=== PATIENT | male | born 1950 | race Two or more races ===

== ENCOUNTER 2024-10-02 13:22 | Outpatient (CLI) | payer OTHER, SELFPAY ==
--- OUTSIDE RECORDS SUMMARY | 2023-10-23 05:00 | XMS_ITS | Encounter Summary ---
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 This section includes the names of all active insurance providers for the patient. Insurance Provider Type of Coverage Plan Name Start of Policy Coverage End of Policy Coverage Group Number Member ID Insurance Provider's Telephone Number Policy Jim's Name Patient's Relationship to Policy Jim MEDICARE (WNR) MEDICARE (M) PART B Jun 06, 2009 PART B [id number] [phone] DAVON HICKS PATIENT MEDICARE (WNR) MEDICARE (M) PART A Jun 06, 2009 PART A [id number] [phone] DAVON HICKS PATIENT Selected Encounter This section includes the information on record at [place] for the Encounter. Date/Time Encounter Type Encounter Description Reason Provider Source Oct 23, 2023 10:00 AM OFFICE O/P NEW HI 60 MIN PRIMARY CARE/MEDICINE ICD-10-CM G47.33 Obstructive sleep apnea (adult) (pediatric) JESSI WHELAN Encounter Template Text not used by [place] Assessments - Encounter Diagnoses This section includes the primary and secondary diagnoses documented for the Encounter. Date/Time Primary/Secondary Diagnosis Diagnosis Name Provider Source Oct 24, 2023 03:15 PM PRIMARY Obstructive sleep apnea (adult) (pediatric) JESSI WHELAN CB Oct 24, 2023 03:15 PM SECONDARY Allergic rhinitis, unspecified JESSI WHELAN [facility] Oct 24, 2023 03:15 PM SECONDARY Chronic ischemic heart disease, unspecified TIP,JESSI LARIOS [facility] Oct 24, 2023 03:15 PM SECONDARY Contact with and exposure to other hazardous substances JESSI WHELAN ALEX Oct 24, 2023 03:15 PM SECONDARY Encounter for screening, unspecified JESSI WHELAN ALEX Oct 24, 2023 03:15 PM SECONDARY Essential (primary) hypertension JESSI WHELAN HARRIET JOHNSON Plan of Treatment: Future Appointments (+ 6 months) and Future Tests (+/- 45 days) The Plan of Treatment section includes future care activities for the patient from all [place] treatmentfacilities. This section includes future appointments and future orders which are active, pending or scheduled. Future Appointments This section includes appointments that were scheduled to occur 6 months from the date of the Encounter, up to a maximum of 20 appointments. The data comes from all [place] treatment facilities. Appointment Date/Time Appointment Type Appointme nt Facility Name Dec 26, 2023 09:15 AM AMBULATORY - NONE [facility] ([facility]) Vital Signs: All taken on the encounter date This section contains inpatient and outpatient Vital Signs collected on the date of the Encounter. Date/Time Temperature Pulse Blood Pressure Respiratory Rate SP02 Pain Height Weight Body Mass Index Source Oct 23, 2023 10:14 AM 129/71 OLIVER LARIOS [facility] Oct 23, 2023 10:02 AM 98.2 65 145/86 16 97 5 67 189.9 30 OLIVER LARIOS [facility] Social History: Smoking Status (Most current) and Tobacco Use (All prior to encounter date) This section includes the most current, and the historical, smoking and tobacco- related health factors from the [place] facility where the Encounter took place. Current Smoking Status This section includes the most current smoking, or tobacco-related health factor, from the [place] facility where the Encounter took place. Date/Time Current Smoking Status Juan long Oct 23, 2023 10:00 AM VA-TOBACCO QUIT 15 YRS OR MORE OLIVER LARIOS [facility] Tobacco Use History This section includes a history of the smoking, or tobacco-related health factors, that were collected on or before the date of the Encounter. The data comes from the [place] facility where the Encounter took place. Date/Time Smoking Status/Tobacco Use Comment F acility Oct 23, 2023 10:00 AM VA-TOBACCO QUIT 15 YRS OR MORE OLIVER GARCIA Advance Directives: All historical and current Section Date Range: From patient's date of to the date document was created. This section includes ALL of a patient's completed or amended VA Advance and Rescinded Directives. The entries below indicate that a directive exists for the patient, but an actual copy is not included with this document. The data comes from all [place] facilities. Date Advance Directives Provider Source Mar 29, 2003 ADVANCE DIRECTIVE TRISTON PAPPAS [facility] Encounter Notes: All associated encounter notes This section contains the clinical notes associated to the Encounter. Date/Time Encounter Note(s) Provider Source Oct 23, 2023 10:59 AM ADMINISTRATIVE NOT E: LOCAL TITLE: AFTER VISIT SUMMARY NOTE STANDARD TITLE: ADMINISTRATIVE NOTE DICT DATE: OCT 23, 2023@10:59:14 ENTRY DATE: OCT 23, 2023@10:59:14 DICTATED BY: JESSI WHELANER: URGENCY: STATUS: COMPLETED The patient was provided with a copy of an after-visit summary at the conclusion of the visit. A copy of the after-visit summary provided to the patient is available in [employer]. SCANNED DOCUMENT SIGNATURE NOT REQUIRED Electronically Filed: 10/23/2023 by: JESSI WHELAN M.D. Physician, JESSI Arellano Oct 23, 2023 10:20 AM PRIMARY CARE NOTE: LOCAL TITLE: CB PROGRESS NOTE - OLIVER LARIOS STANDARD TITLE: PRIMARY CARE NOTE DATE OF NOTE: OCT 23, 2023@10:20 ENTRY DATE: OCT 23, 2023@10:20:58 AUTHOR: JESSI WHELAN: URGENCY: STATUS: COMPLETED Assessment and Plan: #. Obstructive sleep apnea. Sleep medicine consult placed for new CPAP machine. He had a VA sleep study in the past. #. Hypertension. Managed by his non-VA provider on amlodipine 5 mg daily. #. Coronary artery disease. CABG x4 vessel in 2015. Has 9 stents. He has occasional brief chest pain, but has not needed to use his sublingual nitroglycerin. He sees a biochemistry teacher through the [facility]. He is treated with aspirin 81 mg daily, clopidogrel 75 mg daily and rosuvastatin 40 mg daily. #. Allergic rhinitis. Symptoms managed with fluticasone nasal spray, levocetirizine 5 mg daily. #. Annual healthcare maintenance. Screenings/reminders done per nurse note and per below. Return to clinic: Within 3 years as he is managed outside the [facility] Time documentation: 60 minutes total patient care time on the day of service, which included nursing and physician [id number] time with the patient (history/exam/discussion and counseling about concerns/reminders, medication reconciliation), reviewing records, ordering studies, coordinating care and documenting in the medical record. (x ) Patient/Caregiver indicates readiness to learn, verbalizes understanding, agreement and satisfaction with the treatment plan. Patient/Caregiver doesn't have any further questions today. Nurse's notes reviewed from today. JOSEPH HICKS is a 73 year old MALE here to re-establish [place] primary care at the [facility]. He was last seen through the [facility] in 2012 Co-managed care: [facility], Dr. Milan Campos. None [place] pharmacy is [facility] in [place]. HPI: Moved to [place] in 2021 from the [facility]. The patient would like a referral to the sleep medicine clinic as he needs a new CPAP machine. His was recalled. He has had low back pain and left elbow pain for over 20 years. He rates his pain a 5 out of 10 today. h/o cardiac arrest twice (while stents being put in)--his stents are plugging up but he does not need another procedure yet--biochemistry teacher at [facility] ([facility] Dr. Flores. Has occas. chest pain--has sublingual nitroglycerin but has not had to take it--he has occasional chest pain at rest or with activity that will only last for a few seconds. He has some shortness of breath with activity. No leg swelling. 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 He had a similar episode in . No history of colon polyps--had Cologuard in September and it was negative ROS: Comprehensive review of systems otherwise negative Family History: both parents had CAD--dad got stents, carotid endarterectomy -- he age 84--heart failure; mom age 87 of old age; a brother and sister have heart problems; has 8 siblings, all living Social History: started smoking age 20 and stopped 1977 (up to 4-5 packs per day); no alcohol use. . No significant other. : [employer] - 1991. Was in [facility] and exposed to chemicals Past Surgical History: right shoulder surgery (had recurrent shoulder dislocations) appendectomy partial colectomy (diverticular disease) CABG x 4 2014 ([facility]) coronary stenting (total 9 stents, 2016 twice) Active problems - Computerized Problem List is the source for the followin. JOINT PAIN-L/LEG 2. SPRAIN OF KNEE LEG NOS 3. Hypertension, Nos 4. Xerosis, Cutis 5. Dermatitis, Contact Unspec 6. Lumbar Radiculopathy 7. Tendonitis * 8. PTSD * 9. Unspecified Sleep APNEA 10. Pain, Low Back 11. Rehabilitation, Vocational * 12. OVERWEIGHT Allergies: CODEINE (Apr 20, 1996) OXYCODONE (Oct 07, 2005) HYDROCODONE & APAP (Oct 07, 2005) EXAM: VS: Temp: 98.2 F [36.8 C] (10/23/2023 10:02) BP: 129/71 (10/23/2023 10:14) Pulse:65 (10/23/2023 10:02) Resp: 16 (10/23/2023 10:02) Pain: 5 (10/23/2023 10:02) Weight: WEIGHTS IN LAST 6 MONTHS - NONE FOUND BMI: 29.8 Pulse Ox: 97% (10/23/2023 10:02) General Appearance: well-nourished, well-groomed, in no acute distress Eyes: normal conjuctiva and sclera, PERRL, EOMI HENT: normocephalic, hearing grossly normal, no nasal drainage, oral mucosa pink/moist/no lesions, no pharyngeal erythema Neck: supple, no lymphadenopathy, no thyromegaly or mass. 2+ carotid pulses. Cardiac: RRR, S1 and S2 normal, no murmurs/gallops/rubs; no lower extremity edema, no cyanosis Lungs: clear to ausculation bilateraly, normal respiratory effort Abdomen: normal bowel sounds, soft, nontender, nondistended, no hepatosplenomegaly or mass. Extremities: Moves all extremities equally Neuro: CNII-XII grossly intact. Deep tendon reflexes 2+ bilateral in biceps and patella, gait normal Skin: warm, dry, no rash or concerning skin lesions Psych: normal affect, no apparent memory problem, normal thought processing and speech production Colonoscopy GAP Reminder: Recommendations are needed in the clinical reminder system following the patient's most recent colorectal cancer screening/surveillance test (Colonoscopy, Sigmoidoscopy or CT Colonography) Average risk screening reminder set 3 years from OCT 23, 2023. Toxic Exposure Screening Follow-Up: Exposure Concern(s): 10/23/2023 Other Environmental Concerns - Toxic Exposure Concern Asbestose Follow-up Question(s): 10/23/2023 No Questions - Toxic Exposure Concern [place]/caregiver has no health or medical concerns related to their concern of environmental exposure. The following connections were provided to the /caregiver: No connections needed at this time AAA Screening: Order Ultrasound Medication Reconciliation: Education Evaluations *Was medication education provided for NEW medications or CHANGES to medications? (including medication name, dose, route, reason for use, and potential side effects). No new medications or medication changes during this encounter. TERATOGENIC MED & CONTRACEPTION REVIEW (Optional)... MEDICATION RECONCILIATION List Given: An updated medication list was provided to the patient/caregiver. Review Done: The medication list shown below was verified for accuracy and it includes all pending medications/active medications/all medications or discontinued within the last 90 days/all remote medications and non-VA medications. If a given category (i.e. remote meds) is not shown, that means that a patient doesn't have a medication(s) in that category. Allergies listed below were also reviewed/updated for accuracy. Allergies/ADR from DoD may not display in CPRS. Use JLV MRT5 - Allergies/ADRs FACILITY ALLERGY/ADR -------- [facility] CODEINE [facility] CODEINE [facility] HYDROCODONE & APAP [facility] OXYCODONE Active and Recently Outpatient Medications (including Supplies): Start Date Active Non-VA Medications Refills Expiration 1) Non-VA AMLODIPINE BESYLATE 5MG TAB Sig: ACTIVE 5MG MOUTH EVERY DAY 2) Non-VA ASPIRIN TAB SiMG MOUTH ACTIVE EVERY DAY 3) Non-VA CLOPIDOGREL BISULFATE 75MG TAB ACTIVE SiMG MOUTH EVERY DAY 4) Non-VA FLUTICASONE PROP 50MCG 120D NASAL ACTIVE INHL Si SPRAYS EACH NOSTRIL EVERY DAY 5) Non-VA LEVOCETIRIZINE DIHYDROCHLORIDE ACTIVE 5MG TAB SiMG MOUTH EVERY DAY NEEDED 6) Non-VA NITROGLYCERIN AEROSOL,SUBLINGUAL ACTIVE Si.4MG NEEDED 7) Non-VA ROSUVASTATIN CA 40MG TAB Sig: ACTIVE 40MG MOUTH AT BEDTIME /es/ JESSI WHELAN M.D. Physician, Oliver Larios [facility] Signed: 10/24/2023 15:16 JESSI WHELAN [facility] Oct 23, 2023 10:04 AM PRIMARY CARE VASU BAILEY NOTE: LOCAL TITLE: CBOC NURSING PROGRESS NOTE STANDARD TITLE: PRIMARY CARE NURSING NOTE DATE OF NOTE: OCT 23, 2023@10:04 ENTRY DATE: OCT 23, 2023@10:05:05 AUTHOR: TARA NICHOLS COSIGNER: URGENCY: STATUS: COMPLETED TYPE OF VISIT: Appointment Check In Type of appointment: In-person appointment REASON FOR VISIT: New patient ALLERGIES: CODEINE (Apr 20, 1996) OXYCODONE (Oct 07, 2005) HYDROCODONE & APAP (Oct 07, 2005) VITAL SIGNS: Blood Pressure: 145/86 (10/23/2023 10:02) Pulse: 65 (10/23/2023 10:02) Respiration: 16 (10/23/2023 10:02) Temperature: 98.2 F [36.8 C] (10/23/2023 10:02) Weight: 189.9 lb [86.14 kg] (10/23/2023 10:02) Height: 67 in [170.2 cm] (10/23/2023 10:02) BMI: 29.8 O2 Sat: 97% (10/23/2023 10:02) Pain: 5 (10/23/2023 10:02) PAIN SCREEN: Patient is having significant pain that they would like to talk to their provider about today. Old (Chronic) (began more than 6 months ago) Patient states their average pain this past week is 5 Patient states the average number on how the chronic pain affects their enjoyment of life the past week is 5 Patient states during the past week the average number on how the pain has interfered with their general activity is 5 MEDICATION Active Outpatient Medications (including Supplies): Non-VA ACETAMINOPHEN 500MG TAB 500 MG MOUTH EVERY SIX ACTIVE HOURS NEEDED Non-VA ASPIRIN 325MG TAB 325 MG MOUTH EVERY DAY ACTIVE Non-VA CALCIUM 250MG/VITAMIN D 125 UNT TAB 2 TABLETS MOUTH ACTIVE THREE TIMES A DAY Non-VA DOCUSATE NA 100MG CAP 100 MG MOUTH TWICE A DAY ACTIVE Non-VA ISOSORBIDE DINITRATE 10MG ORAL TAB 10MG MOUTH THREE ACTIVE TIMES A DAY Non-VA LISINOPRIL 5MG TAB 2.5MG MOUTH EVERY DAY ACTIVE Non-VA METOPROLOL TARTRATE 50MG TAB 25MG MOUTH TWICE A DAY ACTIVE Non-VA MULTIVITAMIN CAP/TAB 1 TABLET MOUTH EVERY DAY ACTIVE Non-VA NAPROXEN TAB MOUTH NEEDED ACTIVE Non-VA OXYCODONE 5MG TAB 5MG MOUTH EVERY FOUR HOURS ACTIVE NEEDED Non-VA SIMVASTATIN 80MG TAB 40MG MOUTH AT BEDTIME ACTIVE Non-VA ZINC GLUCONATE TAB DAILY ACTIVE Toxic Exposure Screening: The [place]/caregiver was asked if they believe the experienced any toxic exposure(s), such as Airborne Hazards and Open Burn [place], [place] War related exposures, Agent [place] Powder, Radiation, contaminated water at [place] or other such exposures, while serving in the [employer]. [place]/caregiver believes the was exposed to the following while serving in the [employer]: Other exposures: Comment: Asbestose [place]/caregiver was made aware of educational resources and printed information was offered and provided if desired. No questions at this time [place]/caregiver was informed of local points of contact. Contact information for local resources: - Veterans Benefits for claims submission: Have the call or have them visit the following web address for online scheduling: [email or web address] - VA Healthcare Enrollment: [phone] ([phone]) - Find a Aoc Plans Intelligence Officer Chief (VSO): Have the call 4-661-CLGTUDE or look up their VSO at: [email or web address]://[email or web address].org/find-[email or web address]- cvso.html - [facility] Navigators: Polly Martines, [facility] [phone] Toxic Exposure Screening Follow-Up reminder is needed. Name of person notified: Jessi Whelan MD Suicide Screen: C-SSRS Screening [place] Suicide Severity Rating Scale (C-SSRS) screener 1. Over the past month, have you wished you were or wished you could go to sleep and not wake up? No 2. Over the past month, have you had any actual thoughts of killing yourself? No 3. Over the past month, have you been thinking about how you might do this? Response not required due to responses to other questions. 4. Over the past month, have you had these thoughts and had some intention of acting on them? Response not required due to responses to other questions. 5. Over the past month, have you started to work out or worked out the details of how to kill yourself? Response not required due to responses to other questions. 6. If yes, at any time in the past month did you intend to carry out this plan? Response not required due to responses to other questions. 7. In your lifetime, have you ever done anything, started to do anything, or prepared to do anything to end your life (for example, collected pills, obtained a gun, gave away valuables, went to the roof but didn't jump)? No 8. If YES, was this within the past 3 months? Response not required due to responses to other questions. Depression Screening: Perform PHQ-2 A PHQ-2 screen was performed. The score was 0 which is a negative screen for depression. Over the past two weeks, how often have you been bothered by the following problems? 1. Little interest or pleasure in doing things Not at all 2. Feeling down, depressed, or hopeless Not at all Tobacco Pack Year History: Patient used cigarettes in the past, but quit and does not currently use them: Quit smoking GREATER THAN OR EQUAL to 15 years ago. Alcohol Use Screen (AUDIT-C): Alcohol Screen: SCREEN FOR ALCOHOL (AUDIT-C) An alcohol screening test (AUDIT-C) was negative (score=0). 1. How often did you have a drink containing alcohol in the past year? Consider a drink to be a 12 ounce can or bottle of regular beer, 8 ounces of malt liquor, a 5 ounce glass of table wine, or a 1.5 ounce shot of liquor (like scotch, gin, or vodka). Never 2. How many drinks containing alcohol did you have on a typical day when you were drinking in the past year? Response not required due to responses to other questions. 3. How often did you have six or more drinks on one occasion in the past year? Response not required due to responses to other questions. PTSD Screening: PC-PTSD-5 A PTSD screening test (PC-PTSD-5) was negative (score=0). IN THE PAST MONTH, have you ever had any experience that was so frightening, horrible or traumatic. For example: A serious accident or fire a physical or sexual assault or abuse An earthquake or flood A war Seeing someone be killed or seriously injured Having a loved one through homicide or suicide 1. Have you ever experienced this kind of event? YES 2. Had nightmares about the event(s) or thought about the event(s) when you did not want to? NO 3. Tried hard not to think about the event(s) or went out of your way to avoid situations that reminded you of the event(s)? NO 4. Been constantly on guard, watchful, or easily startled? NO 5. Luck numb or detached from people, activities, or your surroundings? NO 6. Luck guilty or unable to stop blaming yourself or others for the event(s) or any problems the event(s) may have caused? NO Influenza Immunization: The patient has received the seasonal influenza vaccine for the current season at another location. Documented: INFLUENZA, UNSPECIFIED FORMULATION Historical Date Administered: Jan 06, 2023 Outside Location: [place], [place] Information Source: FROM OTHER PROVIDER Tobacco Use Screening: The patient is a former tobacco user. The patient quit fifteen or more years ago. Homelessness/Food Insecurity Screen: In the past 2 months, have you been living in stable housing that you own, rent, or stay in as part of a household? Yes - Living in stable housing. Are you worried or concerned that in the next 2 months you may NOT have stable housing that you own, rent, or stay in as part of a household? No - Not worried about housing near future The [place] reports the following: Within the past 12 months, you worried whether your food would run out before you got money to buy more. Never true Within the past 12 months, the food you bought just didn't last and you didn't have money to get more. Never true Food Assistance Programs [facility] Food Assistance Programs [facility] Nursing Annual Screening: Fall History Screen During the past 12 months, have you had any falls? Patient does not report any falls in the past 12 months. MEDICATIONS: Patient is on one of the following medication classes: Antihypertensives, Antidepressants, Antipsychotics, Diuretics, or Controlled substance medication used for pain. Script Talk Screen Are you able to read your prescription bottles with your glasses, magnifiers or other aids? Yes or patient not taking any prescriptions. Skin Screen Patient reports any current pressure ulcers, a history of pressure ulcers, or a wound from a medical auditor or Patient is bed-confined or a wheelchair-user or Patient requires assistance to transfer/change position No, Skin Screen is Negative Home Abuse/Violence Screen Is your home free of abuse and violence? Yes Outpatient Nutrition Screen Body Mass Index (BMI)= 29.8 [place]: Collection DT Specimen Test Name Result Units Ref Range 07/11/2011 11:36 BLOOD HEMOGLOBIN A1C 5.8 % 4.0 - 6.0 [place] Hgb A1C: No data available [place] Hgb A1C: No data available Point of Care Hgb A1C: POC HGB A1C____ Is patient's BMI less than 18.5? No Does patient have swallowing, coughing, or chewing problems affecting oral intake? No Has patient experienced unplanned weight loss or gain greater than 10 pounds over the last 2 months? No Is patient's Hgb A1C (Glycosylated Hemoglobin) greater than 9.5? No Is patient receiving Total Parenteral Nutrition (TPN) or Tube Feedings? No Patient Health Education Screen BARRIERS/SPECIAL NEEDS: No barriers identified PREFERRED STYLE OF LEARNING: No preference stated Client Assistive Service (GRISEL) Screen Does the patient require assistance with outpatient visit? No COVID-19 Immunization: Refused Pfizer Monovalent COVID-19 vaccine Immunization: COVID-19 (PFIZER), MRNA, LNP-S, PF, BALTA-SUCROSE, 30 MCG/0.3 ML (AGES 12+ YEARS) Refusal Reason: PATIENT DECISION Patient refuses all immunization(s) in the COVID-19 group Date Documented: 10/23/23 10:13 /jagjit/ TED [place] CB Signed: 10/23/2023 10:14 TARA NICHOLS OC
--- OUTSIDE RECORDS SUMMARY | 2023-11-27 03:22 | XMS_ITS | Encounter Summary ---
Author Name [facility] [place] [facility] Address [address] [place] [id number] Care Team Providers Care High Tension Tester Name Role Phone JESSI WHELAN Primary Care Provider Unavailabl e Insurance Providers: [...] Policy Jim MEDICARE (WNR) MEDICARE (M) PART A Jun 06, 2009 PART A [id number] DAVON HICKS PATIENT MEDICARE (WNR) MEDICARE (M) PART B Jun 06, 2009 PART B [id number] DAVON HICKS PATIENT Selected Encounter This section includes the information on record at [place] for the Encounter. Date/Time Encounter Type Encounter Description Reason Provider Source Nov 27, 2023 08:22 AM PT EDUCATION NOC INDIVID SLEEP MEDICINE ICD-10-CM G47.33 Obstructive sleep apnea (adult) (pediatric) EMELYN PERALES E Encounter Template Text not used by [place] Assessments - Encounter Diagnoses This section includes the primary and secondary diagnoses documented for the Encounter. Date/Time Primary/Secondary Diagnosis Diagnosis Name Provider Source Nov 27, 2023 08:31 AM PRIMARY Obstructive sleep apnea (adult) (pediatric) EMELYN PERALES [facility] Plan of Treatment: Future Appointments (+ 6 months) and Future Tests (+/- 45 days) The Plan of Treatment section includes future care activities for the patient from all [place] [facility] This section includes future appointments and future orders which are active, pending or scheduled. Future Appointments This section includes appointments that were scheduled to occur 6 months from the date of the Encounter, up to a maximum of 20 appointments. The data comes from all [facility]. Appointment Date/Time Appointment Type Appointme nt Facility Name Dec 26, 2023 09:15 AM AMBULATORY - NONE [facility]) Social History: Smoking Status (Most current) and Tobacco Use (All prior to encounter date) This section includes the most current, and the historical, smoking and tobacco- related health factors from the [place] facility where the Encounter took place. Current Smoking Status This section includes the most current smoking, or tobacco-related health factor, from the [place] facility where the Encounter took place. Date/Time Current Smoking Status Comment Facil ity Oct 30, 2006 11:47 AM FORMER TOBACCO USER 7Y OR GREATE R [facility] Tobacco Use History This section includes a history of the smoking, or tobacco-related health factors, that were collected on or before the date of the Encounter. The data comes from the [place] facility where the Encounter took place. Date/Time Smoking Status/Tobacco Use Comment F acility Oct 05, 2005 01:57 AM NO TOBACCO USE [facility] Advance Directives: All historical and current Section Date Range: From patient's date of to the date document was created. This section includes ALL of a patient's completed or amended [place] Advance and Rescinded Directives. The entries below indicate that a directive exists for the patient, but an actual copy is not included with this document. The data comes from all [place] facilities. Date Advance Directives Provider Source Mar 29, 2003 ADVANCE DIRECTIVE TRISTON PAPPAS [facility] Radiology Reports: +/- 30 days of the encounter Radiology Reports For cases when an order for radiology services may have been completed prior to the date of the Encounter, the report list includes the Radiology Reports that were completed up to 30 days before dateof the Encounter. For cases when an order for radiology services may have been completed after the date of the Encounter, the report list also includes the Radiology Reports that were completed up to30 days after date of the Encounter. The data comes from all [facility]. Date/Time Radiology Report Provider Source Dec 26, 2023 09:08 AM US AORTA (P): JOSEPH HICKS [id number] -1950 M Exm Date: DEC 26, 2023@09:08 Req Phys: JESSI WHELAN Pat Loc: [facility] (Req'g Loc) Img Loc: [facility] Service: [place] [address] (Case [id number] COMPLETE) AAA SCREENING STUDY FOR ABDOMINAL(US Detailed) CPT:35626 Reason for Study: screen for AAA Clinical History: Screen for Abdominal Aortic Aneurysm. IS NOT under investigation for COVID-19 or is COVID-19 negative pt. states h/[facility] AAA [facility]--h/o smoking Responsible provider name and phone number to notify for critical findings if other than user placing the order and pager listed below: User placing orders pager: no pager LAST CREATININE____ Report Status: Verified Date Reported: DEC 26, 2023 Date Verified: DEC 26, 2023 Die Casting Supervisor E-Sig:/ES/SAL MEYER MD Report: Abdominal Aorta Ultrasound (screening) 12/26/2023 Comparison study: None Clinical history: 73-year-old male with smoking history. AAA screening. Findings: On the longitudinal view the AP diameters were as follows: Proximal (suprarenal): 2.8 cm Mid (infrarenal): 2.0 cm Distal: 1.9 cm Right YARIEL: 1.3 cm Left YARIEL: 1.4 cm Impression: 1. The infrarenal abdominal aorta is not aneurysmal. 2. The right common iliac artery is not aneurysmal. 3. The left common iliac artery is not aneurysmal. I, SAL MEYER, have reviewed the images and report. Primary Interpreting Staff: SAL MEYER MD, RADIOLOGIST (Die Casting Supervisor) Primary Interpreting Resident: Caprice SCHILLING, YOUTH LEADER /SAL BHAT [facility] Encounter Notes: All associated encounter notes This section contains the clinical notes associated to the Encounter. Date/Time Encounter Note(s) Provider Source Nov 27, 2023 08:22 AM SLEEP MEDICINE NOT E: LOCAL TITLE: SLEEP MEDICINE NOTE STANDARD TITLE: SLEEP MEDICINE NOTE DATE OF NOTE: NOV 27, 2023@08:22 ENTRY DATE: NOV 27, 2023@08:22:43 AUTHOR: EMELYN PERALES EXP COSIGNER: URGENCY: STATUS: COMPLETED [facility] [address] [place] [address] Nov JOSEPH HICKS [address] [facility] [id number] Dear : I am writing to inform you that I registered your [employer] CPAP [id number] for the [employer] cpap recall. Thank you for registering your affected device. Your confirmation code is: [id number] Please keep hold of your confirmation code as you will need it to access the Patient Portal, and if you need to reach out to [employer] during the remediation process. What to expect next: We regret that it may take some time to replace affected devices. We understand the impact of this issue and we sincerely regret this disruption. We encourage you to regularly check our Patient Portal, where you can take any necessary action based on your registered affected device type, input important information as necessary, and check the status of your replacement device. In many cases, without information or consent from you provided in the Patient Portal, we cannot ship your replacement device After your registration is completed, please allow 3 business days to gain access to the Patient Portal. If you experience any technical issues with the Patient Portal, please call [phone]. Need additional support? We understand that you may have questions about the remediation process or need additional support once you have received your replacement device. Please visit our contact and support page, to help connect you to the right support team based on the information you need. Thank you. Please contact the [facility] sleep clinic with the SERIAL NUMBER of your replacement device at [phone]. Please mail back your previous recalled machine with the provided fedex shipping label Sincerely, [facility] /jagjit/ EMELYN PERALES registered respiratory therapist Signed: 11/27/2023 08:31 EMELYN PERALES [facility]
--- OUTSIDE RECORDS SUMMARY | 2024-09-02 12:14 | XMS_ITS | Encounter Summary ---
Author Organization [facility] Address [address] [place] [address] Care Team Providers Care Industrial Chemist Name Role Phone Milan Campos D.O. Primary Care Provider [phone] Reason for Visit * Reason Comments Chest Pain Left sided chest yuliya n 6/10, worse with lying down and associated with SOB. CP is present both with activity and rest, improved with sitting upright. Pain has been intermittent for 4 days. Hx CABG 2014. Show Host is at [facility]. Encounter Details Date Type Department Care Team (Late st Contact Info) Description 09/02/2024 12:14 PM CDT - 09/02/2024 8:00 PM CDT Emergency [facility] [address] [place] [phone] Vance Perez, P.A.-C., P.A. [address] [phone] Angina Unstable (HCC) (Primary Dx) Discharge Disposition: Acute Care Hospital Social History Tobacco Use Types Packs/Day Years Used Date Smoking Tobacco: Former Cigarettes Alcohol Use Standard Drinks/Week Comments Not Currently 0 (1 standard drink = 0.6 oz pur e alcohol) [facility] Utilities Answer Date Recorded In the past 12 months has [employer], gas, oil, or water company threatened to shut off services in your home? No 09/02/2024 Humiliation, Afraid, Rape, and Kick questionnair e Answer Date Recorded Within the last year, have y ou been afraid of your partner or ex-partner? No 09/02/2024 Within the last year, have y ou been humiliated or emotionally abused in other ways by your partner or ex-partner? No Within the last year, have y ou been kicked, hit, slapped, or otherwise physically hurt by your partner or ex-partner? No 09/02/2024 Within the last year, have y ou been raped or forced to have any kind of sexual activity by your partner or ex-partner? No 09/02/2024 Hunger Vital Sign Answer Date Recorded Within the past 12 months, y ou worried that your food would run out before you got the money to buy more. Never true 09/03/19 Within the past 12 months, t he food you bought just didn't last and you didn't have money to get more. Never true 09/02/2024 PRAPARE - Transportation Answer Date Re corded In the past 12 months, has l ack of transportation kept you from medical appointments or from getting medications? No 08/07 In the past 12 months, has l ack of transportation kept you from meetings, work, or from getting things needed for daily living? No 09/02/2024 Housing Stability Answer Date Recorded What is your living situation today? I have a [facility] place to live 09/02/2024 Sex and Gender Information Value Date Recorded Sex Assigned at Male 08/15/2023 11:17 AM CDT Legal Sex Male 1:11 PM CDT Gender Identity Male 08/15/2023 11:17 AM CDT Sexual Orientation Straight 08/15/2023 11 :17 AM CDT documented as of this encounter Last Filed Vital Signs Vital Sign Reading Time Taken Comments Blood Pressure 121/86 09/02/2024 7:30 PM CDT Pulse 59 09/02/2024 7:45 PM CDT Temperature 36.5 C (97.7 F) 09/02/2024 12:21 PM CDT Respiratory Rate 22 09/02/2024 7:4 5 PM CDT Oxygen Saturation 97% 09/02/2024 7:45 PM CDT Inhaled Oxygen Concentration - - Weight 92.5 kg (203 lb 14.8 oz) 025 12:22 PM CDT Height - - Body Mass Index 31.63 09/10/2023 11:14 AM CDT documented in this encounter Medications at Time of Discharge aspirin 81 mg chewable tablet Chew 81 mg daily. clopidogreL (PLAVIX) 75 mg tablet Take 1 tablet (75 mg total) by mouth daily. 30 tablet 07/30/2023 10:18 AM CDT 08/08/2023 fluticasone propionate (Flonase) 50 mcg/actuation nasal spray INSTILL 2 SPRAYS IN EACH NOSTRIL EVERY DAY 48 g 3 07/27/2024 levocetirizine (Xyzal) 5 mg tablet take one tablet by mouth in the evening 90 tablet 3 01/29/2024 losartan (Cozaar) 25 mg tablet Take 1 tablet (25 mg total) by mouth daily. 30 tablet 09/05/2024 6 nitroglycerin (Nitrostat) 0.[address] 1 tablet (0.4 mg total) under the tongue every 5 (five) minutes as needed for chest pain. 25 tablet 11 09/04/2024 pantoprazole (Protonix) 40 mg EC tablet Take 1 tablet (40 mg total) by mouth daily before morning meal. 30 tablet 09/04/2024 rosuvastatin (CRESTOR) 40 mg tablet Take 40 mg by mouth daily. 11/07/2021 spironolactone (Aldactone) 25 mg tablet Take 1 tablet (25 mg total) by mouth daily. 30 tablet 11 09/05/2024 6 amLODIPine (NORVASC) 5 mg tablet Take 5 mg by mouth daily. 10/17/2021 5 isosorbide mononitrate (Imdur) 30 mg 24 hr tablet Take 1 tablet (30 mg total) by mouth daily. 30 tablet 11 09/05/2024 5 loratadine (CLARITIN) 10 mg tablet Take 1 tablet by mouth daily as needed for allergies or rhinitis. 08/31/2021 5 nitroglycerin (NITROSTAT) 0.[address] 0.4 mg under the tongue every 2 (two) hours as needed for chest pain. 11/18/2015 5 ondansetron ODT (ZOFRAN-ODT) 4 mg disintegrating tablet Dissolve 1 tablet (4 mg total) in the mouth every 8 (eight) hours as needed for nausea or vomiting. 20 tablet 07/16/2023 5 documented as of this encounter Procedure Notes * Vance Peerz P.A.-C., P.A. - 09/02/2024 4:15 PM CDTAssociated Order(s): Critical Care Procedure Critical Care Performed by: Vance Perez P.A.-C., P.A. Authorized by: Vance Perez P.A.-C., P.A. Critical care provider statement: Critical care total time (minutes): 30 Critical care time was exclusive of: separately billable procedures and treating other patients Critical care was necessary to treat or prevent imminent or life-threatening deterioration of the following conditions: cardiac failure (unstable angina) Critical care was time spent personally by me on the following activities: development of treatment plan with patient or surrogate, documenting in the patient chart, evaluation of patient's response to treatment, examination of patient, review of old charts, re-evaluation of patient's condition, pulse oximetry, ordering and review of radiographic studies, ordering and review of laboratory studies, ordering and performing treatments and interventions, obtaining history from patient or surrogate and discussions with consultants Vance Perez P.A.-C., P.A. 09/02/24 1615 documented in this encounter ED Notes * Vance Perez P.A.-C., P.A. - 09/02/2024 12:20 PM CDT SUBJECTIVE CHIEF COMPLAINT/REASON FOR VISIT Chest Pain (Left sided chest pain 6/10, worse with lying down and associated with SOB. CP is present both with activity and rest, improved with sitting upright. Pain has been intermittent for 4 days.Hx CABG 2014. Show Host is at [facility]. ) HISTORY OF PRESENT ILLNESS History provided by: Patient and medical records Aroldo Chen is a 74 y.o. male with a past medical history hypertension, CHF, fatty liver, aortocoronary bypass graft, a flutter, presents to the ED today for chest pain, left arm pain. REVIEW OF SYSTEMS OBJECTIVE Initial Vitals Temperature 09/02/24 1221 36.5 ??C Pulse Rate 09/02/24 1215 70 Heart Rate 09/02/24 1215 72 Resp Rate 09/02/24 1221 17 Blood Pressure 09/02/24 1215 (!) 149/126 SpO2 09/02/24 1215 97 % Pain Score 09/02/24 1223 6 PHYSICAL EXAMINATION Constitutional: Nursing note and vitals reviewed. No distress. Patient in no acute distress, nontoxic appearing, not diaphoretic. HENT: Head: Normocephalic and atraumatic. No signs of injury. Cardiovascular: Normal rate, regular rhythm and normal heart sounds. Pulses are palpable. Capillaryrefill: takes less than 3 seconds Cardiac auscultation benign, pulses intact in all extremities, cap refill less than 3 seconds. Skinwarm and well-perfused. Pulmonary/Chest: Effort normal and breath sounds normal. No tachypnea. No respiratory distress. He has no wheezes. He has no rhonchi. He has no rales. Pulmonary auscultation benign, lungs clear Abdominal: Soft. There is no abdominal tenderness. There is no rebound and no guarding. Abdomen nontender especially in the epigastric region. Musculoskeletal: General: Normal range of motion. Cervical back: Normal range of motion. Neurological: Alert and oriented to person, place, and time. Normal speech. Skin: Skin is dry, intact and normal color. No rash (No rash on exposed skin) noted. He is not diaphoretic. ASSESSMENT/PLAN Aroldo Chen is a 74 y.o. male who presents to the emergency department with Chest Pain (Left sidedchest pain 6/10, worse with lying down and associated with SOB. CP is present both with activity and rest, improved with sitting upright. Pain has been intermittent for 4 days. Hx CABG 2014. Show Host is at [facility]. ). Patient presents to the ED today with concerns of left-sided chest pain, 09/15, states it 1st started about 4 days ago. Patient states it is worse with lying down and he does have some shortness of breath with it. Patient states the chest pain radiates across the chest, down both arms but no numbness or tingling down the arms. Patient states this feels the same as his previous ACS events where he needed stenting and CABG, he denies any diaphoresis, nausea or vomiting, does not feel short of breath at this time although he did a couple of days ago, denies pleuritic pain but does note left-sided chest heaviness, seems to be worse with activity. Patient states most recent CABG was back in 2014 or 2016, states he has also had multiple stents placed. He denies any fevers, chills, cough, diaphoresis, nausea, vomiting, epigastric pain, back pain or flank pain, no chest pain going straight through to the back, no worsening with oral intake, and otherwise denies any other complaints. No anticoagulants on file. Physical exam is fairly unremarkable as pulses are intact in all extremities, cap refill less than 3 seconds, skin warm and well-perfused, patient is alert and oriented and in no acute distress, nontoxic appearing but isn't comfortable appearing. He is not diaphoretic. Rest of the exam unremarkable, abdomen benign, lungs clear, cardiac auscultation benign. Vitals are stable, no hypotension or tachycardia, no tachypnea and satting well on room air. Differential Diagnosis: Includes but isn't limited to ACS, PE, pneumonia, CHF exacerbation, COPD exacerbation, arrhythmia, among others. See ED course for comments on workup, evaluation, treatment and interventions, consultations, finaldisposition. Chronic illnesses impacting care coronary artery disease, previous CABG, previous cardiac stenting,hypertension Social determinants impacting care none Consulted providers cardiology Prescriptions and tests considered but not performed: None indicated Decision to escalate care/hospitalization: Patient admitted to [facility] PCU ED Course as of 09/02/24 2154 SatSeptember 02, 2024 1221 ECG 12 Lead ECG shows 71 beats per minute, sinus rhythm with premature ventricular complexes, bifascicular block present, no STEMI criteria, patient did have bifascicular block on ECG from 07/16/2023. No recent ECGs to compare to otherwise. 1252 Hemoglobin: 15.9 No anemia 1252 Hematocrit: 44.5 1252 Leukocytes: 6.6 No leukocytosis 1252 Neutrophils: 3.77 1252 INR: 1.0 1252 DX Chest Portable 1 View IMPRESSION: Comparison radiographs 07/17/2023. Stable cardiac size and mediastinal contours with postop changes from median sternotomy and bypass grafting. Pulmonary vascularity appears within normal limits. No focal pneumonic consolidation. No evidence of pneumothorax or pleural effusion. Degenerative changes within the spine and shoulder girdles. 1255 Patient states he has had chest pain for 4 days now, ran out of nitro at home, chest pain has worsened over the last 4 days, feels similar to his previous heart attacks when he has needed stenting and bypass graft. 1255 Patient denies any sildenafil, has not taken any nitro today, we will give nitro given blood pressures are stable. 1258 D-DIMER, P: <220 Negative, PE unlikely. 1301 Magnesium, P: 1.8 Unremarkable 1301 Potassium, P: 3.8 Electrolytes benign 1301 Sodium, P: 138 1301 Chloride, P: 101 1301 Bicarbonate, P: 24 1301 Anion Gap, P: 13 Anion gap benign 1301 Creatinine: 0.96 No Acute kidney injury 1301 Glucose, P(!): 171 Minimally elevated, no associated bicarb abnormalities or anion gap elevation 1301 Aspartate Aminotransferase (AST), P(!): 82 Minimal elevation 1301 Alkaline Phosphatase, P: 73 No other LFT abnormalities 1301 Bilirubin, Total, P: 0.8 No associated bilirubin abnormality 1305 Troponin T, Baseline, 5th gen: 13 Initial troponin negative 1315 NT-Pro BNP: 120 1344 Blood pressure improved after initial nitroglycerin. 1511 2H Delta Interp: Not Changing 2 hour delta not changing, patient does still endorse left-sided chest pain, feels the same as whenhe had a previous heart attack and stenting, we will discuss with Cardiology even with negative troponins. 1515 Patient's chest pain improved to a 2/10 with nitro, they did drop his blood pressure so we will avoid this, his chest pain is now back to a 5 or 6/10. Given his significant cardiac history we will discuss with Cardiology. 1521 Dr. Rodrigues, cardiology, he agrees this patient needs inpatient ischemic workup, no Plavix, doesrecommended heparin 1534 ATC RN Demi, contacted for transfer this patient. 1609 Dr. Day, HIM[facility]. Final Diagnoses: as of 09/02/242153 Angina Unstable (HCC) Vance Perez P.A.-C., P.A. 09/02/242156 documented in this encounter Plan of Treatment Not on file documented as of this encounter Procedures Procedure Name Priority Date/Time Associated Diagnosis Comments CRITICAL CARE Routine 09/02/2024 4:15 PM CDT ECG STAT 09/02/2024 3:25 PM CDT TROPONIN T, 2H/6H REFLEX, 5TH GEN, P Timed 09/02/2024 2:45 PM CDT ECG STAT 09/02/2024 1:11 PM CDT DX CHEST PORTABLE 1 VIEW RAD - Semiurgent (Fast; most ED patients; some inpatients) 09/02/2024 12:36 PM CDT TROPONIN T, BASELINE, 5TH GEN, P STAT 09/02/2024 12:31 PM CDT NT-PRO B-TYPE NATRIURETIC PEPTIDE (BNP), S STAT 09/02/2024 12:31 PM CDT ACTIVATED PARTIAL THROMBOPLASTIN TIME (APTT), P STAT 09/02/2024 12:31 PM CDT PROTHROMBIN TIME (PT), P STAT 09/02/2024 12:31 PM CDT D-DIMER, P STAT 09/02/2024 12:31 PM CDT CBC WITH DIFFERENTIAL, B STAT 09/02/2024 12:31 PM CDT MAGNESIUM, S STAT 09/02/2024 12:31 PM CDT COMPREHENSIVE METABOLIC PANEL, S/P STAT 09/02/2024 12:31 PM CDT ECG STAT 09/02/2024 12:17 PM CDT documented in this encounter Results * Critical Care (09/02/2024 4:15 PM CDT) Narrative Vance Perez P.A.-C., P.A. - 09/02/2024 4:15 PM CDT Vance Perez P.A.-C., P.A. 09/02/2024 4:15 PM Critical Care Performed by: Vance Perez P.A.-C., P.A. Authorized by: Vance Perez P.A.-C., P.A. Critical care provider statement: Critical care total time (minutes): 30 Critical care time was exclusive of: separately billable procedures and treating other patients Critical care was necessary to treat or prevent imminent or life-threatening deterioration of the following conditions: cardiac failure (unstable angina) Critical care was time spent personally by me on the following activities: development of treatment plan with patient or surrogate, documenting in the patient chart, evaluation of patient's response to treatment, examination of patient, review of old charts, re-evaluation of patient's condition, pulse oximetry, ordering and review of radiographic studies, ordering and review of laboratory studies, ordering and performing treatments and interventions, obtaining history from patient or surrogate and discussions with consultants us Vance ePrez P.A.-C., P.A. PROCEDUR E/MINOR SURGICAL ORDERABLES Edited Result - Final * ECG 12 Lead (09/02/2024 3:25 PM CDT) Ventricular Rate ECG/Min 56 BPM MUSE [place] Interval 192 ms MUSE QRSD Interval 140 ms MUSE QT Interval 464 ms MUSE QTC Interval 447 ms MUSE P Lorraine 22 degrees MUSE R Lorraine -42 degrees MUSE T Wave [place]raine 7 degrees MUSE 09/02/2024 3:25 PM CDT 09/02/2024 3:39 PM CDT Impressions MUSE - 09/02/2024 3:39 PM CDT Sinus bradycardia Left axis deviation Right bundle branch block When compared with ECG of 02-Sep-2024 13:11, Premature ventricular complexes are no longer present QT has shortened Reviewed by JAMEL Calabrese Narrative Procedure Note Claude Borja M.D. - 09/02/2024 IMPRESSION: Sinus bradycardia Left axis deviation Right bundle branch block When compared with ECG of 02-Sep-2024 13:11, Premature ventricular complexes are no longer present QT has shortened Reviewed by JAMEL Calabrese us Chance Andrae Perez P.A.-C., P.A. ECG ORDERABLES Final Result Performing Organization Address City/[facility] Co de Phone Number MUSE NA * Troponin T, 2 Hour with 6 Hour Reflex, 5th Gen (09/02/2024 2:45 PM CDT) Troponin T, 2 hr, 5th gen 11 <=15 ng/L 09/02/2024 3:07 PM CDT [facility] 2H Delta -2 ng/L 09/02/2024 3:07 PM CDT [facility] Comment:6 hour collection no t indicated. 2H Delta Interp Not Changing 09/02/2024 3:07 PM CDT [facility] Blood 09/02/2024 2:45 PM CDT 09/02/2024 2:47 PM CDT us Chance Andrae Perez P.A.-C., P.A. LAB BLOOD TROPON IN Final Result [facility] [address] [place] [address], [place] [facility] - [facility] [address] [place] [address] * ECG 12 Lead (09/02/2024 1:11 PM CDT) Ventricular Rate ECG/Min 75 BPM MUSE [place] Interval 174 ms MUSE QRSD Interval 134 ms MUSE QT Interval 454 ms MUSE QTC Interval 506 ms MUSE P Lorraine 17 degrees MUSE R Lorraine -61 degrees MUSE T Wave Lorraine 18 degrees MUSE 09/02/2024 1:11 PM CDT 09/02/2024 1:18 PM CDT Impressions MUSE - 09/02/2024 1:18 PM CDT Sinus rhythm Premature ventricular complexes Right bundle branch block with secondary ST-T abnormalities Left anterior fascicular block Bifascicular block Prolonged QT When compared with ECG of 02-Sep-2024 12:17, QT has lengthened Reviewed by JAMEL Chavis Narrative Procedure Note Claude Borja M.D. - 09/02/2024 IMPRESSION: Sinus rhythm Premature ventricular complexes Right bundle branch block with secondary ST-T abnormalities Left anterior fascicular block Bifascicular block Prolonged QT When compared with ECG of 02-Sep-2024 12:17, QT has lengthened Reviewed by JAMEL Chavis us Chance Andrae Perez P.A.-C., P.A. ECG ORDERABLES Final Result MUSE NA * DX Chest Portable 1 View (09/02/2024 12:36 PM CDT) Anatomical Region Laterality Modality Chest, Thoracic RST LOS, Tho racic ARZ LOS, Thoracic FLA LOS N/A Digital Radiography Impressions 09/02/2024 12:48 PM CDT Comparison radiographs 07/17/2023. Stable cardiac size and mediastinal contours with postop changes from median sternotomy and bypass grafting. Pulmonary vascularity appears within normal limits. No focal pneumonic consolidation. No evidence of pneumothorax or pleural effusion. Degenerative changes within the spine and shoulder girdles. Narrative 09/02/2024 12:48 PM CDT EXAM: DX CHEST PORTABLE 1 VIEW Procedure Note Modesto Cartwright M.D. - 09/02/2024 EXAM: DX CHEST PORTABLE 1 VIEW IMPRESSION: Comparison radiographs 07/17/2023. Stable cardiac size and mediastinalcontours with postop changes from median sternotomy and bypass grafting.Pulmonary vascularity appears within normal limits. No focal pneumonicconsolidation. No evidence of pneumothorax or pleural effusion. Degenerative changes within the spineand shoulder girdles. us Chance Andrae Perez P.A.-C., P.A. IMG DIAGNOSTIC I MAGING PROCEDURES Final Result * APTT (Activated Partial Thromboplastin Time) (09/02/2024 12:31 PM CDT) Pathologist [facility] Activated Partial Thrombopl Time, P 34 25 - 37 sec 09/02/2024 4:03 PM CDT [facility] Blood (Blood, Venous) 09/02/2024 12:31 PM CDT 09/02/2024 3:55 PM CDT us Chance Andrae Perez P.A.-C., P.A. LAB BLOOD ADD-ON Final Result Performing Organization Address [facility]/ZIP Co de Phone Number [facility] [address] Lab - [facility] [address] [place] [address] * Magnesium (09/02/2024 12:31 PM CDT) Pathologist [facility] Magnesium, P 1.8 1.7 - 2.3 mg/dL 09/02/2024 1:00 PM CDT [facility] Blood (Blood, Venous) 09/02/2024 12:31 PM CDT 09/02/2024 12:39 PM CDT us Chance Andrae Perez P.A.-C., P.A. LAB BLOOD ADD-ON Final Result Performing Organization Address [facility]/ZIP Co de Phone Number [facility] [address] Lab - [facility] [address] [address] * D-Dimer (09/02/2024 12:31 PM CDT) D-Dimer, P <220 <=500 ng/mL FEU 09/02/2024 12:57 PM CDT [facility]UST Comment: ----ADDITIONAL INFORMATION---- D-dimer values less than or equal to 500 ng/mL fibrinogen equivalent units (FEU) may be used in conjunction with clinical pre-test probability to exclude deep vein thrombosis (DVT) and/or pulmonary embolism (PE). Blood (Blood, Venous) 09/02/2024 12:31 PM CDT 09/02/2024 12:40 PM CDT us Chance Andrae Perez P.A.-C., P.A. LAB BLOOD ADD-ON Final Result Performing Organization Address [facility] Co de Phone Number [facility] [address] [place] [address], [facility] [place] [facility] - [address] [address] * NT-Pro B-Type Natriuretic Peptide (BNP) (09/02/2024 12:31 PM CDT) Pathologist [facility] NT-Pro BNP 120 <=540 pg/mL 09/02/2024 1:14 PM CDT [facility]UST Comment: NT-proBNP values less than 300 pg/mL have a 99% negative predictive value for excluding acute congestive heart failure. A cutoff of 1200 pg/mL for patients with an eGFR<60 yields a diagnostic sensitivity and specificity of 89% and 72% for acute congestive heart failure. A diagnostic NT-proBNP cutoff of 900 pg/mL has been suggested in adults 50-75 years of age in the absence of renal failure. Blood (Blood, Venous) 09/02/2024 12:31 PM CDT 09/02/2024 12:39 PM CDT us Chance Andrae Perez P.A.-C., P.A. LAB BLOOD ADD-ON Final Result Performing Organization Address [facility]/ZIP Co de Phone Number [facility] [address] [place], [place] [id number] [place] [address] Lab - [facility] [address] [place] [address] * Troponin T, Baseline with 2 Hour/6 Hour Reflex Biomarker Panel (09/02/2024 12:31 PM CDT) Troponin T, Baseline, 5th gen 13 <=15 ng/L 09/02/2024 1:04 PM CDT [facility] Blood (Blood, Venous) 09/02/2024 12:31 PM CDT 09/02/2024 12:40 PM CDT us Chance Andrae Perez P.A.-C., P.A. LAB BLOOD TROPON IN Final Result Performing Organization Address City/[facility]/ZIP Co de Phone Number [facility] [address] [place], [place] [id number] [place] [address] Lab - [facility] [address] [place] [address] * Prothrombin Time (PT) (09/02/2024 12:31 PM CDT) Prothrombin Time, P 11.4 9.4 - 12.5 sec 09/02/2024 12:51 PM CDT [facility] INR 1.0 0.9 - 1.1 09/02/2024 12:51 PM CDT [facility] Comment: ----ADDITIONAL INFORMATION---- Standard intensity warfarin therapeutic range: 2.0 to 3.0 High intensity warfarin therapeutic range: 2.5 to 3.5 Blood (Blood, Venous) 09/02/2024 12:31 PM CDT 09/02/2024 12:40 PM CDT us Chance nAdrae Perez P.A.-C., P.A. LAB BLOOD ADD-ON Final Result [facility] [address] [place] [address], [facility] Lab - [facility] [address] [place] [address] * (ABNORMAL) Comprehensive Metabolic Panel (09/02/2024 12:31 PM CDT) Potassium, P 3.8 3.6 - 5.2 mmol/L 09/02/2024 1:00 PM CDT [facility] Sodium, P 138 135 - 145 mmol/L 09/02/2024 1:00 PM CDT [facility] Chloride, P 101 98 - 107 mmol/L 09/02/2024 1:00 PM CDT [facility] Bicarbonate, P 24 22 - 29 mmol/L 09/02/2024 1:00 PM CDT [facility] Anion Gap, P 13 7 - 15 09/02/2024 1:00 PM CDT [facility] BUN (Blood Urea Nitrogen), P 13 8 - 24 mg/dL 09/02/2024 1:00 PM CDT [facility] Creatinine 0.96 0.74 - 1.35 mg/dL 09/02/2024 1:00 PM CDT [facility] Estimated GFR (eGFR) 83 >=60 mL/min/BS A 09/02/2024 1:00 PM CDT [facility] Comment: Estimated GFR calculated using the 2020 CKD_EPI creatinine equation. Calcium, Total, P 9.8 8.8 - 10.2 mg/dL 09/02/2024 1:00 PM CDT [facility] Glucose, P 171(H) 70 - 140 mg/dL 09/02/2024 1:00 PM CDT [facility] Protein, Total, P 7.7 6.3 - 7.9 g/dL 09/02/2024 1:00 PM CDT [facility] Albumin, P 4.4 3.5 - 5.0 g/dL 09/02/2024 1:00 PM CDT [facility] Aspartate Aminotransferase (AST), P 82(H) 8 - 48 U/L 09/02/2024 1:00 PM CDT [facility] Alkaline Phosphatase, P 73 40 - 129 U/L 09/02/2024 1:00 PM CDT [facility] Alanine Aminotransferase (ALT), P 51 7 - 55 U/L 09/02/2024 1:00 PM CDT [facility] Bilirubin, Total, P 0.8 0.0 - 1.2 mg/dL 09/02/2024 1:00 PM CDT [facility] Blood (Blood, Venous) 09/02/2024 12:31 PM CDT 09/02/2024 12:39 PM CDT us Chance L Chris Forte PJagdeepA. LAB BLOOD ADD-ON Final Result [facility] [address] [place] [address], [facility] - [facility] [address] [place] [address] * CBC with Differential, Blood (09/02/2024 12:31 PM CDT) Hemoglobin 15.9 13.2 - 16.6 g/dL 09/02/2024 12:51 PM CDT [facility] Hematocrit 44.5 38.3 - 48.6 % 09/02/2024 12:51 PM CDT [facility] Erythrocytes 5.13 4.35 - 5.65 x10(12)/L 09/02/2024 12:51 PM CDT [facility] MCV 86.7 78.2 - 97.9 fL 09/02/2024 12:51 PM CDT [facility] RBC Distrib Width 12.7 11.8 - 14.5 % 09/02/2024 12:51 PM CDT [facility] Platelet Count 245 135 - 317 x10(9)/L 09/02/2024 12:51 PM CDT [facility] Leukocytes 6.6 3.4 - 9.6 x10(9)/L 09/02/2024 12:51 PM CDT [facility] Neutrophils 3.77 1.56 - 6.45 x10(9)/L 09/02/2024 12:51 PM CDT [facility] Lymphocytes 2.20 0.95 - 3.07 x10(9)/L 09/02/2024 12:51 PM CDT [facility] Monocytes 0.42 0.26 - 0.81 x10(9)/L 09/02/2024 12:51 PM CDT [facility] Eosinophils 0.17 0.03 - 0.48 x10(9)/L 09/02/2024 12:51 PM CDT [facility] Basophils 0.04 0.01 - 0.08 x10(9)/L 09/02/2024 12:51 PM CDT [facility] Blood (Blood, Venous) 09/02/2024 12:31 PM CDT 09/02/2024 12:40 PM CDT us Chance Andrae Perez P.A.-C., P.A. LAB BLOOD ADD-ON Final Result Performing Organization Address City/[facility]/ZIP Co de Phone Number [facility] [address] [place] [address], [facility] - [facility] [address] [place] [address] * ECG 12 Lead (09/02/2024 12:17 PM CDT) Ventricular Rate ECG/Min 71 BPM MUSE [place] Interval 174 ms MUSE QRSD Interval 136 ms MUSE QT Interval 444 ms MUSE QTC Interval 482 ms MUSE P [place] 26 degrees MUSE R [place] -47 degrees MUSE T Wave [place] 18 degrees MUSE 09/02/2024 12:1 7 PM CDT 09/02/2024 1:09 PM CDT Impressions MUSE - 09/02/2024 1:09 PM CDT Sinus rhythm Premature ventricular complexes 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 ECG ORDERABLES Final Result MUSE NA documented in this encounter Visit Diagnoses Diagnosis Angina Unstable (HCC)- Primary documented in this encounter Administered Medications Inactive Administered Medications - up to 3 most recent administrations Medication Order MAR Action Action Date Dose Rate Site aspirin chewable tablet 324 mg 324 mg, oral, Once, On Sat09/02/24 at 1221, For 1 dose Given 09/02/2024 12:35 PM CDT 243 mg fentaNYL injection 75 mcg (Sublimaze) 75 mcg, intravenous, Every 15 min PRN, severe pain or score 7-10 of 10, Starting on Sat09/02/24 at 1516, For 3 doses Given 09/02/2024 3:35 PM CDT 75 mcg heparin (porcine) 1,000 unit/mL injection 2,800 Units 2,800 Units (rounded from 2,775 Units = 30 Units/kg 92.5 kg Dosing weight), intravenous, As needed, antiXa 0.1-0.19, Starting on Sat09/02/24 at 1534, Intensity type: Moderate, Anti-Xa < 0.1: Loading Dose (Units/kg): 60, Anti-Xa 0.1-0.19: Loading Dose (Units/kg): 30, Anti-Xa > 0.19: Loading Dose (Units/kg): 0 heparin (porcine) 1,000 unit/mL injection 5,600 Units 5,600 Units (rounded from 5,550 Units = 60 Units/kg 92.5 kg Dosing weight), intravenous, Once, On Sat09/02/24 at 1535, For 1 dose, Initial Loading Dose Given 09/02/2024 3:50 PM CDT 5,600 Units heparin (porcine) 1,000 unit/mL injection 5,600 Units 5,600 Units (rounded from 5,550 Units = 60 Units/kg 92.5 kg Dosing weight), intravenous, As needed, antiXa less than 0.1, Starting on Sat09/02/24 at 1534, Intensity type: Moderate, Anti-Xa < 0.1: Loading Dose (Units/kg): 60, Anti-Xa 0.1-0.19: Loading Dose (Units/kg): 30, Anti-Xa > 0.19: Loading Dose (Units/kg): 0 heparin (porcine) 100 Units/mL in NaCl 0.45% 250 mL infusion 1-30 Units/kg/hr 92.5 kg Dosing weight (0.925-27.75 mL/hr, rounded to 0.93-27.75 mL/hr), intravenous, Continuous, Starting on Sat09/02/24 at 1535, 25,000 Units in 250 mL, Intensity type: Moderate, Starting Dose (units/kg/hr): 12, Anti-Xa < 0.1: Adjust Dose (Units/kg/hr) by: 4, Anti-Xa < 0.1: Loading Dose (Units/kg): 60, Anti-Xa < 0.1: Repeat anti-Xa: 6 hours, Anti-Xa 0.1-0.19: Adjust Dose (Units/kg/hr) by: 2, Anti-Xa 0.1-0.19: Loading Dose (Units/kg): 30, Anti-Xa 0.1-0.19: Repeat anti-Xa: 6 hours, Anti-Xa 0.2-0.5: Adjust Dose (Units/kg/hr) by: 0, Anti-Xa 0.2-0.5: Repeat anti-Xa: 6 hours. If two consecutive therapeutic result, re-check next AM., Anti-Xa > 0.19: Loading Dose (Units/kg): 0, Anti-Xa 0.51-0.6: Adjust Dose (Units/kg/hr) by: -1, Anti-Xa 0.51-0.6: Repeat anti-Xa: 6 hours, Anti-Xa 0.61-0.9: Hold Infusion: Stop infusion for 1 hour, Anti-Xa 0.61-0.9: Adjust Dose (Units/kg/hr) by: -2, Anti-Xa 0.61-0.9: Repeat anti-Xa: 6 hours after Heparin resumed, Anti-Xa 0.91-1.5: Hold Infusion: Stop infusion for 2 hours, Anti-Xa 0.91-1.5: Adjust Dose (Units/kg/hr) by: -4, Anti-Xa 0.91-1.5: Repeat anti-Xa: 6 hours after Heparin resumed, Anti-Xa > 1.5: Hold Infusion: Stop infusion until anti-Xa < 1.2, Anti-Xa > 1.5: Adjust Dose (Units/kg/hr) by: -4, Anti-Xa > 1.5: Repeat anti-Xa: every 2 hours until anti-Xa less than 1.2 Rate/Dose Verify 09/02/2024 7:26 PM CDT 12 Units/kg/hr 11.1 mL/hr New Bag 09/02/2024 3:50 PM CDT 12 Units/kg/hr 11.1 mL/h r NaCl 0.9 % bolus 500 mL 500 mL, intravenous, at 500 mL/hr, Administer over 1 Hours, Once, On Sat09/02/24 at 1316, For 1 dose New Bag 09/02/2024 1:20 PM CDT 500 mL 500 mL/hr nitroglycerin SL tablet 0.4 mg (Nitrostat) 0.4 mg, sublingual, Every 5 min PRN, chest pain, Starting on Sat09/02/24 at 1243, For 3 doses, May administer up to 3 doses per episode. Dissolve under the tongue. Do NOT crush, chew, split or swallow tablet. Given 09/02/2024 1:05 PM CDT 0.4 mg Given 09/02/2024 12:58 PM CDT 0.4 mg documented in this encounter Active and Recently Administered Medications Times are shown in CDT. Scheduled Medication Order 08/31/2024 09/01/2024 09/02/2024 aspirin chewable tablet 324 mg (COMPLETED) 324 mg, oral, Once, On Sat09/02/24 at 1221, For 1 dose 1235 (Given - Provid er: Teodora Paul R.N. - Comment: patient took 1 baby ASA at home) heparin (porcine) 1,000 unit/mL injection 5,600 Units (COMPLETED) 5,600 Units (rounded from 5,550 Units = 60 Units/kg 92.5 kg Dosing weight), intravenous, Once, On Sat09/02/24 at 1535, For 1 dose, Initial Loading Dose 1550 (Given - Provid er: Teodora Paul R.N. - Comment: Ana LAU) NaCl 0.9 % bolus 500 mL (COMPLETED) 500 mL, intravenous, at 500 mL/hr, Administer over 1 Hours, Once, On Sat09/02/24 at 1316, For 1 dose 1320 (New Bag - Prov ider: Teodora Paul R.N.)1457 (Stopped - Provider: Teodora Paul R.N.) Continuous Medication Order 08/31/2024 09/01/2024 09/02/2024 heparin (porcine) 100 Units/mL in NaCl 0.45% 250 mL infusion 1-30 Units/kg/hr 92.5 kg Dosing weight (0.925-27.75 mL/hr, rounded to 0.93-27.75 mL/hr), intravenous, Continuous, Starting on Sat09/02/24 at 1535, 25,000 Units in 250 mL, Intensity type: Moderate, Starting Dose (units/kg/hr): 12, Anti-Xa < 0.1: Adjust Dose (Units/kg/hr) by: 4, Anti-Xa < 0.1: Loading Dose (Units/kg): 60, Anti-Xa < 0.1: Repeat anti-Xa: 6 hours, Anti-Xa 0.1-0.19: Adjust Dose (Units/kg/hr) by: 2, Anti-Xa 0.1-0.19: Loading Dose (Units/kg): 30, Anti-Xa 0.1-0.19: Repeat anti-Xa: 6 hours, Anti-Xa 0.2-0.5: Adjust Dose (Units/kg/hr) by: 0, Anti-Xa 0.2-0.5: Repeat anti-Xa: 6 hours. If two consecutive therapeutic result, re-check next AM., Anti-Xa > 0.19: Loading Dose (Units/kg): 0, Anti-Xa 0.51-0.6: Adjust Dose (Units/kg/hr) by: -1, Anti-Xa 0.51-0.6: Repeat anti-Xa: 6 hours, Anti-Xa 0.61-0.9: Hold Infusion: Stop infusion for 1 hour, Anti-Xa 0.61-0.9: Adjust Dose (Units/kg/hr) by: -2, Anti-Xa 0.61-0.9: Repeat anti-Xa: 6 hours after Heparin resumed, Anti-Xa 0.91-1.5: Hold Infusion: Stop infusion for 2 hours, Anti-Xa 0.91-1.5: Adjust Dose (Units/kg/hr) by: -4, Anti-Xa 0.91-1.5: Repeat anti-Xa: 6 hours after Heparin resumed, Anti-Xa > 1.5: Hold Infusion: Stop infusion until anti-Xa < 1.2, Anti-Xa > 1.5: Adjust Dose (Units/kg/hr) by: -4, Anti-Xa > 1.5: Repeat anti-Xa: every 2 hours until anti-Xa less than 1.2 1550 (New Bag - Prov ider: Teodora Paul R.N. - Comment: ANA LAU 2nd witnessed)1926 (Rate/Dose Verify - Provider: Hilda Sneed R.N.) PRN Medication Order 08/31/2024 09/01/2024 09/02/2024 fentaNYL injection 75 mcg (Sublimaze) 75 mcg, intravenous, Every 15 min PRN, severe pain or score 7-10 of 10, Starting on Sat09/02/24 at 1516, For 3 doses 1535 (Given - Provid er: Teodora Paul R.N.) heparin (porcine) 1,000 unit/mL injection 2,800 Units(Linked Group 1) 2,800 Units (rounded from 2,775 Units = 30 Units/kg 92.5 kg Dosing weight), intravenous, As needed, antiXa 0.1-0.19, Starting on Sat09/02/24 at 1534, Intensity type: Moderate, Anti-Xa < 0.1: Loading Dose (Units/kg): 60, Anti-Xa 0.1-0.19: Loading Dose (Units/kg): 30, Anti-Xa > 0.19: Loading Dose (Units/kg): 0 heparin (porcine) 1,000 unit/mL injection 5,600 Units(Linked Group 1) 5,600 Units (rounded from 5,550 Units = 60 Units/kg 92.5 kg Dosing weight), intravenous, As needed, antiXa less than 0.1, Starting on Sat09/02/24 at 1534, Intensity type: Moderate, Anti-Xa < 0.1: Loading Dose (Units/kg): 60, Anti-Xa 0.1-0.19: Loading Dose (Units/kg): 30, Anti-Xa > 0.19: Loading Dose (Units/kg): 0 nitroglycerin SL tablet 0.4 mg (Nitrostat) 0.4 mg, sublingual, Every 5 min PRN, chest pain, Starting on Sat09/02/24 at 1243, For 3 doses, May administer up to 3 doses per episode. Dissolve under the tongue. Do NOT crush, chew, split or swallow tablet. 1258 (Given - Provid er: Teodora Paul R.N.)1305 (Given - Provider: Teodora Paul R.N.) Linked Groups Order Group 1: heparin (porcine) 1,000 unit/mL injection 2,800 UnitsJump to med 2,800 Units (rounded from 2,775 Units = 30 Units/kg 92.5 kg Dosing weight), intravenous, As needed, antiXa 0.1-0.19, Starting on Sat09/02/24 at 1534, Intensity type: Moderate, Anti-Xa < 0.1: Loading Dose (Units/kg): 60, Anti-Xa 0.1-0.19: Loading Dose (Units/kg): 30, Anti-Xa > 0.19: Loading Dose (Units/kg): 0 Or heparin (porcine) 1,000 unit/mL injection 5,600 UnitsJump to med 5,600 Units (rounded from 5,550 Units = 60 Units/kg 92.5 kg Dosing weight), intravenous, As needed, antiXa less than 0.1, Starting on Sat09/02/24 at 1534, Intensity type: Moderate, Anti-Xa < 0.1: Loading Dose (Units/kg): 60, Anti-Xa 0.1-0.19: Loading Dose (Units/kg): 30, Anti-Xa > 0.19: Loading Dose (Units/kg): 0 documented in this encounter Care Teams Industrial Chemist Relationship Specialty Start Date End Date Milan Campos D.O. [address] [place] [id number] PCP - General Family Medicine 07/31/23 documented as of this encounter
--- OUTSIDE RECORDS SUMMARY | 2024-09-02 12:14 | XMS_ITS | Encounter Summary ---
Author Organization [facility] Address [address] [place] [address] Care Team Providers Care Peoplesoft Hcm Consultant Name Role Phone Milan Campos D.O. Primary Care Provider [phone] Reason for Visit * Reason Comments Chest Pain Left sided chest yuliya n 6/10, worse with lying down and associated with SOB. CP is present both with activity and rest, improved with sitting upright. Pain has been intermittent for 4 days. Hx CABG 2014. [facility] Pouncer is at [facility]. Encounter Details Date Type Department Care Team (Late st Contact Info) Description 09/02/2024 12:14 PM CDT - 09/02/2024 8:00 PM CDT Emergency [facility] [address] [place] [phone] Vance Perez, P.A.-C., P.A. [address] [place] [phone] Angina Unstable (HCC) (Primary Dx) Discharge Disposition: Acute Care Hospital Social History Tobacco Use Types Packs/Day Years Used Date Smoking Tobacco: Former Cigarettes Alcohol Use Standard Drinks/Week Comments Not Currently 0 (1 standard drink = 0.6 oz pur e alcohol) [facility] Utilities Answer Date Recorded In the past 12 months has [employer], gas, oil, or water company threatened to [...] your living situation today? I have a [facility] place to live 09/02/2024 Sex and Gender [...] of this encounter Procedure Notes * Vance Perez P.A.-C., P.A. - 09/02/2024 4:15 PM CDTAssociated [...] been intermittent for 4 days.Hx CABG 2014. [facility] Pouncer is at [facility]. ) HISTORY OF PRESENT ILLNESS History provided [...] intermittent for 4 days. Hx CABG 2014. [facility] Pouncer is at [facility]. ). Patient presents to the ED today [...] Decision to escalate care/hospitalization: [facility] ED Course as of 09/02/24 2154 [...] [facility]. Final Diagnoses: [...] Vance Perez P.A.-C., P.A. Authorized by: Vance Peerz P.A.-C., P.A. Critical care provider statement: Critical [...] surrogate and discussions with consultants us Vance Perez P.A.-C., P.A. PROCEDUR E/MINOR SURGICAL ORDERABLES Edited Result - Final * ECG 12 Lead (09/02/2024 3:25 PM CDT) Ventricular Rate ECG/Min 56 BPM MUSE [place] Interval 192 ms MUSE QRSD Interval 140 ms MUSE QT Interval 464 ms MUSE QTC Interval 447 ms MUSE P [place] 22 degrees MUSE R [place] -42 degrees MUSE T Wave [place] 7 degrees MUSE 09/02/2024 3:25 PM CDT [...] ECG ORDERABLES Final Result Performing Organization Address City/[facility] Co de Phone Number MUSE NA * [...] P.A. LAB BLOOD TROPON IN Final Result [facility] [address] [place] [address], [place] [facility] - [facility] [address] [place] [address] * ECG 12 Lead (09/02/2024 1:11 PM CDT) Ventricular Rate ECG/Min 75 BPM MUSE [place] Interval 174 ms MUSE QRSD Interval 134 ms MUSE QT Interval 454 ms MUSE QTC Interval 506 ms MUSE P [place] 17 degrees MUSE R [place] -61 degrees MUSE T Wave [place] 18 degrees MUSE 09/02/2024 1:11 PM CDT [...] Time) (09/02/2024 12:31 PM CDT) Pathologist [facility] Activated Partial Thrombopl Time, P 34 25 - 37 sec 09/02/2024 4:03 PM CDT [facility] Blood (Blood, Venous) 09/02/2024 12:31 PM CDT 09/02/2024 3:55 PM CDT us Chance Andrae Perez P.A.-C., P.A. LAB BLOOD ADD-ON Final Result Performing Organization Address [facility] [place]/[facility]/ZIP Co de Phone Number [facility] [address] Lab - [facility] [address] [place] [address] * Magnesium (09/02/2024 12:31 PM CDT) Pathologist [facility] Magnesium, P 1.8 1.7 - 2.3 mg/dL 09/02/2024 1:00 PM CDT [facility] Blood (Blood, Venous) 09/02/2024 12:31 PM CDT 09/02/2024 12:39 PM CDT us Chance Andrae Perez P.A.-C., P.A. LAB BLOOD ADD-ON Final Result Performing Organization Address [facility]/ZIP Co de Phone Number [facility] [address] Lab - [facility] [address] [address] * D-Dimer (09/02/2024 12:31 PM CDT) D-Dimer, [...] BLOOD ADD-ON Final Result Performing Organization Address [facility] Co de Phone Number [facility] [address] [place] [address], [facility] [place] [facility] - [address] [address] * NT-Pro B-Type Natriuretic Peptide (BNP) (09/02/2024 12:31 PM CDT) Pathologist [facility] NT-Pro BNP 120 <=540 pg/mL 09/02/2024 1:14 [...] BLOOD ADD-ON Final Result Performing Organization Address [facility]/ZIP Co de Phone Number [facility] [address] [place], [place] [id number] [place] [address] Lab - [facility] [address] [place] [address] * Troponin T, Baseline with 2 Hour/6 Hour Reflex Biomarker Panel (09/02/2024 12:31 PM CDT) Troponin T, Baseline, 5th gen 13 <=15 ng/L 09/02/2024 1:04 PM CDT [facility] Blood (Blood, Venous) 09/02/2024 12:31 PM CDT 09/02/2024 12:40 PM CDT us Chance Andrae Perez P.A.-C., P.A. LAB BLOOD TROPON IN Final Result Performing Organization Address City/[facility]/ZIP Co de Phone Number [facility] [address] [place], [place] [address] [place] [address] Lab - [facility] [address] [place] [address] * Prothrombin Time (PT) (09/02/2024 12:31 PM [...] P.A.-C., P.A. LAB BLOOD ADD-ON Final Result [facility] [address] [place] [address], [facility] Lab - [facility] [address] [place] [address] * (ABNORMAL) Comprehensive Metabolic Panel (09/02/2024 12:31 [...] Forte PJagdeepA. LAB BLOOD ADD-ON Final Result [facility] [address] [place] [address], [facility] - [facility] [address] [place] [address] * CBC with Differential, Blood (09/02/2024 12:31 [...] BLOOD ADD-ON Final Result Performing Organization Address City/[facility]/ZIP Co de Phone Number [facility] [address] [place] [address], [facility] - [facility] [address] [place] [address] * ECG 12 Lead (09/02/2024 12:17 PM CDT) Ventricular Rate ECG/Min 71 BPM MUSE [place] Interval 174 ms MUSE QRSD Interval 136 ms MUSE QT Interval 444 ms MUSE QTC Interval 482 ms MUSE P [place] 26 degrees MUSE R [place] -47 degrees MUSE T Wave [place] 18 degrees MUSE 09/02/2024 12:1 7 PM [...] 0 documented in this encounter Care Teams Pe[employer] Hcm Consultant Relationship Specialty Start Date End Date Milan Campos D.O. [address] [phone] PCP - General Family Medicine 07/31/23 documented as of this encounter
--- OUTSIDE RECORDS SUMMARY | 2024-09-02 21:19 | XMS_ITS | Encounter Summary ---
Author Organization [facility] Address [address] [place] [address] Care Team Providers Care Amphibian Crewmember Name Role Phone Milan Campos D.O. Primary Care Provider Reason for Referral * Outpatient (Routine) - Closed Specialty Diagnoses / Procedures Referred By Vargas koroma Referred To Contact Honey Sandy [facility] Referral ID Status Reason Start Date Expiration Date Visits Re quested Visits Authorized [id number] Closed 09/04/2024 03/06/2026 1 1 Scheduling Instructions The nurse follow-up call must be scheduled within 24 business hours of patient discharge. * Outpatient (Routine) - Closed Specialty Diagnoses / Procedures Referred By Vargas koroma Referred To Contact Family Medicine Luis Rivas M.D. [address] [place] [address] Phone: tel: fax: [facility] Referral ID Status Reason Start Date Expiration Date Visits Re quested Visits Authorized [id number] Closed 09/04/2024 03/06/2026 1 1 Scheduling Instructions We will be contacting you with more information on this referral. An appointment will be scheduled for you. More information is listed below. * Outpatient (Routine) - Authorized Specialty Diagnoses / Procedures Referred By Vargas koroma Referred To Contact [facility] Luis Rivas M.D. [address] [place] [phone] Phone: tel: fax: [facility] Referral ID Status Reason Start Date Expiration Date V isits Requested Visits Authorized [id number] Authorized 09/04/2024 03/06/2026 2 2 Scheduling Instructions 3-5 Days After Discharge Reason for Visit * Auth/Cert (Routine) Specialty Diagnoses / Procedures Referred By Vargas koroma Referred To Contact Diagnoses Chest pain, unspecified Angina Unstable (HCC) Procedures INPT Referral ID Status Reason Start Date Expiration Date Visits Re quested Visits Authorized [id number] 1 1 Encounter Details Date Type Department Care Team (Latest Contact Info) Description 09/02/2024 9:19 PM CDT - 09/04/2024 2:25 PM CDT Hospital Encounter [facility], [facility], Third Floor [address] [place] [phone] Eva Carlson M.D. [address] [place] [phone] Luis Rivas M.D. [address] [place] [phone] Arnaud Day M.D. [address] [place] [phone] Angina Unstable (HCC) (Primary Dx); Apnea Sleep Obstructive Discharge Disposition: Home or Self Care Social History Tobacco Use Types Packs/Day Years Used Date Smoking Tobacco: Former Cigarettes Alcohol Use Standard Drinks/Week Comments Not Currently 0 (1 standard drink = 0.6 oz pur e alcohol) [facility] Utilities Answer Date Recorded In the past 12 months has th e electric, gas, oil, or water [employer] threatened to shut off services in your [...] money to buy more. Never true 09/03/19 25 Within the past 12 months, t he [...] your living situation today? I have a [facility] place to live 09/02/2024 Sex and Gender Information Value Date Recorded Sex Assigned at Male 08/15/2023 11:17 AM CDT Legal Sex Male 1:11 PM CDT Gender Identity Male 08/15/2023 11:17 AM CDT Sexual Orientation Straight 08/15/2023 11 :17 AM CDT documented as of this encounter Last Filed Vital Signs Vital Sign Reading Time Taken Comments Blood Pressure 101/69 09/04/2024 11:53 AM CDT Pulse 59 09/04/2024 11:53 AM CDT Temperature 36.8 C (98.2 F) 09/04/2024 11:53 AM CDT Respiratory Rate 16 09/04/2024 11:5 3 AM CDT Oxygen Saturation 96% 09/04/2024 11: 53 AM CDT Inhaled Oxygen Concentration - - Weight 87.4 kg (192 lb 10.9 oz) 09/04/2024 6:35 AM CDT Height 170.2 cm (5' 7) 09/02/2024 9:35 PM CDT Body Mass Index 30.18 09/02/2024 9:35 PM CDT documented in this encounter Discharge Summaries * Luis Rivas M.D. - 09/04/2024 2:19 PM CDT DISCHARGE SUMMARY BRIEF OVERVIEW Discharge Hospital: Hospital: [facility] Discharge Provider: Luis Rivas M.D. Primary Care Providers: Milan Campos D.O. (General) [address] [place] [phone] Discharge Provider Team: [facility] ([facility]) [facility] Primary Care Provider Primary Care Provider Admission Date: 09/02/2024 Discharge Date: 09/04/24 PRINCIPAL DIAGNOSIS Angina Unstable (HCC) SECONDARY DIAGNOSES Principal Problem: Angina Unstable (HCC) Active Problems: Hypertension Essential Primary Fatty Liver Apnea Sleep Obstructive Resolved Problems: * No resolved hospital problems. * Surgery Information This Encounter Past Procedures (09/05/2023 to Today) Date Procedures Providers Loc / Dept 09/03/2024 Bypass Graft Angiography, Coronary Angiography Shaun Alcantara M.B.B.SJagdeep [facility] CCL DISCHARGE DISPOSITION ACTIVE ISSUES REQUIRING FOLLOW UP OUTPATIENT FOLLOW UP Scheduled Appointments 09/07/2024 9:20 AM [facility] COORD NURSE 01 [facility] Community Internal Medicine 09/08/2024 10:40 AM TCM MD POST HOSP 02 [facility] Transitional Care 09/14/2024 3:00 PM [facility] STUDENT EDUCATION TEAM 01 [facility] Family Medicine For appointment details refer to your Patient Appointment Guide. TEST RESULTS PENDING AT DISCHARGE Pending Labs None DETAILS OF HOSPITAL STAY REASON FOR ADMISSION Angina Unstable (HCC) HOSPITAL COURSE This is a 74 y.o. male with a history of coronary artery disease s/p CABG (2012) s/p stent, systolic heart failure (HFrEF), atrial flutter, obstructive sleep apnea presenting from home on 09/02/2024 with chest pain Hospital course discussion organized by problem: #unstable angina vs reflux #coronary artery disease s/p CABG (2012) s/p stent #chronic systolic heart failure (HFrEF) presented with intermittent chest pain for 4 days, with associated upper extremity tingling. Occurs at rest and with activity. Has known history of coronary artery disease. Admit labs with WBC 6.6, hemoglobin 15.9, platelets 245, INR 1, Na 138, K 3.8, Cr 0.96, LFT WNL, troponin 13->11,BNP 120. Chest xray without infiltrate. EKG without acute ST changes. Echocardiogram with EF44% and grade 1/3 diastolic dysfunction. Cardiology consulted and patient had cardiac catheterization (09/03) revealed severe coronary artery disease, no intervention completed. He was placed on isosorbide mononitrate 30 daily, losartan 25 daily, spironolactone 25 daily. He was also given GI cocktail with complete resolution of pain. At this point, seems that pain was more likely related to gastroesophageal reflux. He was discharged on daily proton pump inhibitor + isosorbide mononitrate 30 daily, losartan 25 daily, spironolactone 25 daily IMAGING DX Chest Portable 1 View: 09/02/2024 Impression: Comparison radiographs 07/17/2023. Stable cardiac size and mediastinal contours with postop changes from median sternotomy and bypass grafting. Pulmonary vascularity appears within normal limits. No focal pneumonic consolidation. No evidence of pneumothorax or pleural effusion. Degenerative changes within the spine and shoulder girdles. Transthoracic echocardiogram (TTE) 09/03/24 1. Normal left ventricular chamber size, regional wall motion abnormalities were present (see wall motion graphics), calculated 2-D biplane volumetric ejection fraction of 44%. 2. Grade 1/3 left ventricular diastolic dysfunction, consistent with low to normal left ventricularfilling pressure. 3. Normal right ventricular chamber size, borderline reduced systolic function, unable to detect peak tricuspid regurgitation velocity for pulmonary artery systolic pressure calculation. 4. No significant valvular heart disease. 5. No pericardial effusion. 6. There are no previous echocardiograms available for comparison. PROCEDURES Cardiac catheterization (09/03/24) Coronary artery dominance is left. Separate ostia for left anterior descending artery and left circumflex artery. Could not engage the ostial LAD selectively. Possibly occluded The proximal left anterior descending artery is 100% obstructed by a discrete lesion. The proximal circumflex artery is 70% obstructed by a discrete lesion. The second obtuse marginal is 50% obstructed by a discrete lesion. The proximal right coronary artery is 80% obstructed by a discrete lesion. Pseudoaneurysm of the proximal circumflex. MEDICATIONS CHANGED DURING THIS HOSPITAL STAY Discharge Medications Stopped Medications amLODIPine 5 mg tablet Commonly known as: Norvasc New Medications Sig Disp Start isosorbide mononitrate 30 mg 24 hr tablet Commonly known as: Imdur Take 1 tablet (30 mg total) by mouth daily. 30 tablet September 05, 2024 losartan 25 mg tablet Commonly known as: Cozaar Take 1 tablet (25 mg total) by mouth daily. 30 tablet September 05, 2024 nitroglycerin 0.4 mg SL tablet Commonly known as: Nitrostat Place 1 tablet (0.4 mg total) under the tongue every 5 (five) minutes as needed for chest pain. 25 tablet pantoprazole 40 mg EC tablet Commonly known as: Protonix Take 1 tablet (40 mg total) by mouth daily before morning meal. 30 tablet spironolactone 25 mg tablet Commonly known as: Aldactone Take 1 tablet (25 mg total) by mouth daily. 30 tablet September 05, 2024 Modified Medications Sig Disp Start fluticasone propionate 50 mcg/actuation nasal spray Commonly known as: Flonase INSTILL 2 SPRAYS IN EACH NOSTRIL EVERY DAY 48 g Medications To Continue Sig Disp Start aspirin 81 mg chewable tablet Chew 81 mg daily. clopidogreL 75 mg tablet Commonly known as: Plavix Take 1 tablet (75 mg total) by mouth daily. 30 tablet levocetirizine 5 mg tablet Commonly known as: Xyzal take one tablet by mouth in the evening 90 tablet rosuvastatin 40 mg tablet Commonly known as: Crestor Take 40 mg by mouth daily. CONSULTS ORDERED DURING THIS ADMISSION IP CONSULT TO CARDIOLOGY SOCIAL DETERMINANTS OF HEALTH Social Drivers of Health Transportation Needs: No Transportation Needs (09/02/2024) PRAPARE - Transportation Lack of Transportation (Medical): No Lack of Transportation (Non-Medical): No Housing Stability: Low Risk (09/02/2024) Housing Stability Housing: Living Situation: I have a steady place to live Food Insecurity: No Food Insecurity (09/02/2024) Hunger Vital Sign Worried About Running Out of Food in the Last Year: Never true Ran Out of Food in the Last Year: Never true Utilities: Not At Risk (09/02/2024) [facility] Utilities Threatened with loss of utilities: No Intimate Partner Violence: Not At Risk (09/02/2024) Humiliation, Afraid, Rape, and Kick questionnaire Fear of Current or Ex-Partner: No Emotionally Abused: No Physically Abused: No Sexually Abused: No CONDITION AT DISCHARGE stable I saw and evaluated Aroldo Chen today and provided counseling [id number] at bedside. I personally spent a total of greater than 30 minutes in counseling and coordination of care as described aboveto facilitate the hospital discharge. Discharge instructions were provided to the patient and caregiver(s). documented in this encounter Discharge Instructions * Attachments The following attachments cannot be sent through Care Everywhere. * Pantoprazole (By mouth) (Azeri) * Losartan (By mouth) (Azeri) * How to Use Nitroglycerin * Spironolactone (By mouth) (Azeri) * Isosorbide Mononitrate (By mouth) (Azeri) documented in this encounter Medications at Time [...] by mouth daily. 30 tablet 11 09/05/2024 09/05/2025 nitroglycerin (Nitrostat) 0.[address] [...] total) by mouth daily. 30 tablet 09/05/2024 09/05/2025 isosorbide mononitrate (Imdur) 30 mg 24 hr tablet Take 1 tablet (30 mg total) by mouth daily. 30 tablet 09/05/2024 09/14/2024 documented as of this encounter Progress Notes * Luis Rivas M.D. - 09/04/2024 10:00 AM CDT Images from the original note were not included. [facility] MEDICINE PROGRESS NOTE Chart reviewed CHIEF COMPLAINT No chief complaint on file. SUBJECTIVE: Chest pain resolved No dyspnea Would like to discharge today OBJECTIVE VITAL SIGNS Temperature: [36.4 ??C-36.6 ??C] 36.6 ??C Heart Rate: [50-113] 59 Resp Rate: [8-32] 20 Blood Pressure: (83-141)/(48-102) 115/77 SpO2: [91 %-99 %] 94 % Flow Rate (L/min): [0 L/min-2 L/min] 0 L/min Weight: [87.4 kg] 87.4 kg BMI (Calculated): [30.2 kg/m??] 30.2 kg/m?? Pulse Rate: [54-59] 54 PHYSICAL EXAMINATION GENERAL: Alert and oriented to person/place/time, no acute distress, pleasant and conversive, speaking in full sentances HEENT: atraumatic/normocephalic; extraoccular movements intact, pupils equally round and reactive to light, sclera non-icteric; Oropharynx with mucosal membranes moist, no exudate noted NECK: supple, No cervical lymphadenopathy, jugular venous distention at 5cm, No carotid bruits noted CARDIOVASCULAR: regular rate and rhythm, normal S1/S2 noted, no murmurs appreciated, no abdominal bruits RESPIRATORY: Moving air well bilaterally, no wheeze/rales/rhonchi GASTROINTESTINAL: Nondistended, bowel sounds normoactive throughout, nontender, no masses or hepatosplenomegaly MUSCULOSKELETAL: without deformity, normal range of motion SKIN: Warm, dry, no rashes EXTREMITIES: Moves all extremities, no clubbing, cyanosis, or edema, dorsalis pedis 2+ bilaterally,skin not mottled Lines/Drains/Airway/Wounds: Lines, Drains, and Airways Peripheral IV Duration Peripheral IV 09/02/24 18 G Right Antecubital 1d 18h DIAGNOSTICS LABORATORY DATA Recent Results (from the past 24 hours) Heparin Anti-Xa Assay Collection Time: 09/03/24 11:48 AM Result Value Heparin Anti-Xa, P 0.36 ACT (Activated Clotting Time), POCT Collection Time: 09/03/24 2:15 PM Result Value Activated Clotting Time, POCT 183 (H) CULTURES IMAGING DATA: DX Chest Portable 1 View: 09/02/2024 Impression: Comparison radiographs 07/17/2023. Stable cardiac size and mediastinal contours with postop changes from median sternotomy and bypass grafting. Pulmonary vascularity appears within normal limits. No focal pneumonic consolidation. No evidence of pneumothorax or pleural effusion. Degenerative changes within the spine and shoulder girdles. Transthoracic echocardiogram (TTE) 09/03/24 1. Normal left ventricular chamber size, regional wall motion abnormalities were present (see wall motion graphics), calculated 2-D biplane volumetric ejection fraction of 44%. 2. Grade 1/3 left ventricular diastolic dysfunction, consistent with low to normal left ventricularfilling pressure. 3. Normal right ventricular chamber size, borderline reduced systolic function, unable to detect peak tricuspid regurgitation velocity for pulmonary artery systolic pressure calculation. 4. No significant valvular heart disease. 5. No pericardial effusion. 6. There are no previous echocardiograms available for comparison. EKG ECG 12 Lead Result Date: 09/03/2024 Sinus rhythm Premature ventricular complexes Left axis deviation Right bundle branch block with secondary ST-T abnormalities When compared with ECG of 02-Sep-2024 15:25, Premature ventricular complexes are now present Reviewed by JAMEL Peters ECG 12 Lead Result Date: 09/02/2024 Sinus bradycardia Left axis deviation Right bundle branch block When compared with ECG of 02-Sep-2024 13:11, Premature ventricular complexes are no longer present QT has shortened Reviewed by JAMEL Calabrese ECG 12 Lead Result Date: 09/02/2024 Sinus rhythm Premature ventricular complexes Right bundle branch block with secondary ST-T abnormalities Left anterior fascicular block Bifascicular block Prolonged QT When compared with ECG of 02-Sep-2024 12:17, QT has lengthened Reviewed by JAMEL Chavis ECG 12 Lead Result Date: 09/02/2024 Sinus rhythm Premature ventricular complexes Right bundle branch block with secondary ST-T abnormalities Left anterior fascicular block Bifascicular block When compared with ECG of 16-Jul-2023 11:49, Premature ventricular complexes are now present Reviewed by JAMEL Chavis PROCEDURES Cardiac catheterization (09/03/24) Coronary artery dominance is left. Separate ostia for left anterior descending artery and left circumflex artery. Could not engage the ostial LAD selectively. Possibly occluded The proximal left anterior descending artery is 100% obstructed by a discrete lesion. The proximal circumflex artery is 70% obstructed by a discrete lesion. The second obtuse marginal is 50% obstructed by a discrete lesion. The proximal right coronary artery is 80% obstructed by a discrete lesion. Pseudoaneurysm of the proximal circumflex. ASSESSMENT / PLAN This is a 74 y.o. male with a history of coronary artery disease s/p CABG (2012) s/p stent, systolic heart failure (HFrEF), atrial flutter, obstructive sleep apnea presenting from home on 09/02/2024 with chest pain #unstable angina #coronary artery disease s/p CABG (2012) s/p stent #chronic systolic heart failure (HFrEF) presented with intermittent chest pain for 4 days, with associated upper extremity tingling. Occurs at rest and with activity. Has known history of coronary artery disease. Admit labs with WBC 6.6, hemoglobin 15.9, platelets 245, INR 1, Na 138, K 3.8, Cr 0.96, LFT WNL, troponin 13->11,BNP 120. Chest xray without infiltrate. EKG without acute ST changes. -last echocardiogram (2019) with EF 45%, grade 2 diastolic dysfunction -repeat echocardiogram with EF44% and grade 1/3 diastolic dysfunction -previously prescribed amlodipine 5 daily (but not taking prior to admission) -placed on heparin gtt. -cardiology consulted and patient had cardiac catheterization (09/03) revealed severe coronary artery disease, no intervention completed -placed on isosorbide mononitrate 30 daily, losartan 25 daily, spironolactone 25 daily -SBP 109-134 -currently chest pain free #Fatty liver -Mildly elevated AST. Continue to monitor LFTs. #allergic rhinitis -on Flonase PRN prior to admission #dyslipidemia -on statin prior to admission, continued #obstructive sleep apnea -on CPAP qHS prior to admission #Nutrition Status #Obesity Body mass index is 30.18 kg/m??. INFUSIONS: DIET: Current Diet Adult Diet Regular; Cardiovascular starting at 09/03 1613 ANTICOAGULANTS/DVT PROPHYLAXIS: AntiCoag AntiPlatelet Meds IP/OP Heparins Refills Start End heparin (porcine) 1,000 unit/mL injection 2,800 Units (Discontinued) -- 09/02/2024 09/03/2024 30 Units/kg (2,800 Units), intravenous, As needed Linked Group 1: Placed in Or Linked Group heparin (porcine) 1,000 unit/mL injection 5,600 Units (Discontinued) -- 09/02/2024 09/03/2024 60 Units/kg (5,600 Units), intravenous, As needed Linked Group 1: Placed in Or Linked Group heparin (porcine) 1,000 unit/mL injection (Discontinued) -- 09/03/2024 09/03/2024 Code/trauma/sedation medication Reason for Discontinue: Patient Discharge heparin (porcine) 100 Units/mL in NaCl 0.45% 250 mL infusion (Discontinued) -- 09/02/2024 09/03/2024 1-30 Units/kg/hr (92.5-2,775 Units/hr), intravenous, Continuous @ .93-27.75 mL/hr, 25,000 Units in 250 mL Notes to Pharmacy: If baseline aPTT is >40 seconds with no explainable cause, the provider should consider immediate consult (via phone) with a pulley man and order special coagulation lab testing, Prolonged Clot Time Profile ([facility]: [id number]). Platelet Aggregation Inhibitors - Thienopyridine Agents Refills Start End clopidogreL tablet 75 mg (Plavix) -- 09/03/2024 -- 75 mg, oral, Daily GI PROPHYLAXIS: Diet Nursing Communication: Discussed the plan for the day and discharge plan with Ariadne on 09/04 Family Communication: Disposition: Prior to admission, the patient was living at home. I would anticipate that the patient will likely be able to discharge home. LEVEL OF CARE: Currently, the patient is on Progressive Care status and located in the PCU. I would estimate that the patient will be ready for discharge on 09/04/2024 CODE STATUS: Full Code Luis Rivas MD Board Certified Physician in Internal Medicine and Pediatrics [facility] Medicine Service * Yumiko Jackson P.A.-Florentin., P.A. - 09/04/2024 9:06 AM CDT Images from the original note were not included. CARDIOLOGY INPATIENT PROGRESS NOTE CHIEF COMPLAINT/REASON FOR VISIT Chest Pain HISTORY OF PRESENT ILLNESS #1 Hypertension Essential Primary #2 Fatty Liver #3 Apnea Sleep Obstructive #4 Angina Unstable (HCC) Aroldo Chen is a 74 y.o. male with a past medical history of extensive coronary artery disease with the details delineated below, but in summary, history of CABG, multiple stents including 9 stents,last cath was in 2020, radial graft to OM was known to be occluded 2 months post CABG in 2012, limato LAD to diagonal patent, vein graft to left-sided PDA patent, all previous stents placed patent, ischemic cardiomyopathy EF of 45%, obstructive sleep apnea, utilizes CPAP, apparently history of atrial flutter, listed in diagnoses, not on anticoagulation, right bundle-branch block, PVCs, who presented to the emergency department in [place], [place] on 09/02/2024 for 5 day history of substernal ch est pressure that is constant with pain and numbness and tingling radiating down both arms. Also had associated shortness of breath with exertion which is new in the last several days, and episodes of vomiting and nausea. Pain was fairly constant, slightly progressive, did not ever completely resolve over the previous 5days. States it feels similar to his prior anginal equivalent. Troponin was 13 and 11 despite 5 days of pain, EKG demonstrated right bundle-branch block, no ischemic changes. Underwent coronary angiogram 09/03/2024 which demonstrated his VG to LPDA is now occluded. Thought to not be new. It was recommended to start Imdur and consider GI related etiology. EVENTS IN THE PAST 24 HOURS No associated symptoms. Denies chest pain, or pressure, shortness of breath, nausea, vomiting, or diaphoresis. Denies dizziness or lightheadedness. Feels significantly better. MEDICATIONS Current Medications[1] ALLERGIES Allergies[2] PHYSICAL EXAMINATION VITAL SIGNS: Temperature: [36.4 ??C-36.6 ??C] 36.6 ??C Heart Rate: [50-113] 66 Resp Rate: [8-32] 14 Blood Pressure: (83-140)/(48-101) 129/80 SpO2: [91 %-99 %] 96 % Flow Rate (L/min): [0 L/min-2 L/min] 0 L/min Weight: [87.4 kg] 87.4 kg BMI (Calculated): [30.2 kg/m??] 30.2 kg/m?? Pulse Rate: [54-59] 54 Body mass index is 30.18 kg/m??. General: Comfortable and in no acute distress. Alert and oriented x3. Skin: Warm, dry. No rashes or lesions. Neck: Supple, no carotid bruits noted, no JVD. Lungs: Clear bilaterally with good air entry. No wheezing. No crackles. Heart: Regular rate and rhythm. Normal S1, S2, no murmurs. No S3 or S4 gallops. Abdomen: Soft, non-tender. Extremities: No lower extremity peripheral edema. Vessels: Radial pulses are palpable and equal bilaterally. DIAGNOSTICS LABS: Results from last 7 days Lab Units 09/03/24 0519 09/02/24 1231 WBC x10(9)/L 6.5 6.6 HEMOGLOBIN g/dL 14.5 15.9 HEMATOCRIT % 41.4 44.5 PLATELETS AUTO x10(9)/L 190 245 Results from last 7 days Lab Units 09/03/24 0519 09/02/24 1231 SODIUM P mmol/L 140 138 CREATININE mg/dL 0.98 0.96 ESTIMATED GFR EGFR mL/min/BSA 81 83 BUN P mg/dL 14 13 CHLORIDE P mmol/L 105 101 Results from last 7 days Lab Units 09/02/24 1231 INR 1.0 Results from last 7 days Lab Units 09/02/24 1231 ALBUMIN P g/dL 4.4 AST P U/L 82* ALT P U/L 51 ALK PHOS P U/L 73 BILIRUBIN TOTAL P mg/dL 0.8 TRANSTHORACIC ECHOCARDIOGRAM Final Impressions 1. Normal left ventricular chamber size, regional wall motion abnormalities were present (see wall motion graphics), calculated 2-D biplane volumetric ejection fraction of 44%. 2. Grade 1/3 left ventricular diastolic dysfunction, consistent with low to normal left ventricularfilling pressure. 3. Normal right ventricular chamber size, borderline reduced systolic function, unable to detect peak tricuspid regurgitation velocity for pulmonary artery systolic pressure calculation. 4. No significant valvular heart disease. 5. No pericardial effusion. 6. There are no previous echocardiograms available for comparison. EKG IR CORONARY 09/03/2024 CORONARY DIAGNOSTIC SUMMARY Coronary artery dominance is left. Separate ostia for left anterior descending artery and left circumflex artery. Could not engage the ostial LAD selectively. Possibly occluded The proximal left anterior descending artery is 100% obstructed by a discrete lesion. The proximal circumflex artery is 70% obstructed by a discrete lesion. The second obtuse marginal is 50% obstructed by a discrete lesion. The proximal right coronary artery is 80% obstructed by a discrete lesion. Pseudoaneurysm of the proximal circumflex. GRAFT ANGIOGRAPHY SUMMARY Single body vein bypass graft to the Distal Right Coronary Artery. Antegrade flow is Absent. Single body vein bypass graft to the Second Obtuse Marginal. Antegrade flow is Absent. Single body left internal mammary graft to the Distal Left Anterior Descending Artery. Graft Appears normal. Antegrade flow is Normal. Conduit to the RCA as well as obtuse marginal are occluded. ASSESSMENT / PLAN # Chest Pain Underwent coronary angiogram which demonstrated an occluded vein graft to the PDA. [place] to be new. Would expect elevated troponin if this was an acute occlusion. After discussion, no intervention recommended EF is preserved. Patient was started on Imdur, consideration of GI related etiology. Clinically today he is feeling significantly better. We will continue with Imdur. # Established Coronary Artery Disease Patient has extensive coronary artery disease history including CABG x4 with an occluded radial artery to OM, history of multivessel stenting with a total of 9 stents. Currently on dual antiplatelet therapy for life per recommendation of his primary metalworking instructor at [facility], no beta-paramjit secondary tointolerance of shortness of breath. Continue high-intensity statin therapy. # PVCs He does have PVCs, Holter in the past showed 5%. # ? Atrial Flutter There is question of atrial flutter in the chart, however could not find this documented and or discussed in primary cardiology notes. # Left Ventricular Systolic Heart Failure # Ischemic Cardiomyopathy Recommend additional guideline directed medical therapy. Guideline Directed Medical Therapy: -ACEi/ARB/ARNI: Started losartan 25 mg daily -Beta Paramjit: No beta-paramjit secondary to shortness of breath with beta- blockers in the past -SGLT-2 inhibitor: Can consider as an outpatient -Aldosterone Antagonist: Start spironolactone 25 mg daily -Diuretic: Appears euvolemic Plan: Okay to discharge home with optimizing his guideline directed medical therapy, and starting Imdur Could consider outpatient PFTs regarding his shortness of breath. [1] Current Medications: acetaminophen tablet 500 mg (TylenoL), Q6H PRN aspirin chewable tablet 81 mg, Daily clopidogreL tablet 75 mg (Plavix), Daily diazePAM tablet 2 mg (Valium), Q2H PRN fentaNYL injection 25 mcg (Sublimaze), Once PRN isosorbide mononitrate 24 hr tablet 30 mg (Imdur), Daily lidocaine viscous 2 % 15 mL, alum-mag hydroxide-simeth 30 mL suspension, Q12H PRN loratadine tablet 10 mg (Claritin), Daily losartan tablet 25 mg (Cozaar), Daily midazolam (PF) injection 1 mg (Versed), Q2H PRN naloxone injection 0.2 mg, PRN nitroglycerin SL tablet 0.4 mg (Nitrostat), Q5 Min PRN ondansetron (PF) injection 4 mg (Zofran), Once rosuvastatin tablet 40 mg (Crestor), Daily at bedtime sodium chloride 0.9 % injection 10 mL, PRN sodium chloride 0.9 % injection 10 mL, PRN sodium chloride 0.9 % injection 3 mL, PRN sodium chloride 0.9 % injection 3 mL, Q12H AMPARO spironolactone tablet 25 mg (Aldactone), Daily [2] Allergies Allergen Reactions Adhesive Rash and Hives only, no other systemic symptoms Tegaderm causes welts- Bee Venom Protein (Honey Bee) Anaphylaxis PN: highly allergic to bee stings Codeine Anaphylaxis, Angioedema and Shortness of breath Patient states on 07/06/15- that the allergic rxn caused his throat to swell shut 10/01/19: per patient- tolerates oxycodone without any problem Hymenoptera Allergenic Extract Anaphylaxis and Angioedema Swelling of Throat Latex Hives (Reselect Reaction) and Rash Pletal [Cilostazol] Shortness of breath Nausea, fatigue Adhesive Tape-Silicones Rash [place] Pollen Itching Seasonal Allergies: Allergic Rhinitis, Itchy watery eyes * Bertram Guajardo, RJagdeepNJagdeep - 09/04/2024 7:38 AM CDT SUBJECTIVE Case management following patient for discharge planning needs. OBJECTIVE Patient was admitted to the hospital with #1 Hypertension Essential Primary #2 Fatty Liver #3 Apnea Sleep Obstructive #4 Angina Unstable (HCC) ASSESSMENT / PLAN ASSESSMENT [employer] Engineer participated in bedside team rounds with Dr. Rivas and bedside nurse Luciano. Per rounds patient is anticipated to discharge home today 09/04. Patient denies any concerns with discharging home. Patient would like medical appointments and follow ups in [place]. Patient reports a friend will provide transport on discharge. PLAN Patient is anticipated to discharge home once medically stable. Friend to provide transport Care Management will continue following patient for discharge planning and care coordination. Bertram Guajardo R.N. 09/04/24 * Luis Rivas M.D. - 09/03/2024 9:00 AM CDT Images from the original note were not included. [facility] MEDICINE PROGRESS NOTE Chart reviewed CHIEF COMPLAINT No chief complaint on file. SUBJECTIVE: Patient is new to me today Having ongoing chest pain this morning No dyspnea No fevers OBJECTIVE VITAL SIGNS Temperature: [36.1 ??C-36.6 ??C] 36.4 ??C Heart Rate: [45-113] 58 Resp Rate: [9-32] 16 Blood Pressure: (83-151)/(60-102) 127/74 SpO2: [91 %-99 %] 97 % Flow Rate (L/min): [2 L/min] 2 L/min Height: [170.2 cm] 170.2 cm Weight: [89.5 kg-90.2 kg] 89.5 kg BSA (Calculated - sq m): [2.06 sq meters] 2.06 sq meters BMI (Calculated): [30.9 kg/m??-31.1 kg/m??] 30.9 kg/m?? Pulse Rate: [48-59] 58 PHYSICAL EXAMINATION GENERAL: Alert and oriented to person/place/time, no acute distress, pleasant and conversive, speaking in full sentances HEENT: atraumatic/normocephalic; extraoccular movements intact, pupils equally round and reactive to light, sclera non-icteric; Oropharynx with mucosal membranes moist, no exudate noted NECK: supple, No cervical lymphadenopathy, jugular venous distention at 5cm, No carotid bruits noted CARDIOVASCULAR: regular rate and rhythm, normal S1/S2 noted, no murmurs appreciated, no abdominal bruits RESPIRATORY: Moving air well bilaterally, no wheeze/rales/rhonchi GASTROINTESTINAL: Nondistended, bowel sounds normoactive throughout, nontender, no masses or hepatosplenomegaly MUSCULOSKELETAL: without deformity, normal range of motion SKIN: Warm, dry, no rashes EXTREMITIES: Moves all extremities, no clubbing, cyanosis, or edema, dorsalis pedis 2+ bilaterally,skin not mottled Lines/Drains/Airway/Wounds: Lines, Drains, and Airways Peripheral IV Duration Peripheral IV 09/02/24 18 G Right Antecubital 1d 2h DIAGNOSTICS LABORATORY DATA Recent Results (from the past 24 hours) Heparin Anti-Xa Assay Collection Time: 09/02/24 10:30 PM Result Value Heparin Anti-Xa, P 0.48 Lipid Panel Collection Time: 09/03/24 5:19 AM Result Value Triglycerides 151 (H) Cholesterol, Total 95 Cholesterol, LDL, Calculated 33 Cholesterol, HDL 36 (L) Cholesterol, Non-HDL, Calculated 59 Fasting (8 HR or more) Yes CBC without Differential Collection Time: 09/03/24 5:19 AM Result Value Hemoglobin 14.5 Hematocrit 41.4 Erythrocytes 4.72 MCV 87.7 RBC Distrib Width 12.7 Platelet Count 190 Leukocytes 6.5 Basic Metabolic Panel Collection Time: 09/03/24 5:19 AM Result Value Potassium, P 4.0 Sodium, P 140 Chloride, P 105 Bicarbonate, P 23 Anion Gap, P 12 BUN (Blood Urea Nitrogen), P 14 Creatinine 0.98 Estimated GFR (eGFR) 81 Calcium, Total, P 8.6 (L) Glucose, P 134 Heparin Anti-Xa Assay Collection Time: 09/03/24 5:19 AM Result Value Heparin Anti-Xa, P 0.55 Heparin Anti-Xa Assay Collection Time: 09/03/24 11:48 AM Result Value Heparin Anti-Xa, P 0.36 ACT (Activated Clotting Time), POCT Collection Time: 09/03/24 2:15 PM Result Value Activated Clotting Time, POCT 183 (H) CULTURES IMAGING DATA: DX Chest Portable 1 View: 09/02/2024 Impression: Comparison radiographs 07/17/2023. Stable cardiac size and mediastinal contours with postop changes from median sternotomy and bypass grafting. Pulmonary vascularity appears within normal limits. No focal pneumonic consolidation. No evidence of pneumothorax or pleural effusion. Degenerative changes within the spine and shoulder girdles. EKG ECG 12 Lead Result Date: 09/03/2024 Sinus rhythm Premature ventricular complexes Left axis deviation Right bundle branch block with secondary ST-T abnormalities When compared with ECG of 02-Sep-2024 15:25, Premature ventricular complexes are now present Reviewed by JAMEL Peters ECG 12 Lead Result Date: 09/02/2024 Sinus bradycardia Left axis deviation Right bundle branch block When compared with ECG of 02-Sep-2024 13:11, Premature ventricular complexes are no longer present QT has shortened Reviewed by JAMEL Calabrese ECG 12 Lead Result Date: 09/02/2024 Sinus rhythm Premature ventricular complexes Right bundle branch block with secondary ST-T abnormalities Left anterior fascicular block Bifascicular block Prolonged QT When compared with ECG of 02-Sep-2024 12:17, QT has lengthened Reviewed by JAMEL Chavis ECG 12 Lead Result Date: 09/02/2024 Sinus rhythm Premature ventricular complexes Right bundle branch block with secondary ST-T abnormalities Left anterior fascicular block Bifascicular block When compared with ECG of 16-Jul-2023 11:49, Premature ventricular complexes are now present Reviewed by JAMEL Chavis PROCEDURES None ASSESSMENT / PLAN This is a 74 y.o. male with a history of coronary artery disease s/p CABG (2012) s/p stent, systolic heart failure (HFrEF), atrial flutter, obstructive sleep apnea presenting from home on 09/02/2024 with chest pain #unstable angina #coronary artery disease s/p CABG (2012) s/p stent #chronic systolic heart failure (HFrEF) presented with intermittent chest pain for 4 days, with associated upper extremity tingling. Occurs at rest and with activity. Has known history of coronary artery disease. Admit labs with WBC 6.6, hemoglobin 15.9, platelets 245, INR 1, Na 138, K 3.8, Cr 0.96, LFT WNL, troponin 13->11,BNP 120. Chest xray without infiltrate. EKG without acute ST changes. -last echocardiogram (2019) with EF 45%, grade 2 diastolic dysfunction -previously prescribed amlodipine 5 daily (but not taking prior to admission) -placed on heparin gtt. -cardiology consulted, input pending #Fatty liver -Mildly elevated AST. Continue to monitor LFTs. #allergic rhinitis -on Flonase PRN prior to admission #dyslipidemia -on statin prior to admission, continued #obstructive sleep apnea -on CPAP qHS prior to admission #Nutrition Status #Obesity Body mass index is 30.9 kg/m??. INFUSIONS: DIET: Current Diet None ANTICOAGULANTS/DVT PROPHYLAXIS: AntiCoag AntiPlatelet Meds IP/OP Heparins Refills Start End heparin (porcine) 1,000 unit/mL injection 5,600 Units (Completed) -- 09/02/2024 09/02/2024 60 Units/kg (5,600 Units), intravenous, Once, Initial Loading Dose heparin (porcine) 1,000 unit/mL injection 2,800 Units (Discontinued) -- 09/02/2024 09/02/2024 30 Units/kg (2,800 Units), intravenous, As needed Reason for Discontinue: Patient Discharge Linked Group 1: Placed in Or Linked Group heparin (porcine) 1,000 unit/mL injection 2,800 Units (Discontinued) -- 09/02/2024 09/03/2024 30 Units/kg (2,800 Units), intravenous, As needed Linked Group 2: Placed in Or Linked Group heparin (porcine) 1,000 unit/mL injection 5,600 Units (Discontinued) -- 09/02/2024 09/02/2024 60 Units/kg (5,600 Units), intravenous, As needed Reason for Discontinue: Patient Discharge Linked Group 1: Placed in Or Linked Group heparin (porcine) 1,000 unit/mL injection 5,600 Units (Discontinued) -- 09/02/2024 09/03/2024 60 Units/kg (5,600 Units), intravenous, As needed Linked Group 2: Placed in Or Linked Group heparin (porcine) 1,000 unit/mL injection (Discontinued) -- 09/03/2024 09/03/2024 Code/trauma/sedation medication Reason for Discontinue: Patient Discharge heparin (porcine) 100 Units/mL in NaCl 0.45% 250 mL infusion (Discontinued) -- 09/02/2024 09/02/2024 1-30 Units/kg/hr (92.5-2,775 Units/hr), intravenous, Continuous @ .93-27.75 mL/hr, 25,000 Units in 250 mL Notes to Pharmacy: If baseline aPTT is >40 seconds with no explainable cause, the provider should consider immediate consult (via phone) with a pulley man and order special coagulation lab testing, Prolonged Clot Time Profile (Epic: [id number]). Reason for Discontinue: Patient Discharge heparin (porcine) 100 Units/mL in NaCl 0.45% 250 mL infusion (Discontinued) -- 09/02/2024 09/03/2024 1-30 Units/kg/hr (92.5-2,775 Units/hr), intravenous, Continuous @ .93-27.75 mL/hr, 25,000 Units in 250 mL Notes to Pharmacy: If baseline aPTT is >40 seconds with no explainable cause, the provider should consider immediate consult (via phone) with a pulley man and order special coagulation lab testing, Prolonged Clot Time Profile (Epic: [id number]). Platelet Aggregation Inhibitors - Thienopyridine Agents Refills Start End clopidogreL tablet 75 mg (Plavix) -- 09/03/2024 -- 75 mg, oral, Daily GI PROPHYLAXIS: Diet Nursing Communication: Discussed the plan for the day and discharge plan with Luciano on 09/03 Family Communication: Disposition: Prior to admission, the patient was living at home. I would anticipate that the patient will likely be able to discharge home. LEVEL OF CARE: Currently, the patient is on Progressive Care status and located in the PCU. I would estimate that the patient will be ready for discharge on 09/04/2024 pending (1) cardiac workup CODE STATUS: Full Code ADMINISTRATIVE BILLING Total time spent 60 minutes Luis Rivas MD Board Certified Physician in Internal Medicine and Pediatrics [facility] Medicine Service * Dino Fernandez, DJagdeep, R.Ph. - 09/03/2024 7:24 AM CDT Images from the original note were not included. Admission Medication History Note Adherence issues: No concerns Medication list source: Patient and Pharmacy or dispense records Medication related information: RN interviewed patient. Pharmacy refill records were compared to RN-completed med rec with no discrepancies found. Spoke to patient and confirmed he is no longer taking amlodipine. Prior to Admission Medications Med List Status: Pharmacy/RN Complete Set By: Dino Fernandez Pharm.D., R.Ph. at 09/03/2024 7:24AM Taking? Last Dose Informant Start Date End Date LT amLODIPine (NORVASC) 5 mg tablet Not Taking Self 10/17/21 -- Take 5 mg by mouth daily. Patient not taking: Reported on 09/02/2024 aspirin 81 mg chewable tablet 09/02/2024 at Morning Self -- -- Chew 81 mg daily. clopidogreL (PLAVIX) 75 mg tablet 09/02/2024 at Morning -- 08/08/23 -- Take 1 tablet (75 mg total) by mouth daily. fluticasone propionate (Flonase) 50 mcg/actuation nasal spray 09/01/2024 at Morning -- 07/27/24 -- INSTILL 2 SPRAYS IN EACH NOSTRIL EVERY DAY Patient taking differently: Administer 2 sprays into each nostril as needed for allergies or rhinitis. levocetirizine (Xyzal) 5 mg tablet 09/02/2024 at Morning -- 01/29/24 -- take one tablet by mouth in the evening nitroglycerin (NITROSTAT) 0.4 mg SL tablet 09/02/2024 at Noon Self 11/18/15 -- Place 0.4 mg under the tongue every 2 (two) hours as needed for chest pain. rosuvastatin (CRESTOR) 40 mg tablet 09/02/2024 at Morning Self 11/07/21 -- Take 40 mg by mouth daily. Electronically signed by: Michelle Fernandez Pharm.D., R.Ph. 09/03/24 7:28 AM CDT documented in this encounter H&P Notes * Shaun Alcantara M.B.B.S. - 09/03/2024 12:58 PM CDT INTERVAL HISTORY AND PHYSICAL PRE-PROCEDURE UPDATE H&P reviewed. The patient was examined and there are no significant changes to the H&P. SEDATION ASSESSMENT [facility] Source Note - Joy Cardona M.D. - 09/03/2024 9:54 AM CDT Cardiology consult supervisory note: I have discussed the case with Ms. Jackson, and agree with her documentation as listed separately in a note from today. In addition I have independently reviewed the chart and examined the patient. Briefly, 74 yo M with CABG in 2012, 9 PCI afterwards, ischemic CM, EF 45%, ZANE on CPAP, possible history of atrial flutter, PVCs, with 5 days of constant chest pain. Symptoms are similar to his priorMI. Constant chest pressure this AM, improved with SL NTG. Pain was still 4/10 in intensity at the timeof my visit. Associated shortness of breath, with nausea and vomiting. Exertional intolerance over 2 weeks. Trop 13 and 11 Intolerant to Ranolozaine, nitrates and beta paramjit. Most recent coronary angiogram 05/06/2020 DIAGNOSTIC SUMMARY - The left main is stented at its ostium and has moderate disease unchanged - The LAD is occluded at ostium and fills from patent GABRIEL - The CX is large and dominant and patent with mild disease. There are patent stents in mid-CX, OM2and OM3. The LPDA to OM is occluded - The RCA is small, non-dominant with mild, diffuse disease. - The GABRIEL to LAD and diagonal appears widely patent - The SVG to PDA of CX is patent. The stented brachy site in proximal vessel is patent Regionals in basal to apical inferior and mid lateral segment (ak). EF 45% On exam: GENERAL: Pleasant, and in no apparent distress. HEART: Regular rate. Normal S1 and S2. Regular rhythm. No murmurs, rubs or gallops. LUNGS: Clear to auscultation bilaterally. No expiratory wheeze, crackles or rales. No accessory muscles of respiration noted. ABDOMEN: Normal bowel sounds. Soft, nontender. Tympanitic and mildly distended. EXTREMITIES: No cyanosis. No edema. VASCULAR: Distal pulses symmetric and intact. SKIN: Warm and dry. No rashes visualized. PSYCH: Appropriate affect. NEURO: Alert & oriented x 3. Assessment/Plan: 1. Unstable angina 74-year-old male with multiple cardiac risk factors and extensive atherosclerosis history presenting with symptoms similar to his prior [place] concerning for unstable angina. His history is quite concerning for unstable angina. He generally looks unwell. However fortunately troponins have been grossly negative without evidence of new drop in ejection fraction on the echocardiogram. Of note we do not have the prior echocardiogram for comparison. We will proceed with coronary angiography this morning. Patient is already on aspirin and Plavix. The remainder as per Jagdeep Jackson. Margin code: Spent 25 minutes in the care of this patient, greater than 50% time was spent in counseling/coordination of care, in addition to the time documented by the [employer] OPERATOR. * Eva Carlson M.D. - 09/02/2024 8:51 PM CDT PRIMARY CARE PHYSICIAN: Milan Campos D.O. SUBJECTIVE CHIEF COMPLAINT/REASON FOR ADMISSION Chest pain HISTORY OF PRESENT ILLNESS Aroldo Chen is a 74 y.o. male with a past medical history of complex coronary artery disease status post CABG in August 2012 , coronary stenting even after CABG with a history of in stent restenosis currently on dual antiplatelet therapy and high-dose statin, hypertension, atrial flutter, HFrEF, fatty liver, obstructive sleep apnea on CPAP, back pain who presented to the ED at an outside hospital co mplaining of chest pain. Patient reports episodes of intermittent chest pain for the last 4 days. Reports substernal chest pain that is pressure-like unless for about 5 minutes. Does report some associated tingling in bilateral hands and occasionally radiating to his left arm. He has both chest pain at rest and with activity. He also endorses some shortness for breath. Denies dizziness ,lightheadedness or palpitations. De nies any lower extremity edema. He endorses compliance with his medications. In the emergency depart , vitals are notably for bradycardia with pulses in the 50s. Labs notable for normal CBC, CMP notable for AST of 82 glucose 171 but otherwise unremarkable. Troponin is negative. NT proBNP within normal limits. EKGs showed sinus bradycardia,RBBB. Chest x-ray with no focal abnormality. Patient received aspirin, bolus of fluids, sublingual nitro and started on IV heparin. Case was discussed with Cardiology who recommended continuing aspirin, Plavix, starting IV heparin and as needed nitro and admission for further management. Patient was transferred to [facility]. Patient was seen in his room at the [facility]. He provided the above history. MEDICAL HISTORY Medical History[1] SURGICAL HISTORY Surgical History[2] ALLERGIES /CONTRAINDICATIONS Allergies Allergen Reactions Adhesive Rash and Hives only, no other systemic symptoms Tegaderm causes welts- Bee Venom Protein (Honey Bee) Anaphylaxis PN: highly allergic to bee stings Codeine Anaphylaxis, Angioedema and Shortness of breath Patient states on 07/06/15- that the allergic rxn caused his throat to swell shut 10/01/19: per patient- tolerates oxycodone without any problem Hymenoptera Allergenic Extract Anaphylaxis and Angioedema Swelling of Throat Latex Hives (Reselect Reaction) and Rash Pletal [Cilostazol] Shortness of breath Nausea, fatigue Adhesive Tape-Silicones Rash [place] Pollen Itching Seasonal Allergies: Allergic Rhinitis, Itchy watery eyes OUTPATIENT MEDICATIONS: SOCIAL HISTORY Aroldo Chen reports that he has quit smoking. His smoking use included cigarettes. He does not have any smokeless tobacco history on file. He reports that he does not currently use alcohol. He reports that he does not currently use drugs. FAMILY HISTORY Family History[3] REVIEW OF SYSTEMS A detailed review of system was performed and pertinent positives and negatives noted in history ofpresent illness. Denies any cough, URI like symptoms. Denies abdominal pain, nausea, vomiting. Reports occasional heartburn and taking tums . Denies any urinary symptoms. OBJECTIVE VITAL SIGNS Temperature: [36.5 ??C] 36.5 ??C Heart Rate: [55-77] 62 Resp Rate: [14-22] 22 Blood Pressure: (104-151)/(70-126) 121/86 SpO2: [93 %-100 %] 97 % Weight: [92.5 kg] 92.5 kg Pulse Rate: [48-77] 59 PHYSICAL EXAMINATION Physical Exam General exam: Patient appears comfortable not in any acute distress. Head ENT exam: Mucous membranes are moist. Neck: Supple. Cardiovascular exam: Regular rate and rhythm ,S1 and S2 normal ,no gallop. Lung exam: Not using accessory muscles. Breathing is nonlabored. Lungs are clear to auscultation bilaterally. Abdomen: Soft ,nontender, bowel sounds are normoactive. Neuro: Patient is awake alert oriented time place and person. Moving all 4 extremities. Lower extremities: No edema. DIAGNOSTICS LABORATORY DATA: Recent Results (from the past 24 hours) CBC with Differential, Blood Collection Time: 09/02/24 12:31 PM Result Value Hemoglobin 15.9 Hematocrit 44.5 Erythrocytes 5.13 MCV 86.7 RBC Distrib Width 12.7 Platelet Count 245 Leukocytes 6.6 Neutrophils 3.77 Lymphocytes 2.20 Monocytes 0.42 Eosinophils 0.17 Basophils 0.04 Comprehensive Metabolic Panel Collection Time: 09/02/24 12:31 PM Result Value Potassium, P 3.8 Sodium, P 138 Chloride, P 101 Bicarbonate, P 24 Anion Gap, P 13 BUN (Blood Urea Nitrogen), P 13 Creatinine 0.96 Estimated GFR (eGFR) 83 Calcium, Total, P 9.8 Glucose, P 171 (H) Protein, Total, P 7.7 Albumin, P 4.4 Aspartate Aminotransferase (AST), P 82 (H) Alkaline Phosphatase, P 73 Alanine Aminotransferase (ALT), P 51 Bilirubin, Total, P 0.8 Prothrombin Time (PT) Collection Time: 09/02/24 12:31 PM Result Value Prothrombin Time, P 11.4 INR 1.0 Troponin T, Baseline with 2 Hour/6 Hour Reflex Biomarker Panel Collection Time: 09/02/24 12:31 PM Result Value Troponin T, Baseline, 5th gen 13 NT-Pro B-Type Natriuretic Peptide (BNP) Collection Time: 09/02/24 12:31 PM Result Value NT-Pro BNP 120 D-Dimer Collection Time: 09/02/24 12:31 PM Result Value D-Dimer, P <220 Magnesium Collection Time: 09/02/24 12:31 PM Result Value Magnesium, P 1.8 APTT (Activated Partial Thromboplastin Time) Collection Time: 09/02/24 12:31 PM Result Value Activated Partial Thrombopl Time, P 34 Troponin T, 2 Hour with 6 Hour Reflex, 5th Gen Collection Time: 09/02/24 2:45 PM Result Value Troponin T, 2 hr, 5th gen 11 2H Delta -2 2H Delta Interp Not Changing IMAGING DATA: DX Chest Portable 1 View Result Date: 09/02/2024 Impression: Comparison radiographs 07/17/2023. Stable cardiac size and mediastinal contours with postop changes from median sternotomy and bypass grafting. Pulmonary vascularity appears within normal limits. No focal pneumonic consolidation. No evidence of pneumothorax or pleural effusion. Degenerative changes within the spine and shoulder girdles. EKG: ECG 12 Lead Result Date: 09/02/2024 Sinus bradycardia Left axis deviation Right bundle branch block When compared with ECG of 02-Sep-2024 13:11, Premature ventricular complexes are no longer present QT has shortened Reviewed by JAMEL Calabrese ECG 12 Lead Result Date: 09/02/2024 Sinus rhythm Premature ventricular complexes Right bundle branch block with secondary ST-T abnormalities Left anterior fascicular block Bifascicular block Prolonged QT When compared with ECG of 02-Sep-2024 12:17, QT has lengthened Reviewed by JAMEL Chavis ECG 12 Lead Result Date: 09/02/2024 Sinus rhythm Premature ventricular complexes Right bundle branch block with secondary ST-T abnormalities Left anterior fascicular block Bifascicular block When compared with ECG of 16-Jul-2023 11:49, Premature ventricular complexes are now present Reviewed by JAMEL Chavis ASSESSMENT / PLAN Unstable angina History of coronary artery disease status post CABG Primary essential hypertension Heart failure with reduced EFLVEF 45% (03/17/2020) Hyperlipidemia Patient presenting with chest pain in the setting of known coronary artery disease. Currently chestpain-free. Workup so far including troponin is negative. Most recent EKG shows sinus bradycardia,RBBB. Chest x-ray without acute abnormality. Given history concerning for unstable angina. - Continue aspirin, Plavix, IV heparin. - P.r.n. nitro for chest pain. If has ongoing chest pain will consider nitro drip. - Cardiology consultation. - NPO after midnight - Echocardiogram. - Continue statin. Lipid panel . - Monitor ins and outs. - Has a history of a flutter per chart but does not appear to be on anticoagulation. Obstructive sleep apnea - Continue CPAP. Fatty liver -Mildly elevated AST. Continue to monitor LFTs. Hyperglycemia - Noted blood glucose of 171 on labs. Will check hemoglobin A1c. Code status:full code. DVT prophylaxis: On IV heparin Diagnostic testing, test results plan of care discussed with the patient. Questions answered to satisfaction. ADMINISTRATIVE BILLING Total time spent 55 minutes [1] Past Medical History: Diagnosis Date Apnea Sleep Obstructive [2] No past surgical history on file. [3] No family history on file. documented in this encounter Consult Notes * Joy Cardona M.D. - 09/03/2024 9:54 AM CDT Cardiology consult supervisory note: I have discussed the case with Ms. Jackson, and agree with her documentation as listed separately in a note from today. In addition I have independently reviewed the chart and examined the patient. Briefly, 74 yo M with CABG in 2012, 9 PCI afterwards, ischemic CM, EF 45%, ZANE on CPAP, possible history of atrial flutter, PVCs, with 5 days of constant chest pain. Symptoms are similar to his priorMI. Constant chest pressure this AM, improved with SL NTG. Pain was still 4/10 in intensity at the timeof my visit. Associated shortness of breath, with nausea and vomiting. Exertional intolerance over 2 weeks. Trop 13 and 11 Intolerant to Ranolozaine, nitrates and beta paramjit. Most recent coronary angiogram 05/06/2020 DIAGNOSTIC SUMMARY - The left main is stented at its ostium and has moderate disease unchanged - The LAD is occluded at ostium and fills from patent GABRIEL - The CX is large and dominant and patent with mild disease. There are patent stents in mid-CX, OM2and OM3. The LPDA to OM is occluded - The RCA is small, non-dominant with mild, diffuse disease. - The GABRIEL to LAD and diagonal appears widely patent - The SVG to PDA of CX is patent. The stented brachy site in proximal vessel is patent Regionals in basal to apical inferior and mid lateral segment (ak). EF 45% On exam: GENERAL: Pleasant, and in no apparent distress. HEART: Regular rate. Normal S1 and S2. Regular rhythm. No murmurs, rubs or gallops. LUNGS: Clear to auscultation bilaterally. No expiratory wheeze, crackles or rales. No accessory muscles of respiration noted. ABDOMEN: Normal bowel sounds. Soft, nontender. Tympanitic and mildly distended. EXTREMITIES: No cyanosis. No edema. VASCULAR: Distal pulses symmetric and intact. SKIN: Warm and dry. No rashes visualized. PSYCH: Appropriate affect. NEURO: Alert & oriented x 3. Assessment/Plan: 1. Unstable angina 74-year-old male with multiple cardiac risk factors and extensive atherosclerosis history presenting with symptoms similar to his prior [place] concerning for unstable angina. His history is quite concerning for unstable angina. He generally looks unwell. However fortunately troponins have been grossly negative without evidence of new drop in ejection fraction on the echocardiogram. Of note we do not have the prior echocardiogram for comparison. We will proceed with coronary angiography this morning. Patient is already on aspirin and Plavix. The remainder as per Ms. Jackson. Margin code: Spent 25 minutes in the care of this patient, greater than 50% time was spent in counseling/coordination of care, in addition to the time documented by the [employer] OPERATOR. * Yumiko Jackson P.A.-Florentin., P.A. - 09/03/2024 9:15 AM CDTAssociated Order(s): IP CONSULT TO CARDIOLOGY Images from the original note were not included. CARDIOLOGY INPATIENT CONSULTATION NOTE REQUESTING PROVIDER No referring provider defined for this encounter. PRIMARY PROVIDER Milan Campos D.O. CONSULTING PROVIDERS Yumiko Jackson PA-C / Dr. Cardona CHIEF COMPLAINT/REASON FOR VISIT Chest Pain HISTORY OF PRESENT ILLNESS #1 Angina Unstable (HCC) Aroldo Chen is a 74 y.o. male with a past medical history of extensive coronary artery disease with the details delineated below, but in summary, history of CABG, multiple stents including 9 stents,last cath was in 2020, radial graft to OM was known to be occluded 2 months post CABG in 2012, limato LAD to diagonal patent, vein graft to left-sided PDA patent, all previous stents placed patent, ischemic cardiomyopathy EF of 45%, obstructive sleep apnea, utilizes CPAP, apparently history of atrial flutter, listed in diagnoses, not on anticoagulation, right bundle-branch block, PVCs, who presented to the emergency department in [place], [place] on 09/02/2024 for 5 day history of substernal ch est pressure that is constant with pain and numbness and tingling radiating down both arms. Also has associated shortness of breath with exertion which is new in the last several days, and episodes of vomiting and nausea. Pain was fairly constant, slightly progressive, did not ever completely resolve. States it feels similar to his prior anginal equivalent. Troponin was 13 and 11, EKG demonstrated right bundle-branch block, no ischemic changes. Patient received sublingual nitroglycerin which helped his symptoms. Chest pain did progress to 10/10 this morning, improved with nitro. REVIEW OF SYSTEMS All other systems reviewed and negative except per HPI. PAST CARDIAC HISTORY/CV RISK FACTORS Coronary artery disease 08/2012: CABG x4 A. Gabriel to LAD to diagonal B. Saphenous vein graft to left PDA, stented in the past C. Free radial to OM, known to be occluded just 2 months after surgery Has had multiple stents including ostial left main, left circ, OM2, OM3, and a saphenous vein graftto left PDA Most recent coronary angiogram 05/06/2020 DIAGNOSTIC SUMMARY - The left main is stented at its ostium and has moderate disease unchanged - The LAD is occluded at ostium and fills from patent GABRIEL - The CX is large and dominant and patent with mild disease. There are patent stents in mid-CX, OM2and OM3. The LPDA is occluded - The RCA is small, non-dominant with mild, diffuse disease. - The GABRIEL to LAD and diagonal appears widely patent - The SVG to PDA of CX is patent. The stented brachy site in proximal vessel is patent From Primary Block Breaker Documentation Coronary artery disease. A. Status post coronary artery bypass grafting August of 2012 consisting of left internal mammary artery graft to the first diagonal vessel and then onto the LAD, a free radial graft to the second obtuse marginal vessel, and a saphenous vein graft to the left-sided PDA. B. Coronary angiography 2 months later demonstrated progression of disease in the left main and theleft circumflex, as well as the ostial LAD. The left circumflex was completely occluded after a small obtuse marginal vessel. The left internal mammary artery graft was patent. The saphenous vein graft to the PDA was patent. The radial artery graft to the second obtuse marginal vessel was completely occluded. C. Adenosine MRI 2013 demonstrated no evidence of inducible ischemia. D. [facility]ation to the [facility] with attempts to optimize medical therapy because of continued classic exertional angina, found to be intolerant of significant doses of beta-blockers, long-acting nitrates, and ranolazine. E. Coronary angiography April 2014 demonstrated a significant lesion in the vein graft to the LPDA, subsequently stented. He underwent repeat coronary angiography because of severe limiting angina in May 2014, with an attempt to perform complex percutaneous intervention on the second obtuse marginal vessel via the saphenous vein graft to the PDA; which was unsuccessful because of inabilityto wire vessels. F. Because of recurrent limiting angina, the patient underwent a successful PCI of the left circumflex chronic total occlusion and had subsequent antegrade PCI of the second obtuse marginal vessel with drug-eluting stents. G. Status post CT coronary angiography July 2015 demonstrated patency of the PRAMOD sequential graft,a patent saphenous vein graft to the left posterior descending artery, and patent stents in the left main, left circumflex, and obtuse marginal vessels. H. Presenting with unstable angina in April 2017. Coronary angiography demonstrated patency of stents in the left main, left circumflex, and obtuse marginal vessels; patent sequential left internalmammary artery graft to the diagonal and LAD, and a new lesion in the saphenous vein graft to the LPDA, which was subsequently stented with drug-eluting stent. I. Presenting with unstable angina September of 2019. Found to have in-stent restenosis of the saphenousvein graft to the LPDA, treated with PTCA. J. Because of recurrence of prior anginal symptoms and failing medical therapy, coronary angiography performed 03/17/2020. This demonstrated a 40% lesion at the ostium of the left main. The stents inthe left main, left circumflex, and obtuse marginal vessels were widely patent. The LAD was completely occluded and the sequential internal mammary graft to the diagonal and LAD was widely patent. The saphenous vein graft to the LPDA had severe in-stent restenosis in the proximal portion of the vein graft, which was subsequently treated with balloon angioplasty, intravascular ultrasound, and thenintracoronary brachytherapy. K. Presenting with recurrence of symptoms highly suspicious for recurrent angina, coronary angiography performed 05/06/2020 demonstrated patency of the stents in the left main, left circumflex, and obtuse marginal vessel; patency of the sequential PRAMOD graft to the LAD and diagonal, and patency of the recently intervened on site in the saphenous vein graft to the left-sided PDA. It was recommended that he be treated medically. Andrae. Presented with symptoms of chest discomfort and shortness of breath in February of 2021. CT coronary angiography demonstrated patency of all interventional sites and sequential PRAMOD graft and vein graft to the LPDA. 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 HOME MEDICATIONS Current Medications[1] ALLERGIES Allergies[2] PHYSICAL EXAMINATION VITAL SIGNS: Temperature: [36.1 ??C-36.5 ??C] 36.3 ??C Heart Rate: [45-77] 53 Resp Rate: [12-22] 12 Blood Pressure: (104-151)/(70-126) 127/90 SpO2: [93 %-100 %] 99 % Height: [170.2 cm] 170.2 cm Weight: [89.5 kg-92.5 kg] 89.5 kg BSA (Calculated - sq m): [2.06 sq meters] 2.06 sq meters BMI (Calculated): [30.9 kg/m??-31.1 kg/m??] 30.9 kg/m?? Pulse Rate: [48-77] 52 Body mass index is 30.9 kg/m??. General: Comfortable and in no acute distress. Alert and oriented x3. Skin: Warm, dry. No rashes or lesions. Neck: Supple, no carotid bruits noted, no JVD. Lungs: Clear bilaterally with good air entry. No wheezing. No crackles. Heart: Regular rate and rhythm. Normal S1, S2, no murmurs. No S3 or S4 gallops. Abdomen: Soft, non-tender. Extremities: No lower extremity peripheral edema. Vessels: Radial pulses are palpable and equal bilaterally. DIAGNOSTICS LABS: Results from last 7 days Lab Units 09/03/24 0519 09/02/24 1231 WBC x10(9)/L 6.5 6.6 HEMOGLOBIN g/dL 14.5 15.9 HEMATOCRIT % 41.4 44.5 PLATELETS AUTO x10(9)/L 190 245 Results from last 7 days Lab Units 09/03/24 0519 09/02/24 1231 SODIUM P mmol/L 140 138 CREATININE mg/dL 0.98 0.96 ESTIMATED GFR EGFR mL/min/BSA 81 83 BUN P mg/dL 14 13 CHLORIDE P mmol/L 105 101 Results from last 7 days Lab Units 09/02/24 1231 INR 1.0 Results from last 7 days Lab Units 09/02/24 1231 ALBUMIN P g/dL 4.4 AST P U/L 82* ALT P U/L 51 ALK PHOS P U/L 73 BILIRUBIN TOTAL P mg/dL 0.8 TRANSTHORACIC ECHOCARDIOGRAM Final Impressions 1. Normal left ventricular chamber size, regional wall motion abnormalities were present (see wall motion graphics), calculated 2-D biplane volumetric ejection fraction of 44%. 2. Grade 1/3 left ventricular diastolic dysfunction, consistent with low to normal left ventricularfilling pressure. 3. Normal right ventricular chamber size, borderline reduced systolic function, unable to detect peak tricuspid regurgitation velocity for pulmonary artery systolic pressure calculation. 4. No significant valvular heart disease. 5. No pericardial effusion. 6. There are no previous echocardiograms available for comparison. EKG ASSESSMENT / PLAN # Chest Pain Patient presents with 5 days of constant chest pain, intermittently worse in intensity. Despite 5 days, his troponin has been negative. He has extensive coronary artery disease history. Would not be able to put him on a treadmill with active chest pain. Therefore, recommend further evaluation with coronary angiography. Risks, benefits and alternatives to diagnostic angiography and stenting were discussed in detail. The risk of diagnostic angiography includes a less than 1 in 500 risk of heart attack, stroke, vascular injury or contrast reaction. There is less than a 1 in 1,000 risk of dying and less than 1 in 500risk of complications with stenting (increased risk of complications if bypass grafts are involved). The possibility of finding normal coronary arteries or surgical disease was also discussed in detail as well as a 1 in 500 chance of needing emergent surgery. The patient verbalizes understanding and agrees to proceed with the procedure. # Established Coronary Artery Disease Patient has extensive coronary artery disease history including CABG x4 with an occluded radial artery to OM, history of multivessel stenting with a total of 9 stents. Currently on dual antiplatelet therapy for life per recommendation of his primary metalworking instructor at [facility], no beta-paramjit secondary tointolerance of shortness of breath. Continue high-intensity statin therapy. # PVCs He does have PVCs, Holter in the past showed 5%. # ? Atrial Flutter There is question of atrial flutter in the chart, however could not find this documented and or discussed in primary cardiology notes. # Left Ventricular Systolic Heart Failure # Ischemic Cardiomyopathy Patient has a history of left ventricular systolic heart failure, echocardiogram reveals stable reduced LV dysfunction. Would consider medication adjustment for left ventricular systolic heart failure, recommend starting losartan 25 mg daily and spironolactone 25 mg daily. Was previously on amlodipine, might need to continue this for vasodilation. This case was discussed in detail with Dr. El of [facility] was in agreement with the above outlined plan. ADDENDUM: Coronary angiogram demonstrated an occluded graft to the left PDA. In the setting of normal troponin, echocardiogram was similar EF, this does not appear to be acute finding. He has moderate other residual disease, but nothing that would cause rest pain. After much discussion, for possibly unlikelyhis presentation is cardiac in nature however, we can try nitrates. Would consider alternative etiology such as a GI etiology. [1] Current Medications: acetaminophen tablet 500 mg (TylenoL), Q6H PRN aspirin chewable tablet 81 mg, Daily clopidogreL tablet 75 mg (Plavix), Daily heparin (porcine) 1,000 unit/mL injection 2,800 Units, PRN OR heparin (porcine) 1,000 unit/mL injection 5,600 Units, PRN heparin (porcine) 100 Units/mL in NaCl 0.45% 250 mL infusion, Continuous loratadine tablet 10 mg (Claritin), Daily nitroglycerin SL tablet 0.4 mg (Nitrostat), Q5 Min PRN rosuvastatin tablet 40 mg (Crestor), Daily at bedtime sodium chloride 0.9 % injection 10 mL, PRN sodium chloride 0.9 % injection 3 mL, PRN sodium chloride 0.9 % injection 3 mL, Q12H AMPARO [2] Allergies Allergen Reactions Adhesive Rash and Hives only, no other systemic symptoms Tegaderm causes welts- Bee Venom Protein (Honey Bee) Anaphylaxis PN: highly allergic to bee stings Codeine Anaphylaxis, Angioedema and Shortness of breath Patient states on 07/06/15- that the allergic rxn caused his throat to swell shut 10/01/19: per patient- tolerates oxycodone without any problem Hymenoptera Allergenic Extract Anaphylaxis and Angioedema Swelling of Throat Latex Hives (Reselect Reaction) and Rash Pletal [Cilostazol] Shortness of breath Nausea, fatigue Adhesive Tape-Silicones Rash [place] Pollen Itching Seasonal Allergies: Allergic Rhinitis, Itchy watery eyes documented in this encounter Nursing Notes * Luciano Oconnell R.N. - 09/04/2024 12:43 PM CDT INPATIENT NURSING DISCHARGE SUMMARY Discharge Provider: Luis Rivas M.D. Admission Date: 09/02/2024 Discharge Date: 09/04/2024 09/04/2024 DISCHARGE DISPOSITION Home/Self Care CONDITION AT DISCHARGE stable TREATMENTS None DEVICES/EQUIPMENT None PROFESSIONAL SKILLED SERVICES None MODE OF DISCHARGE Wheelchair TRANSPORTATION Wheelchair Van ACCOMPANIED BY GLUER MACHINE OPERATOR All belongings sent home with patient. Discussed all DC instructions. Encouraged to call with any questions or concerns. * Luciano Oconnell R.N. - 09/04/2024 10:57 AM CDT Shift Goals: 1. No chest pain Identify possible barriers to meeting goals/advancing plan of care: None End of Shift Summary: Aroldo hasn't had any discomfort. Plan to DC later today * Erna Mcelroy R.N. - 09/04/2024 6:42 AM CDT INPATIENT SHIFT SUMMARY ORIENTATION: A&Ox3 SAFETY MEASURES: Met by Routine ASSISTED MOBILITY: Independent VITALS: Vitals assessed and stable this shift INTAKE: Adequate for solids and Adequate for liquids OUTPUT: Patient has been urinating adequately. PAIN: Patient has not had any complaints of pain this shift. PRN MEDICATIONS UTILIZED THIS SHIFT: None DVT PROPHYLAXIS: Takes ASA & Plavix CHG/RUSSELL CARE NEEDS: None needed SHIFT EVENTS: No acute events this shift. Patient slept well through the night. EDUCATION: Educated Patient on plan of care, safety, medications. UPCOMING PLAN OF CARE: Pt denied chest pains this shift. VSS. Denied any significant episodes of shortness of breath. Problem: PAIN - ADULT Goal: PT VERBALIZES/DEMONSTRATES ADEQUATE COMFORT LEVEL OR BASELINE Outcome: Progressing Denied pain overnight. Problem: KNOWLEDGE DEFICIT Goal: Patient/family/caregiver demonstrates understanding of disease process, treatment plan, medications, and discharge instructions Outcome: Progressing Receptive to teaching, able to state understanding. Problem: SAFETY ADULT Goal: Maintain a safe environment Outcome: Progressing Ambulates independently with steady gait. Uses non-slip footwear when ambulating. Will use call light if any dizziness/light headedness noted. * Luciano Oconnell R.N. - 09/03/2024 6:30 PM CDT Shift Goals: No chest pain Identify possible barriers to meeting goals/advancing plan of care: none End of Shift Summary: Angio showed 2 of his bypass grafts are down and circumflex was diseased but not causing his symptoms. Imdur started and GI cocktail and Tums given. Pain went from 4/10 to 1/10.Nitro given earlier today helped but only brought pain from 6 to a 4/10. Probable DC tomorrow * Erna Mcelroy R.N. - 09/03/2024 6:25 AM CDT INPATIENT SHIFT SUMMARY ORIENTATION: A&Ox3 SAFETY MEASURES: Met by Routine ASSISTED MOBILITY: Stand by assist VITALS: Vitals assessed and stable this shift INTAKE: Patient NPO OUTPUT: Patient has been urinating adequately. PAIN: Pain has been well controlled with PRN medications PRN MEDICATIONS UTILIZED THIS SHIFT: Tylenol DVT PROPHYLAXIS: Heparin gtt CHG/RUSSELL CARE NEEDS: None needed SHIFT EVENTS: No acute events this shift. Patient slept well through the night. EDUCATION: Educated Patient on plan of care, medication, safety. UPCOMING PLAN OF CARE: Awaiting cardiology consult for plan- potential heart cath vs. Other options. NPO since midnight incase. Pt. Familiar with procedure. Compliant with medications. Does not want to try Nitro (yet) forpain due to drop in BP but also he does not want headache to get worse. Pt reported sleeping better than I have in about 4 nights. This morning. Still rating chest pain 4 on 0-10 scale but still does not want to try Nitro yet. Denied further needs. Problem: PAIN - ADULT Goal: PT VERBALIZES/DEMONSTRATES ADEQUATE COMFORT LEVEL OR BASELINE Outcome: Progressing C/o chest pain this shift on 4 of 0-10 scale, but is tolerable per pt. Instructed to call if nitro is needed for the pain, stated understanding. Problem: KNOWLEDGE DEFICIT Goal: Patient/family/caregiver demonstrates understanding of disease process, treatment plan, medications, and discharge instructions Outcome: Progressing Pt. Receptive to teaching, able to state understanding of teaching. Problem: SAFETY ADULT Goal: Maintain a safe environment Outcome: Progressing Steady gait noted, stand-by assist for assistance with IV pole if needed. Uses non-slip footwear when ambulating. documented in this encounter Miscellaneous Notes * Documentation Clarification - Yumiko Jackson P.A.-C., PJagdeepAJagdeep - 09/04/2024 2:25 PM CDT PROVIDER RESPONSE TEXT: To clarify, the appropriate diagnosis supported by the clinical indicators: Acute on chronic systolic heart failure QUERY TEXT: Clarification DOCUMENTATION CLARIFICATION REQUEST Please clarify/specify the appropriate diagnosis supported in the clinical indicators below. Clinical Indicators/Risk Factors/Treatment: PN 09/03 Dr. Rivas, 74 y.o. male with a history of coronary artery disease s/p CABG (2012) s/p stent, systolic heart failure (HFrEF), atrial flutter, obstructive sleep apnea presenting from home on09/02/2024 with chest pain. -last echocardiogram (2019) with EF 45% PN 09/04 Geovany MESSER, Also had associated shortness of breath with exertion which is new in the last several days, and episodes of vomiting and nausea. Underwent coronary angiogram 09/03/2024 which demonstrated his VG to LPDA is now occluded. Thought to not be new. Left ventricular systolic heart failure. Recommend additional guideline directed medical therapy. Guideline Directed Medical Therapy: -ACEi/ARB/ARNI: Started losartan 25 mg daily -Beta Paramjit: No beta-paramjit secondary to shortness of breath with beta- blockers in the past -SGLT-2 inhibitor: Can consider as an outpatient -Aldosterone Antagonist: Start spironolactone 25 mg daily -Diuretic: Appears euvolemic Plan: Okay to discharge home with optimizing his guideline directed medical therapy, and starting Imdur D/C summary 09/04 Dr. Rivas, Cardiology consulted and patient had cardiac catheterization (09/03) revealed severe coronary artery disease, no intervention completed. At this point, seems that pain was more likely related to gastroesophageal reflux. He was discharged on daily proton pump inhibitor + isosorbide mononitrate 30 daily, losartan 25 daily, spironolactone 25 daily. Echo 09/02 ejection fraction 44% Notes in epic prior to this admission PN 07/29/2023 Octavia Duran APRN [employer] SYSTEM INSTALLER MSN, HFrEF, LVEF 45% (03/17/2020)- resume home dose amlodipine Options provided: -- Acute on chronic systolic heart failure -- Other - I will add my own diagnosis -- Disagree - Clinically unable to determine / Unknown -- Refer to Clinical Documentation Reviewer Query created by: Claudia Dimas on 09/11/2024 7:27 AM Electronically signed by: Yumiko Jackson P.A.-C. 09/11/2024 9:03 AM * Hospital Course - Luis Rivas M.D. - 09/04/2024 2:19 PM CDT This is a 74 y.o. male with a history of coronary artery disease s/p CABG (2012) s/p stent, systolic heart failure (HFrEF), atrial flutter, obstructive sleep apnea presenting from home on 09/02/2024 with chest pain Hospital course discussion organized by problem: #unstable angina vs reflux #coronary artery disease s/p CABG (2012) s/p stent #chronic systolic heart failure (HFrEF) presented with intermittent chest pain for 4 days, with associated upper extremity tingling. Occurs at rest and with activity. Has known history of coronary artery disease. Admit labs with WBC 6.6, hemoglobin 15.9, platelets 245, INR 1, Na 138, K 3.8, Cr 0.96, LFT WNL, troponin 13->11,BNP 120. Chest xray without infiltrate. EKG without acute ST changes. Echocardiogram with EF44% and grade 1/3 diastolic dysfunction. Cardiology consulted and patient had cardiac catheterization (09/03) revealed severe coronary artery disease, no intervention completed. He was placed on isosorbide mononitrate 30 daily, losartan 25 daily, spironolactone 25 daily. He was also given GI cocktail with complete resolution of pain. At this point, seems that pain was more likely related to gastroesophageal reflux. He was discharged on daily proton pump inhibitor + isosorbide mononitrate 30 daily, losartan 25 daily, spironolactone 25 daily IMAGING DX Chest Portable 1 View: 09/02/2024 Impression: Comparison radiographs 07/17/2023. Stable cardiac size and mediastinal contours with postop changes from median sternotomy and bypass grafting. Pulmonary vascularity appears within normal limits. No focal pneumonic consolidation. No evidence of pneumothorax or pleural effusion. Degenerative changes within the spine and shoulder girdles. Transthoracic echocardiogram (TTE) 09/03/24 1. Normal left ventricular chamber size, regional wall motion abnormalities were present (see wall motion graphics), calculated 2-D biplane volumetric ejection fraction of 44%. 2. Grade 1/3 left ventricular diastolic dysfunction, consistent with low to normal left ventricularfilling pressure. 3. Normal right ventricular chamber size, borderline reduced systolic function, unable to detect peak tricuspid regurgitation velocity for pulmonary artery systolic pressure calculation. 4. No significant valvular heart disease. 5. No pericardial effusion. 6. There are no previous echocardiograms available for comparison. PROCEDURES Cardiac catheterization (09/03/24) Coronary artery dominance is left. Separate ostia for left anterior descending artery and left circumflex artery. Could not engage the ostial LAD selectively. Possibly occluded The proximal left anterior descending artery is 100% obstructed by a discrete lesion. The proximal circumflex artery is 70% obstructed by a discrete lesion. The second obtuse marginal is 50% obstructed by a discrete lesion. The proximal right coronary artery is 80% obstructed by a discrete lesion. Pseudoaneurysm of the proximal circumflex. * Pre-Procedure Note - Shaun Alcantara M.B.B.S. - 09/03/2024 12:58 PM CDT Consents Obtained: written The benefits, risks and alternatives of sedation or anesthesia, as well as the names, roles, and responsibilities of the healthcare team members, were discussed with the patient and/or decision maker: yes Procedure / Reason for visit: The planned surgery or procedure was verified with the patient and/ordecision maker The following portions of the patient's history were reviewed and updated as appropriate: allergies, current medications, family history, medical history, surgical history, social history and problemlist. yes Review of systems: pertinent ROS negative Mallampati: II - soft palate, uvula, fauces visible Heart: exam documented within 24 hours and unchanged Lung: exam documented within 24 hours and unchanged General / Constitutional: normal ASA physical exam: Class 3 - patient with severe systemic disease Patient seen, evaluated and approved for sedation Sedation plan: moderate sedation documented in this encounter Plan of Treatment Scheduled Orders Name Type Priority Associated Diagnoses Orde r Schedule Pulmonary Function Tests PFT Routine Apnea Sleep Obstructive Expected: 09/04/2024, Expires: 12/05/2025 Scheduled Referrals Name Type Priority Associated Diagnoses Order Schedule Transitional care post hospital clinic Outpatient Referral Routine 1 Occurrences starting 09/04/2024 until 12/04/2025 Post Hospital Visit Primary Care Outpatient Referral Routine Expected: 09/11/2024, Expires: 12/05/2025 Transitional Care Managment Nurse Visit (clinic) Outpatient Referral Routine Expected: 09/05/2024, Expires: 09/04/2025 documented as of this encounter Procedures Procedure Name Priority Date/Time Associated Diagnosis Comments ADULT OXYGEN THERAPY Routine 09/03/2024 4:12 PM CDT ADULT OXYGEN THERAPY Routine 09/03/2024 4:12 PM CDT CARDIAC CATHETERIZATION Routine 09/04/19 2:34 PM CDT Angina Unstable (HCC) CARDIAC CATHETERIZATION Routine 09/04/19 2:34 PM CDT Angina Unstable (HCC) ACT, POCT, B Routine 09/03/2024 2:15 PM CDT HEPARIN LEVEL ANTI-XA ASSAY, P Timed 09/03/2024 11:48 AM CDT (TTE) 2D ECHO DOPPLER COLOR AND CONTRAST Routine 09/03/2024 10:05 AM CDT ECG STAT 09/03/2024 8:57 AM CDT CONTINUOUS PULSE OXIMETRY Routine 09/03/2024 8:01 AM CDT LIPID PANEL, S Routine 09/03/2024 5:19 AM CDT HEPARIN LEVEL ANTI-XA ASSAY, P Timed 09/03/2024 5:19 AM CDT CBC WITHOUT DIFFERENTIAL, B Routine 09/03/2024 5:19 AM CDT BASIC METABOLIC PANEL, S/P Routine 09/03/2024 5:19 AM CDT HEPARIN LEVEL ANTI-XA ASSAY, P Timed 09/02/2024 10:30 PM CDT HEPARIN WEIGHT BASED INFUSION ORDER SET TRIGGER Routine 09/02/2024 10:01 PM CDT CONTINUOUS PULSE OXIMETRY Routine 09/02/2024 10:01 PM CDT CONTINUOUS PULSE OXIMETRY Routine 09/02/2024 10:01 PM CDT documented in this encounter Results * BYPASS GRAFT ANGIOGRAPHY, CORONARY ANGIOGRAPHY (09/03/2024 2:34 PM CDT) Anatomical Region Laterality Modality Digital Radiogra phy 09/03/2024 1:25 PM CDT Narrative 09/03/2024 3:07 PM CDT For the complete report, see the Order-Level Documents. PROCEDURE TYPES 1. BYPASS GRAFT ANGIOGRAPHY 2. CORONARY ANGIOGRAPHY FINAL DIAGNOSIS 1. Severe coronary artery atherosclerosis PRE-PROCEDURE DIAGNOSIS 1. Angina Unstable (HCC) CORONARY DIAGNOSTIC SUMMARY Coronary artery dominance is left. Separate ostia for left anterior descending artery and left circumflex artery. Could not engage the ostial LAD selectively. Possibly occluded The proximal left anterior descending artery is 100% obstructed by a discrete lesion. The proximal circumflex artery is 70% obstructed by a discrete lesion. The second obtuse marginal is 50% obstructed by a discrete lesion. The proximal right coronary artery is 80% obstructed by a discrete lesion. Pseudoaneurysm of the proximal circumflex. GRAFT ANGIOGRAPHY SUMMARY Single body vein bypass graft to the Distal Right Coronary Artery. Antegrade flow is Absent. Single body vein bypass graft to the Second Obtuse Marginal. Antegrade flow is Absent. Single body left internal mammary graft to the Distal Left Anterior Descending Artery. Graft Appears normal. Antegrade flow is Normal. Conduit to the RCA as well as obtuse marginal are occluded. RADIATION DOSE DATA Procedure cumulative skin dose (mGy): 523.00 Procedure cumulative dose area product (Gy-cm2): 49.50 Fluoro Time (Min): 16.60 CONTRAST DOSE DATA iohexoL 350 mg iodine/mL solution (Omnipaque): 120mL For the complete report, see the Order-Level Documents. Procedure Note Shaun Alcantara M.B.B.S. - 09/04/2024 For the complete report, see the Order-Level Documents. PROCEDURE TYPES 1. BYPASS GRAFT ANGIOGRAPHY 2. CORONARY ANGIOGRAPHY FINAL DIAGNOSIS 1. Severe coronary artery atherosclerosis PRE-PROCEDURE DIAGNOSIS 1. Angina Unstable (HCC) CORONARY DIAGNOSTIC SUMMARY Coronary artery dominance is left. Separate ostia for left anteriordescending artery and left circumflex artery. Could not engage the ostial LAD selectively. Possibly occluded The proximal left anterior descending artery is 100% obstructed by adiscrete lesion. The proximal circumflex artery is 70% obstructed by a discrete lesion. The second obtuse marginal is 50% obstructed by a discrete lesion. The proximal right coronary artery is 80% obstructed by a discrete lesion. Pseudoaneurysm of the proximal circumflex. GRAFT ANGIOGRAPHY SUMMARY Single body vein bypass graft to the Distal Right Coronary Artery.Antegrade flow is Absent. Single body vein bypass graft to the Second Obtuse Marginal. Antegradeflow is Absent. Single body left internal mammary graft to the Distal Left AnteriorDescending Artery. Graft Appears normal. Antegrade flow is Normal. Conduit to the RCA as well as obtuse marginal are occluded. RADIATION DOSE DATA Procedure cumulative skin dose (mGy): 523.00 Procedure cumulative dose area product (Gy-cm2): 49.50 Fluoro Time (Min): 16.60 CONTRAST DOSE DATA iohexoL 350 mg iodine/mL solution (Omnipaque): 120mL For the complete report, see the Order-Level Documents. Yumiko Jackson P.A.-C. CV CARDIAC CATH PROCEDU RES Edited Result - Final * (ABNORMAL) ACT (Activated Clotting Time), POCT (09/03/2024 2:15 PM CDT) Activated Clotting Time, POCT 183(H) 84 - 139 sec 09/03/2024 2:15 PM CDT MKTO Blood 09/03/2024 2:15 PM CDT 09/03/2024 2:20 PM CDT Generic Rals LAB POCT ORDERABLES - DEVICE Fin al Result Performing Organization Address City/[facility]/ZIP Co de Phone Number [facility] [address] [place] [address], [address] [address] * Heparin Anti-Xa Assay (09/03/2024 11:48 AM CDT) Heparin Anti-Xa, P 0.36 IU/mL 2024 12:14 PM CDT TO Comment: UFH therapeutic range: 0.30-0.70 IU/mL LMWH therapeutic range: 0.50-1.00 IU/mL 0.50-1.00 IU/mL for twice daily dosing 1.00-2.00 IU/mL for once daily dosing (sample obtained 4-6 hours following subcutaneous injection) LMWH prophylactic range:0.10-0.30 IU/mL ----ADDITIONAL INFORMATION---- Heparin Anti-Xa is used to measure heparin concentrations in patients receiving low molecular weight heparin (LMWH) or unfractionated heparin (UFH). Blood (Blood, Venous) 09/03/2024 11:48 AM CDT 09/03/2024 11:59 AM CDT us Luis Rivas M.D. LAB BLOOD NON ADD-ON Final Result Performing Organization Address City/[facility]/ZIP Co de Phone Number [facility] [address] [place] [id number], [facility] in [address] [address] * (TTE) 2D ECHO DOPPLER COLOR AND CONTRAST (09/03/2024 10:05 AM CDT) Ejection Fraction 44 MC CV EIMS Sinus of Valsalva 36 MC CV EIMS Mid-Ascending Aorta 42 MC CV EIMS Wall Motion Score Index 1.56 MC CV EIMS LV Mass Index 120 MC CV EIMS LV End-Diastolic Diameter 53 MC CV EIMS LV End-Systolic Diameter 41 MC CV EIMS LV End-Diastolic Volume 159 MC CV EIMS LV End-Systolic Volume 89 MC CV EIMS MV E Velocity 0.6 MC CV EIMS MV A Velocity 0.9 MC CV EIMS MV E/A 0.67 MC CV EIMS MV e' Velocity Medial 0.04 MC CV EIMS MV e' Velocity Lateral 0.11 MC CV EIMS MV E/e' Medial 15 MC CV EIMS MV E/e' Lateral 5.5 MC CV EIMS Left ventricular stroke volume index 36 MC CV EIMS Cardiac Output 4.57 MC CV EIMS Cardiac Index 2.28 MC CV EIMS LV Interventricular Septal Wall Thickness 11 MC CV EIMS LV Posterior Wall Thickness 12 MC CV EIMS LV Relative Wall Thickness 45 MC CV EIMS RV 4-Chamber Basal Diameter 40 MC CV EIMS TAPSE 21 MC CV EIMS Tricuspid Annular S 0.08 MC CV EIMS TR Vmax 2.12 MC CV EIMS AV mean gradient 3 MC CV EIMS Aortic valve area 3 MC CV EIMS Aortic Valve Dimensionless Index 0.79 MC CV EIMS LA Volume Index 38 MC CV EIMS Aortic Valve Systolic Peak Velocity 1.2 MC CV EIMS Anatomical Region Laterality Modality Echocardiography 09/03/2024 8:41 AM CDT Impressions 09/03/2024 12:59 PM CDT Echo performed at the patient's bedside. LEFT VENTRICLE:Normal left ventricular chamber size. Normal left ventricular wall thickness. Calculated 2-D linear left ventricular ejection fraction 46%. Calculated 2-D biplane volumetric left ventricular ejection fraction of 44% with the use of ultrasound enhancing agent. Regional wall motion abnormalities were present (see wall motion graphics). Grade 1/3 left ventricular diastolic dysfunction, consistent with low to normal left ventricular filling pressure. RIGHT VENTRICLE:Normal right ventricular chamber size. Borderline reduced right ventricular systolic function. Unable to detect peak tricuspid regurgitation velocity for pulmonary artery systolic pressure calculation. ATRIA:Mildly enlarged left atrial size. Left atrial volume index 38 ml/m2. Normal right atrial size. CARDIAC VALVES:Trileaflet aortic valve. Mildly thickened aortic valve. Trivial aortic valve regurgitation. Mildly thickened mitral valve. Mildly calcified mitral annulus. Trivial mitral valve regurgitation. Pulmonary valve not well visualized. Normal pulmonary valve systolic velocities. Mild-moderate pulmonary valve regurgitation. Normal tricuspid valve. Trivial tricuspid valve regurgitation. OTHER ECHO FINDINGS:Inferior vena cava not well visualized. Normal sinus of Valsalva diameter of 36 mm. Normal mid ascending aorta diameter of 42 mm. Abdominal aorta not visualized. Atrial septum not well visualized. No intracardiac mass or thrombus, but the left atrial appendage cannot be visualized adequately with transthoracic echo to exclude thrombus in this location. No pericardial effusion. Attempts were made to optimize the echocardiographic images and two or more left ventricular segments were not visualized adequately to evaluate cardiac structure. The patient's current allergies and medications have been screened. Intravenous Definity ultrasound enhancement agent(s) administered to enhance endocardial border definition. Imaging enhancement agent administered per Echocardiography Contrast Administration Protocol Reference Document [id number] Rev 07/20/2021. Patient met an inclusion criterion and did not have contraindications in screening sections. For the complete report, see the Order-Level Documents. Narrative 09/03/2024 12:59 PM CDT For the complete report, see the Order-Level Documents. Hemodynamics Heart Rate: 63 BPM Blood Pressure: 127 / 90 mmHg ECG: Sinus rhythm with ectopics Final Impressions 1. Normal left ventricular chamber size, regional wall motion abnormalities were present (see wall motion graphics), calculated 2-D biplane volumetric ejection fraction of 44%. 2. Grade 1/3 left ventricular diastolic dysfunction, consistent with low to normal left ventricular filling pressure. 3. Normal right ventricular chamber size, borderline reduced systolic function, unable to detect peak tricuspid regurgitation velocity for pulmonary artery systolic pressure calculation. 4. No significant valvular heart disease. 5. No pericardial effusion. 6. There are no previous echocardiograms available for comparison. Procedure Note Bassem Almaraz M.D. - 09/03/2024 For the complete report, see the Order-Level Documents. Hemodynamics Heart Rate: 63 BPM Blood Pressure: 127 / 90 mmHg ECG: Sinus rhythm with ectopics Final Impressions 1. Normal left ventricular chamber size, regional wall motionabnormalities were present (see wall motion graphics), calculated 2-Dbiplane volumetric ejection fraction of 44%. 2. Grade 1/3 left ventricular diastolic dysfunction, consistent with lowto normal left ventricular filling pressure. 3. Normal right ventricular chamber size, borderline reduced systolicfunction, unable to detect peak tricuspid regurgitation velocity forpulmonary artery systolic pressure calculation. 4. No significant valvular heart disease. 5. No pericardial effusion. 6. There are no previous echocardiograms available for comparison. Findings Echo performed at the patient's bedside. LEFT VENTRICLE:Normal left ventricular chamber size. Normal leftventricular wall thickness. Calculated 2-D linear left ventricularejection fraction 46%. Calculated 2-D biplane volumetric left ventricularejection fraction of 44% with the use of ultrasound enhancing agent.Regional wall motion abnormalities were present (see wall motiongraphics). Grade 1/3 left ventricular diastolic dysfunction, consistentwith low to normal left ventricular filling pressure. RIGHT VENTRICLE:Normal right ventricular chamber size. Borderline reducedright ventricular systolic function. Unable to detect peak tricuspidregurgitation velocity for pulmonary artery systolic pressurecalculation. ATRIA:Mildly enlarged left atrial size. Left atrial volume index 38 ml/m2.Normal right atrial size. CARDIAC VALVES:Trileaflet aortic valve. Mildly thickened aortic valve.Trivial aortic valve regurgitation. Mildly thickened mitral valve. Mildlycalcified mitral annulus. Trivial mitral valve regurgitation. Pulmonaryvalve not well visualized. Normal pulmonary valve systolic velocities.Mild-moderate pulmonary valve regurgitation. Normal tricuspid valve.Trivial tricuspid valve regurgitation. OTHER ECHO FINDINGS:Inferior vena cava not well visualized. Normal sinusof Valsalva diameter of 36 mm. Normal mid ascending aorta diameter of 42mm. Abdominal aorta not visualized. Atrial septum not well visualized. Nointracardiac mass or thrombus, but the left atrial appendage cannot bevisualized adequately with transthoracic echo to exclude thrombus in thislocation. No pericardial effusion. Attempts were made to optimize theechocardiographic images and two or more left ventricular segments werenot visualized adequately to evaluate cardiac structure. The patient'scurrent allergies and medications have been screened. Intravenous Definityultrasound enhancement agent(s) administered to enhance endocardial borderdefinition. Imaging enhancement agent administered per EchocardiographyContrast Administration Protocol Reference Document [id number] Rev07/20/2021. Patient met an inclusion criterion and did not havecontraindications in screening sections. For the complete report, see the Order-Level Documents. us Eva Carlson M.D. CV ECHO PROCEDURES Final Resu lt * ECG 12 Lead (09/03/2024 8:57 AM CDT) Ventricular Rate ECG/Min 61 BPM MUSE HI Interval 200 ms MUSE QRSD Interval 136 ms MUSE QT Interval 488 ms MUSE QTC Interval 491 ms MUSE P [place] 42 degrees MUSE R [place] -42 degrees MUSE T Wave [place] -16 degrees MUSE 09/03/2024 8:57 AM CDT 09/03/2024 9:19 AM CDT Impressions MUSE - 09/03/2024 9:19 AM CDT Sinus rhythm Premature ventricular complexes Left axis deviation Right bundle branch block with secondary ST-T abnormalities When compared with ECG of 02-Sep-2024 15:25, Premature ventricular complexes are now present Reviewed by JAMEL Peters Narrative Procedure Note Nabeel Asher M.D., Ph.D. - 09/03/2024 IMPRESSION: Sinus rhythm Premature ventricular complexes Left axis deviation Right bundle branch block with secondary ST-T abnormalities When compared with ECG of 02-Sep-2024 15:25, Premature ventricular complexes are now present Reviewed by JAMEL Peters us Joy Cardona M.D. ECG ORDERABLES Final Resul t Performing Organization Address [facility] de Phone Number MUSE NA * Heparin Anti-Xa Assay (09/03/2024 5:19 AM CDT) Heparin Anti-Xa, P 0.55 IU/mL 2024 5:31 AM CDT MKTO Comment: UFH therapeutic range: 0.30-0.70 IU/mL LMWH therapeutic range: 0.50-1.00 IU/mL 0.50-1.00 IU/mL for twice daily dosing 1.00-2.00 IU/mL for once daily dosing (sample obtained 4-6 hours following subcutaneous injection) LMWH prophylactic range:0.10-0.30 IU/mL ----ADDITIONAL INFORMATION---- Heparin Anti-Xa is used to measure heparin concentrations in patients receiving low molecular weight heparin (LMWH) or unfractionated heparin (UFH). Blood (Blood, Venous) 09/03/2024 5:19 AM CDT 09/03/2024 5:23 AM CDT us Eva Carlson M.D. LAB BLOOD NON ADD-ON Final Re sult Performing Organization Address City/[facility] Co de Phone Number [facility] [address] [place] [address], [facility] MKTO [facility] [place] [address] [place] [address] * (ABNORMAL) Lipid Panel (09/03/2024 5:19 AM CDT) Triglycerides 151(H) mg/dL 09/03/2024 5:45 AM CDT MKTO Comment: ----REFERENCE VALUE---- Normal: <150 mg/dL Borderline High: 150-199 mg/dL High: 200-499 mg/dL Very High: > or =500 mg/dL Cholesterol, Total 95 mg/dL 2024 5:45 AM CDT MKTO Comment: ----REFERENCE VALUE---- Desirable: < 200 mg/dL Borderline High: 200 - 239 mg/dL High: > or = 240 mg/dL Cholesterol, LDL, Calculated 33 mg/dL 09/03/2024 5:45 AM CDT MKTO Comment: ----REFERENCE VALUE---- Desirable: <100 mg/dL Above Desirable: 100-129 mg/dL Borderline High: 130-159 mg/dL High: 160-189 mg/dL Very High: >=190 mg/dL ----ADDITIONAL INFORMATION---- LDL cholesterol calculated using the Restrepo/NIH equation. Cholesterol, HDL 36(L) >=40 mg/dL 09/04/19 5:45 AM CDT MKTO Cholesterol, Non-HDL, Calculated 59 mg/dL 09/03/2024 5:45 AM CDT MKTO Comment: ----REFERENCE VALUE---- Desirable: <130 mg/dL Above Desirable: 130-159 mg/dL Borderline High: 160-189 mg/dL High: 190-219 mg/dL Very High: > or =220 mg/dL Fasting (8 HR or more) Yes 09/03/2024 5:19 AM CDT MICHELLE Blood (Blood, Venous) 09/03/2024 5:19 AM CDT 09/03/2024 5:24 AM CDT Eva M Madhar M.D. LAB BLOOD ADD-ON Final Result Performing Organization Address City/[facility]/ZIP Co de Phone Number [facility] [address] [place] [address], [facility] [address] [address] * (ABNORMAL) Basic Metabolic Panel (09/03/2024 5:19 AM CDT) Potassium, P 4.0 3.6 - 5.2 mmol/L 09/03/2024 5:45 AM CDT MKTO Sodium, P 140 135 - 145 mmol/L 09/03/2024 5:45 AM CDT MKTO Chloride, P 105 98 - 107 mmol/L 09/03/2024 5:45 AM CDT MKTO Bicarbonate, P 23 22 - 29 mmol/L 09/03/2024 5:45 AM CDT MKTO Anion Gap, P 12 7 - 15 09/03/2024 5:45 AM CDT MKTO BUN (Blood Urea Nitrogen), P 14 8 - 24 mg/dL 09/03/2024 5:45 AM CDT MKTO Creatinine 0.98 0.74 - 1.35 mg/dL 09/03/2024 5:45 AM CDT MKTO Estimated GFR (eGFR) 81 >=60 mL/min/BSA 09/03/2024 5:45 AM CDT MKTO Comment: Estimated GFR calculated using the 2020 CKD_EPI creatinine equation. Calcium, Total, P 8.6(L) 8.8 - 10.2 mg/dL 09/03/2024 5:45 AM CDT MKTO Glucose, P 134 70 - 140 mg/dL 09/03/2024 5:45 AM CDT MKTO Blood (Blood, Venous) 09/03/2024 5:19 AM CDT 09/03/2024 5:24 AM CDT us Eva Carlson M.D. LAB BLOOD ADD-ON Final Result [facility] [address] [place] [address], [facility] [address] [address] * CBC without Differential (09/03/2024 5:19 AM CDT) Hemoglobin 14.5 13.2 - 16.6 g/dL 09/03/2024 5:26 AM CDT MKTO Hematocrit 41.4 38.3 - 48.6 % 09/03/2024 5:26 AM CDT MKTO Erythrocytes 4.72 4.35 - 5.65 x10(12)/L 09/03/2024 5:26 AM CDT MKTO MCV 87.7 78.2 - 97.9 fL 09/03/2024 5:26 AM CDT MKTO RBC Distrib Width 12.7 11.8 - 14.5 % 09/03/2024 5:26 AM CDT MKTO Platelet Count 190 135 - 317 x10(9)/L 09/03/2024 5:26 AM CDT MKTO Leukocytes 6.5 3.4 - 9.6 x10(9)/L 09/03/2024 5:26 AM CDT MKTO Blood (Blood, Venous) 09/03/2024 5:19 AM CDT 09/03/2024 5:23 AM CDT us Eva Carlson M.D. LAB BLOOD ADD-ON Final Result [facility] [address] [place] [id number], [facility] [address] [address] * Heparin Anti-Xa Assay (09/02/2024 10:30 PM CDT) Heparin Anti-Xa, P 0.48 IU/mL 2024 10:45 PM CDT MKTO Comment: UFH therapeutic range: 0.30-0.70 IU/mL LMWH therapeutic range: 0.50-1.00 IU/mL 0.50-1.00 IU/mL for twice daily dosing 1.00-2.00 IU/mL for once daily dosing (sample obtained 4-6 hours following subcutaneous injection) LMWH prophylactic range:0.10-0.30 IU/mL ----ADDITIONAL INFORMATION---- Heparin Anti-Xa is used to measure heparin concentrations in patients receiving low molecular weight heparin (LMWH) or unfractionated heparin (UFH). Blood (Blood, Venous) 09/02/2024 10:30 PM CDT 09/02/2024 10:37 PM CDT us Eva Carlson M.D. LAB BLOOD NON ADD-ON Final Re sult [facility] [address] [place] [address], [facility] [place] [address] [place] [address] documented in this encounter Visit Diagnoses Diagnosis Angina Unstable (HCC)- Primary Angina Unstable (HCC) Apnea Sleep Obstructive Fatty Liver Hypertension Essential Primary Apnea Sleep Obstructive Angina Unstable (HCC) documented in this encounter Admitting Diagnoses Diagnosis Angina Unstable (HCC) documented in this encounter Administered Medications Inactive Administered Medications - up to 3 most recent administrations Medication Order MAR Action Action Date Dose Rate Site acetaminophen tablet 500 mg (TylenoL) 500 mg, oral, Every 6 hours PRN, mild pain or score 1-3 of 10, headaches, fever, Starting on Sat09/02/24 at 2201, Not to exceed 4 grams of acetaminophen in 24 hours all sources Given 09/03/2024 4:14 PM CDT 500 mg Given 09/02/2024 10:37 PM CDT 500 mg aspirin chewable tablet 243 mg 243 mg, oral, Once, On Sat09/03/24 at 1115, For 1 dose, Preprocedure (CV), If patient has taken 81 mg the day of procedure Given 09/03/2024 11:05 AM CDT 243 mg aspirin chewable tablet 81 mg 81 mg, oral, Daily, First dose on Sat09/03/24 at 0900 Given 09/04/2024 8:14 AM CDT 81 mg Given 09/03/2024 8:53 AM CDT 81 mg calcium carbonate chewable tablet 200 mg of calcium (Tums) 200 mg of calcium, oral, Once, On Sat09/03/24 at 1215, For 1 dose, Doses listed are in mg of elemental calcium. Take with food. 500 mg calcium carbonate contains 200 mg of elemental calcium. Given 09/03/2024 4:08 PM CDT 200 mg of calci um clopidogreL tablet 75 mg (Plavix) 75 mg, oral, Daily, First dose on Jackie 09/03/24 at 0900 Given 09/04/2024 8:13 AM CDT 75 mg Given 09/03/2024 8:53 AM CDT 75 mg diazePAM tablet 2 mg (Valium) 2 mg, oral, Every 2 hour PRN, anxiety, muscle spasms, If patient has eaten 2 hrs prior to sheath removal, Starting on Sat09/03/24 at 1612, For 2 doses, Postprocedure (CV), May repeat once if first dose ineffective. Until sheath removal. fentaNYL injection 25 mcg (Sublimaze) 25 mcg, intravenous, Once as needed, moderate pain or score 4-6 of 10, severe pain or score 7-10 of 10, Until sheath removal., Starting on Jackie 09/03/24 at 1612, For 1 dose, Postprocedure (CV) heparin (porcine) 100 Units/mL in NaCl 0.45% 250 mL infusion 1-30 Units/kg/hr 92.5 kg (0.925-27.75 mL/hr, rounded to 0.93-27.75 mL/hr), intravenous, Continuous, Starting on Sat09/02/24 at 2230, 25,000 Units in 250 mL, Intensity type: [...] until anti-Xa less than 1.2 Rate/Dose Verify 09/03/2024 6:24 AM CDT 11 Units/kg/hr 10.2 mL/hr Rate/Dose Change 09/03/2024 5:52 AM CDT 11 Units/kg/hr 10. 2 mL/hr New Bag 09/02/2024 11:18 PM CDT 12 Units/kg/hr 11.1 mL/ hr isosorbide mononitrate 24 hr tablet 30 mg (Imdur) 30 mg, oral, Daily, First dose on Jackie 09/03/24 at 1445, Hold for systolic blood pressure less than 100 mmHg Do NOT crush or chew. Tablet may be split on score if needed. Given 09/04/2024 8:13 AM CDT 30 mg Given 09/03/2024 4:08 PM CDT 30 mg lidocaine viscous 2 % 15 mL, alum-mag hydroxide-simeth 30 mL suspension 45 mL, oral, Every 12 hours PRN, heartburn, Starting on Jackie 09/03/24 at 1431, Mix ingredients prior to administration Given 09/03/2024 4:08 PM CDT 45 mL loratadine tablet 10 mg (Claritin) 10 mg, oral, Daily, First dose on Jackie 09/03/24 at 0900, loratadine 10 mg oral daily was interchanged for levocetirizine 5 mg oral daily, Drug Monitoring Program: Pharmacist to adjust medication dosing based on indication and drug clearance factors. Given 09/04/2024 8:13 AM CDT 10 mg losartan tablet 25 mg (Cozaar) 25 mg, oral, Daily, First dose on Sat09/04/24 at 0900 Given 09/04/2024 8:14 AM CDT 25 mg midazolam (PF) injection 1 mg (Versed) 1 mg, intravenous, Every 2 hour PRN, anxiety, muscle spasms, Starting on Sat09/03/24 at 1612, For 2 doses, Postprocedure (CV), May repeat x1 dosing interval. Patient must be NPO for 2 hours prior to giving. Until sheath removal. NaCl 0.9% infusion 20 mL/hr, intravenous, Continuous, Starting on Sat09/03/24 at 1115, Preprocedure (CV), Administer as soon as possible. Limit total pre-procedure fluid to 1000 mL New Bag 09/03/2024 11:05 AM CDT 20 mL/hr 20 mL/hr naloxone injection 0.2 mg 0.2 mg, intravenous, As needed, respiratory depression, Starting on Jackie 09/03/24 at 1612, Postprocedure (CV), For RASS Score -4 or less, respiratory rate of less than 8 breaths/min. Notify provider/service and rapid response team (if available at institution). nitroglycerin SL tablet 0.4 mg (Nitrostat) 0.4 mg, sublingual, Every 5 min PRN, chest pain, Starting on Sat09/02/24 at 2201, nitroglycerin 0.4 mg sublingual was interchanged for nitroglycerin Dissolve under the tongue. Do NOT crush, chew, split or swallow tablet. Given 09/03/2024 9:59 AM CDT 0.4 mg Given 09/03/2024 9:50 AM CDT 0.4 mg Given 09/03/2024 9:06 AM CDT 0.4 mg perflutren lipid microspheres injection (Definity) intravenous, Once in imaging, contrast, Starting on Jackie 09/03/24 at 1005, For 1 dose, Intraprocedure - Diagnostic, See protocol. Given 09/03/2024 10:05 AM CDT 3 mL rosuvastatin tablet 40 mg (Crestor) 40 mg, oral, Daily at bedtime, First dose on Jackie 09/03/24 at 2100 Given 09/03/2024 8:09 PM CDT 40 mg sodium chloride 0.9 % injection 10 mL 10 mL, intravenous, As needed, line care, Starting on Jackie 09/03/24 at 1005, Prior to and following infusion and between multiple consecutive infusions: sodium chloride 0.9 % injection Given 09/03/2024 10:06 AM CDT 10 mL sodium chloride 0.9 % injection 3 mL 3 mL, intravenous, Every 12 hours scheduled, First dose on Jackie 09/03/24 at 0900, Peripheral Intravenous Catheter and Rapid Infusion Catheter, when no infusion to maintain patency Given 09/04/2024 8:16 AM CDT 3 mL Given 09/03/2024 8:08 PM CDT 3 mL Given 09/03/2024 8:53 AM CDT 3 mL spironolactone tablet 25 mg (Aldactone) 25 mg, oral, Daily, First dose on Sat09/04/24 at 0900 Given 09/04/2024 8:13 AM CDT 25 mg documented in this encounter Active and Recently Administered Medications Times are shown in CDT. Scheduled Medication Order 09/02/2024 09/03/2024 09/04/2024 aspirin chewable tablet 243 mg (COMPLETED)(Linked Group 1) 243 mg, oral, Once, On Jackie 09/03/24 at 1115, For 1 dose, Preprocedure (CV), If patient has taken 81 mg the day of procedure 1105 (Given - Provider: Luciano Oconnell RJagdeepN.) aspirin chewable tablet 81 mg 81 mg, oral, Daily, First dose on Jackie 09/03/24 at 0900 0853 (Given - Provider: Alexandra Parsons RJagdeepN.)1307 (MAR Hold - Provider: Transfer Provider, Automatic - Reason: Patient not available)1452 (MAR Unhold - Provider: Transfer Provider, Automatic) 0814 (Given - Provider: Luciano Oconnell R.N.) calcium carbonate chewable tablet 200 mg of calcium (Tums) (COMPLETED) 200 mg of calcium, oral, Once, On Jackie 09/03/24 at 1215, For 1 dose, Doses listed are in mg of elemental calcium. Take with food. 500 mg calcium carbonate contains 200 mg of elemental calcium. 1307 (JUN Hold - Provider: Transfer Provider, Automatic - Reason: Patient not available)1452 (MAR Unhold - Provider: Transfer Provider, Automatic)1608 (Given - Provider: Luciano Oconnell R.N.) clopidogreL tablet 75 mg (Plavix) 75 mg, oral, Daily, First dose on Jackie 09/03/24 at 0900 0853 (Given - Provider: Alexandra Parsons R.N.)1307 (JUN Hold - Provider: Transfer Provider, Automatic - Reason: Patient not available)1452 ([facility] Unhold - Provider: Transfer Provider, Automatic) 0813 (Given - Provider: Luciano Oconnell R.N.) isosorbide mononitrate 24 hr tablet 30 mg (Imdur) 30 mg, oral, Daily, First dose on Jackie 09/03/24 at 1445, Hold for systolic blood pressure less than 100 mmHg Do NOT crush or chew. Tablet may be split on score if needed. 1608 (Given - Provider: Luciano Oconnell R.N.) 0813 (Given - Provider: Luciano Oconnell R.N.) loratadine tablet 10 mg (Claritin) 10 mg, oral, Daily, First dose on Jackie 09/03/24 at 0900, loratadine 10 mg oral daily was interchanged for levocetirizine 5 mg oral daily, Drug Monitoring Program: Pharmacist to adjust medication dosing based on indication and drug clearance factors. 0846 (Not Given - Provider: Alexandra Parsons R.N. - Reason: Patient/family refused)1307 (JUN Hold - Provider: Transfer Provider, Automatic - Reason: Patient not available)1452 (MAR Unhold - Provider: Transfer Provider, Automatic) 0813 (Given - Provider: Luciano Oconnell R.N.) losartan tablet 25 mg (Cozaar) 25 mg, oral, Daily, First dose on Sat09/04/24 at 0900 0814 (Given - Provid er: Luciano Oconnell RJagdeepN.) ondansetron (PF) injection 4 mg (Zofran) 4 mg, intravenous, Once, On Jackie 09/03/24 at 1215, For 1 dose 1215 (Due)1307 ([facility] Hold - Provider: Transfer Provider, Automatic - Reason: Patient not available)1452 ([facility] Unhold - Provider: Transfer Provider, Automatic) rosuvastatin tablet 40 mg (Crestor) 40 mg, oral, Daily at bedtime, First dose on Jackie 09/03/24 at 2100 1307 ([facility] Hold - Provider: Transfer Provider, Automatic - Reason: Patient not available)1452 ([facility] Unhold - Provider: Transfer Provider, Automatic)2008 (Given - Provider: Erna Mcelroy R.N.) sodium chloride 0.9 % injection 3 mL 3 mL, intravenous, Every 12 hours scheduled, First dose on Jackie 09/03/24 at 0900, Peripheral Intravenous Catheter and Rapid Infusion Catheter, when no infusion to maintain patency 0853 (Given - Provider: Alexandra Parsons R.N.)1307 ([facility] Hold - Provider: Transfer Provider, Automatic - Reason: Patient not available)1452 ([facility] Unhold - Provider: Transfer Provider, Automatic)2007 (Given - Provider: Erna Mcelroy R.N.) 0816 (Given - Provider: Luciano Oconnell RJagdeepNJagdeep) spironolactone tablet 25 mg (Aldactone) 25 mg, oral, Daily, First dose on Sat09/04/24 at 0900 0813 (Given - Provid er: Luciano Oconnell R.N.) Continuous Medication Order 09/02/2024 09/03/2024 09/04/2024 heparin (porcine) 100 Units/mL in NaCl 0.45% 250 mL infusion (CANCELED) 1-30 Units/kg/hr 92.5 kg (0.925-27.75 mL/hr, rounded to 0.93-27.75 mL/hr), intravenous, Continuous, Starting on Sat09/02/24 at 2230, 25,000 Units in 250 mL, Intensity type: [...] 2 hours until anti-Xa less than 1.2 2743 (New Bag - Provider: Erna Mcelroy R.N. - Comment: [id number] (New Bag - Provider: Erna Mcelroy R.N. - Comment: [id number]) 0552 (Rate/Dose Change - Provider: Erna Mcelroy R.N. - Comment: [id number] (Rate/Dose Verify - Provider: Erna Mcelroy R.N.)1310 (Stopped - Provider: Tameka Nelson R.N.) NaCl 0.9% infusion (CANCELED) 20 mL/hr, intravenous, Continuous, Starting on Jackie 09/03/24 at 1115, Preprocedure (CV), Administer as soon as possible. Limit total pre-procedure fluid to 1000 mL 1105 (New Bag - Provider: Luciano Oconnell R.N.) PRN Medication Order 09/02/2024 09/03/2024 09/04/2024 acetaminophen tablet 500 mg (TylenoL) 500 mg, oral, Every 6 hours PRN, mild pain or score 1-3 of 10, headaches, fever, Starting on Sat09/02/24 at 2201, Not to exceed 4 grams of acetaminophen in 24 hours all sources 2237 (Given - Provider: Erna Mcelroy R.N.) 1307 (JUN Hold - Provider: Transfer Provider, Automatic - Reason: Patient not available)1452 (MAR Unhold - Provider: Transfer Provider, Automatic)1614 (Given - Provider: Luciano Oconnell R.N.) diazePAM tablet 2 mg (Valium) 2 mg, oral, Every 2 hour PRN, anxiety, muscle spasms, If patient has eaten 2 hrs prior to sheath removal, Starting on Jackie 09/03/24 at 1612, For 2 doses, Postprocedure (CV), May repeat once if first dose ineffective. Until sheath removal. fentaNYL injection (Sublimaze) (CANCELED) Code/trauma/sedation medication, Starting on Jackie 09/03/24 at 1326, Intraprocedure (CV) 1326 (Given - Provider: Tameka Nelson R.N.) fentaNYL injection 25 mcg (Sublimaze) 25 mcg, intravenous, Once as needed, moderate pain or score 4-6 of 10, severe pain or score 7-10 of 10, Until sheath removal., Starting on Jackie 09/03/24 at 1612, For 1 dose, Postprocedure (CV) heparin (porcine) 1,000 unit/mL injection (CANCELED) Code/trauma/sedation medication, Starting on Jackie 09/03/24 at 1330, Intraprocedure (CV) 1330 (Given - Provider: Tameka Nelson R.N.) iohexoL 350 mg iodine/mL solution (Omnipaque) (CANCELED) Code/trauma/sedation medication, Starting on Jackie 09/03/24 at 1415, Intraprocedure (CV) 1415 (Given - Provider: Carmelina FordB.S.) lidocaine 10 mg/mL (1 %) injection (Xylocaine) (CANCELED) Code/trauma/sedation medication, Starting on Jackie 09/03/24 at 1326, Intraprocedure (CV) 1326 (Given - Provider: Carmelina FordB.S.) lidocaine viscous 2 % 15 mL, alum-mag hydroxide-simeth 30 mL suspension 45 mL, oral, Every 12 hours PRN, heartburn, Starting on Jackie 09/03/24 at 1431, Mix ingredients prior to administration 1608 (Given - Provider: Luciano Oconnell R.N.) midazolam (PF) injection (Versed) (CANCELED) Code/trauma/sedation medication, Starting on Jackie 09/03/24 at 1326, Intraprocedure (CV) 1326 (Given - Provider: Tameka Nelson R.N.) midazolam (PF) injection 1 mg (Versed) 1 mg, intravenous, Every 2 hour PRN, anxiety, muscle spasms, Starting on Jackie 09/03/24 at 1612, For 2 doses, Postprocedure (CV), May repeat x1 dosing interval. Patient must be NPO for 2 hours prior to giving. Until sheath removal. naloxone injection 0.2 mg 0.2 mg, intravenous, As needed, respiratory depression, Starting on Jackie 09/03/24 at 1612, Postprocedure (CV), For RASS Score -4 or less, respiratory rate of less than 8 breaths/min. Notify provider/service and rapid response team (if available at institution). nitroglycerin SL tablet 0.4 mg (Nitrostat) 0.4 mg, sublingual, Every 5 min PRN, chest pain, Starting on Sat09/02/24 at 2201, nitroglycerin 0.4 mg sublingual was interchanged for nitroglycerin Dissolve under the tongue. Do NOT crush, chew, split or swallow tablet. 0906 (Given - Provider: Luciano Oconnell R.N.)0950 (Given - Provider: Kaiser Carmona.N.)0959 (Given - Provider: Kaiser Carmona.N.)1307 ([facility] Hold - Provider: Transfer Provider, Automatic - Reason: Patient not available)1452 ([facility] Unhold - Provider: Transfer Provider, Automatic) perflutren lipid microspheres injection (Definity) (COMPLETED) intravenous, Once in imaging, contrast, Starting on Jackie 09/03/24 at 1005, For 1 dose, Intraprocedure - Diagnostic, See protocol. 1005 (Given - Provider: Mackenzie Irizarry R.D.C.S.) sodium chloride 0.9 % injection 10 mL 10 mL, intravenous, As needed, line care, Starting on Sat09/02/24 at 2201, Peripheral Intravenous Catheter and Rapid Infusion Catheter, prior to blood sampling, post blood transfusion or post blood sampling 1307 ([facility] Hold - Provider: Transfer Provider, Automatic - Reason: Patient not available)1452 ([facility] Unhold - Provider: Transfer Provider, Automatic) sodium chloride 0.9 % injection 10 mL 10 mL, intravenous, As needed, line care, Starting on Jackie 09/03/24 at 1005, Prior to and following infusion and between multiple consecutive infusions: sodium chloride 0.9 % injection 1006 (Given - Provider: Mackenzie Irizarry R.D.C.S.)1307 ([facility] Hold - Provider: Transfer Provider, Automatic - Reason: Patient not available)1452 ([facility] Unhold - Provider: Transfer Provider, Automatic) sodium chloride 0.9 % injection 3 mL 3 mL, intravenous, As needed, line care, Starting on Sat09/02/24 at 2201, Prior to and following infusion and between multiple consecutive infusions: sodium chloride 0.9 % injection 1307 ([facility] Hold - Provider: Transfer Provider, Automatic - Reason: Patient not available)1452 ([facility] Unhold - Provider: Transfer Provider, Automatic) Linked Groups Order Group 1: aspirin chewable tablet 324 mg (COMPLETED) 324 mg, oral, Once, On Jackie 09/03/24 at 1115, For 1 dose, Preprocedure (CV), If patient has taken no aspirin day of procedure Or aspirin chewable tablet 243 mg (COMPLETED)Jump to med 243 mg, oral, Once, On Jackie 09/03/24 at 1115, For 1 dose, Preprocedure (CV), If patient has taken 81 mg the day of procedure Or aspirin chewable tablet 162 mg (COMPLETED) 162 mg, oral, Once, On Jackie 09/03/24 at 1115, For 1 dose, Preprocedure (CV), If patient has taken 162 mg on day of procedure Or aspirin chewable tablet 81 mg (COMPLETED) 81 mg, oral, Once, On Jackie 09/03/24 at 1115, For 1 dose, Preprocedure (CV), If patient has taken 243 mg on day of procedure documented in this encounter Care Teams 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 [address] [place] [id number] PCP - General Family Medicine 07/31/23 documented as of this encounter
--- OUTSIDE RECORDS SUMMARY | 2024-09-02 21:19 | XMS_ITS | Encounter Summary ---
Author Organization [facility] Address [address] [place] [address] Care Team Providers Care Medical Specialist Name Role Phone Milan Campos D.O. Primary Care Provider Reason for Referral * Outpatient (Routine) - Closed Specialty Diagnoses / Procedures Referred By Vargas koroma Referred To Contact [facility] Referral ID Status Reason Start Date Expiration Date Visits Re quested Visits Authorized [id number] Closed 09/04/2024 03/06/2026 1 1 Scheduling Instructions The nurse follow-up call must be scheduled within 24 business hours of patient discharge. * Outpatient (Routine) - Closed Specialty Diagnoses / Procedures Referred By Vargas koroma Referred To Contact Family Medicine Luis Rivas M.D. [address] [place] [address] Phone: tel: fax: [facility] Referral ID Status Reason Start Date Expiration Date Visits Re quested Visits Authorized [id number] Closed 09/04/2024 03/06/2026 1 1 Scheduling Instructions We will be contacting you with more information on this referral. An appointment will be scheduled for you. More information is listed below. * Outpatient (Routine) - Authorized Specialty Diagnoses / Procedures Referred By Vargas koroma Referred To Contact [facility] Luis Rivas M.D. [address] [place] [phone] Phone: tel: fax: [facility] Referral ID Status Reason Start Date Expiration Date V isits Requested Visits Authorized [id number] Authorized 09/04/2024 03/06/2026 2 2 Scheduling Instructions 3-5 Days After Discharge Reason for Visit * Auth/Cert (Routine) Specialty Diagnoses / Procedures Referred By Vargas koroma Referred To Contact Diagnoses Chest pain, unspecified Angina Unstable (HCC) Procedures INPT Referral ID Status Reason Start Date Expiration Date Visits Re quested Visits Authorized [id number] 1 1 Encounter Details Date Type Department Care Team (Latest Contact Info) Description 09/02/2024 9:19 PM CDT - 09/04/2024 2:25 PM CDT Hospital Encounter [facility], Third Floor [address] [place] [phone] Eva aCrlson M.D. [address] [place] [phone] Luis Rivas M.D. [address] [place] [phone] Arnaud Day M.D. [address] [place] [phone] Angina Unstable (HCC) (Primary Dx); Apnea Sleep Obstructive Discharge Disposition: Home or Self Care Social History Tobacco Use Types Packs/Day Years Used Date Smoking Tobacco: Former Cigarettes Alcohol Use Standard Drinks/Week Comments Not Currently 0 (1 standard drink = 0.6 oz pur e alcohol) [facility] Utilities Answer Date Recorded In the past 12 months has th e electric, gas, oil, or water [facility] threatened to shut off services in your [...] your living situation today? I [facility] a [facility] live 09/02/2024 Sex and [...] DISCHARGE SUMMARY BRIEF OVERVIEW Discharge Hospital: Hospital: [facility] Discharge Provider: Luis Rivas M.D. Primary Care Providers: Milan Campos D.O. (General) [address] [place] [phone] Discharge Provider Team: [facility] Internal Medicine ([facility]) [facility] Primary Care Provider Primary Care Provider Admission [...] Graft Angiography, Coronary Angiography Shaun Alcantara M.B.B.SJagdeep [facility] CCL DISCHARGE DISPOSITION ACTIVE ISSUES REQUIRING FOLLOW UP OUTPATIENT FOLLOW UP Scheduled Appointments 09/07/2024 9:20 AM [facility] COORD NURSE 01 [facility] 09/08/2024 10:40 AM [facility] MD POST HOSP 02 [facility] Transitional Care 09/14/2024 3:00 PM [facility] STUDENT EDUCATION TEAM 01 [facility] Family Medicine For appointment details refer to [...] Never true Utilities: Not At Risk (09/02/2024) [facility] Utilities Threatened with loss of utilities: No Intimate Partner Violence: Not At Risk (09/02/2024) Humiliation, Afraid, Rape, and Kick questionnaire Fear of Current or Ex-Partner: No Emotionally Abused: No Physically Abused: No Sexually Abused: No CONDITION AT DISCHARGE stable I saw and evaluated Aroldo Chen today and provided counseling [id number] at bedside. I personally spent a total of greater than 30 minutes in counseling and coordination of care as described aboveto facilitate the hospital discharge. Discharge instructions were provided to the patient and caregiver(s). documented in this encounter Discharge Instructions * Attachments The following attachments cannot be sent through Care Everywhere. * Pantoprazole (By mouth) (Lao) * Losartan (By mouth) (Lao) * How to Use Nitroglycerin * Spironolactone (By mouth) (Lao) * Isosorbide Mononitrate (By mouth) (Lao) documented in this encounter Medications at Time [...] from the original note were not included. [facility] MEDICINE PROGRESS NOTE Chart reviewed CHIEF [...] consider immediate consult (via phone) with a spinner box and order special coagulation lab testing, Prolonged Clot Time Profile ([facility]: [id number]). Platelet Aggregation Inhibitors - Thienopyridine Agents Refills [...] Certified Physician in Internal Medicine and Pediatrics [facility] Medicine Service * Yumiko Jackson P.A.-Florentin., [...] who presented to the emergency department in [place], [place] on 09/02/2024 for 5 day history [...] an occluded vein graft to the PDA. Golden to be new. Would expect elevated troponin [...] for life per recommendation of his primary freight service inspector at [facility], no beta-paramjit secondary tointolerance of shortness [...] of breath Nausea, fatigue Adhesive Tape-Silicones Rash Cascade Pollen Itching Seasonal Allergies: Allergic Rhinitis, Itchy watery eyes * Bertram Guajardo, RJagdeepNJagdeep - 09/04/2024 7:38 AM CDT SUBJECTIVE Case management following patient for discharge planning needs. OBJECTIVE Patient was admitted to the hospital with #1 Hypertension Essential Primary #2 Fatty Liver #3 Apnea Sleep Obstructive #4 Angina Unstable (HCC) ASSESSMENT / PLAN ASSESSMENT Tobacco Blender participated in bedside team rounds with Dr. Rivas and bedside nurse Luciano. Per rounds patient is anticipated to discharge home today 09/04. Patient denies any concerns with discharging home. Patient would like medical appointments and follow ups in [place]. Patient reports a friend will provide transport on discharge. PLAN Patient is anticipated to discharge home once medically stable. Friend to provide transport Care Management will continue following patient for discharge planning and care coordination. Bertram Guajardo R.N. 09/04/24 * Luis Rivas M.D. - 09/03/2024 9:00 AM CDT Images from the original note were not included. [facility] MEDICINE PROGRESS NOTE Chart reviewed CHIEF [...] consider immediate consult (via phone) with a spinner box and order special coagulation lab testing, Prolonged Clot Time Profile (Epic: [id number]). Reason for Discontinue: Patient Discharge heparin (porcine) 100 Units/mL in NaCl 0.45% 250 mL infusion (Discontinued) -- 09/02/2024 09/03/2024 1-30 Units/kg/hr (92.5-2,775 Units/hr), intravenous, Continuous @ .93-27.75 mL/hr, 25,000 Units in 250 mL Notes to Pharmacy: If baseline aPTT is >40 seconds with no explainable cause, the provider should consider immediate consult (via phone) with a spinner box and order special coagulation lab testing, Prolonged Clot Time Profile (Epic: [id number]). Platelet Aggregation Inhibitors - Thienopyridine Agents Refills [...] Certified Physician in Internal Medicine and Pediatrics [facility] Medicine Service * Dino Fernandez, DJagdeep, [...] presenting with symptoms similar to his prior [place] concerning for unstable angina. His history is [...] addition to the time documented by the PATTERN DUPLICATOR. * Eva Carlson M.D. - 09/02/2024 8:51 [...] for further management. Patient was transferred to [place]. Patient was seen in his room at the [place] PCU. He provided the above history. MEDICAL [...] of breath Nausea, fatigue Adhesive Tape-Silicones Rash Cascade Pollen Itching Seasonal Allergies: Allergic Rhinitis, Itchy [...] presenting with symptoms similar to his prior [place] concerning for unstable angina. His history is [...] addition to the time documented by the PATTERN DUPLICATOR. * Yumiko Jackson P.A.-Florentin., P.A. - 09/03/2024 [...] who presented to the emergency department in [place], [place] on 09/02/2024 for 5 day history [...] in proximal vessel is patent From Primary Product Craftsman Documentation Coronary artery disease. A. Status post [...] for life per recommendation of his primary freight service inspector at [facility], no beta-paramjit secondary tointolerance of shortness [...] discussed in detail with Dr. El of [facility] was in agreement with the [...] of breath Nausea, fatigue Adhesive Tape-Silicones Rash Cascade Pollen Itching Seasonal Allergies: Allergic Rhinitis, Itchy [...] DISCHARGE Wheelchair TRANSPORTATION Wheelchair Van ACCOMPANIED BY DRY TRANSFER WORKER All belongings sent home with patient. Discussed [...] this admission PN 07/29/2023 Octavia Duran APRN PEDIGREE TRACER MSN, HFrEF, LVEF 45% (03/17/2020)- resume home [...] DEVICE Fin al Result Performing Organization Address City/[facility]/ZIP Co de Phone Number [facility] [address] [place] [address], [address] [address] * Heparin Anti-Xa Assay (09/03/2024 11:48 AM [...] NON ADD-ON Final Result Performing Organization Address City/[facility]/ZIP Co de Phone Number [facility] [address] [place] [address], [facility] in [address] [address] * (TTE) 2D ECHO DOPPLER COLOR AND [...] per Echocardiography Contrast Administration Protocol Reference Document [id number] Rev 07/20/2021. Patient met an inclusion criterion [...] administered per EchocardiographyContrast Administration Protocol Reference Document [id number] Rev07/20/2021. Patient met an inclusion criterion and did not havecontraindications in screening sections. For the complete report, see the Order-Level Documents. us Eva Carlson M.D. CV ECHO PROCEDURES Final Resu lt * ECG 12 Lead (09/03/2024 8:57 AM CDT) Ventricular Rate ECG/Min 61 BPM MUSE TX Interval 200 ms MUSE QRSD Interval 136 ms MUSE QT Interval 488 ms MUSE QTC Interval 491 ms MUSE P Arverne 42 degrees MUSE R Arverne -42 degrees MUSE T Wave Arverne -16 degrees MUSE 09/03/2024 8:57 AM CDT [...] ORDERABLES Final Resul t Performing Organization Address [facility] de Phone Number MUSE NA * Heparin [...] ADD-ON Final Re sult Performing Organization Address City/[facility] Co de Phone Number [facility] [address] [place] [address], [facility] in [place] [address] [place] [address] * (ABNORMAL) Lipid Panel (09/03/2024 5:19 AM [...] BLOOD ADD-ON Final Result Performing Organization Address City/[facility]/ZIP Co de Phone Number [facility] [address] [place] [address], [facility] [address] [address] * (ABNORMAL) Basic Metabolic Panel (09/03/2024 5:19 [...] Carlson M.D. LAB BLOOD ADD-ON Final Result [facility] [address] [place] [address], [facility] [address] [address] * CBC without Differential (09/03/2024 5:19 AM [...] Carlson M.D. LAB BLOOD ADD-ON Final Result [facility] [address] [place] [address], [facility] in [address] [address] * Heparin Anti-Xa Assay (09/02/2024 10:30 PM [...] LAB BLOOD NON ADD-ON Final Re sult [facility] [address] [place] [address], [facility] in [place] [address] [place] [address] documented in this encounter Visit Diagnoses Diagnosis [...] Provider, Automatic - Reason: Patient not available)1452 ([facility] Unhold - Provider: Transfer Provider, Automatic) 0813 [...] at 1215, For 1 dose 1215 (Due)1307 ([facility] Hold - Provider: Transfer Provider, Automatic - Reason: Patient not available)1452 ([facility] Unhold - Provider: Transfer Provider, Automatic) rosuvastatin tablet 40 mg (Crestor) 40 mg, oral, Daily at bedtime, First dose on Jackie 09/03/24 at 2100 1307 ([facility] Hold - Provider: Transfer Provider, Automatic - Reason: Patient not available)1452 ([facility] Unhold - Provider: Transfer Provider, Automatic)2008 (Given - Provider: Erna Mcelroy R.N.) sodium chloride 0.9 % injection 3 mL 3 mL, intravenous, Every 12 hours scheduled, First dose on Jackie 09/03/24 at 0900, Peripheral Intravenous Catheter and Rapid Infusion Catheter, when no infusion to maintain patency 0853 (Given - Provider: Alexandra Parsons R.N.)1307 ([facility] Hold - Provider: Transfer Provider, Automatic - Reason: Patient not available)1452 ([facility] Unhold - Provider: Transfer Provider, Automatic)2007 (Given [...] 2 hours until anti-Xa less than 1.2 0413 (New Bag - Provider: Erna Mcelroy R.N. - Comment: [id number] (New Bag - Provider: Erna Mcelroy R.N. - Comment: [id number]) 0552 (Rate/Dose Change - Provider: Erna Mcelroy R.N. - Comment: [id number])0624 (Rate/Dose Verify - Provider: Erna Mcelroy R.N.)1310 [...] Kaiser Carmona.N.)0959 (Given - Provider: Kaiser Carmona.N.)1307 ([facility] Hold - Provider: Transfer Provider, Automatic - Reason: Patient not available)1452 ([facility] Unhold - Provider: Transfer Provider, Automatic) perflutren [...] blood transfusion or post blood sampling 1307 ([facility] Hold - Provider: Transfer Provider, Automatic - Reason: Patient not available)1452 ([facility] Unhold - Provider: Transfer Provider, Automatic) sodium chloride 0.9 % injection 10 mL 10 mL, intravenous, As needed, line care, Starting on Jackie 09/03/24 at 1005, Prior to and following infusion and between multiple consecutive infusions: sodium chloride 0.9 % injection 1006 (Given - Provider: Mackenzie Irizarry R.D.C.S.)1307 ([facility] Hold - Provider: Transfer Provider, Automatic - Reason: Patient not available)1452 ([facility] Unhold - Provider: Transfer Provider, Automatic) sodium chloride 0.9 % injection 3 mL 3 mL, intravenous, As needed, line care, Starting on Sat09/02/24 at 2201, Prior to and following infusion and between multiple consecutive infusions: sodium chloride 0.9 % injection 1307 ([facility] Hold - Provider: Transfer Provider, Automatic - Reason: Patient not available)1452 ([facility] Unhold - Provider: Transfer Provider, Automatic) Linked [...] procedure documented in this encounter Care Teams Medical Specialist Relationship Specialty Start Date End Date Milan Campos D.O. [address] [phone] PCP - General Family Medicine 07/31/23 documented as of this encounter
--- OUTSIDE RECORDS SUMMARY | 2024-09-03 13:04 | XMS_ITS | Encounter Summary ---
Author Organization [facility] Address [address] [place] [address] Care Team Providers Care Risk Engineer Name Role Phone Milan Campos D.O. Primary Care Provider [phone] Reason for Visit * Auth/Cert (Routine) Specialty Diagnoses / Procedures Referred By Vargas koroma Referred To Contact Diagnoses Chest pain, unspecified Angina Unstable (HCC) Procedures INPT Referral ID Status Reason Start Date Expiration Date Visits Re quested Visits Authorized [id number] 1 1 Encounter Details Date Type Department Care Team (Late st Contact Info) Description 09/03/2024 1:04 PM CDT - 09/03/2024 2:19 PM CDT Surgery Department of Cardiovascular Diseases in [address] [phone] Shaun Alcantara M.B.B.S. [address] [place] [phone] Bypass Graft Angiography Social History Tobacco Use Types Packs/Day Years Used Date Smoking Tobacco: Former Cigarettes Alcohol Use Standard Drinks/Week Comments Not Currently 0 (1 standard drink = 0.6 oz pur e alcohol) [facility] Utilities Answer Date Recorded In the past 12 months has [employer], gas, oil, or water company threatened to [...] your living situation today? I have a [facility] place to live 09/02/2024 Sex and Gender Information Value Date Recorded Sex Assigned at Male 08/15/2023 11:17 AM CDT Legal Sex Male 1:11 PM CDT Gender Identity Male 08/15/2023 11:17 AM CDT Sexual Orientation Straight 08/15/2023 11 :17 AM CDT documented as of this encounter Last Filed Vital Signs Vital Sign Reading Time Taken Comments Blood Pressure 108/71 09/03/2024 10:40 AM CDT Pulse 58 09/03/2024 10:37 AM CDT Temperature 36.6 C (97.9 F) 09/03/2024 10:37 AM CDT Respiratory Rate 22 09/03/2024 1:00 PM CDT Oxygen Saturation 97% 09/03/2024 1:00 PM CDT Inhaled Oxygen Concentration - - Weight 89.5 kg (197 lb 5 oz) 09/03/2024 5:57 AM CDT Height 170.2 cm (5' 7) 09/02/2024 9:35 PM CDT Body Mass Index 30.18 09/02/2024 9:35 PM CDT documented in this encounter Discharge Summaries * Luis Rivas M.D. - 09/04/2024 2:19 PM CDT DISCHARGE SUMMARY BRIEF OVERVIEW Discharge Hospital: Hospital: [facility] Discharge Provider: Luis Rivas M.D. Primary Care Providers: Milan Campos D.O. (General) [address] [place] [id number] Discharge Provider Team: [facility] Internal Medicine ([facility]) [facility] Primary Care Provider Primary Care Provider [...] Bypass Graft Angiography, Coronary Angiography Shaun Alcantara M.B.B.S. [facility] CCL DISCHARGE DISPOSITION ACTIVE ISSUES REQUIRING FOLLOW UP OUTPATIENT FOLLOW UP Scheduled Appointments 09/07/2024 9:20 AM [facility] COORD NURSE 01 [facility] Community Internal Medicine 09/08/2024 10:40 AM [facility] Transitional Care 09/14/2024 3:00 PM [facility] STUDENT EDUCATION TEAM 01 [facility] Family Medicine For appointment details refer to [...] Never true Utilities: Not At Risk (09/02/2024) [facility] Utilities Threatened with loss of utilities: No Intimate Partner Violence: Not At Risk (09/02/2024) Humiliation, Afraid, Rape, and Kick questionnaire Fear of Current or Ex-Partner: No Emotionally Abused: No Physically Abused: No Sexually Abused: No CONDITION AT DISCHARGE stable I saw and evaluated Aroldo Chen today and provided counseling [id number] at bedside. I personally spent a total of greater than 30 minutes in counseling and coordination of care as described aboveto facilitate the hospital discharge. Discharge instructions were provided to the patient and caregiver(s). documented in this encounter Discharge Instructions * Attachments The following attachments cannot be sent through Care Everywhere. * Pantoprazole (By mouth) (Guyanese) * Losartan (By mouth) (Guyanese) * How to Use Nitroglycerin * Spironolactone (By mouth) (Guyanese) * Isosorbide Mononitrate (By mouth) (Guyanese) documented in this encounter Medications at Time [...] from the original note were not included. [facility] MEDICINE PROGRESS NOTE Chart reviewed CHIEF COMPLAINT [...] consider immediate consult (via phone) with a hydropulper operator and order special coagulation lab testing, Prolonged Clot Time Profile ([facility]: [id number]). Platelet Aggregation Inhibitors - Thienopyridine Agents Refills [...] Certified Physician in Internal Medicine and Pediatrics [facility] Medicine Service * Yumiko Jackson P.A.-C., Ubaldo.AJagdeep - 09/04/2024 9:06 AM CDT Images from [...] who presented to the emergency department in [place], [place] on 09/02/2024 for 5 day history [...] an occluded vein graft to the PDA. Penuelas to be new. Would expect elevated troponin [...] for life per recommendation of his primary bulker at [facility], no beta-paramjit secondary tointolerance of shortness of [...] of breath Nausea, fatigue Adhesive Tape-Silicones Rash Cyril Pollen Itching Seasonal Allergies: Allergic Rhinitis, Itchy watery eyes * Bertram Guajardo, RJagdeepNJagdeep - 09/04/2024 7:38 AM CDT SUBJECTIVE Case management following patient for discharge planning needs. OBJECTIVE Patient was admitted to the hospital with #1 Hypertension Essential Primary #2 Fatty Liver #3 Apnea Sleep Obstructive #4 Angina Unstable (HCC) ASSESSMENT / PLAN ASSESSMENT Line Welder participated in bedside team rounds with Dr. Rivas and bedside nurse Luciano. Per rounds patient is anticipated to discharge home today 09/04. Patient denies any concerns with discharging home. Patient would like medical appointments and follow ups in [place]. Patient reports a friend will provide transport on discharge. PLAN Patient is anticipated to discharge home once medically stable. Friend to provide transport Care Management will continue following patient for discharge planning and care coordination. Bertram Guajardo R.N. 09/04/24 * Luis Rivas M.D. - 09/03/2024 9:00 AM CDT Images from the original note were not included. [facility] MEDICINE PROGRESS NOTE Chart reviewed CHIEF COMPLAINT [...] consider immediate consult (via phone) with a hydropulper operator and order special coagulation lab testing, Prolonged Clot Time Profile (Epic: [id number]). Reason for Discontinue: Patient Discharge heparin (porcine) 100 Units/mL in NaCl 0.45% 250 mL infusion (Discontinued) -- 09/02/2024 09/03/2024 1-30 Units/kg/hr (92.5-2,775 Units/hr), intravenous, Continuous @ .93-27.75 mL/hr, 25,000 Units in 250 mL Notes to Pharmacy: If baseline aPTT is >40 seconds with no explainable cause, the provider should consider immediate consult (via phone) with a hydropulper operator and order special coagulation lab testing, Prolonged Clot Time Profile (Epic: [id number]). Platelet Aggregation Inhibitors - Thienopyridine Agents Refills [...] Certified Physician in Internal Medicine and Pediatrics [facility] Medicine Service * Dino Fernandez Pharm.D., R.Ph. - 09/03/2024 7:24 AM CDT Images [...] note: I have discussed the case with Jagdeep Jackson, and agree with her documentation as [...] presenting with symptoms similar to his prior DE concerning for unstable angina. His history is [...] addition to the time documented by the MANAGER FREELANCE. * Eva Carlosn M.D. - 09/02/2024 8:51 PM CDT PRIMARY [...] recommended continuing aspirin, Plavix, starting IV heparin andas needed nitro and admission for further management. Patient was transferred to [place]. Patient was seen in his room at the [place] PCU. He provided the above history. MEDICAL [...] of breath Nausea, fatigue Adhesive Tape-Silicones Rash Cyril Pollen Itching Seasonal Allergies: Allergic Rhinitis, Itchy [...] presenting with symptoms similar to his prior DE concerning for unstable angina. His history is [...] addition to the time documented by the MANAGER FREELANCE. * Yumiko Jackson PShital.-Florentin., P.A. - 09/03/2024 9:15 AM CDTAssociated Order(s): [...] who presented to the emergency department in [place], [place] on 09/02/2024 for 5 day history [...] in proximal vessel is patent From Primary Pneumatic Tube Operator Documentation Coronary artery disease. A. Status post [...] was recommended that he be treated medically. L. Presented with symptoms of chest discomfort and [...] for life per recommendation of his primary bulker at [facility], no beta-paramjit secondary tointolerance of shortness of [...] discussed in detail with Dr. El of [facility] Cardiovascular Services was in agreement with [...] of breath Nausea, fatigue Adhesive Tape-Silicones Rash Cyril Pollen Itching Seasonal Allergies: Allergic Rhinitis, Itchy [...] DISCHARGE Wheelchair TRANSPORTATION Wheelchair Van ACCOMPANIED BY SWEEPER DRIVER All belongings sent home with patient. Discussed [...] * Documentation Clarification - Yumiko Jackson P.A.-C., P.A. - 09/04/2024 2:25 PM CDT PROVIDER RESPONSE [...] (2019) with EF 45% PN 09/04 Geovany Jackson PAC PA, Also had associated shortness of breath with [...] this admission PN 07/29/2023 Octavia Duran APRN BRICK CHIMNEY BUILDER MSN, HFrEF, LVEF 45% (03/17/2020)- resume home [...] the Order-Level Documents. Procedure Note Shaun Alcantara M.B.BJagdeepS. - 09/04/2024 For the complete report, see [...] complete report, see the Order-Level Documents. us Yumiko Jackson P.A.-C. CV CARDIAC CATH PROCEDU RES Edited Result - Final * (ABNORMAL) ACT (Activated Clotting Time), POCT (09/03/2024 2:15 PM CDT) [facility] Activated Clotting Time, POCT 183(H) 84 - 139 sec 09/03/2024 2:15 PM CDT MKTO Blood 09/03/2024 2:15 PM CDT 09/03/2024 2:20 PM CDT us Generic Rals LAB POCT ORDERABLES - DEVICE Fin al Result [facility] [address] [place] [address], [facility] in [address] [address] * Heparin Anti-Xa Assay (09/03/2024 11:48 AM CDT) Pathologist [facility] Heparin Anti-Xa, P 0.36 IU/mL 2024 12:14 PM CDT [facility] Comment: UFH therapeutic range: 0.30-0.70 IU/mL LMWH [...] 11:48 AM CDT 09/03/2024 11:59 AM CDT Luis Rivas M.D. LAB BLOOD NON ADD-ON Final Result [facility] [address] [place] [address], [address] [address] * (TTE) 2D ECHO DOPPLER COLOR AND CONTRAST (09/03/2024 10:05 AM CDT) [facility] Ejection Fraction 44 MC CV EIMS Sinus [...] per Echocardiography Contrast Administration Protocol Reference Document [id number] Rev 07/20/2021. Patient met an inclusion criterion [...] administered per EchocardiographyContrast Administration Protocol Reference Document [id number] Rev07/20/2021. Patient met an inclusion criterion and did not havecontraindications in screening sections. For the complete report, see the Order-Level Documents. us Eva Carlson M.D. CV ECHO PROCEDURES Final Resu lt * ECG 12 Lead (09/03/2024 8:57 AM CDT) Ventricular Rate ECG/Min 61 BPM MUSE AL Interval 200 ms MUSE QRSD Interval 136 ms MUSE QT Interval 488 ms MUSE QTC Interval 491 ms MUSE P [place] 42 degrees MUSE R [place] -42 degrees MUSE T Wave [place] -16 degrees MUSE 09/03/2024 8:57 AM CDT [...] ORDERABLES Final Resul t Performing Organization Address City/[facility]/ZIP Co de Phone Number MUSE NA * Heparin Anti-Xa Assay (09/03/2024 5:19 AM CDT) Heparin Anti-Xa, P 0.55 IU/mL 2024 5:31 AM CDT [facility] Comment: UFH therapeutic range: 0.30-0.70 IU/mL LMWH [...] ADD-ON Final Re sult Performing Organization Address City/[facility]/ZIP Co de Phone Number [facility] [place] [address], [facility] MKTO [facility] [address] [place] [address] * (ABNORMAL) Lipid Panel (09/03/2024 5:19 AM [...] 36(L) >=40 mg/dL 09/04/19 5:45 AM CDT [facility] Cholesterol, Non-HDL, Calculated 59 mg/dL 09/03/2024 5:45 AM CDT MKTO Comment: ----REFERENCE VALUE---- Desirable: <130 mg/dL Above Desirable: 130-159 mg/dL Borderline High: 160-189 mg/dL High: 190-219 mg/dL Very High: > or =220 mg/dL Fasting (8 HR or more) Yes 09/03/2024 5:19 AM CDT TO Blood (Blood, Venous) 09/03/2024 5:19 AM CDT 09/03/2024 5:24 AM CDT us Eva Carlson M.D. LAB BLOOD ADD-ON Final Result [facility] [place] [address], [facility] [place] [address] * (ABNORMAL) Basic Metabolic Panel (09/03/2024 5:19 [...] Carlson M.D. LAB BLOOD ADD-ON Final Result [facility] [address] [place] [address], [facility] [place] [address] * CBC without Differential (09/03/2024 5:19 AM [...] Carlson M.D. LAB BLOOD ADD-ON Final Result [facility] [address] [place] [address], [facility] [place] [address] * Heparin Anti-Xa Assay (09/02/2024 10:30 PM CDT) Pathologist [facility] Heparin Anti-Xa, P 0.48 IU/mL 2024 10:45 [...] LAB BLOOD NON ADD-ON Final Re sult [facility] [address] [place] [address], [facility] MKTO [facility] in [place] [address] [place] [address] documented in this encounter Visit Diagnoses Diagnosis Angina Unstable (HCC)- Primary Angina Unstable (HCC) Apnea Sleep Obstructive Angina Unstable (HCC) documented [...] PM CDT 500 mg aspirin chewable tablet 81 mg 81 mg, oral, Daily, First dose on Sat09/03/24 at 0900 Given 09/04/2024 8:14 AM CDT 81 mg Given 09/03/2024 8:53 AM CDT 81 mg clopidogreL tablet 75 mg (Plavix) 75 mg, oral, Daily, First dose on Sat09/03/24 at 0900 Given 09/04/2024 8:13 AM CDT [...] ineffective. Until sheath removal. fentaNYL injection (Sublimaze) Code/trauma/sedation medication, Starting on Sat09/03/24 at 1326, Intraprocedure (CV) Given 09/03/2024 1:26 PM CDT 50 mcg fentaNYL injection 25 mcg (Sublimaze) 25 mcg, intravenous, Once as needed, moderate pain or score 4-6 of 10, severe pain or score 7-10 of 10, Until sheath removal., Starting on Jackie 09/03/24 at 1612, For 1 dose, Postprocedure (CV) heparin (porcine) 1,000 unit/mL injection Code/trauma/sedation medication, Starting on Jacike 09/03/24 at 1330, Intraprocedure (CV) Given 09/03/2024 1:30 PM CDT 2,000 Units iohexoL 350 mg iodine/mL solution (Omnipaque) Code/trauma/sedation medication, Starting on Jackie 09/03/24 at 1415, Intraprocedure (CV) Given 09/03/2024 2:15 PM CDT 120 mL isosorbide mononitrate 24 hr tablet 30 mg (Imdur) 30 mg, oral, Daily, First dose on Jackie 09/03/24 at 1445, Hold for systolic blood pressure less than 100 mmHg Do NOT crush or chew. Tablet may be split on score if needed. Given 09/04/2024 8:13 AM CDT 30 mg Given 09/03/2024 4:08 PM CDT 30 mg lidocaine 10 mg/mL (1 %) injection (Xylocaine) Code/trauma/sedation medication, Starting on Jackie 09/03/24 at 1326, Intraprocedure (CV) Given 09/03/2024 1:26 PM CDT 10 mL Right Groin lidocaine viscous 2 % 15 mL, alum-mag [...] AM CDT 25 mg midazolam (PF) injection (Versed) Code/trauma/sedation medication, Starting on Jackie 09/03/24 at 1326, Intraprocedure (CV) Given 09/03/2024 1:26 PM CDT 1 mg midazolam (PF) injection 1 mg (Versed) [...] Given 09/03/2024 9:06 AM CDT 0.4 mg rosuvastatin tablet 40 mg (Crestor) 40 mg, [...] procedure 1105 (Given - Provider: Luciano Oconnell RSuzette.) aspirin chewable tablet 81 mg 81 mg, oral, Daily, First dose on Jackie 09/03/24 at 0900 0853 (Given - Provider: Alexandra Parsons RArtis)1307 (JUN Hold - Provider: Transfer Provider, Automatic - Reason: Patient not available)1452 ([facility] Unhold - Provider: Transfer Provider, Automatic) 0814 (Given - Provider: Luciano Oconnell RJagdeepN.) calcium carbonate chewable tablet 200 mg of calcium (Tums) (COMPLETED) 200 mg of calcium, oral, Once, On Jackie 09/03/24 at 1215, For 1 dose, Doses listed are in mg of elemental calcium. Take with food. 500 mg calcium carbonate contains 200 mg of elemental calcium. 1307 (JUN Hold - Provider: Transfer Provider, Automatic - Reason: Patient not available)1452 ([facility] Unhold - Provider: Transfer Provider, Automatic)1608 (Given - Provider: Luciano Oconnell R.N.) clopidogreL tablet 75 mg (Plavix) 75 mg, oral, Daily, First dose on Jackie 09/03/24 at 0900 0853 (Given - Provider: Alexandra Parsons R.N.)1307 (JUN Hold - Provider: Transfer Provider, Automatic - Reason: Patient not available)1452 ([facility] Unhold - Provider: Transfer Provider, Automatic) 0813 (Given - Provider: Luciano Oconnell RJagdeepN.) isosorbide mononitrate 24 hr tablet 30 mg (Imdur) 30 mg, oral, Daily, First dose on Jackie 09/03/24 at 1445, Hold for systolic blood pressure less than 100 mmHg Do NOT crush or chew. Tablet may be split on score if needed. 1608 (Given - Provider: Luciano Oconnell R.N.) 0813 (Given - Provider: Octavia CarmonaN.) loratadine tablet 10 mg (Claritin) 10 mg, oral, Daily, First dose on Jackie 09/03/24 at 0900, loratadine 10 mg oral daily was interchanged for levocetirizine 5 mg oral daily, Drug Monitoring Program: Pharmacist to adjust medication dosing based on indication and drug clearance factors. 0846 (Not Given - Provider: Alexandra Parsons RJagdeepNJagdeep - Reason: Patient/family refused)1307 (JUN Hold - Provider: Transfer Provider, Automatic - Reason: Patient not available)1452 ([facility] Unhold - Provider: Transfer Provider, Automatic) 0813 (Given - Provider: Luciano Oconnell R.N.) losartan tablet 25 mg (Cozaar) 25 mg, oral, Daily, First dose on Sat09/04/24 at 0900 0814 (Given - Provid er: Luciano Oconnell RJagdeepNJagdeep) ondansetron (PF) injection 4 mg (Zofran) 4 mg, intravenous, Once, On Jackie 09/03/24 at 1215, For 1 dose 1215 (Due)1307 (JUN Hold - Provider: Transfer Provider, Automatic - Reason: Patient not available)1452 ([facility] Unhold - Provider: Transfer Provider, Automatic) rosuvastatin tablet 40 mg (Crestor) 40 mg, oral, Daily at bedtime, First dose on Jackie 09/03/24 at 2100 1307 (JUN Hold - Provider: Transfer Provider, Automatic - Reason: Patient not available)1452 ([facility] Unhold - Provider: Transfer Provider, Automatic)2008 (Given - Provider: Erna Mcelroy RArtis) sodium chloride 0.9 % injection 3 mL 3 mL, intravenous, Every 12 hours scheduled, First dose on Jackie 09/03/24 at 0900, Peripheral Intravenous Catheter and Rapid Infusion Catheter, when no infusion to maintain patency 0853 (Given - Provider: Alexandra Parsons R.N.)1307 (JUN Hold - Provider: Transfer Provider, Automatic - Reason: Patient not available)1452 ([facility] Unhold - Provider: Transfer Provider, Automatic)2007 (Given - Provider: Erna Mcelroy R.N.) 0816 (Given - Provider: Luciano Oconnell R.N.) spironolactone tablet 25 mg (Aldactone) 25 mg, [...] 2 hours until anti-Xa less than 1.2 2219 (New Bag - Provider: Erna Mcelroy R.N. - Comment: [id number])2318 (New Bag - Provider: Erna Mcelroy R.N. - Comment: [id number]) 0552 (Rate/Dose Change - Provider: Erna Mcelroy R.N. - Comment: [id number])0624 (Rate/Dose Verify - Provider: Erna Mcelroy R.N.)1310 (Stopped - Provider: Tameka Nelson RJagdeepNJagdeep) NaCl 0.9% infusion (CANCELED) 20 mL/hr, intravenous, Continuous, Starting on Jackie 09/03/24 at 1115, Preprocedure (CV), Administer as soon as possible. Limit total pre-procedure fluid to 1000 mL 1105 (New Bag - Provider: Luciano Oconnell RJagdeepNJagdeep) PRN Medication Order 09/02/2024 09/03/2024 09/04/2024 acetaminophen tablet 500 mg (TylenoL) 500 mg, oral, Every 6 hours PRN, mild pain or score 1-3 of 10, headaches, fever, Starting on 09/02/24 at 2201, Not to exceed 4 grams of acetaminophen in 24 hours all sources 2237 (Given - Provider: Erna Mcelroy R.N.) 1307 (JUN Hold - Provider: Transfer Provider, Automatic - Reason: Patient not available)1452 ([facility] Unhold - Provider: Transfer Provider, Automatic)1614 (Given [...] 1415, Intraprocedure (CV) 1415 (Given - Provider: Sohan Ford.B.S.) lidocaine 10 mg/mL (1 %) injection (Xylocaine) [...] Provider: Luciano Oconnell R.N.)0950 (Given - Provider: Luciano Oconnell R.N.)0959 (Given - Provider: Luciano Oconnell R.N.)1307 (JUN Hold - Provider: Transfer Provider, Automatic - Reason: Patient not available)1452 ([facility] Unhold - Provider: Transfer Provider, Automatic) perflutren [...] blood transfusion or post blood sampling 1307 ([facility] Hold - Provider: Transfer Provider, Automatic - Reason: Patient not available)1452 ([facility] Unhold - Provider: Transfer Provider, Automatic) sodium chloride 0.9 % injection 10 mL 10 mL, intravenous, As needed, line care, Starting on Jackie 09/03/24 at 1005, Prior to and following infusion and between multiple consecutive infusions: sodium chloride 0.9 % injection 1006 (Given - Provider: Alecia BryanSJagdeep)1307 ([facility] Hold - Provider: Transfer Provider, Automatic - Reason: Patient not available)1452 ([facility] Unhold - Provider: Transfer Provider, Automatic) sodium chloride 0.9 % injection 3 mL 3 mL, intravenous, As needed, line care, Starting on Sat09/02/24 at 2201, Prior to and following infusion and between multiple consecutive infusions: sodium chloride 0.9 % injection 1307 ([facility] Hold - Provider: Transfer Provider, Automatic - Reason: Patient not available)1452 ([facility] Unhold - Provider: Transfer Provider, Automatic) Linked [...] procedure documented in this encounter Care Teams Risk Engineer Relationship Specialty Start Date End Date Milan Campos D.O. [address] [place] [phone] PCP - General Family Medicine 07/31/23 documented as of this encounter
--- OUTSIDE RECORDS SUMMARY | 2024-09-03 13:04 | XMS_ITS | Encounter Summary ---
Author Organization [facility] Address [address] [place] [address] Care Team Providers Care Parking Meter Servicer Name Role Phone Milan Campos D.O. Primary Care Provider [phone] Reason for Visit * Auth/Cert (Routine) Specialty Diagnoses / Procedures Referred By Vargas koroma Referred To Contact Diagnoses Chest pain, unspecified Angina Unstable (HCC) Procedures INPT Referral ID Status Reason Start Date Expiration Date Visits Re quested Visits Authorized [id number] 1 1 Encounter Details Date Type Department Care Team (Late st Contact Info) Description 09/03/2024 1:04 PM CDT - 09/03/2024 2:19 PM CDT Surgery Department of Cardiovascular Diseases in [address] [phone] Shaun Alcantara M.B.B.S. [address] [place] [phone] Bypass Graft Angiography Social History Tobacco Use Types Packs/Day Years Used Date Smoking Tobacco: Former Cigarettes Alcohol Use Standard Drinks/Week Comments Not Currently 0 (1 standard drink = 0.6 oz pur e alcohol) [facility] Utilities Answer Date Recorded In the past 12 months has [employer] electric, gas, oil, or water company threatened [...] your living situation today? [facility] to live 09/02/2024 Sex and [...] SUMMARY BRIEF OVERVIEW Discharge Hospital: Hospital: [facility] [place] Discharge Provider: Luis Rivas M.D. Primary Care Providers: Milan Campos D.O. (General) [address] [place] [address] Discharge Provider Team: [facility] Internal Medicine ([facility]) [facility] Primary Care Provider Primary Care Provider [...] Graft Angiography, Coronary Angiography Shaun Alcantara M.B.B.S. [facility] CCL DISCHARGE DISPOSITION ACTIVE ISSUES REQUIRING FOLLOW UP OUTPATIENT FOLLOW UP Scheduled Appointments 09/07/2024 9:20 AM [facility] COORD NURSE 01 [facility] Community Internal Medicine 09/08/2024 10:40 AM [facility] Transitional Care 09/14/2024 3:00 PM [facility] STUDENT EDUCATION TEAM 01 [facility] Family Medicine For appointment details refer to [...] Never true Utilities: Not At Risk (09/02/2024) [facility] Utilities Threatened with loss of utilities: No Intimate Partner Violence: Not At Risk (09/02/2024) Humiliation, Afraid, Rape, and Kick questionnaire Fear of Current or Ex-Partner: No Emotionally Abused: No Physically Abused: No Sexually Abused: No CONDITION AT DISCHARGE stable I saw and evaluated Aroldo Chen today and provided counseling [id number] at bedside. I personally spent a total of greater than 30 minutes in counseling and coordination of care as described aboveto facilitate the hospital discharge. Discharge instructions were provided to the patient and caregiver(s). documented in this encounter Discharge Instructions * Attachments The following attachments cannot be sent through Care Everywhere. * Pantoprazole (By mouth) ([place]) * Losartan (By mouth) ([place]) * How to Use Nitroglycerin * Spironolactone (By mouth) ([place]) * Isosorbide Mononitrate (By mouth) ([place]) documented in this encounter Medications at Time [...] from the original note were not included. [facility] MEDICINE PROGRESS NOTE Chart reviewed CHIEF COMPLAINT [...] consider immediate consult (via phone) with a box person and order special coagulation lab testing, Prolonged Clot Time Profile ([facility]: [id number]). Platelet Aggregation Inhibitors - Thienopyridine Agents Refills [...] Certified Physician in Internal Medicine and Pediatrics [facility] Medicine Service * Yumiko Jackson P.A.-C., Ubaldo.AJagdeep [...] who presented to the emergency department in [place], [place] on 09/02/2024 for 5 day history [...] an occluded vein graft to the PDA. Doss to be new. Would expect elevated troponin [...] for life per recommendation of his primary family mediator at [facility], no beta-paramjit secondary tointolerance of [...] of breath Nausea, fatigue Adhesive Tape-Silicones Rash [place] Pollen Itching Seasonal Allergies: Allergic Rhinitis, Itchy watery eyes * Bertram Guajardo, RJagdeepNJagdeep - 09/04/2024 7:38 AM CDT SUBJECTIVE Case management following patient for discharge planning needs. OBJECTIVE Patient was admitted to the hospital with #1 Hypertension Essential Primary #2 Fatty Liver #3 Apnea Sleep Obstructive #4 Angina Unstable (HCC) ASSESSMENT / PLAN ASSESSMENT Traffic Signal Mechanic participated in bedside team rounds with Dr. Rivas and bedside nurse Luciano. Per rounds patient is anticipated to discharge home today 09/04. Patient denies any concerns with discharging home. Patient would like medical appointments and follow ups in [place]. Patient reports a friend will provide transport on discharge. PLAN Patient is anticipated to discharge home once medically stable. Friend to provide transport Care Management will continue following patient for discharge planning and care coordination. Bertram Guajardo R.N. 09/04/24 * Luis Rivas M.D. - 09/03/2024 9:00 AM CDT Images from the original note were not included. [facility] MEDICINE PROGRESS NOTE Chart reviewed CHIEF COMPLAINT [...] consider immediate consult (via phone) with a box person and order special coagulation lab testing, Prolonged Clot Time Profile (Epic: [id number]). Reason for Discontinue: Patient Discharge heparin (porcine) 100 Units/mL in NaCl 0.45% 250 mL infusion (Discontinued) -- 09/02/2024 09/03/2024 1-30 Units/kg/hr (92.5-2,775 Units/hr), intravenous, Continuous @ .93-27.75 mL/hr, 25,000 Units in 250 mL Notes to Pharmacy: If baseline aPTT is >40 seconds with no explainable cause, the provider should consider immediate consult (via phone) with a box person and order special coagulation lab testing, Prolonged Clot Time Profile (Epic: [id number]). Platelet Aggregation Inhibitors - Thienopyridine Agents Refills [...] Certified Physician in Internal Medicine and Pediatrics [facility] Medicine Service * Dino Fernandez Pharm.D., R.Ph. [...] presenting with symptoms similar to his prior [place] concerning for unstable angina. His history is [...] to the time documented by the MANAGER HRIS. * Eva Carlson M.D. - 09/02/2024 8:51 [...] for further management. Patient was transferred to [place]. Patient was seen in his room at the [place] [facility]. He provided the above history. MEDICAL [...] of breath Nausea, fatigue Adhesive Tape-Silicones Rash [place] Pollen Itching Seasonal Allergies: Allergic Rhinitis, Itchy [...] presenting with symptoms similar to his prior [place] concerning for unstable angina. His history is [...] to the time documented by the MANAGER HRIS. * Yumiko Jackson PShital.-Florentin., P.A. - 09/03/2024 [...] who presented to the emergency department in [place], [place] on 09/02/2024 for 5 day history [...] in proximal vessel is patent From Primary Scallop Dredger Documentation Coronary artery disease. A. Status post [...] for life per recommendation of his primary family mediator at [facility], no beta-paramjit secondary tointolerance of [...] of breath Nausea, fatigue Adhesive Tape-Silicones Rash [place] Pollen Itching Seasonal Allergies: Allergic Rhinitis, Itchy [...] DISCHARGE Wheelchair TRANSPORTATION Wheelchair Van ACCOMPANIED BY PHOTOGRAPHIC HAND DEVELOPER All belongings sent home with patient. Discussed [...] this admission PN 07/29/2023 Octavia Duran APRN CASUAL SHOE INSPECTOR MSN, HFrEF, LVEF 45% (03/17/2020)- resume home [...] Clotting Time), POCT (09/03/2024 2:15 PM CDT) [facility] Activated Clotting Time, POCT 183(H) 84 - 139 sec 09/03/2024 2:15 PM CDT MKTO Blood 09/03/2024 2:15 PM CDT 09/03/2024 2:20 PM CDT us Generic Rals LAB POCT ORDERABLES - DEVICE Fin al Result [facility] [address] [place] [address], [facility] in [address] [address] * Heparin Anti-Xa Assay (09/03/2024 11:48 AM CDT) Pathologist [facility] Heparin Anti-Xa, P 0.36 IU/mL 2024 12:14 PM CDT [facility] Comment: UFH therapeutic range: 0.30-0.70 IU/mL LMWH [...] M.D. LAB BLOOD NON ADD-ON Final Result [facility] [address] [place] [address], [address] [address] * (TTE) 2D ECHO DOPPLER COLOR AND CONTRAST (09/03/2024 10:05 AM CDT) [facility] Ejection Fraction 44 MC CV EIMS Sinus [...] per Echocardiography Contrast Administration Protocol Reference Document [id number] Rev 07/20/2021. Patient met an inclusion criterion [...] administered per EchocardiographyContrast Administration Protocol Reference Document [id number] Rev07/20/2021. Patient met an inclusion criterion and did not havecontraindications in screening sections. For the complete report, see the Order-Level Documents. us Eva Carlson M.D. CV ECHO PROCEDURES Final Resu lt * ECG 12 Lead (09/03/2024 8:57 AM CDT) Ventricular Rate ECG/Min 61 BPM MUSE [place] Interval 200 ms MUSE QRSD Interval 136 ms MUSE QT Interval 488 ms MUSE QTC Interval 491 ms MUSE P [place] 42 degrees MUSE R [place] -42 degrees MUSE T Wave [place] -16 degrees MUSE 09/03/2024 8:57 AM CDT [...] ORDERABLES Final Resul t Performing Organization Address City/[facility]/ZIP Co de Phone Number MUSE NA * Heparin Anti-Xa Assay (09/03/2024 5:19 AM CDT) Heparin Anti-Xa, P 0.55 IU/mL 2024 5:31 AM CDT [facility] Comment: UFH therapeutic range: 0.30-0.70 IU/mL LMWH [...] ADD-ON Final Re sult Performing Organization Address City/[facility]/ZIP Co de Phone Number [facility] [place] [address], [facility] MKTO [facility] [address] [place] [address] * (ABNORMAL) Lipid Panel (09/03/2024 5:19 AM [...] 36(L) >=40 mg/dL 09/04/19 5:45 AM CDT [facility] Cholesterol, Non-HDL, Calculated 59 mg/dL 09/03/2024 5:45 [...] Carlson M.D. LAB BLOOD ADD-ON Final Result [facility] [place] [address], [facility] [place] [address] * (ABNORMAL) Basic Metabolic Panel (09/03/2024 5:19 [...] Carlson M.D. LAB BLOOD ADD-ON Final Result [facility] [address] [place] [address], [facility] [place] [address] * CBC without Differential (09/03/2024 5:19 AM [...] Carlson M.D. LAB BLOOD ADD-ON Final Result [facility] [address] [place] [address], [facility] [place] [address] * Heparin Anti-Xa Assay (09/02/2024 10:30 PM [...] LAB BLOOD NON ADD-ON Final Re sult [facility] [address] [place] [address], [facility] MKTO [facility] in [place] [address] [place] [address] documented in this encounter Visit Diagnoses Diagnosis [...] 1,000 unit/mL injection Code/trauma/sedation medication, Starting on Jackie 09/03/24 at 1330, Intraprocedure (CV) Given 09/03/2024 [...] Provider, Automatic - Reason: Patient not available)1452 ([facility] Unhold - Provider: Transfer Provider, Automatic) [...] Automatic) 0813 (Given - Provider: Luciano Oconnell RJagedepN.) isosorbide mononitrate 24 hr tablet 30 mg [...] - Provider: Erna Mcelroy R.N. - Comment: [id number] (New Bag - Provider: Erna Mcelroy R.N. - Comment: [id number]) 0552 (Rate/Dose Change - Provider: Erna Mcelroy R.N. - Comment: [id number] (Rate/Dose Verify - Provider: Erna Mcelroy R.N.)1310 (Stopped - Provider: Tameka Nelson RJagdeepNJagdeep) NaCl 0.9% infusion (CANCELED) 20 mL/hr, intravenous, Continuous, Starting on Jackie 09/03/24 at 1115, Preprocedure (CV), Administer as soon as possible. Limit total pre-procedure fluid to 1000 mL 1105 (New Bag - Provider: Luciano Oconnell RJgadeepNJagdeep) PRN Medication Order 09/02/2024 09/03/2024 09/04/2024 acetaminophen [...] blood transfusion or post blood sampling 1307 ([facility] Hold - Provider: Transfer Provider, Automatic - Reason: Patient not available)1452 ([facility] Unhold - Provider: Transfer Provider, Automatic) sodium chloride 0.9 % injection 10 mL 10 mL, intravenous, As needed, line care, Starting on Jackie 09/03/24 at 1005, Prior to and following infusion and between multiple consecutive infusions: sodium chloride 0.9 % injection 1006 (Given - Provider: Alecia BryanSJagdeep)1307 ([facility] Hold - Provider: Transfer Provider, Automatic - Reason: Patient not available)1452 ([facility] Unhold - Provider: Transfer Provider, Automatic) sodium chloride 0.9 % injection 3 mL 3 mL, intravenous, As needed, line care, Starting on Sat09/02/24 at 2201, Prior to and following infusion and between multiple consecutive infusions: sodium chloride 0.9 % injection 1307 ([facility] Hold - Provider: Transfer Provider, Automatic - Reason: Patient not available)1452 ([facility] Unhold - Provider: Transfer Provider, Automatic) [...] procedure documented in this encounter Care Teams Parking Meter Servicer Relationship Specialty Start Date End Date Milan Campos D.O. [address] [place] [phone] PCP - General Family Medicine 07/31/23 documented as of this encounter
--- OUTSIDE RECORDS SUMMARY | 2024-09-07 09:20 | XMS_ITS | Encounter Summary ---
Author Organization [facility] Address [address] [place] [address] Care Team Providers Care Sewing Inspector Name Role Phone Milan Campos D.O. Primary Care Provider [phone] Reason for Visit * Reason Onset Date Comments Post Hospital Follow-up 09/07/2024 * Outpatient (Routine) - Closed Specialty Diagnoses / Procedures Referred By Vargas t Referred To Contact Practiceadvisory, Automatedrequest [facility] Region Referral ID Status Reason Start Date Expiration Date Visits Re quested Visits Authorized [id number] Closed 09/04/2024 03/06/2026 1 1 Encounter Details Date Type Department Care Team (Latest Contact Info) Description 09/07/2024 9:20 AM CDT Clinical Communication Department of Internal Medicine in [place], [place] [address] [place] [address] Milan Campos D.O. [address] [place] [phone] Louisa Powell RJagdeepNJagdeep [address] [place] [phone] Post Hospital Follow-up Discharge Disposition: Home or Self Care Social History Tobacco Use Types Packs/Day Years Used Date Smoking Tobacco: Former Cigarettes Alcohol Use Standard Drinks/Week Comments Not Currently 0 (1 standard drink = 0.6 oz pur e alcohol) [facility] Utilities Answer Date Recorded In the past 12 months has e electric, gas, oil, or water company threatened [...] your living situation today? I have a [facility] place to live 09/02/2024 Sex and Gender Information Value Date Recorded Sex Assigned at Male 08/15/2023 11:17 AM CDT Legal Sex Male 1:11 PM CDT Gender Identity Male 08/15/2023 11:17 AM CDT Sexual Orientation Straight 08/15/2023 11 :17 AM CDT documented as of this encounter Miscellaneous Notes * Telephone Encounter - Louisa Powell R.N. - 09/07/2024 9:29 AM CDT SUBJECTIVE REASON FOR CALL Post-Hospital follow-up phone call with patient. Admission Date: 09/02/24 Discharge Date: 09/04/24 Discharge Diagnosis: PRINCIPAL DIAGNOSIS Angina Unstable (HCC) General Health Notes today that he is feeling better since discharged from the hospital. Concerns/questions: Patient has no questions or concerns. Symptom Review No new symptoms since discharge from the hospital. Activities of Daily Living Patient is independent with activities of daily living. Has the patient had a fall since discharge: no. Has ambulation changed since hospitalization: no. Difficulty ambulating: yes, due to his SOB with activity. The patient lives with granddaughter. Patient identified if needing assistance, he could depend on granddaughter. Wounds/Incisions/Lines, Drains and Airways Incision: R groin site. Signs or symptoms of infection: no. Incision care instructions reviewed: yes. Medication Status Current medication list was reviewed and updated as needed. Reports medication is self managed. Medications concerns: none. Medication compliance for current medications: yes. High Risk Medications Anticoagulants: type: Plavix. This is a new start: no. Taking as instructed: yes. Signs and symptoms of bleeding: no. Home Services Utilized The patient is not currently receiving home health services. Equipment/Supplies for Home Use None ordered Assessment/Plan Patient has no c/o orthopnea, or paroxysmal nocturnal dyspnea. No weight gain or increasing edema. Pt does report light headed/dizziness at times. Denies having any chest pain since discharge. Pt expresses a lot of frustration with not having stents placed while he was in the hospital. Listened to pt's concerns. Pt denies any current concerns at this time of symptoms, but states he is feeling thesame as prior to hospitalization now other than the chest pain. He is not feeling any more chest pain since discharge, but he does continue to feel SOB with minimal activity related to his artery blockages that he has. Pt would like to attend his follow ups and get some questions answered for goingforward. Follow-up Appointment PCP Follow-up appointment scheduled: yes; scheduled on 09/14/24. The patient plans to go to the appointment and has no concerns about getting there. Specialty Follow-up is n/a. Recommendations Referral actions: care coordination. Additional recommendations: home care instructions reinforced or provided. Disposition/Recommendation: recommended continue engagement in self-management activities. Education: patient/caller able to teach back. Caller agreeable to plan of care: yes. Home Visit Patient meets criteria for Home visit. Discussed with patient the role of the Primary Care Registered Nurse Home Visit. Patient declines home visit by RN. All questions answered. documented in this encounter Plan of Treatment Not on file documented as of this encounter Visit Diagnoses Not on filedocumented in this encounter Care Teams Sewing Inspector Relationship Specialty Start Date End Date Milan Campos D.O. [address] [place] [phone] PCP - General Family Medicine 07/31/23 documented as of this encounter
--- OUTSIDE RECORDS SUMMARY | 2024-09-07 09:20 | XMS_ITS | Encounter Summary ---
Author Organization [facility] Address [address] [place] [address] Care Team Providers Care Instrument Technician Apprentice Name Role Phone Milan Campos D.O. Primary Care Provider [phone] Reason for Visit * Reason Onset Date Comments Post Hospital Follow-up 09/07/2024 * Outpatient (Routine) - Closed Specialty Diagnoses / Procedures Referred By Vargas t Referred To Contact Practiceadvisory, Automatedrequest [facility] Region Referral ID Status Reason Start Date Expiration Date Visits Re quested Visits Authorized [id number] Closed 09/04/2024 03/06/2026 1 1 Encounter Details Date Type Department Care Team (Latest Contact Info) Description 09/07/2024 9:20 AM CDT Clinical Communication Department of Internal Medicine in [place], [place] [address] [place] [address] Milan Campos D.O. [address] [place] [phone] Louisa Powell RJagdeepNJagdeep [address] [place] [phone] Post Hospital Follow-up Discharge Disposition: Home or Self Care Social History Tobacco Use Types Packs/Day Years Used Date Smoking Tobacco: Former Cigarettes Alcohol Use Standard Drinks/Week Comments Not Currently 0 (1 standard drink = 0.6 oz pur e alcohol) [facility] Utilities Answer Date Recorded [...] your living situation today? I have a [facility] place to live 09/02/2024 Sex and [...] on filedocumented in this encounter Care Teams Instrument Technician Apprentice Relationship Specialty Start Date End Date Milan Campos D.O. [address] [place] [phone] PCP - General Family Medicine 07/31/23 documented as of this encounter
--- OUTSIDE RECORDS SUMMARY | 2024-09-07 09:35 | XMS_ITS | Encounter Summary ---
Author Name Department of Vetera Affairs ([place]) Organization [facility] Address [address] [place] [address] Care Team Providers Care Park Guide Name Role Phone JESSI WHELAN Primary Care [...] PART A Jun 06, 2009 PART A [id number] DAVON HICKS PATIENT MEDICARE (WNR) MEDICARE (M) PART B Jun 06, 2009 PART B [id number] DAVON HICKS PATIENT Selected Encounter This section includes the information on record at CT for the Encounter. Date/Time Encounter Type Encounter Description Reason Provider Source Sep 07, 2024 02:35 PM Outpatient Encounter ADMIN PAT ACTIVTIES (MASNONCT) GREG CAMPOS Shanda Encounter Template Text not used by CT Social History: Smoking Status (Most current) and Tobacco Use (All prior to encounter date) This section includes the most current, and the historical, smoking and tobacco- related health factors from the CT facility where the Encounter took place. Current Smoking Status This section includes the most current smoking, or tobacco-related health factor, from the CT facility where the Encounter took place. Date/Time Current Smoking Status Comment Slime ity Oct 30, 2006 11:47 AM FORMER TOBACCO USER 7Y OR [facility] Tobacco Use History This section includes a history of the smoking, or tobacco-related health factors, that were collected on or before the date of the Encounter. The data comes from the CT facility where the Encounter took place. Date/Time Smoking Status/Tobacco Use Comment F acility Oct 05, 2005 01:57 AM NO TOBACCO USE [facility] Advance Directives: All historical and current Section Date Range: From patient's date of to the date document was created. This section includes ALL of a patient's completed or amended CT Advance and Rescinded Directives. The entries below indicate that a directive exists for the patient, but an actual copy is not included with this document. The data comes from all CT facilities. Date Advance Directives Provider Source Mar 29, 2003 ADVANCE DIRECTIVE MIANTRISTON Marshall [place] [facility] Encounter Notes: All associated encounter notes This section contains the clinical notes associated to the Encounter. Date/Time Encounter Note(s) Provider Source September 02, 2024 02:36 PM NONVA NOTE: LOCAL TITLE: COMMUNITY CARE-CORNELL SELF PRESENTING CARE COORD PLAN STANDARD TITLE: NONVA NOTE DATE OF NOTE: SEPTEMBER 02, 2024@14:36 ENTRY DATE: SEP 07, 2024@14:36:38 AUTHOR: SHEMAR DRAPER EXP COSIGNER: URGENCY: STATUS: COMPLETED COMMUNITY CARE-CORNELL SELF PRESENTING CARE COORD PLAN NOTE Has ADDENDA Emergency Notification Intake Date Presenting to the Facility: August Method of Contact: Notified from [facility] worklist Notification ID: [id number] [facility] Referral #: [facility] Name: Hospital: [facility] Address: [address] City: [place] State: [place] Zip Code: Phone : [facility] Point of Contact: Name: Phone: Chief complaint: HEART PAIN Primary Diagnosis: Disposition Discharged Date of discharge: August Discharge to home Closed - Submit for /jagjit/ SHEMAR DRAPER Game Manager(AOD) Signed: 09/07/2024 14:40 Receipt Acknowledged By: 09/07/2024 15: /jagjit/ GREG CAMPOS RN BSN [facility] EDUCATOR SPRING FITTER HELPER 09/07/2024 ADDENDUM STATUS: COMPLETED [place] seen in the ED- Records have been uploaded into chart. Transferred to [facility]. /es/ GREG CHANN RYANI HEALTH EDUCATOR SPRING FITTER HELPER Signed: 09/07/2024 15:08 09/02/2024 ADDENDUM STATUS: COMPLETED [facility] Imaging Scanned Document - Addendum. [place] [facility] SCANNED DOCUMENT SIGNATURE NOT REQUIRED Electronically Filed: 09/07/2024 by: GREG CAMPOS RN BSN [facility] EDUCATOR SPRING FITTER HELPER SHEMAR DRAPER [facility]
--- OUTSIDE RECORDS SUMMARY | 2024-09-07 10:29 | XMS_ITS | Encounter Summary ---
Author Name Department of Vetera Affairs ([place]) Organization Department of Vetera Affairs ([place]) Address [address] [place] [address] Care Team Providers Care Truck Sales Representative Name Role Phone JESSI WHELAN Primary Care [...] PART A Jun 06, 2009 PART A [id number] DAVON HICKS PATIENT MEDICARE (WNR) MEDICARE (M) PART B Jun 06, 2009 PART B [id number] DAVON HICKS PATIENT Selected Encounter This section includes the information on record at ID for the Encounter. Date/Time Encounter Type Encounter Description Reason Provider Source Sep 07, 2024 03:29 PM Outpatient Encounter COMMUNITY CARE CONSULT GREG CAMPOS Shanda Encounter Template Text not used by ID Social History: Smoking Status (Most current) and Tobacco Use (All prior to encounter date) This section includes the most current, and the historical, smoking and tobacco- related health factors from the ID facility where the Encounter took place. Current Smoking Status This section includes the most current smoking, or tobacco-related health factor, from the ID facility where the Encounter took place. Date/Time Current Smoking Status Comment Facil ity Oct 30, 2006 11:47 AM FORMER TOBACCO USER 7Y OR [facility]ATE [facility] Tobacco Use History This section includes a history of the smoking, or tobacco-related health factors, that were collected on or before the date of the Encounter. The data comes from the ID facility where the Encounter took place. Date/Time Smoking Status/Tobacco Use Comment F acility Oct 05, 2005 01:57 AM NO TOBACCO USE [facility] Advance Directives: All historical and current Section Date Range: From patient's date of to the date document was created. This section includes ALL of a patient's completed or amended ID Advance and Rescinded Directives. The entries below indicate that a directive exists for the patient, but an actual copy is not included with this document. The data comes from all ID facilities. Date Advance Directives Provider Source Mar 29, 2003 ADVANCE DIRECTIVE MIANTRISTON ARIAS [facility] Encounter Notes: All associated encounter notes This section contains the clinical notes associated to the Encounter. Date/Time Encounter Note(s) Provider Source Sep 07, 2024 03:32 PM ADDENDUM: LOCAL TITLE: Addendum STANDARD TITLE: ADDENDUM DATE OF NOTE: SEP 07, 2024@15:32:33 ENTRY DATE: SEP 07, 2024@15:32:34 AUTHOR: GREG CAMPOS COSIGNER: URGENCY: STATUS: COMPLETED Community Care Transitions Team Care Coordination Note Admit date: 09/02/24 Discharge date: 09/04/24 Level of Care: acute Primary Diagnosis: unstable angina Luis Rivas M.D. Physician [facility] ([facility]) Discharge Summary 09/03/2024 Bypass Graft Angiography, Coronary Angiography #unstable angina vs reflux #coronary artery disease s/p CABG (2012) s/p stent #chronic systolic heart failure (HFrEF) presented with intermittent chest pain for 4 days, with associated upper extremity tingling. Occurs at rest and with activity. Has known history of coronary artery disease. Admit labs with WBC 6.6, hemoglobin 15.9, platelets 245, INR 1, Na 138, K 3.8, Cr 0.96, LFT WNL, troponin 13->11, BNP 120. Chest xray without infiltrate. EKG without [...] daily, losartan 25 daily, spironolactone 25 daily Discharge Disposition: Home Please review the Discharge Summary for complete details of the care rendered, as well as any necessary or recommended follow up care the patient may require. Hospital records uploaded to [employer] via [employer]. /jagjit/ GREG STEVEN BUILD AND RELEASE MANAGER SECURITY POLICE Signed: 09/07/2024 15:34 Receipt Acknowledged By: 09/08/2024 05:48 /jagjit/ JESSI WHELAN M.D. Physician, Oliver GARCIA 09/08/2024 10:26 /es/ AZAR GARCIA --- Original Document --- 09/02/24 [facility] PRESENTING CARE COORD PLAN NOTE: Emergency Notification Intake Date Presenting to the Facility: August Method of Contact: Notified from [employer] worklist Notification ID: [id number] [facility] Referral #: [facility] Name: Hospital: [facility] Address: City: [place] State: [place] Zip Code: Phone : Community Facility Point of Contact: Name: Phone: Chief complaint: heart issues Primary Diagnosis: Disposition Admitted Route of Admission: Direct Admit Date of Admission: August Admitting Diagnosis: heart issues Community Care Provider: Confirm Level of Care: /jagjit/ GREG STEVEN BUILD AND RELEASE MANAGER SECURITY POLICE Signed: 09/07/2024 15:31 09/04/2024 ADDENDUM STATUS: COMPLETED Vist[facility] Imaging Scanned Document - Addendum. [place] [facility] SCANNED DOCUMENT SIGNATURE NOT REQUIRED Electronically Filed: 09/07/2024 by: GREG STEVEN BUILD AND RELEASE MANAGER SECURITY POLICE 09/08/2024 ADDENDUM STATUS: COMPLETED Patient is scheduled for follow up with [facility] on 09/14/24. Patient discharged home and is doing well. /jagjit/ AZAR LARIOS [facility] Signed: 09/08/2024 10:29 GREG CAMPOS [facility] September 02, 2024 06:29 PM NONVA NOTE: LOCAL TITLE: COMMUNITY CARE-CORNELL SELF PRESENTING CARE COORD PLAN STANDARD TITLE: NONVA NOTE DATE OF NOTE: SEPTEMBER 02, 2024@18:29 ENTRY DATE: SEP 07, 2024@15:29:41 AUTHOR: GREG CAMPOS EXP COSIGNER: URGENCY: STATUS: COMPLETED COMMUNITY CARE-CORNELL SELF PRESENTING CARE COORD PLAN NOTE Has ADDENDA Emergency Notification Intake Date Presenting to the Facility: August Method of Contact: Notified from [employer] worklist Notification ID: [id number] [facility] Referral #: [facility] Name: Hospital: [facility] Address: City: [place] State: [place] Zip Code: Phone : [facility] Facility Point of Contact: Name: Phone: Chief complaint: heart issues Primary Diagnosis: Disposition Admitted Route of Admission: Direct Admit Date of Admission: August Admitting Diagnosis: heart issues Community Care Provider: Confirm Level of Care: /jagjit/ GREG [facility]WAS [facility] BUILD AND RELEASE MANAGER SECURITY POLICE Signed: 09/07/2024 15:31 09/07/2024 ADDENDUM STATUS: COMPLETED Community Care Transitions Team Care Coordination Note Admit date: 09/02/24 Discharge date: 09/04/24 Level of Care: acute Primary Diagnosis: unstable angina Luis Rivas M.D. Physician [facility] ([facility]) Discharge Summary 09/03/2024 Bypass Graft Angiography, Coronary Angiography #unstable angina vs reflux #coronary artery disease s/p CABG (2012) s/p stent #chronic systolic heart failure (HFrEF) presented with intermittent chest pain for 4 days, with associated upper extremity tingling. Occurs at rest and with activity. Has known history of coronary artery disease. Admit labs with WBC 6.6, hemoglobin 15.9, platelets 245, INR 1, Na 138, K 3.8, Cr 0.96, LFT WNL, troponin 13->11, BNP 120. Chest xray without infiltrate. EKG without [...] daily, losartan 25 daily, spironolactone 25 daily Discharge Disposition: Home Please review the Discharge Summary for complete details of the care rendered, as well as any necessary or recommended follow up care the patient may require. Hospital records uploaded to [employer] via [employer]. /jagjit/ GREG STEVEN BUILD AND RELEASE MANAGER SECURITY POLICE Signed: 09/07/2024 15:34 Receipt Acknowledged By: 09/08/2024 05:48 /jagjit/ JESSI WHELAN M.D. Physician, Oliver GARCIA 09/08/2024 10:26 /jagjit/ AZAR GARCIA 09/04/2024 ADDENDUM STATUS: COMPLETED Vist[facility] Imaging Scanned Document - Addendum. [facility] SCANNED DOCUMENT SIGNATURE NOT REQUIRED Electronically Filed: 09/07/2024 by: GREG STEVEN BUILD AND RELEASE MANAGER SECURITY POLICE 09/08/2024 ADDENDUM STATUS: COMPLETED Patient is scheduled for follow up with [facility] on 09/14/24. Patient discharged home and is doing well. /jagjit/ AZAR GARCIA Signed: 09/08/2024 10:29 GREG CAMPOS [facility]
--- OUTSIDE RECORDS SUMMARY | 2024-09-14 13:00 | XMS_ITS | Encounter Summary ---
Author Organization [facility] Address [address] [place] [address] Care Team Providers Care Environmental Engineering Intern Name Role Phone Milan Campos D.O. Primary Care Provider [phone] Reason for Referral * Outpatient (Routine) - Closed Specialty Diagnoses / Procedures Referred By Vargas koroma Referred To Contact Diagnoses Angina Unstable (HCC) Procedures ECG 12 Lead MD EKG 12 LEAD W I&R Bruce Obrien II, M.D. [address] [place] [address] Phone: tel: fax: [facility] Region Referral ID Status Reason Start Date Expiration Date Visits Re quested Visits Authorized [id number] Closed 09/14/2024 12/15/2025 1 1 Reason for Visit * Outpatient (Routine) - Closed Specialty Diagnoses / Procedures Referred By Vargas koroma Referred To Contact Family Medicine Luis Rivas M.D. [address] [place] [address] Phone: tel: fax: [facility] Region Referral ID Status Reason Start Date Expiration Date Visits Re quested Visits Authorized [id number] Closed 09/04/2024 03/06/2026 1 1 Encounter Details Date Type Department Care Team (Late st Contact Info) Description 09/14/2024 1:00 PM CDT Office Visit Department of Family Medicine, [facility], in [place], [place] [address] [place] [address] Bruce Obrien II, M.D. [address], [place] [address] Angina Unstable (HCC) (Primary Dx); Congestive Heart Failure (HCC) Discharge Disposition: Home or Self Care Social History Tobacco Use Types Packs/Day Years Used Date Smoking Tobacco: Former Cigarettes Alcohol Use Standard Drinks/Week Comments Not Currently 0 (1 standard drink = 0.6 oz pur e alcohol) [facility] Utilities Answer Date Recorded In the past 12 months has e [employer], gas, oil, or water [employer] threatened to shut off services in your [...] your living situation today? I have a remi place to live 09/02/2024 Sex and Gender Information Value Date Recorded Sex Assigned at Male 08/15/2023 11:17 AM CDT Legal Sex Male 1:11 PM CDT Gender Identity Male 08/15/2023 11:17 AM CDT Sexual Orientation Straight 08/15/2023 11 :17 AM CDT documented as of this encounter Last Filed Vital Signs Vital Sign Reading Time Taken Comments Blood Pressure 138/82 09/14/2024 12:57 PM CDT av erage Pulse 64 09/14/2024 12:57 PM CDT Temperature - - Respiratory Rate - - Oxygen Saturation - - Inhaled Oxygen Concentration - - Weight 92 kg (202 lb 13.2 oz) 09/14/2024 12:57 P M CDT Height - - Body Mass Index 31.77 09/02/2024 9:35 PM CDT documented in this encounter Progress Notes * Bruce Obrien II, M.D. - 09/14/2024 1:00 PM CDT DATE OF VISIT: 09/14/2024 SUBJECTIVE CHIEF COMPLAINT / REASON FOR VISIT Aroldo Chen is a 74 y.o. male who presents for evaluation of No chief complaint on file.. The patient verbally consented to an audio recording of their visit to assist with the completion of documentation. History of Present Illness Patient hospitalized 09/02/24-09/04/24 for chest pain. Cardiac catheterization done 09/03 showing extensive disease in [place] coronaries and grafts. No interventions were performed. Echocardiogram noted LVEF 44% and grade 1 diastolic dysfunction. He was started on Imdur, losartan,and aldactone. Patient was also given a GI cocktail which appeared to help symptoms so patient was prescribed PPI for possibly gastroesophageal component to pain. Today patient reports continued difficulty since hospital discharge. He is not having any pain currently but there is left sided chest discomfort and also having poor activity tolerance. He notes getting winded extremely easily, which he did not have prior to the hospitalization. OBJECTIVE VITAL SIGNS BP 138/82 (BP Location: Right arm, Patient Position: Sitting) Comment: average Pulse 64 Wt 92 kg BMI 31.77 kg/m?? Physical Exam Vitals reviewed. Constitutional General: He is not in acute distress. Appearance: He is well-developed. Cardiovascular Rate and Rhythm: Normal rate and regular rhythm. Heart sounds: Normal heart sounds. Pulmonary Effort: Pulmonary effort is normal. No respiratory distress. Breath sounds: Normal breath sounds. No stridor. No wheezing, rhonchi or rales. Musculoskeletal Right lower leg: No edema. Left lower leg: No edema. Neurological Mental Status: He is alert. Physical Exam ASSESSMENT / PLAN #1 Angina Unstable (HCC) #2 Congestive Heart Failure (HCC) Extensive coronary artery disease with multiple stents and previous quadruple bypass. Recent angiography shows significant blockages in [place] coronary arteries and bypass grafts. Echocardiogram indicates congestive heart failure with ejection fraction of 45%. Current medications may be inadequate;surgical intervention may be necessary. Discussed potential repeat bypass surgery if stenting is not feasible. - Increase isosorbide dose to 60 mg daily. - Labs and EKG today - Schedule follow up with external camp dining room attendant as soon as possible to review recent hospital stay and results of angiography to determine if additional stenting or possibly surgical intervention is indicated. Rest of chronic conditions appear stable. All other medications continued as before. documented in this encounter Plan of Treatment Not on file documented as of this encounter Results * NT-Pro B-Type Natriuretic Peptide (BNP) (09/14/2024 3:36 PM CDT) Pathologist [facility] NT-Pro BNP 101 <=540 pg/mL 09/14/2024 4:22 PM CDT [facility] Comment: NT-proBNP values less [...] absence of renal failure. Blood (Blood, Venous) 09/14/2024 3:36 PM CDT 09/14/2024 3:45 PM CDT us Bruce Obrien II, M.D. LAB BLOOD ADD-ON Final Re sult Performing Organization Address City/[facility]/ZIP Co de Phone Number [facility] [address] [place] [address], [facility] [address] [place] [address] * Troponin T, 5th Generation (09/14/2024 3:36 PM CDT) Troponin T, 5th gen 12 <=15 ng/L 09/14/2024 4:22 PM CDT [facility] Blood (Blood, Venous) 09/14/2024 3:36 PM CDT 09/14/2024 3:45 PM CDT us Bruce Obrien II, M.D. LAB BLOOD ADD-ON Final Re sult Performing Organization Address [facility] Co de Phone Number [facility] [address] [place] [address], [facility] [address] [place] [address] * ECG 12 Lead (09/14/2024 3:34 PM CDT) Ventricular Rate ECG/Min 67 BPM MUSE MD Interval 194 ms MUSE QRSD Interval 144 ms MUSE QT Interval 458 ms MUSE QTC Interval 483 ms MUSE P [place] 29 degrees MUSE R [place] -41 degrees MUSE T Wave [place] 19 degrees MUSE 09/14/2024 3:34 PM CDT 09/14/2024 4:01 PM CDT Impressions MUSE - 09/14/2024 3:58 PM CDT Normal sinus rhythm Premature ventricular complexes in a pair Left axis deviation Right bundle branch block with secondary ST-T abnormalities Nonspecific T wave abnormality When compared with ECG of 03-Sep-2024 08:57, No significant change was found Reviewed by JAMEL Li Narrative Procedure Note Emerson Carr M.D. - 09/14/2024 IMPRESSION: Normal sinus rhythm Premature ventricular complexes in a pair Left axis deviation Right bundle branch block with secondary ST-T abnormalities Nonspecific T wave abnormality When compared with ECG of 03-Sep-2024 08:57, No significant change was found Reviewed by JAMEL Li us Bruce Obrien II, M.D. ECG ORDERABLES Edited Re chungt - Final MUSE NA documented in this encounter Visit Diagnoses Diagnosis Angina Unstable (HCC)- Primary Congestive Heart Failure (HCC) Angina Unstable (HCC) documented in this encounter Care Teams Environmental Engineering Intern Relationship Specialty Start Date End Date Milan Campos D.O. [address] [place] [phone] PCP - General Family Medicine 07/31/23 documented as of this encounter
--- OUTSIDE RECORDS SUMMARY | 2024-09-14 13:00 | XMS_ITS | Encounter Summary ---
Author Organization [facility] Address [address] [place] [address] Care Team Providers Care Records Management Manager Name Role Phone Milan Campos D.O. Primary Care Provider [phone] Reason for Referral * Outpatient (Routine) - Closed Specialty Diagnoses / Procedures Referred By Vargas koroma Referred To Contact Diagnoses Angina Unstable (HCC) Procedures ECG 12 Lead PA EKG 12 LEAD W I&R Bruce Obrien II, M.D. [address] [place] [address] Phone: tel: fax: [facility] Region Referral ID Status Reason Start Date Expiration Date Visits Re quested Visits Authorized [id number] Closed 09/14/2024 12/15/2025 1 1 Reason for Visit * Outpatient (Routine) - Closed Specialty Diagnoses / Procedures Referred By Vargas koroma Referred To Contact Family Medicine Luis Rivas M.D. [address] [place] [address] Phone: tel: fax: [facility] Region Referral ID Status Reason Start Date Expiration Date Visits Re quested Visits Authorized [id number] Closed 09/04/2024 03/06/2026 1 1 Encounter Details Date Type Department Care Team (Late st Contact Info) Description 09/14/2024 1:00 PM CDT Office Visit Department of Family Medicine, [facility], in [place], [place] [address] [place], [place] [...] drink = 0.6 oz pur e alcohol) [facility] Utilities Answer Date Recorded In the past 12 months has e [employer], gas, oil, or water [employer] threatened to shut off services in your [...] catheterization done 09/03 showing extensive disease in [place] coronaries and grafts. No interventions were performed. [...] bypass. Recent angiography shows significant blockages in [place] coronary arteries and bypass grafts. Echocardiogram indicates congestive heart failure with ejection fraction of 45%. Current medications may be inadequate;surgical intervention may be necessary. Discussed potential repeat bypass surgery if stenting is not feasible. - Increase isosorbide dose to 60 mg daily. - Labs and EKG today - Schedule follow up with external block and case maker as soon as possible to review recent hospital stay and results of angiography to determine if additional stenting or possibly surgical intervention is indicated. Rest of chronic conditions appear stable. All other medications continued as before. documented in this encounter Plan of Treatment Not on file documented as of this encounter Results * NT-Pro B-Type Natriuretic Peptide (BNP) (09/14/2024 3:36 PM CDT) Pathologist [facility] NT-Pro BNP 101 <=540 pg/mL 09/14/2024 4:22 [...] ADD-ON Final Re sult Performing Organization Address City/[facility]/ZIP Co de Phone Number [facility] [address] [place] [address], [facility] - [facility] [address] [place] [address] * Troponin T, 5th Generation (09/14/2024 3:36 PM CDT) Troponin T, 5th gen 12 <=15 ng/L 09/14/2024 4:22 PM CDT [facility] Blood (Blood, Venous) 09/14/2024 3:36 PM CDT 09/14/2024 3:45 PM CDT us Bruce Obrien II, M.D. LAB BLOOD ADD-ON Final Re sult Performing Organization Address [facility] Co de Phone Number [facility] [address] [place] [address], [facility] - [facility] [address] [place] [address] * ECG 12 Lead (09/14/2024 3:34 PM CDT) Ventricular Rate ECG/Min 67 BPM MUSE PA Interval 194 ms MUSE QRSD Interval 144 ms MUSE QT Interval 458 ms MUSE QTC Interval 483 ms MUSE P [place] 29 degrees MUSE R [place] -41 degrees MUSE T Wave [place] 19 degrees MUSE 09/14/2024 3:34 PM CDT [...] (HCC) documented in this encounter Care Teams Records Management Manager Relationship Specialty Start Date End Date Milan Campos D.O. [address] [place] [phone] PCP - General Family Medicine 07/31/23 documented as of this encounter
--- OUTSIDE RECORDS SUMMARY | 2024-09-14 14:31 | XMS_ITS | Encounter Summary ---
Author Organization [facility] Address [address] [place] [address] Care Team Providers Care President Celebrity Acquistion Name Role Phone Milan Campos D.O. Primary Care Provider [phone] Reason for Referral * Outpatient (Routine) - Closed Specialty Diagnoses / Procedures Referred By Vargas koroma Referred To Contact Diagnoses Angina Unstable (HCC) Procedures ECG 12 Lead OK EKG 12 LEAD W I&R Bruce Obrien II, M.D. [address] [place] [address] Phone: tel: fax: [facility] Region Referral ID Status Reason Start Date Expiration Date Visits Re quested Visits Authorized [id number] Closed 09/14/2024 12/15/2025 1 1 Reason for Visit * Outpatient (Routine) - Closed Specialty Diagnoses / Procedures Referred By Vargas koroma Referred To Contact Diagnoses Angina Unstable (HCC) Procedures ECG 12 Lead OK EKG 12 LEAD W I&R Bruce Obrien II, M.D. [address] [place] [address] Phone: tel: fax: [facility] Region Referral ID Status Reason Start Date Expiration Date Visits Re quested Visits Authorized [id number] Closed 09/14/2024 12/15/2025 1 1 Encounter Details Date Type Department Care Team (Latest Contact Info) Description 09/14/2024 2:31 PM CDT Hospital Encounter Department of Laboratory Medicine in [place], [place] [address] [place] [id number] Bruce Obrien II, M.D. [address] [place] [address] Angina Unstable (HCC) Discharge Disposition: Home or Self Care Social History Tobacco Use Types Packs/Day Years Used Date Smoking Tobacco: Former Cigarettes Alcohol Use Standard Drinks/Week Comments Not Currently 0 (1 standard drink = 0.6 oz pur e alcohol) [facility] Utilities Answer Date Recorded In the past 12 months has e [employer] gas, oil, or water [employer] threatened to shut off services in your [...] AM CDT documented as of this encounter Medications at Time of Discharge amLODIPine (Norvasc) 5 mg tablet Take 5 mg by mouth daily. aspirin 81 mg chewable tablet Chew 81 mg daily. clopidogreL (PLAVIX) 75 mg tablet Take 1 tablet (75 mg total) by mouth daily. 30 tablet 07/30/2023 10:18 AM CDT 08/08/2023 fluticasone propionate (Flonase) 50 mcg/actuation nasal spray INSTILL 2 SPRAYS IN EACH NOSTRIL EVERY DAY 48 g 3 07/27/2024 isosorbide mononitrate (Imdur) 60 mg 24 hr tabletIndications :Angina Unstable (HCC) Take 1 tablet (60 mg total) by mouth daily. 30 tablet 11 09/14/2024 09/14/2025 levocetirizine (Xyzal) 5 mg tablet take one [...] mouth daily. 30 tablet 11 09/05/2024 09/05/2025 documented as of this encounter Plan of Treatment Not on file documented as of this encounter Procedures Procedure Name Priority Date/Time Associated Diagnosis Comments ECG Routine 09/14/2024 3:34 PM CDT Angina Unstable (HCC) documented in this encounter Results * ECG 12 Lead (09/14/2024 3:34 PM CDT) Ventricular Rate ECG/Min 67 BPM MUSE OK Interval 194 ms MUSE QRSD Interval 144 ms MUSE QT Interval 458 ms MUSE QTC Interval 483 ms MUSE P [place] 29 degrees MUSE R [place] -41 degrees MUSE T Wave [place] 19 degrees MUSE 09/14/2024 3:34 PM CDT [...] Obrien II, M.D. ECG ORDERABLES Edited Re sult - Final MUSE NA documented in this encounter Visit Diagnoses Diagnosis Angina Unstable (HCC) documented in this encounter Care Teams President Celebrity Acquistion Relationship Specialty Start Date End Date Milan Campos D.O. [address], [place] [address] PCP - General Family Medicine 07/31/23 documented as of this encounter
--- OUTSIDE RECORDS SUMMARY | 2024-09-14 14:31 | XMS_ITS | Encounter Summary ---
Author Organization [facility] Address [address] [place] [address] Care Team Providers Care Outreach Clinician Name Role Phone Milan Campos D.O. Primary Care Provider [phone] Reason for Referral * Outpatient (Routine) - Closed Specialty Diagnoses / Procedures Referred By Vargas koroma Referred To Contact Diagnoses Angina Unstable (HCC) Procedures ECG 12 Lead WI EKG 12 LEAD W I&R Bruce Obrien II, M.D. [address] [place] [address] Phone: tel: fax: [facility] Region Referral ID Status Reason Start Date Expiration Date Visits Re quested Visits Authorized [id number] Closed 09/14/2024 12/15/2025 1 1 Reason for Visit * Outpatient (Routine) - Closed Specialty Diagnoses / Procedures Referred By Vargas koroma Referred To Contact Diagnoses Angina Unstable (HCC) Procedures ECG 12 Lead WI EKG 12 LEAD W I&R Bruce Obrien II, M.D. [address] [place] [address] Phone: tel: fax: [facility] Region Referral ID Status Reason Start Date Expiration Date Visits Re quested Visits Authorized [id number] Closed 09/14/2024 12/15/2025 1 1 Encounter Details Date Type Department Care Team (Latest Contact Info) Description 09/14/2024 2:31 PM CDT Hospital Encounter Department of Laboratory Medicine in [place], [place] [address] [phone] Bruce Obrien II, M.D. [address] [place] [address] Angina Unstable (HCC) Discharge Disposition: Home or Self Care Social History Tobacco Use Types Packs/Day Years Used Date Smoking Tobacco: Former Cigarettes Alcohol Use Standard Drinks/Week Comments Not Currently 0 (1 standard drink = 0.6 oz pur e alcohol) [facility] Utilities Answer Date Recorded In the past 12 months has e [employer], gas, oil, or water [employer] threatened to shut off services in your [...] CDT) Ventricular Rate ECG/Min 67 BPM MUSE WI Interval 194 ms MUSE QRSD Interval 144 ms MUSE QT Interval 458 ms MUSE QTC Interval 483 ms MUSE P [place] 29 degrees MUSE R [place] -41 degrees MUSE T Wave [place] 19 degrees MUSE 09/14/2024 3:34 PM CDT [...] (HCC) documented in this encounter Care Teams Outreach Clinician Relationship Specialty Start Date End Date Milan Campos D.O. [address] [place], [place] [address] PCP - General Family Medicine 07/31/23 documented as of this encounter
--- OUTSIDE RECORDS SUMMARY | 2024-09-14 14:32 | XMS_ITS | Encounter Summary ---
Author Organization [facility] Address [address] [place] [address] Care Team Providers Care Special Library Librarian Name Role Phone Milan Campos D.O. Primary Care Provider Encounter Details Date Type Department Care Team (Latest Contact Info) Description 09/14/2024 2:32 PM CDT - 09/14/2024 11:59 PM CDT Hospital Encounter Department of Laboratory Medicine in [place], [place] [address] [place] [phone] Bruce Obrien II, M.D. [address] [place] [address] Angina Unstable (HCC) Discharge Disposition: Home or Self Care Social History Tobacco Use Types Packs/Day Years Used Date Smoking Tobacco: Former Cigarettes Alcohol Use Standard Drinks/Week Comments Not Currently 0 (1 standard drink = 0.6 oz pur e alcohol) [facility] Utilities Answer Date Recorded In the past 12 months has e [employer], gas, oil, or water [employer] threatened to shut off services in your [...] your living situation today? I have a [facility] place to live 09/02/2024 Sex and [...] by mouth daily. 30 tablet 09/05/2024 09/05/2025 nitroglycerin (Nitrostat) 0.4 mg SL [...] by mouth daily. 30 tablet 09/05/2024 09/05/2025 documented as of this encounter Plan of Treatment Not on file documented as of this encounter Procedures Procedure Name Priority Date/Time Associated Diagnosis Comments NT-PRO B-TYPE NATRIURETIC PEPTIDE (BNP), S Routine 09/14/2024 3:36 PM CDT Angina Unstable (HCC) TROPONIN T, 5TH GEN, P Routine 09/14/2024 3:36 PM CDT Angina Unstable (HCC) documented in this encounter Results * NT-Pro B-Type Natriuretic Peptide (BNP) (09/14/2024 3:36 PM CDT) NT-Pro BNP 101 <=540 pg/mL 09/14/2024 4:22 [...] ADD-ON Final Re sult Performing Organization Address City/[facility]/ZIP Co de Phone Number [facility] [address] [place] [address], [facility] - [facility] [place] [address] [place] [address] * Troponin T, 5th Generation (09/14/2024 3:36 PM CDT) Troponin T, 5th gen 12 <=15 ng/L 09/14/2024 4:22 PM CDT [facility] Blood (Blood, Venous) 09/14/2024 3:36 PM CDT 09/14/2024 3:45 PM CDT us Bruce Obrien II, M.D. LAB BLOOD ADD-ON Final Re sult Performing Organization Address [facility] Co de Phone Number [facility] [address] [place] [address], [facility] - [facility] [place] [address] [place] [address] documented in this encounter Visit Diagnoses Diagnosis Angina Unstable (HCC) documented in this encounter Care Teams Special Library Librarian Relationship Specialty Start Date End Date Milan Campos D.O. [address] [place] [address] PCP - General Family Medicine 07/31/23 documented as of this encounter
--- OUTSIDE RECORDS SUMMARY | 2024-09-14 14:32 | XMS_ITS | Encounter Summary ---
Author Organization [facility] Address [address] [place] [address] Care Team Providers Care Furniture Assembler Name Role Phone Milan Campos D.O. Primary Care Provider Encounter Details Date Type Department Care Team (Latest Contact Info) Description 09/14/2024 2:32 PM CDT - 09/14/2024 11:59 PM CDT Hospital Encounter Department of Laboratory Medicine in [place], [place] [address] [place] [address] Bruce Obrien II, M.D. [address] [place] [address] Angina Unstable (HCC) Discharge Disposition: Home or Self Care Social History Tobacco Use Types Packs/Day Years Used Date Smoking Tobacco: Former Cigarettes Alcohol Use Standard Drinks/Week Comments Not Currently 0 (1 standard drink = 0.6 oz pur e alcohol) [facility] Utilities Answer Date Recorded In the past 12 months has e [employer], gas, oil, or water [employer] threatened to shut off services in your [...] your living situation today? I have a [facility] place to live 09/02/2024 Sex and [...] ADD-ON Final Re sult Performing Organization Address City/[facility]/ZIP Co de Phone Number [facility] [address] [place] [address], [facility] - [facility] [address] [place] [address] * Troponin T, 5th Generation (09/14/2024 3:36 PM CDT) Troponin T, 5th gen 12 <=15 ng/L 09/14/2024 4:22 PM CDT [facility] Blood (Blood, Venous) 09/14/2024 3:36 PM CDT 09/14/2024 3:45 PM CDT us Bruce Obrien II, M.D. LAB BLOOD ADD-ON Final Re sult Performing Organization Address [facility] Co de Phone Number [facility] [address] [place] [address], [facility] - [facility] [address] [place] [address] documented in this encounter Visit Diagnoses Diagnosis Angina Unstable (HCC) documented in this encounter Care Teams Furniture Assembler Relationship Specialty Start Date End Date Milan Campos D.O. [address] [place] [address] PCP - General Family Medicine 07/31/23 documented as of this encounter
--- OUTSIDE RECORDS SUMMARY | 2024-10-02 13:36 | XMS_ITS | Continuity of Care Document ---
Author Name [facility] Organization [facility] Care Team Providers Care Personal Banking Representative Name Role Phone [facility] Unavailable Unavailable Problems Combined list of problems from Department of Defense and Veterans Affairs facilities. It does not include entries that were removed or entered in error. Problem Status Onset Date Problem Type Date of Resolution Comments Source Allergic rhinitis Active Condition [facility] Chronic ischemic heart disease Active Condition [facility] Essential hypertension Active Condition [facility] Exposure to potentially hazardous substance Active Condition [facility] History of amputation of great toe Active Condition Oct 24, 2023 Entered By: DANITA WHELAN Comment: Right [facility] History of atrial flutter Active Condition [facility] Low back pain Active Condition [facility] Obstructive sleep apnea syndrome Active Condition Mar 26, 2024 Entered By: MADINA PERALES Comment: APAP 10-20 [facility] Overweight Active Condition [facility] Posttraumatic stress disorder Active Condition [facility] Dermatitis, Contact Unspec Inactive Condition 10/24/2023 [facility] PA[facility]-L/LEG Inactive Condition 10/24/2023 [facility] Lumbar Radiculopathy (ICD-9-CM 724.4) Inactive Condition 10/24/2023 [facility] Rehabilitation, Vocational * (ICD-9-CM V57.22) Inactive Condition 10/24/2023 [facility] SPRAIN OF KNEE LEG NOS Inactive Condition 10/24/2023 [facility] Tendonitis * (ICD-9-CM 726.90) Inactive Condition 10/24/2023 [facility] Xerosis, Cutis Inactive Condition 10/24/2023 [facility] Diagnosis: ICD-10-CM G47.33 Obstructive sleep apnea (adult) (pediatric) Active Diagnosis [facility] Medications Combined list of outpatient medications from Department of Defense and Veterans Affairs facilities.Medications provided include 1) outpatient medications from the last 15 months, and 2) patient-reported medications. Medication Details Route Status Patient Instructions Prescription Expires Prescription Number Last Dispense Date Ordering Provider Order Date Order Qty Source AMLODIPINE BESYLATE 5MG TAB TAKE ONE TABLET BY MOUTH EVERY DAY ORAL ACTIVE TIP,A NNE 2023 [facility] ASPIRIN TAB TAKE 81MG BY MOUTH EVERY DAY ORAL ACTIVE TIP,A NNE 2023 [facility] CLOPIDOGREL BISULFATE 75MG TAB TAKE ONE TABLET BY MOUTH EVERY DAY ORAL ACTIVE TIP,A NNE 2023 [facility] FLUTICASONE PROPIONATE 50MCG/SPRAY SOLN,NASAL, 16GM SPRAY 2 SPRAYS IN EACH NOSTRIL EVERY DAY NASAL ACTIVE TIP,A NNE 2023 [facility] LEVOCETIRIZ INE DIHYDROCHLO RIDE 5MG TAB TAKE ONE TABLET BY MOUTH EVERY DAY NEEDED ORAL ACTIVE TIP,A NNE 2023 [facility] NITROGLYCER IN AEROSOL,SUB LINGUAL 0.4MG PRN ACTIVE TIP,A NNE 2023 [facility] ROSUVASTATI N CA 40MG TAB TAKE ONE TABLET BY MOUTH AT BEDTIME ORAL ACTIVE TIP,A NNE 2023 [facility] Allergies, Adverse Reactions, Alerts Combined list of allergies from Department of Defense and Veterans Affairs facilities. It does not include entries that were removed or entered in error. Substance Category Reaction Severity Reaction type Status Date Reported Comments Source ANALGESIC(OP IOD) [facility] Drug allergy (disorder) active 4 [facility] ANALGESIC(OP IOD) [facility] Drug allergy (disorder) Unknown active 7 [facility] ANALGESIC(OP IOD) [facility]GIES Drug allergy (disorder) Pruritus, Nausea active 6 [facility] CODEINE Propensity to adverse reactions to drug (finding) active 4 [facility] CODEINE Propensity to adverse reactions to drug (finding) difficulty breathing active 7 [facility] HYDROCODONE & APAP Propensity to adverse reactions to drug (finding) Itching, Nausea MILD active 6 [facility] OXYCODONE Propensity to adverse reactions to drug (finding) Itching, Nausea MILD active 6 [facility] Immunizations Combined list of available immunizations from the Department of Defense and Veterans Affairs facilities. Immunization Series Date Given Administered By Site Reaction Lot Number CVX Code Drug Inspector Paper Products Status Comments Source TDAP 2023 115 complet ed HISTORICA L INFORMATI ON - FROM OTHER REGISTRY, [facility] INFLUENZA, UNSPECIFIED FORMULATION 2022 88 complet ed HISTORICA L INFORMATI ON - FROM OTHER PROVIDER, [facility] ZOSTER RECOMBINANT 2022 187 complet ed HISTORICA L INFORMATI ON - FROM OTHER REGISTRY, [facility] ZOSTER RECOMBINANT 2022 187 complet ed HISTORICA L INFORMATI ON - FROM OTHER REGISTRY, [facility] PNEUMOCOCCAL POLYSACCHARID E PPV23 2016 33 complet ed HISTORICA L INFORMATI ON - FROM OTHER REGISTRY, [facility] INFLUENZA, SPLIT VIRUS, QUADRIVALENT, PF 2015 150 complet ed HISTORICA L INFORMATI ON - FROM OTHER REGISTRY, [facility] INFLUENZA, SPLIT VIRUS, QUADRIVALENT, PF 2014 150 complet ed HISTORICA L INFORMATI ON - FROM OTHER REGISTRY, [facility] PNEUMOCOCCAL CONJUGATE PCV 13 2014 133 complet ed HISTORICA L INFORMATI ON - FROM OTHER REGISTRY, [facility] INFLUENZA, SPLIT VIRUS, QUADRIVALENT, PF 2013 150 complet ed HISTORICA L INFORMATI ON - FROM OTHER REGISTRY, [facility] INFLUENZA, INJECTABLE,QU ADRIVALENT, PRESERVATIVE FREE, PEDIATRIC 2012 161 complet ed HISTORICA L INFORMATI ON - FROM OTHER REGISTRY, [facility] PNEUMOCOCCAL POLYSACCHARID E PPV23 2012 33 complet ed HISTORICA L INFORMATI ON - FROM OTHER REGISTRY, [facility] TDAP 2012 115 complet ed HISTORICA L INFORMATI ON - FROM OTHER REGISTRY, [facility] ZOSTER LIVE 2012 121 complet ed HISTORICA L INFORMATI ON - FROM OTHER REGISTRY, [facility] ZOSTER LIVE 2011 121 complet ed merck, [id number], [facility] INFLUENZA, UNSPECIFIED FORMULATION 2010 88 complet ed [facility] INFLUENZA, UNSPECIFIED FORMULATION 2009 88 complet ed [facility] INFLUENZA, UNSPECIFIED FORMULATION 2007 88 complet ed [facility] INFLUENZA, UNSPECIFIED FORMULATION 2006 88 complet ed [facility] TD(ADULT) UNSPECIFIED FORMULATION 2005 139 complet ed [facility] TD(ADULT) UNSPECIFIED FORMULATION 1998 139 complet ed [facility] Vital Signs Combined list of inpatient and outpatient Vital Signs from Department of [facility] and [facility], ranging from 12 months to all on record, depending upon the facility. Vital Sign Value Date Comments Source SYSTOLIC BLOOD PRESSURE 145 10/23/2023 10:02:02 [facility] DIASTOLIC BLOOD PRESSURE 86 10/23/2023 10:02:02 [facility] PULSE OXIMETRY 97 10/23/2023 10:02:02 [facility] WEIGHT 189.9 10/23/2023 10:02:02 [facility] BMI 30 kg/m2 10/23/2023 10:02:02 [facility] PAIN 5 10/23/2023 10:02:02 [facility] HEIGHT 67 10/23/2023 10:02:02 [facility] TEMPERATURE 98.2 10/23/2023 10:02:02 [facility] PULSE 65 10/23/2023 10:02:02 [facility] RESPIRATION 16 10/23/2023 10:02:02 [facility] Encounters Combined list of: 1) Encounters from Department of Veterans Affairs facilities going backup to the last 18 months, not all [place] inpatient encounters are included; 2) Encounters from the Department of [facility] facilities going backup to 280 months. Location Location Details Encounter Type Encounter Number Reason For Visit Attending Provider ADM Date DC Date Status Disposition Source [facility] Outpatient Encounter [id number] PAM SANTIAGO 07/21 [facility] Outpatient Encounter [id number] 09/10 [facility] Outpatient Encounter [id number] 10/07 [place] [facility] Outpatient Encounter [id number] 10/22 [place] [facility] Outpatient Encounter [id number] CAILIN HWELAN NE 10/22 [place] [facility] OFF[facility] O/P [place] 60 MIN [id number] Diagnos is: ICD-10- CM G47.33 Obstruc tive sleep apnea (adult) ([facility]) CAILIN WHELAN NE 10/22 [facility] PT EDUCATION NOC INDIVID [id number] Diagnos is: ICD-10- CM G47.33 Obstruc tive sleep apnea (adult) ([facility]) NICOLE PERALES [facility] HC PRO PHONE CALL 5-10 MIN [id number] Diagnos is: ICD-10- CM G47.33 Obstruc tive sleep apnea (adult) ([facility]) NICOLE PERALES ICA S 12/17 [place] [facility] Outpatient Encounter [id number] 12/28 [place] [facility] HC PRO PHONE CALL 11-20 MIN [id number] Diagnos is: ICD-10- CM G47.33 Obstruc tive sleep apnea (adult) ([facility]) NICOLE PERALES ICA S 03/26 [place] [facility] Outpatient Encounter [id number] ALEX CAMPOS 09/07 [facility] Outpatient Encounter [id number] ALEX CAMPOS 09/07 [facility] Social History Combined list of available smoking, tobacco, and other social history from Department of Defense and Veterans Affairs facilities. Social History Type Response Date Comment Sourc e Tobacco smoking status NHIS VA-TOBACCO QUIT 15 YRS OR MORE 10/23/2023 [facility] History of tobacco use VA-TOBACCO FORMER USER 10/23/2023 [facility] History of tobacco use FORMER TOBACCO US ER 7Y OR GREATER 10/30/2006 [facility] History of tobacco use NO TOBACCO USE 10/05/2005 [facility] This section is an empty social history section. DoD Advance Directives List of completed, amended, or rescinded Advance Directives on record at Department of Veterans Affairs facilities. An actual copy of the Directive is not included. Date Advance Directive Provider Source 03/29/2003 ADVANCE DIRECTIVE TRISTON PAPPAS [facility]
--- OUTSIDE RECORDS SUMMARY | 2024-10-02 13:36 | XMS_ITS | Continuity of Care Document ---
Author Name [facility] Organization [facility] Care Team Providers Care Pathologist Name Role Phone [facility] Unavailable Unavailable Problems Combined list of problems from Department of Defense and Veterans Affairs facilities. It does not include entries that were removed or entered in error. Problem Status Onset Date Problem Type Date of Resolution Comments Source Allergic rhinitis Active Condition [facility] Chronic ischemic heart disease Active Condition [facility] Essential hypertension Active Condition [facility] Exposure to potentially hazardous substance Active Condition [facility] History of amputation of great toe Active Condition Oct 24, 2023 Entered By: DANITA WHELAN Comment: Right [facility] History of atrial flutter Active Condition [facility] Low back pain Active Condition [facility] Obstructive sleep apnea syndrome Active Condition Mar 26, 2024 Entered By: MADINA PERALES Comment: APAP 10-20 [facility] Overweight Active Condition [facility] Posttraumatic stress disorder Active Condition [facility] Dermatitis, Contact Unspec Inactive Condition 10/24/2023 [facility] JOINT PAIN-L/LEG Inactive Condition 10/24/2023 [facility] [place] [facility] Lumbar Radiculopathy (ICD-9-CM 724.4) Inactive Condition 10/24/2023 [facility] Rehabilitation, Vocational * (ICD-9-CM V57.22) Inactive Condition 10/24/2023 [facility] SPRAIN OF KNEE LEG NOS Inactive Condition 10/24/2023 [facility] Tendonitis * (ICD-9-CM 726.90) Inactive Condition 10/24/2023 [facility] Xerosis, Cutis Inactive Condition 10/24/2023 [facility] Diagnosis: ICD-10-CM G47.33 Obstructive sleep apnea (adult) (pediatric) Active Diagnosis [facility] Medications Combined list of outpatient medications from [...] FOR ALLERGIES Drug allergy (disorder) active 4 [facility] ANALGESIC(OP IOD) DRG GROUP FOR ALLERGIES Drug allergy (disorder) Unknown active 7 [facility] ANALGESIC(OP IOD) DRG GROUP FOR ALLERGIES Drug allergy (disorder) Pruritus, Nausea active 6 [facility] CODEINE Propensity to adverse reactions to drug (finding) active 4 [facility] CODEINE Propensity to adverse reactions to drug (finding) difficulty breathing active 7 [facility] HYDROCODONE & APAP Propensity to adverse reactions to drug (finding) Itching, Nausea MILD active 6 [facility] OXYCODONE Propensity to adverse reactions to drug (finding) Itching, Nausea MILD active 6 [facility] Immunizations Combined list of available immunizations from the Department of Defense and Veterans Affairs facilities. Immunization Series Date Given Administered By Site Reaction Lot Number CVX Code Drug Commercial Escrow Assistant Status Comments Source TDAP 2023 115 complet ed HISTORICA L INFORMATI ON - FROM OTHER REGISTRY, [facility] INFLUENZA, UNSPECIFIED FORMULATION 2022 88 complet ed HISTORICA L INFORMATI ON - FROM OTHER PROVIDER, [facility] ZOSTER RECOMBINANT 2022 187 complet ed HISTORICA L INFORMATI ON - FROM OTHER REGISTRY, [facility] ZOSTER RECOMBINANT 2022 187 complet ed HISTORICA L INFORMATI ON - FROM OTHER REGISTRY, [facility] PNEUMOCOCCAL POLYSACCHARID E PPV23 2016 33 complet ed HISTORICA L INFORMATI ON - FROM OTHER REGISTRY, [facility] INFLUENZA, SPLIT VIRUS, QUADRIVALENT, PF 2015 150 complet ed HISTORICA L INFORMATI ON - FROM OTHER REGISTRY, [facility] INFLUENZA, SPLIT VIRUS, QUADRIVALENT, PF 2014 150 complet ed HISTORICA L INFORMATI ON - FROM OTHER REGISTRY, [facility] PNEUMOCOCCAL CONJUGATE PCV 13 2014 133 complet ed HISTORICA L INFORMATI ON - FROM OTHER REGISTRY, [facility] INFLUENZA, SPLIT VIRUS, QUADRIVALENT, PF 2013 150 complet ed HISTORICA L INFORMATI ON - FROM OTHER REGISTRY, [facility] INFLUENZA, INJECTABLE,QU ADRIVALENT, PRESERVATIVE FREE, PEDIATRIC 2012 161 complet ed HISTORICA L INFORMATI ON - FROM OTHER REGISTRY, [facility] PNEUMOCOCCAL POLYSACCHARID E PPV23 2012 33 complet ed HISTORICA L INFORMATI ON - FROM OTHER REGISTRY, [facility] TDAP 2012 115 complet ed HISTORICA L INFORMATI ON - FROM OTHER REGISTRY, [facility] ZOSTER LIVE 2012 121 complet ed HISTORICA L INFORMATI ON - FROM OTHER REGISTRY, [facility] ZOSTER LIVE 2011 121 complet ed merck, [id number], [facility] INFLUENZA, UNSPECIFIED FORMULATION 2010 88 complet ed [facility] INFLUENZA, UNSPECIFIED FORMULATION 2009 88 complet ed [facility] INFLUENZA, UNSPECIFIED FORMULATION 2007 88 complet ed [facility] INFLUENZA, UNSPECIFIED FORMULATION 2006 88 complet ed [facility] TD(ADULT) UNSPECIFIED FORMULATION 2005 139 complet ed [facility] TD(ADULT) UNSPECIFIED FORMULATION 1998 139 complet ed [facility] Vital Signs Combined list of inpatient and outpatient Vital Signs from Department of [facility], ranging from 12 months to all [...] to the last 18 months, not all [place] inpatient encounters are included; 2) Encounters from the Department of [facility] facilities going backup to 280 months. Location Location Details Encounter Type Encounter Number Reason For Visit Attending Provider ADM Date DC Date Status Disposition Source [place] [facility] Outpatient Encounter [id number] PAM SANTIAGO 07/21 [facility] [place] [facility] Outpatient Encounter [id number] 09/10 [facility] [place] [facility] Outpatient Encounter [id number] 10/07 [place] [facility] [place] [facility] Outpatient Encounter [id number] 10[facility]22 [place] [facility] [place] [facility] Outpatient Encounter [id number] CAILIN WHELAN NE 10/22 [place] [facility] CB OFFICE O/P [place] 60 MIN [id number] Diagnos is: ICD-10- CM G47.33 Obstruc tive sleep apnea (adult) ([facility]) CAILIN WHELAN NE 10/22 [facility] [place] [facility] PT EDUCATION NOC INDIVID [id number] Diagnos is: ICD-10- CM G47.33 Obstruc tive sleep apnea (adult) ([facility]) NICOLE PERALES ICA S 11/26 [facility] [place] [facility] HC PRO PHONE CALL 5-10 MIN [id number] Diagnos is: ICD-10- CM G47.33 Obstruc tive sleep apnea (adult) ([facility]) NICOLE PERALES ICA S 12/17 [place] [facility] [place] [facility] Outpatient [facility]counter [id number] 12/28 [place] [facility] [place] [facility] HC PRO PHONE CALL 11-20 MIN [id number] Diagnos is: ICD-10- CM G47.33 Obstruc tive sleep apnea (adult) ([facility]) NICOLE PERALES ICA S 03/26 [place] [facility] [place] [facility] Outpatient Encounter [id number] ALEX CAMPOS 09/07 [facility] [place] [facility] Outpatient Encounter [id number] ALEX CAMPOS 09/07 [facility] Social History Combined list of available smoking, [...] TOBACCO US ER 7Y OR GREATER 10/30/2006 [facility] History of tobacco use NO TOBACCO USE 10/05/2005 [facility] This section is an empty social history section. DoD Advance Directives List of completed, amended, or rescinded Advance Directives on record at Department of Veterans Affairs facilities. An actual copy of the Directive is not included. Date Advance Directive Provider Source 03/29/2003 ADVANCE DIRECTIVE TRISTON PAPPAS [facility]
--- OUTSIDE RECORDS SUMMARY | 2024-10-02 13:36 | XMS_ITS | Continuity of Care Document ---
Author Name [facility] Organization [facility] Care Team Providers Care Founder / Ceo Name Role Phone [facility] Unavailable Unavailable Problems Combined list of problems from Department of Defense and Veterans Affairs facilities. It does not include entries that were removed or entered in error. Problem Status Onset Date Problem Type Date of Resolution Comments Source Allergic rhinitis Active Condition [facility] Chronic ischemic heart disease Active Condition [facility] Essential hypertension Active Condition [facility] Exposure to potentially hazardous substance Active Condition [facility] History of amputation of great toe Active Condition Oct 24, 2023 Entered By: DANITA WHELAN Comment: Right [facility] History of atrial flutter Active Condition [facility] Low back pain Active Condition [facility] Obstructive sleep apnea syndrome Active Condition Mar 26, 2024 Entered By: MADINA PERALES Comment: APAP 10-20 [facility] Overweight Active Condition [facility] Posttraumatic stress disorder Active Condition [facility] Dermatitis, Contact Unspec Inactive Condition 10/24/2023 [facility] JOINT PAIN-L/LEG Inactive Condition 10/24/2023 [facility] [place] [facility] Lumbar Radiculopathy (ICD-9-CM 724.4) Inactive Condition 10/24/2023 [facility] Rehabilitation, Vocational * (ICD-9-CM V57.22) Inactive Condition 10/24/2023 [facility] SPRAIN OF KNEE LEG NOS Inactive Condition 10/24/2023 [facility] Tendonitis * (ICD-9-CM 726.90) Inactive Condition 10/24/2023 [facility] Xerosis, Cutis Inactive Condition 10/24/2023 [facility] Diagnosis: ICD-10-CM G47.33 Obstructive sleep apnea (adult) (pediatric) Active Diagnosis [facility] Medications Combined list of outpatient [...] FOR ALLERGIES Drug allergy (disorder) active 4 [facility] ANALGESIC(OP IOD) DRG GROUP FOR ALLERGIES Drug allergy (disorder) Unknown active 7 [facility] ANALGESIC(OP IOD) DRG GROUP FOR ALLERGIES Drug allergy (disorder) Pruritus, Nausea active 6 [facility] CODEINE Propensity to adverse reactions to drug (finding) active 4 [facility] CODEINE Propensity to adverse reactions to drug (finding) difficulty breathing active 7 [facility] HYDROCODONE & APAP Propensity to adverse reactions to drug (finding) Itching, Nausea MILD active 6 [facility] OXYCODONE Propensity to adverse reactions to drug (finding) Itching, Nausea MILD active 6 [facility] Immunizations Combined list of available immunizations from the Department of Defense and Veterans Affairs facilities. Immunization Series Date Given Administered By Site Reaction Lot Number CVX Code Drug Fiscal Analyst Status Comments Source TDAP 2023 115 complet ed HISTORICA L INFORMATI ON - FROM OTHER REGISTRY, [facility] INFLUENZA, UNSPECIFIED FORMULATION 2022 88 complet ed HISTORICA L INFORMATI ON - FROM OTHER PROVIDER, [facility] ZOSTER RECOMBINANT 2022 187 complet ed HISTORICA L INFORMATI ON - FROM OTHER REGISTRY, [facility] ZOSTER RECOMBINANT 2022 187 complet ed HISTORICA L INFORMATI ON - FROM OTHER REGISTRY, [facility] PNEUMOCOCCAL POLYSACCHARID E PPV23 2016 33 complet ed HISTORICA L INFORMATI ON - FROM OTHER REGISTRY, [facility] INFLUENZA, SPLIT VIRUS, QUADRIVALENT, PF 2015 150 complet ed HISTORICA L INFORMATI ON - FROM OTHER REGISTRY, [facility] INFLUENZA, SPLIT VIRUS, QUADRIVALENT, PF 2014 150 complet ed HISTORICA L INFORMATI ON - FROM OTHER REGISTRY, [facility] PNEUMOCOCCAL CONJUGATE PCV 13 2014 133 complet ed HISTORICA L INFORMATI ON - FROM OTHER REGISTRY, [facility] INFLUENZA, SPLIT VIRUS, QUADRIVALENT, PF 2013 150 complet ed HISTORICA L INFORMATI ON - FROM OTHER REGISTRY, [facility] INFLUENZA, INJECTABLE,QU ADRIVALENT, PRESERVATIVE FREE, PEDIATRIC 2012 161 complet ed HISTORICA L INFORMATI ON - FROM OTHER REGISTRY, [facility] PNEUMOCOCCAL POLYSACCHARID E PPV23 2012 33 complet ed HISTORICA L INFORMATI ON - FROM OTHER REGISTRY, [facility] TDAP 2012 115 complet ed HISTORICA L INFORMATI ON - FROM OTHER REGISTRY, [facility] ZOSTER LIVE 2012 121 complet ed HISTORICA L INFORMATI ON - FROM OTHER REGISTRY, [facility] ZOSTER LIVE 2011 121 complet ed merck, [id number], [facility] INFLUENZA, UNSPECIFIED FORMULATION 2010 88 complet ed [facility] INFLUENZA, UNSPECIFIED FORMULATION 2009 88 complet ed [facility] INFLUENZA, UNSPECIFIED FORMULATION 2007 88 complet ed [facility] INFLUENZA, UNSPECIFIED FORMULATION 2006 88 complet ed [facility] TD(ADULT) UNSPECIFIED FORMULATION 2005 139 complet ed [facility] TD(ADULT) UNSPECIFIED FORMULATION 1998 139 complet ed [facility] Vital Signs Combined list of inpatient and outpatient Vital Signs from Department of [facility], ranging from 12 [...] to the last 18 months, not all [place] inpatient encounters are included; 2) Encounters from the Department of [facility] facilities going backup to 280 months. Location Location Details Encounter Type Encounter Number Reason For Visit Attending Provider ADM Date DC Date Status [place] [facility] Outpatient Encounter [id number] PAM SANTIAGO 07/21 [facility] [place] [facility] Outpatient Encounter [id number] 09/10 [facility] [place] [facility] Outpatient Encounter [id number] 10/07 [place] [facility] [place] [facility] Outpatient Encounter [id number] 10/22 [place] [facility] [place] [facility] Outpatient Encounter [id number] CAILIN WHELAN NE 10/22 [place] [facility]SO LARIOS CB OFFICE O/P [place] 60 MIN [id number] Diagnos is: ICD-10- CM G47.33 Obstruc tive sleep apnea (adult) ([facility]) CAILIN WHELAN NE 10/22 [facility] [place] [facility] PT EDUCATION NOC INDIVID [id number] Diagnos is: ICD-10- CM G47.33 Obstruc tive sleep apnea (adult) ([facility]) NICO[facility] PERALES [facility] [place] [facility] HC PRO PHONE CALL 5-10 MIN [id number] Diagnos is: ICD-10- CM G47.33 Obstruc tive sleep apnea (adult) ([facility]) NICOLE PERALES ICA S 12/17 [place] [facility] [place] [facility] Outpatient Encounter [id number] 12/28 [place] [facility] [place] [facility] HC PRO PHONE CALL 11-20 MIN [id number] Diagnos is: ICD-10- CM G47.33 Obstruc tive sleep apnea (adult) ([facility]) NICOLE PERALES ICA S 03/26 [place] [facility] [place] [facility] Outpatient Encounter [id number] ALEX CAMPOS 09/07 [facility] [place] [facility] Outpatient Encounter [id number] ALEX CAMPOS 09/07 [facility] Social History Combined list of [...] TOBACCO US ER 7Y OR GREATER 10/30/2006 [facility] History of tobacco use NO TOBACCO USE 10/05/2005 [facility] This section is an empty social history section. DoD Advance Directives List of completed, amended, or rescinded Advance Directives on record at Department of Veterans Affairs facilities. An actual copy of the Directive is not included. Date Advance Directive Provider Source 03/29/2003 ADVANCE DIRECTIVE TRISTON PAPPAS [facility]
--- OUTSIDE RECORDS SUMMARY | 2024-10-02 13:37 | XMS_ITS | Clinical Summary ---
Author Organization [facility] Address [address] [place] [address] Care Team Providers Care Garnett Mechanic Name Role Phone Lesia Galarza MD Primary Care Provider [phone] Source Comments You are receiving this document as you are listed as the primary care provider,follow-up provider, or the patient has been referred to you for consultation.This is in compliance with the Medicare andMedicaid EHR Incentive Program,which states Providers who transition their patient to another setting of careor provider of care or refers their patient to another provider of care shouldprovide summary care record for each transition of care or referral. [facility]IE[facility] Allergies Active Allergy Reactions Criticality Noted Date Comments Codeine Anaphylaxis High 08/25/2004 PN: SHORTNESS OF BREATH Other Anaphylaxis High 09/07/2012 PN: highly allergic to bee stings Wound Dressing Adhesive Rash 07/15/2013 Medications clopidogrel (PLAVIX) 75 MG tablet Take 75 mg by mouth daily (every 24 hours). 5 Active atorvastatin (LIPITOR) 40 MG tablet TAKE 1 TABLET BY MOUTH NIGHTLY 30 tablet 6 5 Active acetaminophen (TYLENOL) 500 MG tablet Take 1,000 mg by mouth every 4 hours as needed for Pain. Maximum 4000mg per 24 hours 4 Active aspirin EC 81 MG enteric coated tablet Take 81 mg by mouth daily (every 24 hours). 4 Active Rosuvastatin Calcium (CRESTOR OR)Indications: BROOKE SMITH Jackie Oct 20, 2015 2:52 AM Pt doesn't know dosage Take by mouth. 6 Active nitroglycerin (NITROSTAT) 0.[address] 1 tablet under the tongue every 5 minutes as needed for Chest pain. If no relief within 5 minutes call 911. 25 tablet 1 6 Active omeprazole (PRILOSEC) 20 MG capsule Take 1 Cap by mouth daily for 30 days. Take 1 hour before a meal. 30 Cap 7 Active Additional Information Patient not taking.Reported on 06/29/2021 colchicine (COLCRYS) 0.6 MG tabletIndicatio ns:Right foot pain Take 2 tablets once, then 1 tablet in 1 hour. Do not repeat for at least 3 days 3 Tablet 2 Active dexamethasone (DECADRON) 4 MG tablet Two tablets today, one tablet tomorrow, one tablet on Saturday. 4 Tablet 2 Active Additional Information Patient not taking.Reported on 07/04/2021 predniSONE (DELTASONE) 20 MG tablet 40mg PO x 3 days, 20mg PO x 3 days, 10mg PO x 3 days 11 Tablet 2 Active oxyCODONE-aceta minophen (PERCOCET) 5-325 MG tabletIndicatio ns:Right foot pain Take 1 Tablet by mouth every 6 hours as needed for Pain. 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 continued angina and chronic myocardial ischemia. - likely territories in the 2nd and 3rd obtuse marginal vessels -- he is going to pursue intervention with ABNW - see scandoc Hx of CABG 11/02/2012 HTN (hypertension) 08/31/2012 Obstructive sleep apnea on CPAP 08/31/2012 Resolved Problems Problem Noted Date Diagnosed Date Resolved Date Atypical chest pain 02/10/2014 11/18/19 16 Cellulitis 06/26/2013 11/18/2015 [place] (myocardial infarction) 06/26/2013 11/18/2015 Bradycardia 06/14/2013 06/26/2013 Unstable angina 06/14/2013 06/16/2013 Chest pain 11/02/2012 06/27/2013 Non Q wave myocardial infarction 09/03/2012 06/26/2013 Overview (11/28/2016): Non Q wave myocardial infarction (HCC) Elevated troponin 08/31/2012 06/14/2013 Elbow pain, left 06/25/2012 06/26/2013 Overview (11/28/2016): Elbow pain, right Cellulitis of other specified site 06/25/2012 06/26/2013 Overview (11/28/2016): Cellulitis and abscess of elbow and arm Immunizations Immunization Administration Dates Next Due Influenza IIV4 (Quadrivalent) 0.5mL ([id number]) 01/08 PPSV23 (Pneumovax) 02/04/2013 Zoster (Zostavax) 06/06/2012 Family History Medical History Relation Name Comments Heart Disease Father High Blood Pressure Father Heart Disease Mother High Blood Pressure Mother High Blood Pressure Brother 1 Heart Disease Brother 2 50s Arthritis Other High Blood Pressure Sister Relation Name Status Comments Father Mother Brother 1 Brother 2 Other Sister Social History Tobacco Use Types Packs/Day Years Used Date Smoking Tobacco: Former Cigarettes 4 4 0 06/24/1973 - 06/24/1977 Smokeless Tobacco: Never Alcohol Use Standard Drinks/Week Comments Yes 1 (1 standard drink = 0.6 oz pur e alcohol) socially Sex and Gender Information Value Date Recorded Sex Assigned at Not on file Legal Sex Male 4:31 AM CDT Gender Identity Not on file Sexual Orientation Not on file Occupation Industry Job Start Date Job End Date Disabled (low back) Not on file Not on file Not on f ile Last Filed Vital Signs Vital Sign Reading Time Taken Comments Blood Pressure 132/82 07/04/2021 3:41 PM CDT Pulse 64 07/04/2021 3:41 PM CDT Temperature 36.6 C (97.8 F) 07/04/2021 3:41 PM CDT Respiratory Rate 16 07/04/2021 3:41 PM CDT Oxygen Saturation 98% 07/04/2021 3:41 PM CDT Inhaled Oxygen Concentration - - Weight 82.6 kg (182 lb) 09/11/2016 6:04 PM CDT Height 170.2 cm (5' 7) 11/18/2015 4:00 AM CDT Body Mass Index 28.51 11/18/2015 4:00 AM CDT Plan of Treatment Health Maintenance Due Date Last Done Comments Colon Cancer Screening Plan Due 1950 Hep C Screening (Preventive Services) 1950 Medicare Annual Wellness Visit 1950 Zoster/Shingles Vaccine (2 of 3) 08/01/2012 06/06/2012 Cholesterol 10/19/2020 10/20/2015, 12/2013, 03/10/2013, Additional history exists DTaP/Tdap/Td Vaccine (2 - Tdap) 08/06/2022 08/06/2012, 09/20/2005 COVID-19 Vaccine ( - season) 2023 Influenza Vaccine (Season Ended) 2024 01/09/2016, 02/08/2015, 01/20/2014, Additional history exists RSV Vaccine (1 - 1-dose 75+ series) 06/27/2026 Pneumococcal Vaccine 50+ Yrs Completed , 02/08/2015, 02/04/2013 HepA Vaccine Aged Out No longer eligi ble based on patient's age to complete this topic HepB Vaccine Aged Out No longer eligi ble based on patient's age to complete this topic Hib Vaccine Aged Out No longer eligi ble based on patient's age to complete this topic IPV (Polio) Vaccine Aged Out No longe r eligible based on patient's age to complete this topic MCV4 Vaccine Aged Out No longer eligi ble based on patient's age to complete this topic Meningococcal B Vaccine Aged Out No l onger eligible based on patient's age to complete this topic Procedures Procedure Name Priority Date/Time Associated Diagnosis Comments LIPID PANEL & DIRECT LDL (IF NEEDED) Specified Time 10/20/2015 6:30 AM CDT from Last 3 Months or Most Recently Relevant to Health Maintenance Results * (ABNORMAL) Lipid Panel and Direct LDL(If Needed) (10/20/2015 6:30 AM CDT) Cholesterol 95 0 - 199 mg/dL HP CONVERSION Triglycerides 53 4 - 149 mg/dL HP CONVERSION HDL Cholesterol 38(L) >39 mg/dL HP CONVERSION Cholesterol/HDL Ratio Screen 2.5 HP CONVERSION LDL Calculated 46 19 - 130 mg/dL HP CONVERSION Hours Fasting unk HP CONVERSION 10/20/2015 6:30 AM CDT 10/20/2015 10:41 PM CDT Narrative HP CONVERSION - 10/20/2015 10:53 PM CD[place] [address] CLIA number [id number] us Nataly Banuelos MD LAB_1 Final Resu lt HP CONVERSION from Last 3 Months or Most Recently Relevant to Health Maintenance Insurance MEDICARE [employer] [id number] [place] [id number] Advance Directives * Full Code (Latest Code Status on File) Date Activated Date Inactivated Comments 11/18/2015 4:22 AM 11/18/2015 10:31 AM * Do Not Attempt Resuscitation if Pulseless and Apneic, Do Not Intubate for Respiratory Deterioration Date Activated Date Inactivated Comments 10/20/2015 8:04 AM 10/20/2015 2:18 PM Question Answer Comments See below for Life Sustainin g Treatment Orders IF pulse and breathing are present: See Below Intubation for primary respiratory cause of dete rioration? No BIPAP for respiratory deterioration? No Vasopressors for hypotension? No Cardioversion for unstable rhythm? No * Full Code Date Activated Date Inactivated Comments 10/20/2015 3:21 AM 10/20/2015 8:04 AM * Full Code Date Activated Date Inactivated Comments 02/10/2014 7:38 PM 02/11/2014 12:43 PM * Full Code Date Activated Date Inactivated Comments 06/26/2013 3:02 PM 06/29/2013 7:38 PM Care Teams Garnett Mechanic Relationship Specialty Start Date End Date Lesia Galarza MD [id number] [facility] [address] [place] [id number] PCP - General 10/20/15
--- OUTSIDE RECORDS SUMMARY | 2024-10-02 13:38 | XMS_ITS | Clinical Summary ---
Author Organization [facility] Address [address] [place] [address] Care Team Providers Care Hairspring Truer Name Role Phone Milan Campos D.O. Primary Care Provider [phone] Source Comments Patient records contain information from all sites at [facility]. For routine questions regarding patient records, call [phone] during business hours, M-F 8:00 AM - 5:00 PM Central Time. 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 09/07/2012 PN: highly allergic to bee stings Codeine Anaphylaxis,Angioede m a,Shortness of breath High 08/25/2004 Patient states on 07/06/15- that the allergic rxn caused his throat to swell shut 10/01/19: per patient- tolerates oxycodone without any problem Hymenoptera Allergenic Extract Anaphylaxis,Angioedem a High 04/21/2014 Swelling of Throat Latex Hives (Reselect Reaction),Rash High 10/11/2014 Cilostazol Shortness of breath High 07/18/2015 Nausea, fatigue [place] Pollen Itching Medium 02/14/2021 Seasonal Allergies: Allergic Rhinitis, Itchy watery eyes Medications rosuvastatin (CRESTOR) 40 mg tablet Take 40 mg by mouth daily. 11/08/19 22 Active aspirin 81 mg chewable tablet Chew 81 mg daily. Active clopidogreL (PLAVIX) 75 mg tablet Take 1 tablet (75 mg total) by mouth daily. 30 tablet 4 10:18 AM CDT 08/08/19 24 Active levocetirizine (Xyzal) 5 mg tablet take one tablet by mouth in the evening 90 tablet 3 01/29/20 24 Active fluticasone propionate (Flonase) 50 mcg/actuation nasal spray INSTILL 2 SPRAYS IN EACH NOSTRIL EVERY DAY 48 g 3 07/28/19 25 Active nitroglycerin (Nitrostat) 0.[address] 1 tablet (0.4 mg total) under the tongue every 5 (five) minutes as needed for chest pain. 25 tablet 11 09/05/19 25 Active pantoprazole (Protonix) 40 mg EC tablet Take 1 tablet (40 mg total) by mouth daily before morning meal. 30 tablet 09/05/19 25 Active losartan (Cozaar) 25 mg tablet Take 1 tablet (25 mg total) by mouth daily. 30 tablet 09/06/19 25 2025 Active spironolactone (Aldactone) 25 mg tablet Take 1 tablet (25 mg total) by mouth daily. 30 tablet 11 09/06/19 25 2025 Active amLODIPine (Norvasc) 5 mg tablet Take 5 mg by mouth daily. Active isosorbide mononitrate (Imdur) 60 mg 24 hr tabletIndications :Angina Unstable (HCC) Take 1 tablet (60 mg total) by mouth daily. 30 tablet 11 09/15/19 25 2025 Active amLODIPine (NORVASC) 5 mg tablet Take 5 mg by mouth daily. 10/18/19 22 2024 Discontinued(S top Taking at Discharge) nitroglycerin (NITROSTAT) 0.[address] 0.4 mg under the tongue every 2 (two) hours as needed for chest pain. 11/18/19 16 2024 Discontinued(D uplicate order) ondansetron ODT (ZOFRAN-ODT) 4 mg disintegrating tablet Dissolve 1 tablet (4 mg total) in the mouth every 8 (eight) hours as needed for nausea or vomiting. 20 tablet 07/16/19 24 2024 Discontinued(T herapy completed) loratadine (CLARITIN) 10 mg tablet Take 1 tablet by mouth daily as needed for allergies or rhinitis. 09/01/19 22 2024 Discontinued isosorbide mononitrate (Imdur) 30 mg 24 hr tablet Take 1 tablet (30 mg total) by mouth daily. 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 Atrial Flutter 07/18/2021 Hyperlipidemia 10/20/2015 Gout 11/19/2014 Overview (07/28/2023): started 07/2014, being treated with colcrys as needed, pt has made significant dietary changes Unilateral Inguinal Hernia W ithout Obstruction Or Gangrene Not Specified As Recurrent 06/26/2013 Angina Pectoris Unspecified 06/16/2013 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 Angina Unstable (HCC) Discharge Disposition: Home or Self Care 09/14/2024 2:31 PM CDT Hospital Encounter Department of Laboratory Medicine in [place], [place] [address] [phone] Bruce Obrien II, M.D. Angina Unstable (HCC) Discharge Disposition: Home or Self Care 09/14/2024 1:00 PM CDT Office Visit Department of Family Medicine, [facility], in [place], [place] [address] [phone] Bruce Obrien II, M.D. Angina Unstable (HCC) (Primary Dx); Congestive Heart Failure (HCC) Discharge Disposition: Home or Self Care 09/14/2024 Results Follow-Up Department of Family Medicine, [facility], in [place], [place] [address] [phone] Bruce Obrien II, M.D. ECG 12 Lead 09/07/2024 9:20 AM CDT Clinical Communication Department of Internal Medicine in [place], [place] [address] [phone] Milan Campos D.O. Schulz, Melissa R, [facility] Follow-up Discharge Disposition: Home or Self Care 09/03/2024 1:04 PM CDT - 09/03/2024 2:19 PM CDT Surgery Department of Cardiovascular Diseases in [address] [phone] Shaun Alcantara M.B.B.S. Bypass Graft Angiography 09/02/2024 9:19 PM CDT - 09/04/2024 2:25 PM CDT Hospital Encounter [facility], [facility], Third Floor [address] [place] [address] Eva Carlson M.D. Burkland, Carl B, M.D. Boles, James, M.D. Angina Unstable (HCC) (Primary Dx); Apnea Sleep Obstructive Discharge Disposition: Home or Self Care 09/02/2024 12:14 PM CDT - 09/02/2024 8:00 PM CDT Emergency [facility] [address] [phone] Vance Perez P.A.-C., P.A. Angina Unstable (HCC) (Primary Dx) Discharge Disposition: [facility] 09/02/2024 Clinical Communication Department of Cardiovascular Diseases in [place], [place] [address] [phone] Bruce Rodrigues M.D. [employer] Consultation 07/24/2024 Refill Department of Family Medicine, [facility], in [place], [place] [address] [phone] Milan Campos D.OJagdeep Med Refill from Last 3 Months Immunizations Immunization Administration Dates Next Due HZV (ZOSTAVAX) 06/06/2012,07/11/2011 Influenza, Unspecified 12/19/2010,2009,02/02/2008,2006 PCV13 02/08/2015 PPSV23 07/24/2016,02/04/2013 RZV (SHINGRIX) 06/08/2022,04/10/2022 Td, (Adult) Unspecified 04/08/2005,04/08/1998 Tdap 08/06/2012 influenza vaccine quad (FLUZONE/FLUARIX) (6 months and older)(PF) 01/09/2016,02/08/2015,02/08/2015,2013,02/04/2013 Social History Tobacco Use Types Packs/Day Years Used Date Smoking Tobacco: Former Cigarettes Tobacco Cessation:Counseling Given: Not Answered Alcohol Use Standard Drinks/Week Comments Not Currently 0 (1 standard drink = 0.6 oz pur e alcohol) [facility] Utilities Answer Date Recorded In the past 12 months has [employer], or [employer] threatened to shut off services in your [...] your living situation today? I have a [facility] place to live 09/02/2024 Sex and Gender Information Value Date Recorded Sex Assigned at Male 08/15/2023 11:17 AM CDT Legal Sex Male 1:11 PM CDT Gender Identity Male 08/15/2023 11:17 AM CDT Sexual Orientation Straight 08/15/2023 11 :17 AM CDT Last Filed Vital Signs Vital Sign Reading Time Taken Comments Blood Pressure 138/82 09/14/2024 12:57 PM CDT av erage Pulse 64 09/14/2024 12:57 PM CDT Temperature 36.8 C (98.2 F) 09/04/2024 11:53 AM CDT Respiratory Rate 16 09/04/2024 11:53 AM CDT Oxygen Saturation 96% 09/04/2024 11:53 AM CDT Inhaled Oxygen Concentration - - Weight 92 kg (202 lb 13.2 oz) 09/14/2024 12:57 P M CDT Height 170.2 cm (5' 7) 09/02/2024 9:35 PM CDT Body Mass Index 31.77 09/02/2024 9:35 PM CDT Plan of Treatment Health Maintenance Due Date Last Done Comments CT Colonography 1950 Colonoscopy 1950 FIT 1950 Visit: Chronic Disease, age 18+ 1950 RSV vaccine - (32-36 weeks) or 60+ years (1 - Risk 60-74 years 1-dose series) 2011 COVID-19 Vaccine (2023- season) 2023 Influenza Vaccine (#1) 2024 6, 02/08/2015, 02/08/2015, Additional history exists Depression Screening (Annual PHQ-2) 04/08/2024 Visit: Medicare Annual Wellness 09/10/2024 09/10/2023 Creatinine Level (Kidney Function Test) 09/03/2025 09/03/2024, 09/02/2024, 07/30/2023, Additional history exists Potassium Level 09/03/2025 09/03/2024, 08/07, 07/30/2023, Additional history exists Sodium Level 09/03/2025 09/03/2024, 08/07, 07/30/2023, Additional history exists Office Visit for Blood Pressure Check / Re-check 09/14/2025 09/14/2024 Cologuard 09/16/2026 09/17/2023 Colorectal Cancer Screening 09/16/2026 Fasting Glucose for Diabetes Screening 09/04/2027 09/03/2024, 09/02/2024, 07/30/2023, Additional history exists Lipid (Cholesterol) Screening 09/03/2029 09/03/2024, 07/12/2022, 08/31/2021, Additional history exists DTaP,Tdap,and Td Vaccines (3 - Td or Tdap) 09/10/2033 09/11/2023, 08/06/2012, 04/08/2005, Additional history exists Pneumococcal vaccine (50+ years) Completed 07/24/2016, 02/08/2015, 02/04/2013 Zoster Vaccines Completed 06/08/2022, 06/2022, 06/06/2012, Additional history exists Abdominal Aortic Aneurysm (AAA) Screen Completed 07/16/2023 Hepatitis B Screening Discontinued 07/18/2023 Hepatitis C Screening Completed 07/19/2023 Fall Risk Screen (Annual) Completed 09/14/2024 IPV Vaccines Aged Out No longer eligi ble based on patient's age to complete this topic Procedures Procedure Name Priority Date/Time Associated Diagnosis Comments NT-PRO B-TYPE NATRIURETIC PEPTIDE (BNP), S Routine 09/14/2024 3:36 PM CDT Angina Unstable (HCC) TROPONIN T, 5TH GEN, P Routine 3:36 PM CDT Angina Unstable (HCC) ECG Routine 09/14/2024 3:34 PM CDT Angina Unstable (HCC) ADULT OXYGEN THERAPY Routine 09/03/2024 4:12 PM CDT ADULT OXYGEN THERAPY Routine 09/03/2024 4:12 PM CDT CARDIAC CATHETERIZATION Routine 09/03/2024 2:34 PM CDT Angina Unstable (HCC) CARDIAC CATHETERIZATION Routine 09/03/2024 2:34 PM CDT Angina Unstable (HCC) ACT, POCT, B Routine 09/03/2024 2:15 PM CDT HEPARIN LEVEL ANTI-XA ASSAY, P Timed 09/03/2024 11:48 AM CDT (TTE) 2D ECHO DOPPLER COLOR AND CONTRAST Routine 09/03/2024 10:05 AM CDT ECG STAT 09/03/2024 8:57 AM CDT CONTINUOUS PULSE OXIMETRY Routine 09/03/2024 8:01 AM CDT HEPARIN LEVEL ANTI-XA ASSAY, P Timed 09/03/2024 5:19 AM CDT BASIC METABOLIC PANEL, S/P Routine 09/03/2024 5:19 AM CDT CBC WITHOUT DIFFERENTIAL, B Routine 09/03/2024 5:19 AM CDT LIPID PANEL, S Routine 09/03/2024 5:19 AM CDT HEPARIN LEVEL ANTI-XA ASSAY, P Timed 09/02/2024 10:30 PM CDT HEPARIN WEIGHT BASED INFUSION ORDER SET TRIGGER Routine 09/02/2024 10:01 PM CDT CONTINUOUS PULSE OXIMETRY Routine 09/02/2024 10:01 PM CDT CONTINUOUS PULSE OXIMETRY Routine 09/02/2024 10:01 PM CDT CRITICAL CARE Routine 09/02/2024 4:15 PM CDT ECG STAT 09/02/2024 3:25 PM CDT TROPONIN T, 2H/6H REFLEX, 5TH GEN, P Timed 09/02/2024 2:45 PM CDT ECG STAT 09/02/2024 1:11 PM CDT DX CHEST PORTABLE 1 VIEW RAD - Semiurgent (Fast; most ED patients; some inpatients) 09/02/2024 12:36 PM CDT ACTIVATED PARTIAL THROMBOPLASTIN TIME (APTT), P STAT 09/02/2024 12:31 PM CDT MAGNESIUM, S STAT 09/02/2024 12:31 PM CDT D-DIMER, P STAT 09/02/2024 12:31 PM CDT NT-PRO B-TYPE NATRIURETIC PEPTIDE (BNP), S STAT 09/02/2024 12:31 PM CDT TROPONIN T, BASELINE, 5TH GEN, P STAT 09/02/2024 12:31 PM CDT PROTHROMBIN TIME (PT), P STAT 09/02/2024 12:31 PM CDT COMPREHENSIVE METABOLIC PANEL, S/P STAT 09/02/2024 12:31 PM CDT CBC WITH DIFFERENTIAL, B STAT 09/02/2024 12:31 PM CDT ECG STAT 09/02/2024 12:17 PM CDT COLOGUARD Routine 09/17/2023 7:55 AM CDT Screening Cancer Colon HCV AB SCRN W/REFLEX TO HCV PCR, S Routine 07/19/2023 1:43 PM CDT HEPATITIS B SURFACE ANTIGEN Routine 07/18/2023 1:[address] ABDOMEN PELVIS WITH IV CONTRAST RAD - Semiurgent (Fast; most ED patients; some inpatients) 07/16/2023 10:39 AM CDT from Last 3 Months or Most Recently Relevant to Health Maintenance Results * NT-Pro B-Type Natriuretic Peptide (BNP) (09/14/2024 3:36 PM CDT) Only the most recent of2 resultswithin the time period is included. NT-Pro BNP 101 <=540 pg/mL 09/14/2024 4:22 [...] M.D. LAB BLOOD ADD-ON Final Re sult [facility] [address] [place] [address], [facility] A[facility] [address] [place] [address] * Troponin T, 5th Generation (09/14/2024 3:36 PM CDT) Troponin T, 5th gen 12 <=15 ng/L 09/14/2024 4:22 PM CDT AUST Blood (Blood, Venous) 09/14/2024 3:36 PM CDT 09/14/2024 3:45 PM CDT us Bruce Obrien II, M.D. LAB BLOOD ADD-ON Final Re sult [facility] [address] [place] [address], [facility] AUST [facility] [address] [place] [address] * ECG 12 Lead (09/14/2024 3:34 PM CDT) Only the most recent of5 resultswithin the time period is included. Ventricular Rate ECG/Min 67 BPM MUSE WI Interval 194 ms MUSE QRSD Interval 144 ms MUSE QT Interval 458 ms MUSE QTC Interval 483 ms MUSE P Meherrin 29 degrees MUSE R Meherrin -41 degrees MUSE T Wave Meherrin 19 degrees MUSE 09/14/2024 3:34 PM CDT [...] Edited Re sult - Final MUSE NA * BYPASS GRAFT ANGIOGRAPHY, CORONARY ANGIOGRAPHY (09/03/2024 [...] Clotting Time), POCT (09/03/2024 2:15 PM CDT) Pathologist [facility] Activated Clotting Time, POCT 183(H) 84 - 139 sec 09/03/2024 2:15 PM CDT [facility] Blood 09/03/2024 2:15 PM CDT 09/03/2024 2:20 PM CDT Generic Rals LAB POCT ORDERABLES - DEVICE Fin al Result [facility] [address] [place] [address], [facility] MK[facility] in [address] [address] * Heparin Anti-Xa Assay (09/03/2024 11:48 AM CDT) Only the most recent of3 resultswithin the time period is included. Pathologist [facility] Heparin Anti-Xa, P 0.36 IU/mL 2024 12:14 PM CDT MKTO Comment: UFH therapeutic range: [...] M.D. LAB BLOOD NON ADD-ON Final Result [facility] [address] [place] [address], [place] [address] * (TTE) 2D ECHO DOPPLER COLOR AND [...] per Echocardiography Contrast Administration Protocol Reference Document [id number] Rev 07/20/2021. Patient met an inclusion criterion [...] administered per EchocardiographyContrast Administration Protocol Reference Document [id number] Rev07/20/2021. Patient met an inclusion criterion and did not havecontraindications in screening sections. For the complete report, see the Order-Level Documents. us Eva Carlson M.D. CV ECHO PROCEDURES Final Resu lt * (ABNORMAL) Lipid Panel (09/03/2024 5:19 AM CDT) Triglycerides 151(H) mg/dL 09/03/2024 5:45 AM CDT MICHELLE Comment: ----REFERENCE VALUE---- Normal: <150 mg/dL Borderline High: 150-199 mg/dL High: 200-499 mg/dL Very High: > or =500 mg/dL Cholesterol, Total 95 mg/dL 2024 5:45 AM CDT MICHELLE Comment: ----REFERENCE VALUE---- Desirable: < 200 mg/dL Borderline High: 200 - 239 mg/dL High: > or = 240 mg/dL Cholesterol, LDL, Calculated 33 mg/dL 09/03/2024 5:45 AM CDT MICHELLE Comment: ----REFERENCE VALUE---- Desirable: <100 mg/dL Above [...] or more) Yes 09/03/2024 5:19 AM CDT MK[facility] Blood (Blood, Venous) 09/03/2024 5:19 AM CDT 09/03/2024 5:24 AM CDT us Eva Carlson M.D. LAB BLOOD ADD-ON Final Result [facility] [address] [place] [address], [facility] [place] [address] * CBC without Differential (09/03/2024 5:19 AM [...] Carlson M.D. LAB BLOOD ADD-ON Final Result [facility] [address] [place] [address], [facility] in [place] [address] [place] [address] * (ABNORMAL) Basic Metabolic Panel (09/03/2024 5:19 [...] Carlson M.D. LAB BLOOD ADD-ON Final Result [facility] [address] [place] [address], [facility] in [place] [address] [place] [address] * Critical Care (09/02/2024 4:15 PM CDT) Narrative Vance Perez P.A.-C., P.A. - 09/02/2024 4:15 PM CDT Vance Perez P.A.-C., P.A. 09/02/2024 4:15 PM Critical Care Performed by: Vance Perez, Reanna, P.A. Authorized by: Vance Perez P.A.-C., P.A. [...] SURGICAL ORDERABLES Edited Result - Final * Troponin T, 2 Hour with 6 [...] P.A. LAB BLOOD TROPON IN Final Result [facility] [address] [place] [address], [facility] [address] [place] [address] * DX Chest Portable 1 View (09/02/2024 [...] DIAGNOSTIC I MAGING PROCEDURES Final Result * Troponin T, Baseline with 2 Hour/6 Hour Reflex Biomarker Panel (09/02/2024 12:31 PM CDT) Pathologist [facility] Troponin T, Baseline, 5th gen 13 <=15 ng/L 09/02/2024 1:04 PM CDT [facility]UST Blood (Blood, Venous) 09/02/2024 12:31 PM CDT 09/02/2024 12:40 PM CDT us Chance Andrae Perez P.A.-C., P.A. LAB BLOOD TROPON IN Final Result Performing Organization Address [facility]/ZIP Co de Phone Number [facility] [address] [place] [address], [facility] [place] [address] * APTT (Activated Partial Thromboplastin Time) (09/02/2024 12:31 PM CDT) [facility] Activated Partial Thrombopl Time, P 34 25 - 37 sec 09/02/2024 4:03 PM CDT [facility] Blood (Blood, Venous) 09/02/2024 12:31 PM CDT 09/02/2024 3:55 PM CDT us Chance Andrae Perez P.A.-C., P.A. LAB BLOOD ADD-ON Final Result Performing Organization Address [facility] Co de Phone Number [facility] [address] [place] [address], [facility] - [address] [address] * Prothrombin Time (PT) (09/02/2024 12:31 PM CDT) Pathologist [facility] Prothrombin Time, P 11.4 9.4 - 12.5 sec 09/02/2024 12:51 PM CDT [facility]UST INR 1.0 0.9 - 1.1 09/02/2024 12:51 PM CDT AUST Comment: ----ADDITIONAL INFORMATION---- Standard intensity warfarin therapeutic range: 2.0 to 3.0 High intensity warfarin therapeutic range: 2.5 to 3.5 Blood (Blood, Venous) 09/02/2024 12:31 PM CDT 09/02/2024 12:40 PM CDT Chance Andrae Perez P.A.-C., P.A. LAB BLOOD ADD-ON Final Result Performing Organization Address [facility]/ZIP Co de Phone Number [facility] [address] [place] [address], [facility] [place] [place] [address] * D-Dimer (09/02/2024 12:31 PM CDT) D-Dimer, P <220 <=500 ng/mL FEU 09/02/2024 12:57 PM CDT AUST Comment: ----ADDITIONAL INFORMATION---- D-dimer values less than or equal to 500 ng/mL fibrinogen equivalent units (FEU) may be used in conjunction with clinical pre-test probability to exclude deep vein thrombosis (DVT) and/or pulmonary embolism (PE). Blood (Blood, Venous) 09/02/2024 12:31 PM CDT 09/02/2024 12:40 PM CDT Chance Andrae Perez P.A.-C., P.A. LAB BLOOD ADD-ON Final Result Performing Organization Address [facility] Co de Phone Number [facility] [address] [place] [address], [facility] - [address] [address] * CBC with Differential, Blood (09/02/2024 12:31 [...] P.A.-C., P.A. LAB BLOOD ADD-ON Final Result [facility] [address] [place] [address], [facility] [address] [place] [address] * Magnesium (09/02/2024 12:31 PM CDT) Magnesium, P 1.8 1.7 - 2.3 mg/dL 09/02/2024 1:00 PM CDT AUST Blood (Blood, Venous) 09/02/2024 12:31 PM CDT 09/02/2024 12:39 PM CDT us Chance Andrae Perez P.A.-C., P.AJagdeep LAB BLOOD ADD-ON Final Result [facility] [address] [place] [address], [facility] [address] [place] [address] * (ABNORMAL) Comprehensive Metabolic Panel (09/02/2024 12:31 [...] 12:39 PM CDT us Chance L Chris Forte, P.A. LAB BLOOD ADD-ON Final Result [facility] [address] [place] [address], [facility] [address] [place] [address] * Cologuard - Sent Out Lab (09/17/2023 7:55 AM CDT) Result Negative Negative 09/21/2023 9:08 AM CDT EXLI Comment: NEGATIVE TEST RESULT. A negative Cologuard result indicates a low likelihood that a colorectal cancer (CRC) or advanced adenoma (adenomatous polyps with more advanced pre-malignant features) is present. The chance that a person with a negative Cologuard test has a colorectal cancer is less than 1 in 1500 (negative predictive value >99.9%) or has an advanced adenoma is less than 5.3% (negative predictive value 94.7%). These data are based on a prospective cross-sectional study of 10,000 individuals at average risk for colorectal cancer who were screened with both Cologuard and colonoscopy. (Sunni Davison al, N Engl J Med 2014;370(14):4319-0980) The normal value (reference range) for this assay is negative. COLOGUARD RE-SCREENING RECOMMENDATION: Periodic colorectal cancer screening is an important part of preventive healthcare for asymptomatic individuals at average risk for colorectal cancer. Following a negative Cologuard result, the [place] [employer] and U.S. Multi-Society Task Force screening guidelines recommend a Cologuard re-screening interval of 3 years. References: [place] [employer] Guideline for Colorectal Cancer Screening: https://www.cancer.org/cancer/hklgu-snzplg-cxgdlh/detection- diagnosis-staging/acs-recommendations.html.; Selvin DK, Denise CR, Lalo RichK, Colorectal Cancer Screening: Recommendations for Physicians and Patients from the U.S. Multi-Society Task Force on Colorectal Cancer Screening , Am J Gastroenterology 2017; 112:6940-8063. TEST DESCRIPTION: Composite algorithmic analysis of stool DNA-biomarkers with hemoglobin immunoassay. Quantitative values of individual biomarkers are not reportable and are not associated with individual biomarker result reference ranges. Cologuard is intended for colorectal cancer screening of adults of either sex, 45 years or older, who are at average-risk for colorectal cancer (CRC). Cologuard has been approved for use by the U.S. FDA. The performance of Cologuard was established in a cross sectional study of average-risk adults aged 50-84. Cologuard performance in patients ages 45 to 49 years was estimated by sub-group analysis of near-age groups. Colonoscopies performed for a positive result may find as the most clinically significant lesion: colorectal cancer [4.0%], advanced adenoma (including sessile serrated polyps greater than or equal to 1cm diameter) [20%] or non- advanced adenoma [31%]; or no colorectal neoplasia [45%]. These estimates are derived from a prospective cross-sectional screening study of 10,000 individuals at average risk for colorectal cancer who were screened with both Cologuard and colonoscopy. (Sunni Davison al, N Engl J Med 2014;370(14):5761-0455.) Cologuard may produce a false negative or false positive result (no colorectal cancer or precancerous polyp present at colonoscopy follow up). A negative Cologuard test result does not guarantee the absence of CRC or advanced adenoma (pre-cancer). The current Cologuard screening interval is every 3 years. ([place] [employer] and U.S. Multi-Society Task Force). Cologuard performance data in a 10,000 patient pivotal study using colonoscopy as the reference method can be accessed at the following location: [email or web address].textmetix/results. Additional description of the Cologuard test process, warnings and precautions can be found at www.Nascentric.com. Stool (Stool) 09/17/2023 7:5 5 AM CDT 09/18/2023 10:31 AM CDT us Milan Campos D.O. LAB BODY FLUIDS AND STOOLS OR DERABLES Final Result Performing Organization Address [facility] Co de Phone Number [employer] [address] [place] [id number] [employer] [address] [facility], [address] [place] [address] * HCV Ab Scrn w/Reflex to HCV PCR, Serum (07/19/2023 1:43 PM CDT) HCV Ab Screen, S Negative Negative 07/20/19 6:22 AM CDT MKTO Comment: Biotin has been identified by the guyline operator as a potential interfering substance. Higher concentrations of biotin may be found in multivitamins, hair/nail supplements, and workout supplements. If the result does not match clinical observations, repeat testing after patient refrains from the use of supplements for at least 12 hours. Blood (Blood, Venous) 07/19/2023 1:43 PM CDT 07/20/2023 3:58 AM CDT Narrative [facility] - 07/20/2023 6:22 AM CDT Specimen Information: Specimen ID: [id number] Specimen Type: Blood Specimen Collection Start Date: 07/19/2023 1:43 PM Specimen Received Date: 07/20/2023 3:58 AM Specimen ID: [id number] Specimen Type: Blood Specimen Collection Start Date: 07/19/2023 1:43 PM Specimen Received Date: 07/20/2023 4:02 AM us Shelley ESPINOZA, P.A.-C., P.A. LAB MICROBIOLO GY - BLOOD ORDERABLES Final Result Performing Organization Address City/[facility]/ZIP Co de Phone Number [facility] [address] [place] [address], [facility] [place] [address] * Hepatitis B Surface Antigen (07/18/2023 1:49 PM CDT) HBs Antigen, S Nonreactive Nonreactive 07/18/2023 3:18 PM CDT [facility] Blood (Blood, Venous) 07/18/2023 1:49 PM CDT 07/18/2023 1:54 PM CDT us Inna Buitrago P.A.-C., P.A. LAB MICROBIOLO GY - BLOOD ORDERABLES Final Result [facility] [address] [place] [address], [place] AUST [facility] [address] [place] [address] * CT Abdomen Pelvis with IV Contrast (07/16/2023 10:39 AM CDT) Anatomical Region Laterality Modality Abdomen, Pelvis, Abdominal R ST LOS, Abdominal ARZ LOS, Abdominal FLA LOS N/A Computed Tomography 07/16/2023 10:3 8 AM CDT Impressions 07/16/2023 10:46 AM CDT 1. No clearly acute intra-abdominal or pelvic abnormality. 2. Multiple colonic diverticula without evidence of diverticulitis. 3. Cholelithiasis without evidence of cholecystitis. 4. Probable hepatic steatosis. Narrative 07/16/2023 10:46 AM CDT EXAM: CT ABDOMEN PELVIS WITH IV CONTRAST COMPARISON: None FINDINGS: Postop changes from median sternotomy and mild bibasilar atelectasis. No consolidation or pleural abnormality present. Cardiac size normal. Coronary arterial atherosclerotic calcifications. Diffuse hepatic hypoattenuation. No worrisome hepatic lesion present. No biliary ductal dilatation. Several gallstones seen within the gallbladder. No pericholecystic inflammatory changes. The spleen, pancreas, and adrenal glands appear within normal limits. Symmetric enhancement of each kidney. No hydronephrosis. No nephrolithiasis. No worrisome renal lesion. Urinary bladder normal as visualized. Mild prostatic enlargement and dystrophic calcifications. Fat-containing right inguinal hernia. No morphology of bowel obstruction or free intraperitoneal gas. Multiple colonic diverticula seen throughout the descending and sigmoid colon no evidence of superimposed acute diverticulitis. Prior appendectomy. Small hiatal hernia. Moderate aortobiiliac atherosclerotic vascular calcifications. No evidence of aneurysmal dilatation. Visceral arterial and venous branches are patent as visualized. No adenopathy. Lower lumbar predominant spondylosis and facet arthropathy with grade 1 anterolisthesis of L4 and L5. No acute or worrisome appearing skeletal abnormality. Bilateral SI arthrosis, bilateral hip arthrosis. Small probable fibro-osseous lesion within the medial left iliac bone. Procedure Note Modesto Cartwright M.D. - 07/16/2023 EXAM: CT ABDOMEN PELVIS WITH IV CONTRAST COMPARISON: None FINDINGS: Postop changes from median sternotomy and mild bibasilar atelectasis. Noconsolidation or pleural abnormality present. Cardiac size normal.Coronary arterial atherosclerotic calcifications. Diffuse hepatic hypoattenuation. No worrisome hepatic lesion present. Nobiliary ductal dilatation. Several gallstones seen within the gallbladder.No pericholecystic inflammatory changes. The spleen, pancreas, and adrenal glands appear within normal limits. Symmetric enhancement of each kidney. No hydronephrosis. Nonephrolithiasis. No worrisome renal lesion. Urinary bladder normal asvisualized. Mild prostatic enlargement and dystrophic calcifications. Fat-containingright inguinal hernia. No morphology of bowel obstruction or free intraperitoneal gas. Multiplecolonic diverticula seen throughout the descending and sigmoid colon noevidence of superimposed acute diverticulitis. Prior appendectomy. Smallhiatal hernia. Moderate aortobiiliac atherosclerotic vascular calcifications. No evidenceof aneurysmal dilatation. Visceral arterial and venous branches are patentas visualized. No adenopathy. Lower lumbar predominant spondylosis and facet arthropathy with grade 1anterolisthesis of L4 and L5. No acute or worrisome appearing skeletalabnormality. Bilateral SI arthrosis, bilateral hip arthrosis. Smallprobable fibro-osseous lesion within the medial left iliac bone. IMPRESSION: 1. No clearly acute intra-abdominal or pelvic abnormality. 2. Multiple colonic diverticula without evidence of diverticulitis. 3. Cholelithiasis without evidence of cholecystitis. 4. Probable hepatic steatosis. Parker Perez APRN, C.N.P., M.S.N. IMG CT PROCED URES Final Result from Last 3 Months or Most Recently Relevant to Health Maintenance Insurance [facility] Startup Weekend [facility] Advance Directives For more information, please contact: [phone] * Full Code (Latest Code Status on File) Date Activated Date Inactivated Comments 09/03/2024 4:12 PM 09/04/2024 4:26 PM Question Answer Comments Full Code: Discussed * Full Code Date Activated Date Inactivated Comments 09/02/2024 9:55 PM 09/03/2024 4:12 PM Question Answer Comments Full Code: Discussed * DNI Date Activated Date Inactivated Comments 07/29/2023 1:09 AM 07/30/2023 1:50 PM Question Answer Comments DNI (Do Not Intubate): Discussed-Patient * DNI Date Activated Date Inactivated Comments 07/17/2023 5:47 PM 07/20/2023 2:31 PM Question Answer Comments DNI (Do Not Intubate): Discussed-Patient Care Teams Hairspring Truer Relationship Specialty Start Date End Date Milan Campos D.O. [address] [id number] PCP - General Family Medicine 07/31/23
--- OUTSIDE RECORDS SUMMARY | 2024-10-02 13:38 | XMS_ITS | Encounter Summary ---
Author Organization [facility] Address [address], [place] [address] Care Team Providers Care Help Desk Associate Name Role Phone Lesia Galarza MD Primary Care Provider [phone] Reason for Visit * Reason Comments UPDATE Encounter Details Date Type Department Care Team (Late st Contact Info) Description 11/10/2012 Telephone [facility] [address] [place], [place] [id number] Rudy Stone, RN UPDATE Social History Tobacco Use Types Packs/Day Years Used Date Smoking Tobacco: Never Assessed Sex and Gender Information Value Date Recorded Sex Assigned at Not on file Legal Sex Male 4:31 AM CDT Gender Identity Not on file Sexual Orientation Not on file documented as of this encounter Nursing Notes * Rudy Stone RN - 11/10/2012 11:57 AM CDT Phone note to confirm a verbal order received by me on 11/05/12, that it was o.k. to resume phase IIcardiac rehab following a recent hospitalization. Thanks. documented in this encounter Plan of Treatment Not on file documented as of this encounter Visit Diagnoses Not on filedocumented in this encounter Care Teams Help Desk Associate Relationship Specialty Start Date End Date Lesia Galarza MD [address] [address] PCP - General 10/20/15 documented as of this encounter
--- OUTSIDE RECORDS SUMMARY | 2024-10-02 13:38 | XMS_ITS | Encounter Summary ---
Author Organization [facility] Address [address] [place] [address] Care Team Providers Care Draw Tender Name Role Phone Milan Campos D.O. Primary Care Provider [phone] Reason for Visit * Reason Comments Curbside Consultation Encounter Details Date Type Department Care Team (Latest Contact Info) Description 09/02/2024 Clinical Communication Department of Cardiovascular Diseases in [place], [place] [address] [place] [address] Bruce Rodrigues M.D. [address] [place] [id number] Curbside Consultation Social History Tobacco Use Types Packs/Day Years Used Date Smoking Tobacco: Former Cigarettes Alcohol Use Standard Drinks/Week Comments Not Currently 0 (1 standard drink = 0.6 oz pur e alcohol) [facility] Utilities Answer Date Recorded In the past 12 months has [employer] electric, gas, oil, or water company threatened [...] your living situation today? I have a [facility] place to live 09/02/2024 Sex and Gender Information Value Date Recorded Sex Assigned at Male 08/15/2023 11:17 AM CDT Legal Sex Male 1:11 PM CDT Gender Identity Male 08/15/2023 11:17 AM CDT Sexual Orientation Straight 08/15/2023 11 :17 AM CDT documented as of this encounter Miscellaneous Notes * Telephone Encounter - Bruce Rodrigues M.D. - 09/02/2024 3:32 PM CDT I was contacted by the emergency department at [place] regarding Aroldo Chen who presented to the emergency department with chest pain. The history was obtained from the medical record and emergency department provider. He has a complex cardiac history and has been followed by the [facility]. He had coronary bypass grafting in 2012. He had a GABRIEL to D1 and LAD, free radial graft to OM and saphenous vein graft to left PDA. Two months post bypass, he had progression of disease and the free radial graft was occluded to the OM. He has had multiple percutaneous interventions including left main, left circumflex, OM and saphenous vein graft to the PDA. He had a cardiac catheterization in 2020 that showed patent stents, patent GABRIEL to the LAD- diagonal, and patent SVG to left PDA. Today he presented to the emergency department with chest pain symptoms similar to episodes of unstable angina that he has had in the past. The EKG showed a right bundle-branch block and left anterior fascicular block which is similar to prior evaluations. The initial troponin and to our follow up were negative. In the emergency department, he has had recurrent intermittent symptoms of chest pain. Recommend continuing aspirin and Plavix which he has been taking as an outpatient. Given the recurrent episodes of chest pain, would recommend starting IV heparin. I agree with the plan to treat as possible for unstable angina and admitted to [place] or [place] depending on bed availability. Layla Rodrigues M.D. documented in this encounter Plan of Treatment Not on file documented as of this encounter Visit Diagnoses Not on filedocumented in this encounter Care Teams Draw Tender Relationship Specialty Start Date End Date Milan Campos D.O. [address] [phone] PCP - General Family Medicine 07/31/23 documented as of this encounter
--- OUTSIDE RECORDS SUMMARY | 2024-10-02 13:38 | XMS_ITS | Clinical Summary ---
Author Organization [facility] Address [address] [place] [id number] Care Team Providers Care Structures Assembler Name Role Phone Milan Campos DO Primary Care Provider [phone]- [phone] Allergies Active Allergy Reactions Criticality Noted Date Comments Hymenoptera Allergenic Extract Other - Describe In Comment Field 04/21/2014 Throat swelling Cilostazol Shortness Of Breath 07/18/2015 Nausea, fatigue Codeine Throat Swelling/Closing High 03/12/2007 Patient states on 07/06/15- that the allergic rxn caused his throat to swell shut 10/01/19: per patient- tolerates oxycodone without any problem Latex Hives 10/11/2014 Pollen Extracts Itching 02/14/2021 Adhesive Rash 04/22/2014 Tegaderm causes welts- Medications aspirin (ECOTRIN) 81 mg enteric coated tablet Take 1 tablet by mouth once daily with a meal. 0 5 Active cetirizine (ZyrTEC) 10 mg tabletIndications:S inusitis, unspecified chronicity, unspecified location Take 1 Tablet (10 mg) by mouth once daily. 30 Tablet 2 Active loratadine (Claritin) 10 mg tabletIndications:S inusitis, unspecified chronicity, unspecified location Take 1 Tablet (10 mg) by mouth once daily. 30 Tablet 2 Active amLODIPine (NORVASC) 5 mg tabletIndications:H ypertension Take 1 Tablet (5 mg) by mouth once daily. 90 Tablet 1 5 Active clopidogreL (PLAVIX) 75 mg tabletIndications:C oronary artery disease due to lipid rich plaque Take 1 Tablet (75 mg) by mouth once daily. 90 Tablet 3 5 Active rosuvastatin (CRESTOR) 40 mg tabletIndications:H yperlipidemia, unspecified hyperlipidemia type Take 1 Tablet (40 mg) by mouth at bedtime. 90 Tablet 3 5 Active nitroglycerin (NITROSTAT) 0.4 mg sublingual tabletIndications:C oronary artery disease due to lipid rich plaque Place 1 Tablet (0.4 mg) under the tongue every 5 minutes if needed for Chest Pain. 25 Tablet 2 5 Active Active Problems Problem Noted Date Diagnosed Date Cholelithiasis 09/21/2021 Fatty liver 09/21/2021 Acquired absence of right great toe 07/18/2021 Congestive heart failure 07/18/2021 Typical atrial flutter 07/18/2021 AP (angina pectoris) 07/18/2021 Dermatitis 06/29/2019 Overview (06/29/2019): Uses nizoral cream around cpap/nose ZANE on CPAP 06/29/2019 Fibroma 04/28/2019 Overview (04/28/2019): left shoulder Frequent PVCs 12/17/2018 Stress 01/09/2016 Overview (01/09/2016): 21 yo daughter is 8 months and homeless, he has taken her into his home and considering adopting the grand daughter, daughter not easy to work with Recurrent cold sores 06/06/2015 Drug-induced erectile dysfunction 03/21/2015 Overview (03/21/2015): has noticed problems since starting his medications, would like something to treat it Osteoarthritis of right knee 02/25/2015 Possible acute meniscal tear of right knee 02/25 Knee pain, bilateral 02/24/2015 Gout without tophus 11/19/2014 Overview (11/19/2014): started 07/2014, being treated with colcrys as needed, pt has made significant dietary changes Former smoker 04/21/2014 CAD (coronary artery disease) 04/21/2014 Overview (11/19/2014): -CABG 08/2012 GABRIEL sequentially to first diagonal and LAD, radial graft to OM2, SVBG to PDA -Stenting (EES) to the ostial /proximal SVBG to the LPDA 04/22/2014 See admission 10/12/14 triple bipass grafting 08/2012, 04/22/14 had stenting, attempted again for other lesions on 05/20/14, this was unsuccessful, EF 60%, 3 stents placed 10/12/14 Discharge diagnosis . Refractory angina. a. Class III to IV symptoms. 2. Atherosclerotic cardiovascular disease. a. Coronary artery bypass grafting August 2012. i. Sequential left internal mammary artery to the first diagonal and left anterior descending, radial graft to the obtuse marginal 2, and a saphenous vein bypass graft to the PDA. b. Stenting to the proximal/ostial saphenous vein bypass graft to the PDA April 22, 2014. c. Unsuccessful percutaneous coronary intervention attempt to the obtuse marginal 2 and obtuse marginal 3 May. d. Successful complex percutaneous coronary intervention of the chronic total occlusion of the left main and left circumflex with drug-eluting stents October 12, 2014 and stenting of the obtuse marginal 2 May 15, 2014. 3. Hypertension. 4. Dyslipidemia. 5. Sleep apnea. 6. Former cigarette smoker. H/O coronary artery bypass surgery 11/02/2012 Overview (08/31/2021): History of quadruple bypass Displacement of lumbar inter vertebral disc without myelopathy 04/16/2007 Thoracic or lumbosacral neur itis or radiculitis, unspecified 04/16/2007 Lumbago 03/25/2007 Overview (03/25/2007): with lumbar degen disease and herniated disc Bicipital tenosynovitis 03/25/2007 Overview (03/25/2007): left worse than right Hypertension 03/25/2007 Resolved Problems Problem Noted Date Diagnosed Date Resolved Date Chest pain 03/17/2020 08/11/2021 Acute chest pain 09/30/2019 08/31/2021 Cold sore 06/29/2019 08/11/2021 Obesity (BMI 30.0-34.9) 04/28/2019 05/09/2021 Unstable angina 07/21/2015 07/22/2015 Hypokalemia 07/21/2015 12/17/2018 Unstable angina 07/06/2015 04/28/2019 Elevated LFTs 12/14/2014 08/31/2021 Overview (12/21/2014): Ultrasound negative except for polyp in the gallbladder Obesity (BMI 30-39.9) 11/19/20142021 UT (myocardial infarction) 04/27/2014 0 04/28/2019 Overview (04/27/2014): Chest pain with elevated troponin and EKG changes S/p coronary angiogram with Multivessel coronary disease in a left dominant system; Sequential GABRIEL graft to the 1st Diagonal and Mid LAD is free of significant disease; SVG graft to the LPDA has a patent stent in it's ostium from the 04/22/2014 procedure. No PCI, treat medically. Refractory angina 04/21/2014 04/28/2019 Spasm of muscle 04/18/2007 08/11/2021 Sleep apnea 03/25/2007 08/11/2021 Overview (07/24/2016): Use cpap machine Immunizations Immunization Administration Dates Next Due Influenza Virus, Unspecified 12/19/2010, 03/23/2010,02/02/2008,2006 Influenza, IIV4 01/09/2016,02/08/2015,01/20/2014 Pneumococcal Poly,23-Valent (Pneumovax) 07/24/2016 Pneumococcal conj 13-Valent (Prevnar 13) 02/08/2015 TD, UNSPECIFIED 04/08/2005,04/08/1998 Td (Age >=7 Years) 09/20/2005 Tdap 08/06/2012 Zoster (Zostavax-ZVL, live) 06/06/2012, 2 Family History Medical History Relation Name Comments Heart Disease Brother 2 living age 60 CAD Other Father age 82 old age Arthritis Mother , 2013. RA. Relation Name Status Comments Brother 1 Alive Brother 2 Alive Father Mother Social History Tobacco Use Types Packs/Day Years Used Date Smoking Tobacco: Former Cigarettes 4 8 0 06/24/1969 - 06/24/1977 Cigars Smokeless Tobacco: Never Comments:quit 4 1977 Alcohol Use Standard Drinks/Week Comments Yes 0 (1 standard drink = 0.6 oz pur e alcohol) 1-3 beers every few months PHQ-2 Answer Date Recorded PHQ-2 TOTAL SCORE 0 08/31/2021 Social Connections Answer Date Recorded Frequency of Communication with Friends and Fami ly Not on file 08/06/2022 Financial Resource Strain Answer Date R ecorded Difficulty of Paying Living Expenses 3 07/18/2021 Difficulty of Paying Living Expenses Not on file 07/18/2021 Food Insecurity Answer Date Recorded Worried About Running Out of Food in the Last Ye ar 1 07/18/2021 Transportation Needs Answer Date Record ed Lack of Transportation (Medical) 1 07/18/2021 Housing Stability Answer Date Recorded Unable to Pay for Housing in the Last Year 1 07/18/2021 Sex and Gender Information Value Date Recorded Sex Assigned at Not on file Legal Sex Male 6:54 AM [employer]ICE [employer] WORK[employer] Gender Identity Not on file Sexual Orientation Not on file Occupation Industry Job Start Date Job End Date Not on file Not on file Not on file Not on file Obstetrics History Last Filed Vital Signs Vital Sign Reading Time Taken Comments Blood Pressure 124/86 05/05/2024 2:36 PM [employer] Pulse 66 05/05/2024 2:36 PM [employer] Temperature 36.6 C (97.8 F) 08/12/2021 8:59 AM CDT Respiratory Rate 18 08/12/2021 8:59 AM CDT Oxygen Saturation 96% 05/05/2024 2:36 PM [employer] WORK[employer] Inhaled Oxygen Concentration - - Weight 89.1 kg (196 lb 6.4 oz) 05/05/2024 2:36 P M [employer] Height 170.2 cm (5' 7) 05/05/2024 2:36 PM [employer] Body Mass Index 30.76 05/05/2024 2:36 PM [employer] WORK[employer] Plan of Treatment Upcoming Encounters Date Type Department Care Team (Late st Contact Info) Description 10/02/2024 2:00 PM CDT Ancillary Procedure [facility] [address] [place] [address] Health Maintenance Due Date Last Done Comments RSV vaccine for adults or (1 - Risk 60-74 years 1-dose series) 2011 Zoster (shingles) series for age 50+ (2 of 3) 08/01/2012 06/06/2012, 07/11/2011 Fecal testing non-DNA (FIT,FOBT,iFOBT) for age 45-75 12/21/2015 12/20/2014, 05/02/2007 Tetanus booster 08/06/2022 08/06/2012, 09/06, 04/08/2005, Additional history exists Depression screening for age 12+ 08/31/2022 08/31/2021, 04/28/2019, 12/26/2018, Additional history exists Medicare Wellness for age 65+ 09/01/2022 08/31/2021, 04/28/2019, 01/09/2016, Additional history exists COVID-19 vaccine series ( season) 2023 Influenza Vaccine (Season Ended) 2024 01/09/2016, 02/08/2015, 01/20/2014, Additional history exists BMI (ht and wt on same day) for age 18+ 05/05/2025 05/05/2024, 07/12/2022, 08/31/2021, Additional history exists Lipids for age 45-75 07/13/2027 07/12/2022, 08/31/2021, 04/28/2019, Additional history exists Tdap Completed 08/06/2012 Hepatitis C screening for age 18-79 Completed 12/14/2014 Pneumococcal series for age 50+ Completed 07/24/2016, 02/08/2015 Hepatitis B series for 19+ Aged Out N o longer eligible based on patient's age to complete this topic Procedures Procedure Name Priority Date/Time Associated Diagnosis Comments LC LIPID PANEL Routine 07/12/2022 10:03 AM CDT Coronary artery disease, unspecified vessel or lesion type, unspecified whether angina present, unspecified whether solomon or transplanted heart OCCULT BLOOD IFOBT STOOL Routine 12/20/2014 8:30 AM CDT Colon cancer screening ANTI HCV Routine 12/14/2014 9:59 AM CDT Need for hepatitis C screening test from Last 3 Months or Most Recently Relevant to Health Maintenance Results * (ABNORMAL) LC LIPID PANEL (07/12/2022 10:03 AM CDT) Cholesterol, Total 112 100 - 199 mg/dL 07/13/2022 10:11 AM CDT [facility] Triglycerides 205(H) 0 - 149 mg/dL 07/13/2022 10:11 AM CDT [facility] ([facility]) HDL Cholesterol 29(L) >39 mg/dL 10:11 AM CDT [facility] VLDL Cholesterol Jim 33 5 - 40 mg/dL 07/13/2022 10:11 AM CDT [facility] LDL Chol Calc (NIH) 50 0 - 99 mg/dL 07/13/2022 10:11 AM CDT [facility] Blood BLOOD SPECIMEN / Unknown Non-Lab Venipuncture / Unknown 07/12/2022 10:03 AM CDT 07/12/2022 10:13 AM CDT Narrative [facility]) - 07/13/2022 10:11 AM CDT Performed at: [address] [place] [id number] Rail Splitter: Mihai Andrews MD, Phone: [phone] us Josemanuel Flores MD SEND OUTS Final R esult [facility] ([facility]) [address] [place] [id number] * OCCULT BLOOD IFOBT STOOL (12/20/2014 8:30 AM CDT) STOOL BLOOD ,IFOBT Negative Negative, Invalid 12/20/2014 9:14 AM CDT [facility] Stool specimen (specimen) STOOL SPECIMEN / Unknown Non-Blood / Unknown 12/20/2014 8:30 AM CDT 12/20/2014 9:04 AM CDT Lesia Galarza MD LABORATORY Final Resu lt [facility] [address] [place] [address] * ANTI HCV [29681.2] (12/14/2014 9:59 AM CDT) HEPATITIS C ANTIBODY Non-Reacti ve Non-Reacti ve 12/14/2014 3:30 PM CDT [facility] TR[facility]AT[facility] Blood specimen (specimen) BLOOD SPECIMEN / Unknown Venipuncture / Unknown 12/14/2014 9:59 AM CDT 12/14/2014 9:59 AM CDT Narrative [facility] - 12/14/2014 3:30 PM CDT Antibodies to HCV not detected; does not exclude the possibility of exposure to HCV. Lesia Galarza MD SEND OUTS Final Resu lt [facility] [address] [place] [address], from Last 3 Months or Most Recently Relevant to Health Maintenance Insurance MEDICARE [place] ONLY [employer] MEDICARE PART A HB ONLY MEDICARE PART B HB ONLY WORKERS COMP [facility] Advance Directives Documents on File Type Date Recorded Patient [employer] Healthcare Directive 10/11/2014 12:00 AM * DNR (Latest Code Status on File) Date Activated Date Inactivated Comments 08/11/2021 9:26 PM 08/12/2021 3:33 PM DNR/DNI Question Answer Comments Code Status Discussion: Reviewed Preferences * Full Code Date Activated Date Inactivated Comments 05/05/2020 9:11 PM 05/06/2020 6:09 PM Question Answer Comments Code Status Discussion: Discussed * Full Code Date Activated Date Inactivated Comments 03/17/2020 10:06 AM 03/18/2020 12:35 PM Question Answer Comments Code Status Discussion: Not Discussed * Full Code Date Activated Date Inactivated Comments 10/01/2019 12:58 AM 10/02/2019 1:15 PM Question Answer Comments Code Status Discussion: Not Discussed * Full Code Date Activated Date Inactivated Comments 12/17/2018 3:09 PM 12/19/2018 1:26 PM Care Teams Structures Assembler Relationship Specialty Start Date End Date Milan Campos DO [address] [place] [id number] PCP - General Family Practice 05/05/24
--- OUTSIDE RECORDS SUMMARY | 2024-10-02 13:39 | XMS_ITS | Encounter Summary ---
Author Organization [facility] Address [address] [place] [address] Care Team Providers Care Academic Adviser Name Role Phone Milan Campos D.O. Primary Care Provider Encounter Details Date Type Department Care Team (Late st Contact Info) Description 09/14/2024 Results Follow-Up Department of Family Medicine, [facility], in [place], [place] [address] [place] [address] Bruce Obrien II, M.D. [address] [place] [address] ECG 12 Lead Social History Tobacco Use Types Packs/Day Years Used Date Smoking Tobacco: Former Cigarettes Alcohol Use Standard Drinks/Week Comments Not Currently 0 (1 standard drink = 0.6 oz pur e alcohol) [facility] Utilities Answer Date Recorded In the [...] your living situation today? I have a [facility] place to live 09/02/2024 Sex and Gender Information Value Date Recorded Sex Assigned at Male 08/15/2023 11:17 AM CDT Legal Sex Male 1:11 PM CDT Gender Identity Male 08/15/2023 11:17 AM CDT Sexual Orientation Straight 08/15/2023 11 :17 AM CDT documented as of this encounter Plan of Treatment Not on file documented as of this encounter Visit Diagnoses Not on filedocumented in this encounter Care Teams Academic Adviser Relationship Specialty Start Date End Date Milan Campos D.O. NPJarrod: [phone] [address] [place] [phone] PCP - General Family Medicine 07/31/23 documented as of this encounter
--- OUTSIDE RECORDS SUMMARY | 2024-10-03 00:22 | XMS_ITS | Clinical Summary ---
Author Organization [facility] Address [address] [place] [address] Care Team Providers Care Pharmacist Assistant Name Role Phone Lesia Galarza MD Primary Care Provider +1- [phone] Source Comments You are receiving this document [...] for each transition of care or referral. [facility] [employer] Allergies Active Allergy Reactions Criticality Noted Date [...] 02/10/2014 11/18/19 16 Cellulitis 06/26/2013 11/18/2015 [place] (myocardial infarction) 06/26/2013 11/18/2015 Bradycardia 06/14/2013 06/26/2013 [...] Dates Next Due Influenza IIV4 (Quadrivalent) 0.5mL (29888) 01/08 PPSV23 (Pneumovax) 02/04/2013 Zoster (Zostavax) 06/06/2012 [...] - 10/20/2015 10:53 PM [place] [address] CLIA number [id number] us Nataly Banuelos MD LAB_1 Final Resu lt HP CONVERSION from Last 3 Months or Most Recently Relevant to Health Maintenance Insurance MEDICARE [employer] [id number] [place] [id number] Advance Directives * Full Code (Latest Code [...] 3:02 PM 06/29/2013 7:38 PM Care Teams Pharmacist Assistant Relationship Specialty Start Date End Date Lesia Galarza MD [address] [facility] [address] [place] [address] PCP - General 10/20/15
--- OUTSIDE RECORDS SUMMARY | 2024-10-03 00:23 | XMS_ITS | Clinical Summary ---
Author Organization [facility] Address [address] [place] [address] Care Team Providers Care Internet Sourcer Name Role Phone Milan Campos D.O. Primary Care Provider [phone] Source Comments Patient records contain information from all sites at [facility]. For routine questions regarding patient records, call [phone] during business hours, M-F 8:00 AM - 5:00 PM Central Time. Record requests for emergency care only can be directed to [phone] at any time.[facility] Allergies Active Allergy Reactions Criticality Noted Date [...] Shortness of breath High 07/18/2015 Nausea, fatigue [place] Pollen Itching Medium 02/14/2021 Seasonal Allergies: Allergic Rhinitis, Itchy watery eyes Medications rosuvastatin (CRESTOR) 40 mg tablet Take 40 mg by mouth daily. 2 Active aspirin 81 mg chewable tablet Chew 81 mg daily. Active clopidogreL (PLAVIX) 75 mg tablet Take 1 tablet (75 mg total) by mouth daily. 30 tablet 07/30/2023 10:18 AM CDT 4 Active levocetirizine (Xyzal) 5 mg tablet take one tablet by mouth in the evening 90 tablet 3 4 Active fluticasone propionate (Flonase) 50 mcg/actuation nasal spray INSTILL 2 SPRAYS IN EACH NOSTRIL EVERY DAY 48 g 3 5 Active nitroglycerin (Nitrostat) 0.[address] 1 tablet (0.4 mg total) under the tongue every 5 (five) minutes as needed for chest pain. 25 tablet 11 5 Active pantoprazole (Protonix) 40 mg EC tablet Take 1 tablet (40 mg total) by mouth daily before morning meal. 30 tablet 5 Active losartan (Cozaar) 25 mg tablet Take 1 tablet (25 mg total) by mouth daily. 30 tablet 11 5 09/06/19 26 Active spironolactone (Aldactone) 25 mg tablet Take 1 tablet (25 mg total) by mouth daily. 30 tablet 11 5 09/06/19 26 Active amLODIPine (Norvasc) 5 mg tablet Take 5 mg by mouth daily. Active isosorbide mononitrate (Imdur) 60 mg 24 hr tabletIndication s:Angina Unstable (HCC) Take 1 tablet (60 mg total) by mouth daily. 30 tablet 11 5 09/15/19 26 Active amLODIPine (NORVASC) 5 mg tablet Take 5 mg by mouth daily. 2 09/05/19 25 Discontinu ed(Stop Taking at Discharge) nitroglycerin (NITROSTAT) 0.[address] 0.4 mg under the tongue every 2 (two) hours as needed for chest pain. 6 09/05/19 25 Discontinu ed(Duplica te order) isosorbide mononitrate (Imdur) 30 mg 24 hr tablet Take 1 tablet (30 mg total) by mouth daily. 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 Angina Unstable (HCC) Discharge Disposition: Home or Self Care 09/14/2024 2:31 PM CDT Hospital Encounter Department of Laboratory Medicine in [place], [place] [address] [phone] Bruce Obrien II, M.D. Angina Unstable (HCC) Discharge Disposition: Home or Self Care 09/14/2024 1:00 PM CDT Office Visit Department of Family Medicine, [facility], in [place], [place] [address] [phone] Bruce Obrien II, M.D. Angina Unstable (HCC) (Primary Dx); Congestive Heart Failure (HCC) Discharge Disposition: Home or Self Care 09/14/2024 Results Follow-Up Department of Family Medicine, [facility], in [place], [place] [address] [phone] rBuce Obrien II, M.D. ECG 12 Lead 09/07/2024 9:20 AM CDT Clinical Communication Department of Internal Medicine in [place], [place] [address] [phone] Milan Campos D.O. Schulz, Melissa R, RJagdeepNJagdeep [facility] Follow-up Discharge Disposition: Home or Self Care 09/03/2024 1:04 PM CDT - 09/03/2024 2:19 PM CDT Surgery Department of Cardiovascular Diseases in [address] [phone] Shaun Alcantara M.B.BJagdeepS. Bypass Graft Angiography 09/02/2024 9:19 PM CDT - 09/04/2024 2:25 PM CDT Hospital Encounter [facility], [facility], Third Floor [address] [place] [phone] Eva Carlson M.D. Burkland, Carl B, M.D. Boles, James, M.D. Angina Unstable (HCC) (Primary Dx); Apnea Sleep Obstructive Discharge Disposition: Home or Self Care 09/02/2024 12:14 PM CDT - 09/02/2024 8:00 PM CDT Emergency [facility] [address] [phone] Vance Perez P.A.-C., P.A. Angina Unstable (HCC) (Primary Dx) Discharge Disposition: Acute Care Hospital 09/02/2024 Clinical Communication Department of Cardiovascular Diseases in [place], [place] [address] [phone] Bruce Rodrigues M.D. Curbside Consultation 07/24/2024 Refill Department of Family Medicine, [facility], in [place], [place] [address] [phone] Milan Campos DJagdeepO. Med Refill from Last 3 Months Immunizations [...] 0.6 oz pur e alcohol) [facility] [employer] Answer Date Recorded In the past 12 months has [facility] [employer], gas, oil, or water [employer] threatened to shut off services in your [...] your living situation today? [facility] live 09/02/2024 Sex and [...] 60-74 years 1-dose series) 2011 COVID-19 Vaccine ( season) 2023 Influenza Vaccine (#1) 2024 6, [...] M.D. LAB BLOOD ADD-ON Final Re sult [facility] [address] [place] [address], [facility] [place] [facility] - [facility] [address] [place] [address] * Troponin T, 5th Generation (09/14/2024 3:36 PM CDT) Troponin T, 5th gen 12 <=15 ng/L 09/14/2024 4:22 PM CDT AUST Blood (Blood, Venous) 09/14/2024 3:36 PM CDT 09/14/2024 3:45 PM CDT us Bruce Obrien II, M.D. LAB BLOOD ADD-ON Final Re sult Performing Organization Address City/[facility]/ZIP Co de Phone Number [facility] [address] [place] [address], [place] AUST [facility] - [facility] [address] [place] [address] * ECG 12 Lead (09/14/2024 3:34 PM CDT) Only the most recent of5 resultswithin the time period is included. Ventricular Rate ECG/Min 67 BPM MUSE [place] Interval 194 ms MUSE QRSD Interval 144 ms MUSE QT Interval 458 ms MUSE QTC Interval 483 ms MUSE P [place] 29 degrees MUSE R [place] -41 degrees MUSE T Wave [place] 19 degrees MUSE 09/14/2024 3:34 PM CDT [...] - 139 sec 09/03/2024 2:15 PM CDT MK Blood 09/03/2024 2:15 PM CDT 09/03/2024 2:20 PM CDT Generic Rals LAB POCT ORDERABLES - DEVICE Fin al Result [facility] [address] [place] [address], [facility] [place] [address] * Heparin Anti-Xa Assay (09/03/2024 11:48 AM CDT) Only the most recent of3 resultswithin the time period is included. Heparin Anti-Xa, P 0.36 IU/mL 2024 12:14 [...] M.D. LAB BLOOD NON ADD-ON Final Result [facility] [address] [place] [address], [place] MKTO [facility] in [place] [address] [place] [address] * (TTE) 2D ECHO DOPPLER COLOR AND [...] per Echocardiography Contrast Administration Protocol Reference Document [id number] Rev 07/20/2021. Patient met an inclusion criterion [...] administered per EchocardiographyContrast Administration Protocol Reference Document [id number] Rev07/20/2021. Patient met an inclusion criterion and [...] Carlson M.D. LAB BLOOD ADD-ON Final Result [facility] [address] [place] [address], [facility] MKTO [facility] in [place] [address] [place] [address] * CBC without Differential (09/03/2024 5:19 AM [...] 5:19 AM CDT 09/03/2024 5:23 AM CDT Eva Carlson M.D. LAB BLOOD ADD-ON Final Result [facility] [address] [place] [address], [facility] [address] [place] [address] * (ABNORMAL) Basic Metabolic Panel (09/03/2024 5:19 [...] Carlson M.D. LAB BLOOD ADD-ON Final Result [facility] [address] [place] [address], [facility] [address] [place] [address] * Critical Care (09/02/2024 4:15 PM CDT) Narrative Vance Perez P.A.-C., P.A. - 09/02/2024 4:15 PM CDT Vance Perez P.A.-C., P.A. 09/02/2024 4:15 PM Critical Care Performed by: Vance Perez P.A.-C., P.A. Authorized by: Vance Perez P.A.-C., P.AJagdeep Critical care provider statement: Critical care total [...] 2:45 PM CDT 09/02/2024 2:47 PM CDT Vance Perez P.A.-C., P.A. LAB BLOOD TROPON IN Final Result [facility] [address] [place] [address], [facility] AUST [facility] - [facility] [address] [place] [address] * DX Chest Portable 1 View (09/02/2024 [...] TROPON IN Final Result Performing Organization Address [facility] Co de Phone Number [address] [place] [address] * APTT (Activated Partial Thromboplastin Time) (09/02/2024 12:31 PM CDT) Activated Partial Thrombopl Time, P 34 25 - 37 sec 09/02/2024 4:03 PM CDT AUST Blood (Blood, Venous) 09/02/2024 12:31 PM CDT 09/02/2024 3:55 PM CDT Chance Andrae Perez P.A.-C., P.A. LAB BLOOD ADD-ON Final Result Performing Organization Address [facility] de Phone Number [facility] [address] [place] [address] * Prothrombin Time (PT) (09/02/2024 12:31 PM [...] BLOOD ADD-ON Final Result Performing Organization Address [facility] Co de Phone Number [facility] [address] [place] [address] Lab - [facility] [address] [place] [address] * D-Dimer (09/02/2024 12:31 PM CDT) [facility] D-Dimer, P <220 <=500 ng/mL FEU 09/02/2024 12:57 PM CDT AUST Comment: ----ADDITIONAL INFORMATION---- D-dimer values less than or equal to 500 ng/mL fibrinogen equivalent units (FEU) may be used in conjunction with clinical pre-test probability to exclude deep vein thrombosis (DVT) and/or pulmonary embolism (PE). Blood (Blood, Venous) 09/02/2024 12:31 PM CDT 09/02/2024 12:40 PM CDT us Chance L Chris Forte, P.A. LAB BLOOD ADD-ON Final Result [facility] [address] [place], [place] [address] - [facility] [address] [place] [address] * CBC with Differential, Blood (09/02/2024 12:31 PM CDT) [facility] Hemoglobin 15.9 13.2 - 16.6 g/dL 09/02/2024 [...] BLOOD ADD-ON Final Result Performing Organization Address City/[facility]/ZIP Co de Phone Number [facility] [address] Lab - [facility] [address] [place] [address] * Magnesium (09/02/2024 12:31 PM CDT) [facility] Magnesium, P 1.8 1.7 - 2.3 mg/dL 09/02/2024 1:00 PM CDT [facility] Blood (Blood, Venous) 09/02/2024 12:31 PM CDT 09/02/2024 12:39 PM CDT us Chance Andrae Perez P.A.-C., P.A. LAB BLOOD ADD-ON Final Result [facility] [address] Lab - [facility] [address] [place] [address] * (ABNORMAL) Comprehensive Metabolic Panel (09/02/2024 12:31 [...] 09/02/2024 12:39 PM CDT us Chance L Felton Perez P.A.-C. LAB BLOOD ADD-ON Final Result [facility] [address] [place] [address], [place] [facility] - [facility] [address] [place] [address] * Cologuard - Sent Out Lab (09/17/2023 [...] screened with both Cologuard and colonoscopy. (Sunni Marshall. et al, N Engl J Med 2014;370(14):2292-1701) The normal value (reference range) for this assay is negative. COLOGUARD RE-SCREENING RECOMMENDATION: Periodic colorectal cancer screening is an important part of preventive healthcare for asymptomatic individuals at average risk for colorectal cancer. Following a negative Cologuard result, the [place] [employer] Society and U.S. Multi-Society Task Force screening guidelines recommend a Cologuard re-screening interval of 3 years. References: [place] [employer] Guideline for Colorectal Cancer Screening: https://www.cancer.org/cancer/lzuxb-urxynn-wwkpmj/detection- diagnosis-staging/acs-recommendations.html.; Selvin GARRIDO, Denise CRUZ, Lalo PEARSON, Colorectal Cancer Screening: Recommendations for Physicians and Patients from the U.S. Multi-Society Task Force on Colorectal Cancer Screening , Am J Gastroenterology 2017; 112:7755-8429. TEST DESCRIPTION: Composite algorithmic analysis of stool [...] screened with both Cologuard and colonoscopy. (Sunni Solomon et al, N Engl J Med 2014;370(14):5053-5197.) Cologuard may produce a false negative or false positive result (no colorectal cancer or precancerous polyp present at colonoscopy follow up). A negative Cologuard test result does not guarantee the absence of CRC or advanced adenoma (pre-cancer). The current Cologuard screening interval is every 3 years. ([place] [employer] Society and U.S. Multi-Society Task Force). Cologuard performance data in a 10,000 patient pivotal study using colonoscopy as the reference method can be accessed at the following location: www.[employer]/results. Additional description of the Cologuard test process, warnings and precautions can be found at www.[employer].com. Stool (Stool) 09/17/2023 7:5 5 AM CDT 09/18/2023 10:31 AM CDT Milan Campos D.O. LAB BODY FLUIDS AND STOOLS OR DERABLES Final Result [facility] [address] [place] [address] [facility] [employer] [address] [place] [address], [address] [place] [address] * HCV Ab Scrn w/Reflex to HCV PCR, Serum (07/19/2023 1:43 PM CDT) HCV Ab Screen, S Negative Negative 07/20/19 6:22 AM CDT [facility] Comment: Biotin has been identified by the cloth roll winder as a potential interfering substance. Higher concentrations of biotin may be found in multivitamins, hair/nail supplements, and workout supplements. If the result does not match clinical observations, repeat testing after patient refrains from the use of supplements for at least 12 hours. Blood (Blood, Venous) 07/19/2023 1:43 PM CDT 07/20/2023 3:58 AM CDT Narrative [facility] - 07/20/2023 6:22 AM CDT Specimen Information: Specimen ID: [id number] Specimen Type: Blood Specimen Collection Start Date: 07/19/2023 1:43 PM Specimen Received Date: 07/20/2023 3:58 AM Specimen ID: [id number] Specimen Type: Blood Specimen Collection Start Date: 07/19/2023 1:43 PM Specimen Received Date: 07/20/2023 4:02 AM us Shelley ESPINOZA, P.A.-C., P.A. LAB MICROBIOLO GY - BLOOD ORDERABLES Final Result [facility] [address] [place] [address], [facility] [place] [address] * Hepatitis B Surface Antigen (07/18/2023 1:49 PM CDT) HBs Antigen, S Nonreactive Nonreactive 07/18/2023 3:18 PM CDT [facility] Blood (Blood, Venous) 07/18/2023 1:49 PM CDT 07/18/2023 1:54 PM CDT us Inna Buitrago P.A.-C., P.A. LAB MICROBIOLO GY - BLOOD ORDERABLES Final Result [facility] [address] [place] [address], [place] [facility] - [facility] [address] [place] [address] * CT Abdomen Pelvis with IV Contrast [...] the medial left iliac bone. Procedure Note Slat, [place], M.D. - 07/16/2023 EXAM: CT ABDOMEN PELVIS [...] of cholecystitis. 4. Probable hepatic steatosis. Parker Florentin Perez APRN C.N.P., M.S.N. IMG CT PROCED URES Final Result from Last 3 Months or Most Recently Relevant to Health Maintenance Insurance [facility] [employer] Advance Directives For more information, please contact: [phone] * Full Code (Latest Code Status on [...] DNI (Do Not Intubate): Discussed-Patient Care Teams Internet Sourcer Relationship Specialty Start Date End Date Milan Campos D.OJagdeep [address] [phone] PCP - General Family Medicine 07/31/23
--- OUTSIDE RECORDS SUMMARY | 2024-10-03 00:23 | XMS_ITS | Encounter Summary ---
Author Organization [facility] Address [address] [address] Care Team Providers Care Vacuum Furnace Operator Name Role Phone Lesia Galarza MD Primary Care Provider [phone] Reason for Visit * Reason Comments UPDATE Encounter Details Date Type Department Care Team (Late st Contact Info) Description 11/10/2012 [facility]phone [facility] [address] [place], [place] [address] Rudy Stone, RN UPDATE Social History Tobacco [...] on filedocumented in this encounter Care Teams Vacuum Furnace Operator Relationship Specialty Start Date End Date Lesia Galarza MD [address] [address] PCP - General 10/20/15 documented as of this encounter
--- OUTSIDE RECORDS SUMMARY | 2024-10-03 00:23 | XMS_ITS | Clinical Summary ---
Author Organization [email or web address] [facility] Address [address] [place] [address] Care Team Providers Care Caustic Room Attendant Name Role Phone Milan Campos DO Primary Care Provider [phone] Allergies Active Allergy Reactions Criticality Noted Date [...] in the gallbladder Obesity (BMI 30-39.9) 11/19/20142021 [place] (myocardial infarction) 04/27/2014 0 04/28/2019 Overview (04/27/2014): [...] 03/25/2007 08/11/2021 Overview (07/24/2016): Use cpap machine Encounters Date Type Department Care Team Description 10/02/2024 2:00 PM CDT Ancillary Procedure [facility] & [address] [address] Arrived from Last 3 Months Immunizations Immunization Administration Dates Next Due Influenza [...] - 06/24/1977 Cigars Smokeless Tobacco: Never Comments:quit 1977 Alcohol Use Standard Drinks/Week Comments Yes [...] on file Legal Sex Male 6:54 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 Gender Identity Not on file Sexual Orientation Not on file Occupation Industry Job Start Date Job End Date Not on file Not on file Not on file Not on file Obstetrics History Last Filed Vital Signs Vital Sign Reading Time Taken Comments Blood Pressure 124/86 05/05/2024 2:[address] OF [address] CLERK Pulse 66 05/05/2024 2:[address] CLERK Temperature 36.6 C (97.8 F) 08/12/2021 8:59 AM CDT Respiratory Rate 18 08/12/2021 8:59 AM CDT Oxygen Saturation 96% 05/05/2024 2:[address] CLERK Inhaled Oxygen Concentration - - Weight 89.1 kg (196 lb 6.4 oz) 05/05/2024 2:36 P M MAINTENANCE OF WAY CLERK Height 170.2 cm (5' 7) 05/05/2024 2:[address] CLERK Body Mass Index 30.76 05/05/2024 2:[address] OF [address] CLERK Plan of Treatment Health Maintenance Due Date [...] Procedure Name Priority Date/Time Associated Diagnosis Comments ECHO TTE COMPLETE WO CONTRAST Routine 10/02/2024 2:45 PM CDT CAD (coronary artery disease) LC LIPID PANEL Routine 07/12/2022 10:03 AM CDT Coronary artery disease, unspecified vessel or lesion type, unspecified whether angina present, unspecified whether creek or transplanted heart OCCULT BLOOD IFOBT STOOL Routine 12/20/2014 8:30 AM CDT Colon cancer screening ANTI HCV Routine 12/14/2014 9:59 AM CDT Need for hepatitis C screening test from Last 3 Months or Most Recently Relevant to Health Maintenance Results * ECHO TTE COMPLETE WO CONTRAST (10/02/2024 2:45 PM CDT) AORTIC VALVE MEAN PG 6 mmHg EJECTION FRACTION 60 % PEAK TR VELOCITY 2.4 m/s LVEDD 5.6 cm EJECTION FRACTION 55 - 60% Anatomical Region Laterality Modality Ultrasound 10/02/2024 2:17 PM CDT Narrative 10/02/2024 3:41 PM CDT ECHOCARDIOGRAM AROLDO HICKS : 1950 74 years Study Date: 10/02/2024 2:17:36 PM Gender: M BP: 155/82 mmHg Height: 170.00 cm BSA: 2.00 m Weight: 89.00 kg Tech: [facility] Referring MD: MARBIN CARTER Site: [facility] Reading Location: Mobile-OP Patient Location: Outpatient. Procedure: 2D, Color Doppler and Spectral Doppler. Indication for study: CAD Cardiac Rhythm: Sinus bradycardia and with premature ventricular contractions.Study quality: Fair. Imaging limitations: This study was subject to imaging limitations due to a prominent lung artifact. Final Impressions: 1. Normal LV size, normal wall thickness, normal function with an estimated EF of 55 - 60%. 2. Basal posterior segment is abnormal. 3. Right ventricular cavity size is normal, global systolic RV function is normal. 4. No significant valve disease detected. Comparison Compared to prior exam of 09/03/2024 [place], there has been no significant change. Chamber Sizes and Function Normal left ventricular size, normal wall thickness, normal global systolic function with an estimated EF of 55 - 60%. Left atrial size is normal. Right ventricular cavity size is normal, global systolic RV function is normal. The right atrium is normal. Right atrial volume index is 17 ml/m . Right atrial area is 16 cm . The pulmonary artery is not well visualized. The sinus of Valsalva is normal sized. The ascending aorta is normal sized. The basal posterior segment is hypokinetic. Valves, RV Pressures and Diastolic Function The aortic valve is normal in structure and sclerotic, no stenosis and trivial regurgitation. The mitral valve is sclerotic, trace mitral regurgitation. Indeterminate pattern of LV diastolic filling. The tricuspid valve is normal in structure, mild tricuspid regurgitation. The tricuspid regurgitant velocity is 2.4 m/s, the estimated right ventricular systolic pressure is 22 mmHg plus right atrial pressure. The pulmonic valve is not well visualized. Mild pulmonary regurgitation. Masses, Effusion, Shunts There is no pericardial effusion. The inferior vena cava is not well visualized, respiratory size variation not well visualized. No left to right shunting was detected by limited color flow Doppler interrogation of the interatrial septum. MEASUREMENTS AND CALCULATIONS 2-D Measurements and LV Function: LVID (d) 5.6 cm LV FS% (2D) 22 % LVID (s) 4.3 cm LVOT diameter 2.2 cm IVS (d) 1.1 cm HR 54 bpm LVPW (d) 1.0 cm LA Vol index 24 ml/m2 Ao Sinus 3.5 cm RA Vol index 17 ml/m2 Ao Sinus ULN 4.2 cm RA area 16 cm Asc Ao 4.2 cm RV Basal Diam 3.4 cm Asc Ao ULN 4.3 cm RV Mid Diam 2.5 cm LA 5.1 cm Diastology: Mitral Tissue Doppler E Peak 0.6 m/s e', Septum 0.06 m/s A Peak 0.9 m/s e', Lateral 0.14 m/s E/A 0.7 E/e' Average 6.11 DT 445 msec Aortic Valve: Vmax 1.7 m/s GIGI (V) 2.04 cm VTI 0.36 m GIGI (I) 2.08 cm LVOT V max 1.0 m/s Max PG 12 mmHg LVOT VTI 0.20 m Mean PG 6 mmHg SV 76 ml Dim Index 0.56 SV index 38 ml/m CO 4.1 l/min CI 2.0 l/min/m Mitral Valve: MVA 1.7 cm MV P 1/2 129 msec Tricuspid Valve and estimated PA pressures: TR Vmax 2.4 m/s TAPSE 2.0 cm TR maxG 22 mmHg . This study was interpreted by an [facility] accredited facility. CC: BRENDA (med records) [facility]. Final Procedure Note Uriah López MD - 10/02/2024 ECHOCARDIOGRAM AROLDO HICKS : 1950 74 years Study Date: 10/02/2024 2:17:36 PM Gender: M BP: 155/82 mmHg Height: 170.00 cm BSA: 2.00 m Weight: 89.00 kg Tech: RITIKA Referring MD: MARBIN CARTER Site: [facility] Reading Location: Mobile-OP Patient Location: Outpatient. Procedure: 2D, Color Doppler and Spectral Doppler. Indication for study: CAD Cardiac Rhythm: Sinus bradycardia and with premature ventricularcontractions.Study quality: Fair. Imaging limitations: This study was subject to imaging limitations due toa prominent lung artifact. Final Impressions: 1. Normal LV size, normal wall thickness, normal function with anestimated EF of 55 - 60%. 2. Basal posterior segment is abnormal. 3. Right ventricular cavity size is normal, global systolic RV functionis normal. 4. No significant valve disease detected. Comparison Compared to prior exam of 09/03/2024 [place], there has been no significantchange. Chamber Sizes and Function Normal left ventricular size, normal wall thickness, normal globalsystolic function with an estimated EF of 55 - 60%. Left atrial size isnormal. Right ventricular cavity size is normal, global systolic RVfunction is normal. The right atrium is normal. Right atrial volume indexis 17 ml/m . Right atrial area is 16 cm . The pulmonary artery is notwell visualized. The sinus of Valsalva is normal sized. The ascendingaorta is normal sized. The basal posterior segment is hypokinetic. Valves, RV Pressures and Diastolic Function The aortic valve is normal in structure and sclerotic, no stenosis andtrivial regurgitation. The mitral valve is sclerotic, trace mitralregurgitation. Indeterminate pattern of LV diastolic filling. Thetricuspid valve is normal in structure, mild tricuspid regurgitation. Thetricuspid regurgitant velocity is 2.4 m/s, the estimated right ventricularsystolic pressure is 22 mmHg plus right atrial pressure. The pulmonicvalve is not well visualized. Mild pulmonary regurgitation. Masses, Effusion, Shunts There is no pericardial effusion. The inferior vena cava is not wellvisualized, respiratory size variation not well visualized. No left toright shunting was detected by limited color flow Doppler interrogation ofthe interatrial septum. MEASUREMENTS AND CALCULATIONS 2-D Measurements and LV Function: LVID (d) 5.6 cm LV FS% (2D) 22 % LVID (s) 4.3 cm LVOT diameter 2.2 cm IVS (d) 1.1 cm HR 54 bpm LVPW (d) 1.0 cm LA Vol index 24 ml/m2 Ao Sinus 3.5 cm RA Vol index 17 ml/m2 Ao Sinus ULN 4.2 cm RA area 16 cm Asc Ao 4.2 cm RV Basal Diam 3.4 cm Asc Ao ULN 4.3 cm RV Mid Diam 2.5 cm LA 5.1 cm Diastology: Mitral Tissue Doppler E Peak 0.6 m/s e', Septum 0.06 m/s A Peak 0.9 m/s e', Lateral 0.14 m/s E/A 0.7 E/e' Average 6.11 DT 445 msec Aortic Valve: Vmax 1.7 m/s GIGI (V) 2.04 cm VTI 0.36 m GIGI (I) 2.08 cm LVOT V max 1.0 m/s Max PG 12 mmHg LVOT VTI 0.20 m Mean PG 6 mmHg SV 76 ml Dim Index 0.56 SV index 38 ml/m CO 4.1 l/min CI 2.0 l/min/m Mitral Valve: MVA 1.7 cm MV P 1/2 129 msec Tricuspid Valve and estimated PA pressures: TR Vmax 2.4 m/s TAPSE 2.0 cm TR maxG 22 mmHg . This study was interpreted by an [facility] accredited facility. CC: BRENDA (med records) [facility]. Final Marbin Carter DO ECHO ORD Sofía l Result * (ABNORMAL) LC LIPID PANEL (07/12/2022 10:03 AM CDT) [facility] Cholesterol, Total 112 100 - 199 mg/dL 07/13/2022 10:11 AM CDT [facility] Triglycerides 205(H) 0 - 149 mg/dL 07/13/2022 10:11 AM CDT [facility] ([facility] HDL Cholesterol 29(L) >39 mg/dL 10:11 AM CDT [facility] VLDL Cholesterol Jim 33 5 - 40 mg/dL 07/13/2022 10:11 AM CDT [facility] LDL Chol Calc (NIH) 50 0 - 99 mg/dL 07/13/2022 10:11 AM CDT [facility] Blood BLOOD SPECIMEN / Unknown Non-Lab Venipuncture / Unknown 07/12/2022 10:03 AM CDT 07/12/2022 10:13 AM CDT Narrative [facility] ([facility] - 07/13/2022 10:11 AM CDT Performed at: [address] [place] [id number] Crusher Setter: Mihai Andrews MD, Phone: [phone] us Josemanuel Flores MD SEND OUTS Final R esult [facility] ([facility]) [facility] [place] [address], * OCCULT BLOOD IFOBT STOOL (12/20/2014 8:30 AM CDT) STOOL BLOOD ,IFOBT Negative Negative, Invalid 12/20/2014 9:14 AM CDT [facility] Stool specimen (specimen) STOOL SPECIMEN / Unknown Non-Blood / Unknown 12/20/2014 8:30 AM CDT 12/20/2014 9:04 AM CDT us Lesia Galarza MD LABORATORY Final Resu lt [facility] [address] [place] [address] * ANTI HCV [[id number]] (12/14/2014 9:59 AM CDT) HEPATITIS C ANTIBODY Non-Reacti ve Non-Reacti ve 12/14/2014 3:30 PM CDT [facility] TR[facility] Blood specimen (specimen) BLOOD SPECIMEN / Unknown Venipuncture / Unknown 12/14/2014 9:59 AM CDT 12/14/2014 9:59 AM CDT Narrative [facility] - 12/14/2014 3:30 PM CDT Antibodies to HCV not detected; does not exclude the possibility of exposure to HCV. us Lesia Galarza MD SEND OUTS Final Resu lt [facility] [address] [place] [address], from Last 3 Months or Most Recently Relevant to Health Maintenance Insurance MEDICARE PB ONLY [employer] MEDICARE PART A HB ONLY MEDICARE PART B HB ONLY WORKERS COMP [facility] Advance Directives Documents on File Type Date Recorded Patient Medical Research Assistant Expl anation Healthcare Directive 10/11/2014 12:00 AM [...] 3:09 PM 12/19/2018 1:26 PM Care Teams Caustic Room Attendant Relationship Specialty Start Date End Date Milan Campos DO [address] [place] [id number] PCP - General Family Practice 05/05/24
--- OUTSIDE RECORDS SUMMARY | 2024-10-03 00:24 | XMS_ITS | Encounter Summary ---
Author Organization [facility] Address [address] [place] [address] Care Team Providers Care Bug Trimmer Name Role Phone Milan Campos D.O. Primary Care Provider Encounter Details Date Type Department Care Team (Late st Contact Info) Description 09/14/2024 Results Follow-Up Department of Family Medicine, [facility], in [place], [place] [address] [place] [phone] Bruce Obrien II, M.D. [address] [place] [phone] ECG 12 Lead Social History Tobacco Use Types Packs/Day Years Used Date Smoking Tobacco: Former Cigarettes Alcohol Use Standard Drinks/Week Comments Not Currently 0 (1 standard drink = 0.6 oz pur e alcohol) [facility] Utilities Answer Date Recorded In [...] your living situation today? I have a [facility] place to live 09/02/2024 Sex and Gender [...] on filedocumented in this encounter Care Teams Bug Trimmer Relationship Specialty Start Date End Date Milan Campos D.O. NPJarrod: [phone] [address] [place] [phone] PCP - General Family Medicine 07/31/23 documented as of this encounter
--- OUTSIDE RECORDS SUMMARY | 2024-10-03 00:24 | XMS_ITS | Encounter Summary ---
Author Organization [facility] Address [address] [place] [address] Care Team Providers Care Ship'S Engineer Name Role Phone Milan Campos D.O. Primary Care Provider [phone] Reason for Visit * Reason Comments Curbside Consultation Encounter Details Date Type Department Care Team (Latest Contact Info) Description 09/02/2024 Clinical Communication Department of Cardiovascular Diseases in [place], [place] [address] [place] [phone] Bruce Rodrigues M.D. [address] [place] [id number] Curbside Consultation Social History Tobacco Use Types Packs/Day Years Used Date Smoking Tobacco: Former Cigarettes Alcohol Use Standard Drinks/Week Comments Not Currently 0 (1 standard drink = 0.6 oz pur e alcohol) [facility] Utilities Answer Date Recorded In the past 12 months has [employer], gas, oil, or water company threatened [...] your living situation today? I have a [facility] place to live 09/02/2024 Sex and [...] was contacted by the emergency department at [place] regarding Aroldo Chen who presented to the emergency department with chest pain. The history was obtained from the medical record and emergency department provider. He has a complex cardiac history and has been followed by the [place] [facility] [place]. He had coronary bypass grafting in 2012. [...] possible for unstable angina and admitted to [place] or [place] depending on bed availability. Layla Rodrigues M.D. documented in this encounter Plan of Treatment Not on file documented as of this encounter Visit Diagnoses Not on filedocumented in this encounter Care Teams Ship'S Engineer Relationship Specialty Start Date End Date Milan Campos D.O. [address] [place] [phone] PCP - General Family Medicine 07/31/23 documented as of this encounter
== END 2024-10-02 13:23 | disposition home or self-care (01) ==
PROVIDERS: Visit Provider Chiropractor
DX: I25.10 Atherosclerotic heart disease of native coronary artery without angina pectoris (principal)
CPT/HCPCS: 93306